=== PATIENT | female | born 1970 | race Two or more races ===

== ENCOUNTER 2020-08-31 17:51 | Emergency (ER) | payer OTHER, SELFPAY ==
--- NOTE | 2020-08-31 | XR_ITS ---
EXAMINATION: LEFT ANKLE, LEFT FOOT CLINICAL INFORMATION: Pain and swelling COMPARISON: None TECHNIQUE: 2 views left ankle, 3 views left foot FINDINGS: Ankle: Marked soft tissue swelling is present laterally. No fracture is seen. The ankle mortise appears stable. Foot: No soft tissue swelling fractures or dislocation is seen. Some mild osteophytes are seen arising from the superior surface of the navicular and cuboid. IMPRESSION: Lateral soft tissue swelling of the ankle without bony fracture seen.
[2020-08-31 19:53] VITALS: BP 211/102; PULSE 75; RESP 16; TEMP 36.7; O2SAT 100; BMI 43.5
[2020-08-31 20:09] VITALS: BP 156/75; PULSE 76; RESP 20; TEMP 36.6; O2SAT 98
--- NOTE | 2020-08-31 20:11 | ED_ITS ---
HPI - Extremity Injury (Lower) General Chief Complaint: Extremity Injury, Lower Stated Complaint: Ankle Pain Time Seen by Provider: 08/31/20 20:11 Source: patient Mode of arrival: ambulatory Limitations: no limitations History of Present Illness HPI Narrative: Patient was just walking and heard a snap complaint: ankle injury Injury: Left: ankle (lateral malleolous) Type of Injury: unknown Place: other (store) Severity: moderate Context: walking Associated symptoms: snap/pop sensation Related Data Allergies Allergy/AdvReac Type Severity Reaction Status Date / Time No Known Allergies Allergy Verified 08/31/20 20:43 Review of Systems Constitutional: Constitutional: Reports no additional constitutional complaints Eyes: Eyes: Reports no additional eye complaints ENT: Denies dizziness Cardiovascular: Cardiovascular: Reports no additional cardiovascular complaints Respiratory: Respiratory: Reports as per HPI Gastrointestinal: Gastrointestinal: Reports no additional gastrointestinal complaints Genitourinary: Genitourinary: Reports no additional female genitourinary complaints Musculoskeletal: Musculoskeletal: Reports no additional musculoskeletal complaints Integumentary/Breasts: Skin/Breast: Denies rash Neurologic: Reports system reviewed and no additional complaints, except as documented, Denies dizziness and Denies Sensory deficit (Neuro) Psychiatric: Psychiatric: Denies anxiety [facility] Past Medical History Medical History (Updated 08/31/20 @ 21:09 by Chris Mccoy MD) Hypertension Social History Social History Alcohol intake: never Smoked in Last 30 Days: No Use of substances other than those prescribed or required for medical reasons: No Advance Directives: No Physical Exam Vital Signs and I&O and Narrative: Vital Signs and I&O: Vital Signs Temp 97.9 F 08/31/20 20:09 Pulse 76 08/31/20 20:09 Resp 20 08/31/20 20:09 BP 156/75 H 08/31/20 20:09 Pulse Ox 98 08/31/20 20:09 Intake & Output 08/31/20 08/31/20 09/01/20 06:59 18:59 06:59 Weight 122.47 kg Body Mass Index 43.5 Const: General: healthy appearing Nutritional Appearance: obese Orientation/consciousness: oriented to person and patient oriented x3 Limitations: no limitations HENMT: Head: Yes normal to inspection Ears: external ears normal General nose exam: Normal external nose present Mouth: Normal oral and palatal mucosa present and oropharynx normal Throat: Yes posterior oropharynx normal Eyes: General: appearance normal, both eyes and all related structures Neck: Other: supple Neck: Yes normal visual inspection Chest: Chest palpation & inspection: normal inspection of the chest Resp: Auscultation: clear to auscultation bilaterally Cardio: Jugular venous distension: no JVD Rate: regular rate Rhythm: regular rhythm Heart sounds: S1 normal heart sound present and S2 normal heart sound present GI: Inspection: Yes normal to inspection Palpation (GI): Soft to palpation, nontender and No hepatosplenomegaly present Auscultation: normal bowel sounds : General: Yes no CVA tenderness Back/Spine/Pelvis: Back: no CVA tenderness Skin: General skin exam: no rashes or lesions noted Neuro: General: oriented to person and patient oriented x3 Cranial nerves: Yes CN's II-XII intact bilaterally Motor exam (neuro): 5/5 motor strength present throughout Sensory Exam: No Sensory deficit (Neuro) Extrem: Other: lateral malleoulous tenderness and base of 5th tenderness Psych: Appearance: grossly normal Course Reevaluation(s) Reevaluation #1: no fracture Time: 21:07 MDM - Extremity Injury (Lower) MDM Narrative Medical decision making narrative: foot contusion Differential Diagnosis Differential diagnosis: Likely ankle sprain and strain Discharge Plan Discharge Clinical Impression: Ankle sprain and strain Instructions: Ankle Sprain (ED), Contusion in Adults (ED)
== END 2020-08-31 22:25 | disposition home or self-care (01) ==
PROVIDERS: Emergency Provider Emergency Medicine; PCP Hospitalist
DX: S93.402A Sprain of unspecified ligament of left ankle, initial encounter (principal); S96.912A Strain of unspecified muscle and tendon at ankle and foot level, left foot, initial encounter; X58.XXXA Exposure to other specified factors, initial encounter; I10 Essential (primary) hypertension; Y93.9 Activity, unspecified; Y92.9 Unspecified place or not applicable; Y99.9 Unspecified external cause status
CPT/HCPCS: 73610; 73630; 99283; 99284

== ENCOUNTER 2020-09-21 08:24 | Outpatient (REF) | payer OTHER, SELFPAY ==
[2020-09-21 09:50] LABS: Hematocrit 41.1 % (37-47); Hemoglobin 12.6 g/dl (12.0-16.0); Mean Corpuscular HGB Conc 30.7 g/dl (31.0-35.0); Mean Corpuscular Volume 81.7 fL (80-98); Mean Platelet Volume 9.9 fL (9.4-12.3); Platelet Count 343 X10*3/uL (160-400); Red Blood Count 5.03 X10*6/uL (4.20-5.50); White Blood Count 10.9 X10*3/uL (4.8-10.8)
[2020-09-21 10:19] LABS: Alanine Aminotransferase 17 U/L (0-31); Albumin Level 3.8 g/dL (3.5-5.0); Alkaline Phosphatase 119 U/L (39-117); Anion Gap 9 (12-20); Aspartate Amino Transferase 19 U/L (5-31); Bilirubin Direct 0.2 mg/dL (0.0-0.5); Bilirubin Total 0.4 mg/dL (0.0-1.0); Blood Urea Nitrogen 11 mg/dL (9-16); Calcium 8.6 mg/dL (8.4-10.2); Carbon Dioxide 29 mmol/L (22-29); Chloride 103 mmol/L (96-108); Cholesterol 218 mg/dL; Estimated Glomerular Filt Rate > 60; Glucose Fasting 93 mg/dL (60-99); HDL Cholesterol 49 mg/dL; LDL Cholesterol Calculated 140 mg/dl; Potassium 4.4 mmol/l (3.3-5.1); Sodium 137 mmol/L (135-145); Total Protein 6.8 g/dL (6.5-8.0); Triglycerides 146 mg/dL
[2020-09-21 10:34] LABS: HCG Quantitative < 2 mIU/mL; Thyroid Stimulating Hormone 3.13 mIU/mL (0.32-4.0)
[2020-09-21 10:38] LABS: TSH reflex Free T4 3.07 mIU/mL (0.32-4.0)
[2020-09-21 10:56] LABS: Glucose Urine UA NEG (NEG); Leukocyte Esterase Urine NEG (NEG); Nitrite Urine NEG (NEG); PH 5.5 (5.0-8.0); Specific Gravity - Urine 1.025 (1.005-1.025); Urine Blood TRACE (NEG); Urine Ketones NEG (NEG); Urine Protein NEG (NEG-TRACE)
[2020-09-21 10:59] LABS: Appearance Urine CLEAR; Color Urine YELLOW
[2020-09-21 11:23] LABS: Bacteria Urine TRACE /LPF; RBC Urine 0-2 /HPF (0); Squamous Epithelial Cell Urine 2+ /LPF; WBC Urine 0 /HPF (0-4)
[2020-09-22 16:46] LABS: Follicle Stimulating Hormone 0.9 mIU/mL; Lutenizing Hormone 2.6 mIU/mL
== END 2020-09-21 08:25 | disposition home or self-care (01) ==
LOC: HO.LAB 08:24
PROVIDERS: PCP Hospitalist; Visit Provider Obstetrics & Gynecology
DX: N92.1 Excessive and frequent menstruation with irregular cycle (principal)
CPT/HCPCS: 36415; 80048; 80061; 80076; 81001; 81003; 83001; 83002; 84443; 84702; 85027

== ENCOUNTER 2020-09-24 15:12 | Outpatient (REF) | payer OTHER, SELFPAY ==
--- NOTE | 2020-09-24 15:25 | US_ITS ---
EXAMINATION: ULTRASOUND PELVIS. CLINICAL INFORMATION: Excessive and frequent menstruation. COMPARISON: None TECHNIQUE: Transabdominal and transvaginal ultrasound of the pelvis is performed. FINDINGS: The uterus is anteverted, anteflexed and homogeneous echotexture. It measures 13.6 cm in length, 5.2 cm in AP and 7.2 cm in transverse dimension. There is a bicornuate uterus with a right endometrial thickness measuring 0.8 and left endometrial thickness measuring 1.2 cm. Minimal fluid is seen within the endometrial canal. There are several anechoic nabothian cysts in the cervix. Previously seen fibroid is not well visualized. Right ovary measures 3.3 x 2.6 x 2.8 cm. Previously measured 2.6 x 1.9 x 2.3 cm. It is unremarkable. Left ovary measures 2.3 x 1.4 x 2.0 cm. It is unremarkable. There is no free fluid in the cul-de-sac. US/US pelvic complete IMPRESSION: 1. Bicornuate uterus with minimal fluid in the endometrial canal. 2. Unremarkable ovaries.
--- NOTE | 2020-09-24 15:25 | US_ITS ---
EXAMINATION: ULTRASOUND PELVIS. CLINICAL INFORMATION: Excessive and frequent menstruation. COMPARISON: None TECHNIQUE: Transabdominal and transvaginal ultrasound of the pelvis is performed. FINDINGS: The uterus is anteverted, anteflexed and homogeneous echotexture. It measures 13.6 cm in length, 5.2 cm in AP and 7.2 cm in transverse dimension. There is a bicornuate uterus with a right endometrial thickness measuring 0.8 and left endometrial thickness measuring 1.2 cm. Minimal fluid is seen within the endometrial canal. There are several anechoic nabothian cysts in the cervix. Previously seen fibroid is not well visualized. Right ovary measures 3.3 x 2.6 x 2.8 cm. Previously measured 2.6 x 1.9 x 2.3 cm. It is unremarkable. Left ovary measures 2.3 x 1.4 x 2.0 cm. It is unremarkable. There is no free fluid in the cul-de-sac. US/US transvaginal IMPRESSION: 1. Bicornuate uterus with minimal fluid in the endometrial canal. 2. Unremarkable ovaries.
== END 2020-09-24 15:13 | disposition home or self-care (01) ==
LOC: HO.US 15:12
PROVIDERS: PCP Hospitalist; Visit Provider Obstetrics & Gynecology
DX: N92.1 Excessive and frequent menstruation with irregular cycle (principal)
CPT/HCPCS: 76830; 76856

== ENCOUNTER 2020-10-29 10:18 | Outpatient (REF) | payer OTHER, SELFPAY ==
[2020-10-29 14:44] LABS: CT PCR NOT DETECTED (Not Detect.); NG PCR NOT DETECTED (Not Detect.)
== END 2020-10-29 10:19 | disposition home or self-care (01) ==
LOC: HO.LAB 10:18
PROVIDERS: Visit Provider Obstetrics & Gynecology
DX: N92.1 Excessive and frequent menstruation with irregular cycle (principal)
CPT/HCPCS: 58100; 81025; 87491; 87591; 88305; 99212

== ENCOUNTER → 2020-11-15 10:14 | Outpatient (BNVA) | payer OTHER, SELFPAY | PROVIDERS: Visit Provider Obstetrics & Gynecology | DX: Z76.89 Persons encountering health services in other specified circumstances (principal) ==

== ENCOUNTER 2020-11-26 11:43 | Outpatient (REF) | payer OTHER, SELFPAY ==
--- NOTE | 2020-11-26 11:47 | MM_ITS ---
EXAMINATION: MM SCREENING DIGITAL BREAST TOMOSYNTHESIS, BILATERAL CLINICAL INFORMATION: Screening. Asymptomatic. The lifetime risk of breast cancer based on the Tyrer-Cuzick Model is 13%. COMPARISON: Mammography: 08/20/2019, 08/16/2018, 06/09/2017 TECHNIQUE: Digital breast tomosynthesis is performed in both the craniocaudal and mediolateral oblique views along with computer-aided detection (CAD). Synthesized 2D images are generated from the tomosynthesis. Additional right CC view is provided. FINDINGS: There are scattered areas of fibroglandular density (ACR BI-RADS breast composition Category b). There are no significant masses, abnormal calcifications, or other abnormalities. Parenchymal pattern is similar to prior studies. No significant changes. MM/MM tomosynthesis screening BI IMPRESSION: No mammographic evidence of malignancy. ASSESSMENT: BI-RADS 1: Negative RECOMMENDATION: Routine annual mammography screening. This patient's information was entered into a reminder system with a target due date for their next mammogram.
== END 2020-11-26 11:44 | disposition home or self-care (01) ==
LOC: HO.MAMMO 11:43
PROVIDERS: PCP Hospitalist; Visit Provider Hospitalist
DX: Z12.31 Encounter for screening mammogram for malignant neoplasm of breast (principal)
CPT/HCPCS: 77063; 77067

== ENCOUNTER → 2020-12-03 10:13 | Outpatient (BNVA) | payer OTHER, SELFPAY | PROVIDERS: PCP Internal Medicine; Visit Provider Obstetrics & Gynecology | DX: Z01.818 Encounter for other preprocedural examination (principal); N92.1 Excessive and frequent menstruation with irregular cycle | CPT/HCPCS: 99212 ==

== ENCOUNTER 2020-12-07 08:19 | Day surgery (SDC) | payer OTHER, SELFPAY ==
[2020-11-29 13:05] VITALS: BMI 43.5
--- NOTE | 2020-12-05 14:17 | P.CONAN_ITS ---
Documented by User: Ashley Miller 12/05/20 14:19 HPI - Anesthesia Eval Consult details Narrative: 50yo F for D&C Diagnostic Hysteroscopy,possible polypectomy/myomectomy [facility] Past Medical History Medical History Anxiety Hypertension Obesity PCOS (polycystic ovarian syndrome) Family History Family History Father Heart problem Mother Stroke Diabetes Son Asthma Surgical History Surgical History History of History of cholecystectomy History of dilatation and curettage Social History Social History Are you a primary healthcare liaison to a significant other at home: No Do you presently have visiting nurse or other home services: No Alcohol intake: never Smoking Status: Never smoker Use of substances other than those prescribed or required for medical reasons: No Have you been hit, kicked, punched, or otherwise hurt by someone within the past year? If so, by whom?: No Advance Directives: No Advance Directives Information Provided: No Advance Directives on File: No Recently lost weight without trying: No Sexual orientation: Straight/Heterosexual Gender identity: female Meds Allergies Allergy/AdvReac Type Severity Reaction Status Date / Time No Known Allergies Allergy Verified 12/07/20 08:39 Exam Exam Date and Time: December 05, 2020 1417 Height,Weight and Vital Signs: Height 5 ft 6 in Weight 122.47 kg Pertinent Lab Results Pertinent Lab Results: Laboratory Tests 09/21/20 09/21/20 08:58 09:11 WBC 10.9 H Hgb 12.6 Hct 41.1 Plt Count 343 Sodium 137 Potassium 4.4 Chloride 103 Carbon Dioxide 29 BUN 11 Creatinine 0.70 Assessment and Plan Assessment Anesthesia Assessment: Chart Reviewed Documented by User: Marlene Diaz 12/07/20 09:09 [facility] Past Medical History Medical History Anxiety Hypertension Obesity PCOS (polycystic ovarian syndrome) Family History Family History Father Heart problem Mother Stroke Diabetes Son Asthma Surgical History Surgical History History of History of cholecystectomy History of dilatation and curettage Social History Social History Are you a primary healthcare liaison to a significant other at home: No Do you presently have visiting nurse or other home services: No Alcohol intake: never Smoking Status: Never smoker Use of substances other than those prescribed or required for medical reasons: No Have you been hit, kicked, punched, or otherwise hurt by someone within the past year? If so, by whom?: No Advance Directives: No Advance Directives Information Provided: No Advance Directives on File: No Recently lost weight without trying: No Sexual orientation: Straight/Heterosexual Gender identity: female Meds Allergies Allergy/AdvReac Type Severity Reaction Status Date / Time No Known Allergies Allergy Verified 12/07/20 08:39 Exam Airway Mallampati Class: II TM Dist: >3cm Neck ROM: Full Assessment and Plan Assessment Anesthesia Assessment: Anesthesia Plan Discussed and Chart Reviewed Final Anesthetic Review NPO: Yes ASA Class: II Final Preanesthetic Review: No Changes in Pt Med Stat, Meds/Allgs Chart Reviewed, Consent Obtained/Reviewed and Anes Risks/Benef Reviewed Patient Risk: Low Procedure Risk: Low Assessment/Block/Sedation in SS: Assess/Block/Sedation-SS Anesthetic Plan Anesthetic Plan: MAC: Disposition: Standard PACU
[2020-12-07 08:48] VITALS: BP 151/65; PULSE 87; RESP 16; TEMP 36.6; O2SAT 99
--- NOTE | 2020-12-07 08:49 | MHC.SHP ---
Pre-Procedural Eval Section A The patient is an INPATIENT: No Changes since office visit: No Cold of Flu in the past 2 weeks, No New Medical Problems, No Changes in Medication and No Patient answered all questions The History & Physical has been completed within 30 days and I have reviewed it.: Yes Section B Chief Complaint: menstruation with irregular cycle Allergies: Allergies Allergy/AdvReac Type Severity Reaction Status Date / Time No Known Allergies Allergy Verified 12/07/20 08:39 Plan Diagnosis/Plan: Unchanged I have reviewed the history and physical and performed a pertinent physical examination on my patient. No changes have occurred unless specified.
[2020-12-07 08:52] LABS: UPreg QC Valid YES; Urine Pregnancy NEGATIVE (NEGATIVE)
--- NOTE | 2020-12-07 09:40 | PM.OP ---
Brief Operative Note Date of Service: 12/07/20 Pre-op diagnosis: Menometrorrhagia Post-op diagnosis: same Procedure: Hysteroscopy D&C Surgeon: Seymour Galvan MD Anesthesia: MAC Estimated blood loss (mL): 0 Pathology: other (Endometrial Scrapping.) Condition: stable Disposition: PACU
--- NOTE | 2020-12-07 09:41 | W.PM.OPN ---
Operative Note Operative Note Date of Service: 12/07/20 Narrative: Preop Diagnosis: MENOMETRORRHAGIA Operation: Diagnostic Hysteroscopy, Dilataion & Curettage and polypectomy Post Op Diagnosis: same QBL: Minimal Anesthesia: MAC Surgeon: Seymour Galvan MD Senior Software Engineer: None Complication: None Pathology: Endometrial Scrapings Complication: None Pathology: Endometrial Scrapings Procedure: The patient was put in the dorsal lithotomy position, scrubbed, and draped in the usual manner. A sterile speculum was inserted in the patient's vagina. The anterior lip of the cervix was grasped with a single tooth tenaculum. The cervix was dilated up to 5 mm, then the scope was inserted in the patient's uterus. Inspection revealed normal endometrial cavity with no evidence of pathology. Endometrial scrapings was done with no complications. All instruments were taken out of the patient uterine and vaginal cavity. The single tooth tenaculum was removed and homeostasis was assured using pressure,. The patient tolerated the procedure well and was transferred to the PACU in a stable condition.
[2020-12-07 09:46] VITALS: BP 150/75; PULSE 88; RESP 16; TEMP 36.3; O2SAT 96
[2020-12-07 09:50] VITALS: BP 146/64; PULSE 82; RESP 16; O2SAT 96
[2020-12-07 10:00] VITALS: BP 130/72; PULSE 78; RESP 16; TEMP 36.1; O2SAT 98
--- NOTE | 2020-12-07 10:44 | HO.POSTANES ---
Post Anesthesia Evaluation Post Anesthesia Evaluation Vital Signs: Vital Signs Temp Pulse Resp BP Pulse Ox 12/07/20 10:00 97 F 78 16 130/72 98 12/07/20 09:50 82 16 146/64 H 96 12/07/20 09:46 97.4 F 88 16 150/75 H 96 12/07/20 08:48 97.8 F 87 16 151/65 H 99 Anesthesia: Monitored Mental Status: Awake Pain Control: Satisfactory Nausea/Vomiting: None Hydration: Adequate Anesthesia-Related Issues: No Anes. Related Issues
== END 2020-12-07 10:45 | disposition home or self-care (01) ==
PROVIDERS: Nurse Practitioner; Visit Provider Obstetrics & Gynecology
PROC: 0UDB8ZX Extraction of Endometrium, Via Natural or Artificial Opening Endoscopic, Diagnostic (ICD-10-PCS; CPT 58558; principal; 2020-12-07 10:10)
DX: N92.1 Excessive and frequent menstruation with irregular cycle (principal); N85.8 Other specified noninflammatory disorders of uterus; E28.2 Polycystic ovarian syndrome; I10 Essential (primary) hypertension; F41.9 Anxiety disorder, unspecified; Z90.49 Acquired absence of other specified parts of digestive tract
CPT/HCPCS: 58558; 81025; 88305; J1100; J2250; J2405; J3010

== ENCOUNTER → 2020-12-20 12:22 | Outpatient (BNVA) | payer OTHER, SELFPAY | PROVIDERS: PCP Internal Medicine; Visit Provider Obstetrics & Gynecology ==

== ENCOUNTER 2021-02-20 10:15 | Outpatient (REF) | payer OTHER, SELFPAY ==
--- NOTE | ~2021-02-20 | XR_ITS ---
EXAMINATION: XR ANKLE, LEFT CLINICAL INFORMATION: Pain left ankle and foot. COMPARISON: Radiographs left ankle and foot 08/31/2020 TECHNIQUE: AP, lateral, and mortise views of the left ankle. FINDINGS: Bony mineralization is normal. There is no fracture or dislocation or destructive process. The tibial talar joint shows no narrowing or erosive change. Subtalar joint is unremarkable. There is no visible osteochondral lesion talar dome. Borderline posterior calcaneal spur. Base fifth metatarsal unremarkable. XR/XR ankle LT min 3V IMPRESSION: No fracture, destructive process, or arthropathy.
== END 2021-02-20 10:16 | disposition home or self-care (01) ==
LOC: HO.XRAY 10:15
PROVIDERS: PCP Hospitalist; Visit Provider Hospitalist
DX: M25.572 Pain in left ankle and joints of left foot (principal)
CPT/HCPCS: 73610

== ENCOUNTER 2021-03-18 11:51 | Emergency (ER) | payer OTHER, SELFPAY ==
--- NOTE | ~2021-03-18 | XR_ITS ---
EXAMINATION: XR CHEST CLINICAL INFORMATION: Cough COMPARISON: None TECHNIQUE: Frontal view of the chest was obtained. FINDINGS: No significant abnormality is noted involving the heart, lungs, mediastinum, bony thorax or soft tissues. XR/XR chest 1V IMPRESSION: Unremarkable chest exam
[2021-03-18 12:19] VITALS: BP 189/91; PULSE 87; RESP 16; TEMP 36.5; O2SAT 99; BMI 45.1
--- NOTE | 2021-03-18 12:32 | ED_ITS ---
HPI - SOB/Dyspnea General Chief Complaint: Dyspnea Stated Complaint: covid+ - diff breathing Time Seen by Provider: 03/18/21 12:29 Source: patient Mode of arrival: ambulatory Limitations: no limitations History of Present Illness HPI Narrative: 50-year-old female walked in for evaluation of coughing and difficulty breathing. 50-year-old female who was diagnosed positive for COVID 2 weeks ago, patient for the past 4 days has been worsening of coughing with productive yellow thick sputum, mild shortness of breath. No recent travel or prolonged immobilization, no history of PE or DVT. Patient noted to be hypertensive in the emergency department patient did not take her lisinopril 30 mg today. Related Data Previous Rx's Medication Instructions Recorded lisinopril 30 mg tablet 30 mg PO DAILY 90 Days #90 tab 10/10/20 progesterone micronized 200 mg 200 mg PO BEDTIME 10 Days #10 cap 12/20/20 capsule albuterol sulfate [ProAir HFA] 1 inh INHALATION QID PRN #8.5 g 03/18/21 Allergies Allergy/AdvReac Type Severity Reaction Status Date / Time No Known Allergies Allergy Verified 03/18/21 12:22 Review of Systems Review of Systems: All other systems are reviewed and are negative Constitutional: Reports as per HPI and Reports no additional constitutional complaints Eyes: Reports as per HPI and Reports no additional eye complaints Reports system reviewed and no additional complaints, except as documented Cardiovascular: Reports as per HPI and Reports no additional cardiovascular complaints Respiratory: Reports as per HPI and Reports no additional respiratory complaints Gastrointestinal: Reports as per HPI and Reports no additional gastrointestinal complaints Genitourinary: Reports no additional female genitourinary complaints Musculoskeletal: Reports no additional musculoskeletal complaints Skin/Breast: Reports system reviewed and no additional complaints, except as docu Psychiatric: Reports no additional psychiatric complaints Endocrine: Reports no additional endocrine complaints Hematologic/Lymphatic: Reports no additional hematologic/lymphatic complaints Allergic/Immunologic: Reports no additional allergic/immunologic complaints Reports system reviewed and no additional complaints, except as documented and Reports Abnormal speech present [facility] Past Medical History Medical History Anxiety Hypertension Obesity PCOS (polycystic ovarian syndrome) Surgical History History of History of cholecystectomy History of dilatation and curettage Family History Family History Father Heart problem Mother Stroke Diabetes Son Asthma Social History Social History Alcohol intake: never Smoking Status: Never smoker Advance Directives: No Advance Directives Information Provided: No Sexual orientation: Straight/Heterosexual Gender identity: female Physical Exam Vital Signs: Vital Signs: Last Vital Signs Temp 97.7 F 03/18/21 12:19 Pulse 87 03/18/21 12:19 Resp 16 03/18/21 12:19 BP 189/91 H 03/18/21 12:19 Pulse Ox 99 03/18/21 12:19 Body Mass Index 45.1 Vital signs have been reviewed as appeared to be correct. Blood pressure elevated. Heart rate normal. Respiration rate normal. Temperature normal. Oxygen saturation normal. Appearance: Alert. Oriented X3. No acute distress. Head: Normal external exam. Normocephalic. Atraumatic. No Fernandez signs noted. No raccoon eyes noted Eyes: PERRLA. EOMI. Conjunctiva and sclera normal. Eyelids normal. ENT: TM's Normal. Pharynx normal. Uvula midline. Moist mucous membranes. No trismus noted. No drooling noted. No muffled voice noted. Neck: Normal inspection. Neck supple. FROM. No adenopathy. Thyroid Normal. No meningeal signs. No neck mass noted. CVS: Normal heart rate and rhythm. Heart sound normal. No murmurs noted. Pulses normal throughout. Respiratory: No respiratory distress. Painless inspiration. Breath sounds normal. Mild expiratory wheezes diffusely bilaterally, no rales, or rhonchi noted. Chest nontender. No accessory muscle usage noted or decreased air movement noted. Abdomen: Soft and nontender. Bowel sounds normal in all 4 quadrants. No distention noted. No organomegaly noted. No visible injury noted. Back: No CVA tenderness. Full range of motion noted. Skin: Skin warm and dry. Normal skin color. Normal skin turgor. No rashes/lesions/lacerations noted. Extremities: No lower extremity edema. Extremities exhibit normal range of motion. Extremities nontender. Neuro: Oriented X 3. No motor deficit. No sensory deficit. Reflexes normal. Course Course Course Narrative: Assessment and plan. 50-year-old female diagnosed with COVID infection 2 weeks ago, came in today with increased congestion and coughing. Chest x-ray is not showing superimposed bacterial pneumonia. Patient feels better with bronchial dilator will discharge home with bronchodilator. Will give a dose of lisinopril (patient's home medication she did not take today). MDM - SOB/Dyspnea Imaging Data Chest x-ray: Radiologist's impression: No acute pathology. Discharge Plan Discharge Clinical Impression: Pneumonia due to 2019 novel coronavirus Patient Disposition: Home, Self-Care Instructions: COVID-19 (Coronavirus Disease 2019) (ED) Prescriptions: New albuterol sulfate [ProAir HFA] 90 mcg/actuation HFA aerosol inhaler 1 inh inhalation QID PRN (Reason: shortness of breath or wheezing) Qty: 8.5 RF: 0 No Action lisinopril 30 mg tablet 30 mg PO DAILY 90 Days Qty: 90 RF: 1 progesterone micronized [Prometrium] 200 mg capsule 200 mg PO BEDTIME 10 Days Qty: 10 RF: 6 Referrals: Yadira Hernandez NP [Primary Care Provider] - 2 days
[2021-03-18] MEDS: Albuterol Sulfate 90 MCG 8 GM INHALER 2 PUFF INHALE (12:35)
== END 2021-03-18 13:30 | disposition home or self-care (01) ==
PROVIDERS: Emergency Provider Emergency Medicine; PCP Hospitalist
DX: U07.1 COVID-19 (principal); J12.82 Pneumonia due to coronavirus disease 2019; I10 Essential (primary) hypertension; Z79.899 Other long term (current) drug therapy
CPT/HCPCS: 71045; 99283; 99284

== ENCOUNTER 2021-06-22 00:48 | Emergency (ER) | payer OTHER, SELFPAY ==
[2021-06-22 00:58] VITALS: BP 177/81; PULSE 80; RESP 14; TEMP 36.6; O2SAT 100; BMI 42.8
--- NOTE | 2021-06-22 01:12 | ECG_ITS ---
Test Reason : PALPITATIONS Blood Pressure : / mmHG Vent. Rate : 080 BPM Atrial Rate : 080 BPM P-R Int : 166 ms QRS Dur : 084 ms QT Int : 380 ms P-R-T Axes : 024 026 042 degrees QTc Int : 438 ms Sinus rhythm with occasional Premature ventricular complexes Otherwise normal ECG When compared with ECG of 01-SEP-2019 10:31, Premature ventricular complexes are now Present Referred By: Angela Cisneros Electronically Signed By:MORENITA VALLES MD
--- NOTE | 2021-06-22 01:17 | ED.ARRPALP ---
HPI - Arrhythmia/Palpitations General Chief Complaint: Arrhythmia/Palpitations Stated Complaint: heart palpitations, SoB, tongue discoloration Time Seen by Provider: 06/22/21 01:12 Source: patient Mode of arrival: ambulatory Limitations: no limitations History of Present Illness HPI narrative: Patient comes to the emergency room complaining of symptomatic palpitations. Patient states that every so many seconds, she feels an extra palpitation. Patient denies chest pain, no shortness of breath. Patient also complaining of a whitish hue to the back of the tongue. No painful . Related Data Previous Rx's Medication Instructions Recorded progesterone micronized 200 mg 200 mg PO BEDTIME 10 Days #10 cap 12/20/20 capsule albuterol sulfate [ProAir HFA] 1 inh INHALATION QID PRN #8.5 g 03/18/21 lisinopril 30 mg tablet 30 mg PO DAILY 90 Days #90 tab 03/29/21 metoprolol tartrate 25 mg PO BID #30 tab 06/22/21 nystatin 1 ml PO DAILY #60 ml 06/22/21 Allergies Allergy/AdvReac Type Severity Reaction Status Date / Time No Known Allergies Allergy Verified 03/18/21 12:22 Review of Systems Review of Systems: Constitutional : No Weight loss, No Fever, No Chills, No Night Sweats, No Fatigue, No Malaise ENT/Mouth : No Hearing loss, No Ear Pain, No Nasal Congestion, No Sinus Pain, No Hoarseness, No sore throat, No Rhinorrhea, No Swallowing Difficulty, complaining of whitish hue to the back of the tongue Eyes: No Eye Pain, No Swelling, No Redness, No Foreign Body, No Discharge, No Vision Changes Cardiovascular : No Chest Pain, No SOB, No Dyspnea on Exertion, No Orthopnea, No Edema, complaining of occasional Palpitations Respiratory : No Cough, No Sputum, No Wheezing, No Smoke Exposure, No Dyspnea Gastrointestinal : No Nausea, No Vomiting, No Diarrhea, No Constipation, No abdominal Pain, No Hematochezia, No Melena Genitourinary : no irregular bleeding, No Dysuria, No Urinary Frequency, No Hematuria, No Urinary Incontinence, No Urgency, No Flank Pain, No Urinary Flow Changes, No Hesitancy Musculoskeletal : No joint pain, No Myalgias, No Joint Swelling Skin : No Skin Lesions, No rash Neuro : No Weakness, No Numbness, No Paresthesias, No Loss of Consciousness, No Dizziness, No Headache Psych : No Anxiety/Panic, No Depression, No SI/HI/AH/VH, No Social Issues, Heme/Lymph: No Bruising, No Bleeding,No Lymphadenopathy Endocrine : No Polyuria, No Polydipsia, No Temperature Intolerance [facility] Past Medical History Medical History Anxiety Hypertension Obesity PCOS (polycystic ovarian syndrome) Surgical History History of History of cholecystectomy History of dilatation and curettage Family History Family History Father Heart problem Mother Stroke Diabetes Son Asthma Social History Social History Are you a primary medicare insurance specialist to a significant other at home: No Do you presently have visiting nurse or other home services: No Alcohol intake: unknown Patient Tobacco Use Status: Tobacco use Unknown Use of substances other than those prescribed or required for medical reasons: Unknown Advance Directives: No Advance Directives Information Provided: No Patient : No Sexual orientation: Straight/Heterosexual Gender identity: female Physical Exam Vital Signs: Vital Signs: Last Vital Signs Temp 97.9 F 06/22/21 00:58 Pulse 83 06/22/21 02:00 Resp 19 06/22/21 02:00 BP 162/86 H 06/22/21 02:00 Pulse Ox 99 06/22/21 02:00 Body Mass Index 42.8 Appearance: Alert. Oriented X3. No acute distress. Eyes: Pupils equal, round and reactive to light. ENT: Pharynx normal. Mild candidiasis in the tongue Neck: Normal inspection. Neck supple. No lymph nodes noted. No crepitus CVS: Normal heart rate and rhythm. Pulses normal. S1-S2, occasional PVCs seen on the monitor, heard on auscultation, and symptomatic to the patient Respiratory: No respiratory distress. Breath sounds normal. No Wheezing. No rales Abdomen: Soft and nontender. No rigidity. No distention. good BS x4 Skin: Skin warm and dry. Normal skin color. Normal skin turgor. Extremities: No lower extremity edema. No lower extremity edema. No Lacerations. No Rash Neuro: Oriented X 3. No motor deficit. No sensory deficit. Moving all extermities. No slurred speech. Course Course Course Narrative: Discussed the labs with the patient. Patient continues having symptomatic PVCs. Patient will be started on metoprolol tartrate 25 mg b.i.d.. Patient already takes lisinopril for blood pressure, her blood pressure is high enough to start metoprolol. Currently 180 systolic. Other than the PVCs, patient has no chest pain, no shortness of breath. MDM - Arrhythmia/Palpitations Lab Data Result diagrams: 06/22/21 01:49 06/22/21 01:49 Labs: Lab Results 06/22/21 06/22/21 06/22/21 Range/Units 01:49 01:49 01:49 WBC 8.8 (4.8-10.8) X10*3/uL RBC 4.83 (4.20-5.50) X10*6/uL Hgb 12.3 (12.0-16.0) g/dl Hct 39.3 (37-47) % MCV 81.4 (80-98) fL MCH 25.5 L (27.0-33.0) pg MCHC 31.3 (31.0-35.0) g/dl RDW 16.6 H (11.0-16.0) % Plt Count 314 (160-400) X10*3/uL MPV 9.6 (9.4-12.3) fL Immature Gran % (Auto) 0.2 (0.0-0.4) % Neut % (Auto) 64.7 (45-73) % Lymph % (Auto) 25.5 (20-40) % Brown % (Auto) 7.3 (2-11) % Eos % (Auto) 2.0 (0-4) % Baso % (Auto) 0.3 (0-2) % Lymph # (Auto) 2.3 (1.2-4.9) X10*3/uL Brown # (Auto) 0.6 (0.1-1.2) X10*3/uL Eos # (Auto) 0.2 (0.0-0.4) X10*3/uL Baso # (Auto) 0.0 (0.0-0.2) X10*3/uL Abs Immat Gran (auto) 0.02 (0.00-0.03) X10*3/uL Absolute Neuts (auto) 5.7 (2.0-8.3) X10*3/uL Absolute Nucleated RBC 0.000 (0.0-0.012) X10*3/uL Nucleated RBC % (auto) 0.0 (0.0-0.2) /100WBC Sodium 141 (135-145) mmol/L Potassium 4.1 (3.3-5.1) mmol/L Chloride 106 (96-108) mmol/L Carbon Dioxide 28 (22-29) mmol/L Anion Gap 11 L (12-20) BUN 14 (9-16) mg/dL Creatinine 0.82 (0.5-1.4) mg/dL Estim Creat Clear Calc 109.7 Estimated GFR > 60 Random Glucose 119 H (60-115) mg/dL Calcium 9.4 D (8.4-10.2) mg/dL Total Bilirubin 0.3 (0.0-1.0) mg/dL Direct Bilirubin < 0.2 (0.0-0.5) mg/dL AST 18 (5-31) U/L ALT 13 (0-31) U/L Alkaline Phosphatase 114 (39-117) U/L Troponin I High Sens 4.7 (<3.5-17.0) ng/L Total Protein 7.2 (6.5-8.0) g/dL Albumin 4.0 (3.5-5.0) g/dL TSH 2.26 (0.32-4.0) uIU/mL ECG Data Attestation: I personally reviewed and interpreted this ECG as follows: (Center rhythm, heart rate 80, multiple PVCs, no ST segment depression or elevation, no T-wave inversion, QTC 438) Discharge Plan Discharge Clinical Impression: Symptomatic PVCs, Candidiasis of mouth Patient Disposition: Home, Self-Care Instructions: Heart Palpitations (ED), Oral Candidiasis (ED) Additional Instructions: Please follow-up with your primary care physician tomorrow. If you have any worsening or new symptoms, please return to the emergency room or call 911 Prescriptions: New nystatin 100,000 unit/mL suspension 1 ml PO DAILY Qty: 60 RF: 0 metoprolol tartrate 25 mg tablet 25 mg PO BID Qty: 30 RF: 0 No Action lisinopril 30 mg tablet 30 mg PO DAILY 90 Days Qty: 90 RF: 1 albuterol sulfate [ProAir HFA] 90 mcg/actuation HFA aerosol inhaler 1 inh inhalation QID PRN (Reason: shortness of breath or wheezing) Qty: 8.5 RF: 0 progesterone micronized [Prometrium] 200 mg capsule 200 mg PO BEDTIME 10 Days Qty: 10 RF: 6 Referrals: Justin Bobby MD [Physician] - 2 days
[2021-06-22 01:51] VITALS: BP 167/82; PULSE 78; RESP 12; O2SAT 100
[2021-06-22 01:54] LABS: Basophils Percent Auto 0.3 % (0-2); Eosinophils Absolute Auto 0.2 X10*3/uL (0.0-0.4); Hematocrit 39.3 % (37-47); Hemoglobin 12.3 g/dl (12.0-16.0); Imm Gran Abs Auto 0.02 X10*3/uL (0.00-0.03); Imm Gran Pct Auto 0.2 % (0.0-0.4); Lymphocytes Absolute Auto 2.3 X10*3/uL (1.2-4.9); Lymphocytes Percent Auto 25.5 % (20-40); Mean Corpuscular HGB Conc 31.3 g/dl (31.0-35.0); Mean Corpuscular Hemoglobin 25.5 pg (27.0-33.0); Mean Corpuscular Volume 81.4 fL (80-98); Mean Platelet Volume 9.6 fL (9.4-12.3); Monocytes Absolute Auto 0.6 X10*3/uL (0.1-1.2); Monocytes Percent Auto 7.3 % (2-11); Neutrophils Absolute Auto 5.7 X10*3/uL (2.0-8.3); Neutrophils Percent Auto 64.7 % (45-73); Platelet Count 314 X10*3/uL (160-400); Red Blood Count 4.83 X10*6/uL (4.20-5.50); Red Cell Distribution Width 16.6 % (11.0-16.0); White Blood Count 8.8 X10*3/uL (4.8-10.8)
[2021-06-22 01:55] LABS: MANUAL DIFF FLAG NO
[2021-06-22 02:00] VITALS: BP 162/86; PULSE 83; RESP 19; O2SAT 99
[2021-06-22 02:17] LABS: Troponin-I High Sensitivity 4.7 ng/L (<3.5-17.0)
[2021-06-22 02:18] LABS: Alanine Aminotransferase 13 U/L (0-31); Alkaline Phosphatase 114 U/L (39-117); Anion Gap 11 (12-20); Aspartate Amino Transferase 18 U/L (5-31); Bilirubin Direct < 0.2 mg/dL (0.0-0.5); Bilirubin Total 0.3 mg/dL (0.0-1.0); Blood Urea Nitrogen 14 mg/dL (9-16); Calcium 9.4 mg/dL (8.4-10.2); Carbon Dioxide 28 mmol/L (22-29); Chloride 106 mmol/L (96-108); Creatinine Clr Calc Pharmacy 109.7; Estimated Glomerular Filt Rate > 60; Glucose Random 119 mg/dL (60-115); Potassium 4.1 mmol/L (3.3-5.1); Sodium 141 mmol/L (135-145); Total Protein 7.2 g/dL (6.5-8.0)
[2021-06-22 02:38] LABS: TSH reflex Free T4 2.26 uIU/mL (0.32-4.0)
[2021-06-22 03:07] VITALS: BP 147/89; PULSE 87
[2021-06-22] MEDS: Metoprolol Tartrate 25 MG TABLET PO (03:07)
== END 2021-06-22 03:26 | disposition home or self-care (01) ==
PROVIDERS: Emergency Provider Emergency Medicine
DX: I49.3 Ventricular premature depolarization (principal); B37.0 Candidal stomatitis; I10 Essential (primary) hypertension
CPT/HCPCS: 36415; 80048; 80076; 84443; 84484; 85025; 93005; 99284; 99285

== ENCOUNTER 2021-07-02 11:54 | Emergency (ER) | payer OTHER, SELFPAY ==
[2021-07-02 12:42] VITALS: BP 178/87; PULSE 76; RESP 18; TEMP 36.9; O2SAT 98; BMI 43.5
--- NOTE | 2021-07-02 13:39 | ED.GENADULT ---
HPI - General Adult General Chief complaint: Neck Pain/Injury Stated complaint: neck pain Time Seen by Provider: 07/02/21 13:25 Source: patient Mode of arrival: ambulatory Limitations: no limitations History of Present Illness HPI narrative: 50-year-old female who presents emergency department for evaluation of right-sided neck pain and spasm. Patient states that she had no injury to her neck. Yesterday she noted some slight pain in the right neck area. This morning, she was unable to move her neck. She points to her right trapezius muscle last localize the pain. She states the pain is a constant, pulling sensation which is 10/10 at its worst. The pain is worse with movement. She denied any numbness, weakness or pain that radiates down her arm. She states that she did have a shooting sensation her left neck which happened this morning but has not resolved. She denied fever, chills, loss of bowel or bladder control. Related Data Previous Rx's Medication Instructions Recorded progesterone micronized 200 mg 200 mg PO BEDTIME 10 Days #10 cap 12/20/20 capsule (Prometrium) albuterol sulfate 90 mcg/actuation 1 inh INHALATION QID PRN #8.5 g 03/18/21 aerosol inhaler (ProAir HFA) lisinopril 30 mg tablet 30 mg PO DAILY 90 Days #90 tab 03/29/21 metoprolol tartrate 25 mg tablet 25 mg PO BID #30 tab 06/22/21 nystatin 100,000 unit/mL oral 1 ml PO DAILY #60 ml 06/22/21 suspension cyclobenzaprine 10 mg tablet 10 mg PO TID PRN #20 tab 07/02/21 ibuprofen 600 mg tablet 600 mg PO Q6H PRN #30 tab 07/02/21 Allergies Allergy/AdvReac Type Severity Reaction Status Date / Time No Known Allergies Allergy Verified 03/18/21 12:22 Review of Systems Review of Systems: Yes all other systems are reviewed and are negative [facility] Past Medical History [facility] Narrative: Social history: She denied tobacco, alcohol, drug use. Medical History Anxiety Hypertension Obesity PCOS (polycystic ovarian syndrome) Surgical History History of History of cholecystectomy History of dilatation and curettage Family History Family History Father Heart problem Mother Stroke Diabetes Son Asthma Social History Social History Are you a primary child day care provider to a significant other at home: No Do you presently have visiting nurse or other home services: No Alcohol intake: unknown Patient Tobacco Use Status: Tobacco use Unknown Advance Directives: No Advance Directives Information Provided: No Patient : No Sexual orientation: Straight/Heterosexual Gender identity: female Physical Exam Vital Signs: Vital Signs: Last Vital Signs Temp 98.4 F 07/02/21 12:42 Pulse 76 07/02/21 12:42 Resp 18 07/02/21 12:42 BP 178/87 H 07/02/21 12:42 Pulse Ox 98 07/02/21 12:42 Body Mass Index 43.5 Const: General: cooperative and no acute distress Orientation/consciousness: oriented to person and oriented to place Limitations: no limitations HENMT: Head: Yes normal to inspection, Yes normocephalic and Yes atraumatic Ears: external ears normal General nose exam: Normal external nose present Face and sinus: Yes normal facial exam Mouth: Normal oral and palatal mucosa present Throat: Yes posterior oropharynx normal Eyes: General: appearance normal, both eyes and all related structures Pupils: Equal, round and reactive pupils present Neck: Neck: Yes normal visual inspection, Yes no lymphadenopathy, Yes trachea midline and Yes tender (Right trapezius muscle with spasm) Chest: Chest palpation & inspection: normal inspection of the chest and normal palpation of entire chest wall Resp: Effort & Inspection: normal respiratory effort and able to speak in complete sentences Auscultation: clear to auscultation bilaterally Cardio: Rate: regular rate Rhythm: regular rhythm Heart sounds: S1 normal heart sound present, S2 normal heart sound present and no murmurs GI: Inspection: Yes normal to inspection Palpation (GI): Soft to palpation, nontender and no guarding Auscultation: normal bowel sounds : General: Yes no CVA tenderness Back/Spine/Pelvis: Back: no CVA tenderness Skin: General skin exam: no rashes or lesions noted Neuro: General: oriented to person and oriented to place Cranial nerves: Yes CN's II-XII intact bilaterally and Yes Equal, round and reactive pupils present Cognition (Neuro): normal cognition Motor exam (neuro): 5/5 motor strength present throughout Extrem: General: Yes normal to inspection Psych: Appearance: grossly normal Speech and movement: Normal speech and movement present Affect: normal affect Attitude: cooperative Thought process: Normal thought process present Thought content: Normal thought content present Course Course Course Narrative: 50-year-old female who presents emergency department for evaluation of right-sided neck pain and spasm. The patient had no acute injury. Physical examination did reveal tenderness there gibson of her right trapezius muscle with a nonfocal neurologic exam. Patient's presentation is consistent with musculoskeletal injury of the trapezius muscle with spasm. The patient was advised to take ibuprofen and Tylenol. She was also prescribed Flexeril 10 mg 3 times a day as needed for pain and spasm. The patient was given verbal and printed instructions prior to discharge. The patient was advised to follow-up with her PCP in 2 days and to return to the emergency department if her symptoms get worse or if she develops any new symptoms that are concerning to her. Discharge Plan Discharge Clinical Impression: Strain of right trapezius muscle Qualifiers: Encounter type: initial encounter Qualified Code(s): S46.811A - Strain of other muscles, fascia and tendons at shoulder and upper arm level, right arm, initial encounter Patient Disposition: Home, Self-Care Instructions: Cervical Sprain (ED) Additional Instructions: The Neck Pain Discharge Instructions: Take Motrin (ibuprofen) 600 mg pills, 1 pills every 6 hours as needed for pain. Take Tylenol (acetaminophen) 500 mg pills, 2 pills every 6 hours as needed for pain. Take Flexeril (cyclobenzaprine) 10 mg pills, 1 pill every 8 hours as needed for pain or muscle spasm. This is a prescription medication. This medication will make you sleepy, therefore do not drive or work while taking this medication. Apply ice for 15 minutes to the area that hurts on your back, then apply a heating a pad on low for 15 minutes. Do this 4-6 times a day to help reduce the pain in your back. Continue with normal activities as tolerated since staying in bed and not moving around will make your pain worse. Please return to the Emergency Department or see your doctor immediately if your symptoms get worse or if you develop any new symptoms that are concerning you. Follow up with your doctor in 2 day. Please read the other printed discharge instructions on neck pain. Prescriptions: New cyclobenzaprine 10 mg tablet 10 mg PO TID PRN (Reason: muscle pain or spasm) Qty: 20 RF: 0 ibuprofen 600 mg tablet 600 mg PO Q6H PRN (Reason: pain) Qty: 30 RF: 0 No Action lisinopril 30 mg tablet 30 mg PO DAILY 90 Days Qty: 90 RF: 1 albuterol sulfate [ProAir HFA] 90 mcg/actuation HFA aerosol inhaler 1 inh inhalation QID PRN (Reason: shortness of breath or wheezing) Qty: 8.5 RF: 0 nystatin 100,000 unit/mL suspension 1 ml PO DAILY Qty: 60 RF: 0 metoprolol tartrate 25 mg tablet 25 mg PO BID Qty: 30 RF: 0 progesterone micronized [Prometrium] 200 mg capsule 200 mg PO BEDTIME 10 Days Qty: 10 RF: 6
== END 2021-07-02 13:52 | disposition home or self-care (01) ==
PROVIDERS: Emergency Provider Emergency Medicine Emergency Medical Services
DX: S46.911A Strain of unspecified muscle, fascia and tendon at shoulder and upper arm level, right arm, initial encounter (principal); M79.621 Pain in right upper arm; X58.XXXA Exposure to other specified factors, initial encounter; Y93.9 Activity, unspecified; Y92.9 Unspecified place or not applicable; Y99.9 Unspecified external cause status; Z79.899 Other long term (current) drug therapy
CPT/HCPCS: 99283

== ENCOUNTER → 2021-07-24 14:36 | Outpatient (BNVA) | payer OTHER, SELFPAY | PROVIDERS: PCP Hospitalist; Visit Provider Nurse Practitioner Family | DX: R00.2 Palpitations (principal); I49.3 Ventricular premature depolarization; I10 Essential (primary) hypertension; E66.9 Obesity, unspecified; Z68.42 Body mass index [BMI] 45.0-49.9, adult | CPT/HCPCS: 99202 ==

== ENCOUNTER → 2021-08-01 11:23 | Outpatient (REF) | payer OTHER, SELFPAY ==
--- NOTE | 2021-08-01 11:27 | HM_ITS ---
Total monitoring time 2 days and 23 hours. Underlying rhythm is sinus. Minimum heart rate 60/minute. Maximum 124/minute. Average 80/minute. No atrial fibrillation or flutter. No AV blocks or pauses. Rare PVCs with a burden of 0.34%. One couplet. Very rare PACs. No patient events. MTDD
== END ==
LOC: HO.CARD 11:23
PROVIDERS: Visit Provider Nurse Practitioner Family
DX: R00.2 Palpitations (principal); I49.3 Ventricular premature depolarization
CPT/HCPCS: 93242

== ENCOUNTER → 2021-08-27 13:18 | Outpatient (REF) | payer OTHER, SELFPAY ==
--- NOTE | 2021-08-27 13:22 | CA_ITS ---
Transthoracic Echocardiogram Patient (Last, First, Middle): Veronique Frias L Gender: Female Date of : 1970 Age: 51 Procedure Date: 08/27/2021 Procedure Type: Transthoracic Echocardiogram Location: OP Height: 167.64 cm Weight: 127.01 kg BSA: 2.31 m2 Heart Rate: bpm BP: 160 / 80 mmHg Wet Machine Operator: VH/CP Referring MD: Milena Vallecillo SISTER SUPERIORFarooq Symptoms: I49.3 - Ventricular premature depolarization Study Quality: Fair ECG Rhythm: Sinus Conclusions: - The left ventricular systolic function is normal. The calculated ejection fraction is 58% by biplane method. - There is mild mitral annular calcification. - The inferior vena cava is dilated and collapses less than 50% with inspiration. Findings Left Ventricle Normal left ventricular cavity size. There is normal left ventricular wall thickness. The left ventricular systolic function is normal. The calculated ejection fraction is 58% by biplane method. There is no evidence of regional wall motion abnormalities. Diastolic function is normal for age. Right Ventricle Normal right ventricular cavity size and systolic function. Atria Both atria are normal in size. Aortic Valve There is a normal trileaflet aortic valve. There is no aortic valve stenosis. There is no aortic valve regurgitation. Mitral Valve There is mild mitral annular calcification. There is trace mitral valve regurgitation. There is no mitral valve stenosis. Pulmonic Valve The pulmonic valve was not well visualized. Tricuspid Valve There is mild tricuspid valve regurgitation. The pulmonary artery systolic pressure is normal. Great Vessels The aortic annulus, sinuses of valsalva, and asc aorta are normal in size. Venous The inferior vena cava is dilated and collapses less than 50% with inspiration. Pericardium/Pleural There is no evidence of pericardial effusion. Prior Study Comparison No prior study available for comparison. Measurements 2D Linear Measurements IVSd: 1.07 0.6-0.9/0.6-1.0 cm LVIDd: 4.86 3.9-5.3/4.2-5.9 cm LVIDd Index: 2.10 2.4-3.2/2.2-3.1 cm/m2 LVIDs: 3.23 2.0-3.6 cm LVPWd: 0.95 0.7-1.1 cm Ao Root: 3.00 2.1-3.5 cm LA Diam: 4.20 2.7-3.8/3.0-4.0 cm LAIDs Index: 1.82 1.5-2.3 cm/m2 LV Mass: 219.60 67-162/88-224 g LV Mass Index: 95.06 43-95/49-115 g/m2 LVOT Diam: 2.00 3.0+(-)1.3 cm 2D Systolic Function EF 4C: 61.70 >55% EF 2C: 56.50 >55% EF BiP: 57.70 >55% Mitral Valve MV Pk E: 0.93 MV PK A: 0.85 MV Decel Time: 227.00 E/A: 1.10 E'Lateral: 8.38 E'Medial: 6.64 E/E' Med: 13.90 E/E' Lat: 11.00 PHT: 66.00 MVA PHT: 3.33 Decel Kerr: 4.43 Aortic Valve AoV Pk Anjel: 1.54 AoV Mn Anjel: 1.07 AoV VTI: 0.35 AoV Pk Grad: 9.00 Aov Mn Grad: 5.00 TANNER Cont.VTI: 2.40 LVOT LVOT Pk Anjel: 1.14 LVOT Mn Anjel: 0.80 LVOT VTI: 0.27 LVOT Pk Grad: 5.00 LVOT Mn Grad: 3.00 LVOT Diam: 2.00 LVOT Area: 3.14 Diastolic Function MV Pk E: 0.93 MV Pk A: 0.85 E/A: 1.10 E'Medial: 6.64 E/E' Med: 13.90 E' Laterial: 8.38 E/E' Lat: 11.00 Right Ventricle TAPSE (mm): 25.00 TVS' Anjel: 12.00 Tricuspid Valve TR Pk Anjel: 2.54 TR Pk Grad: 26.00 Great Vessels Aorta Ao Root-2D: 3.00 2.0-3.7 cm Ao Asc: 3.40 2.1-3.4 cm Ao Arch: 2.90 Updated in Other Vendor System with Status of Final Crhis Holm MD electronically signed on 08/28/2021 11:18:27 AM with status of Final
== END ==
LOC: HO.CARD 13:18
PROVIDERS: Visit Provider Nurse Practitioner Family
DX: I49.3 Ventricular premature depolarization (principal); R00.2 Palpitations
CPT/HCPCS: 93306

== ENCOUNTER 2021-09-01 13:51 | Emergency (ER) | payer OTHER, SELFPAY ==
--- NOTE | ~2021-09-01 | XR_ITS ---
EXAMINATION: XR LUMBAR SPINE CLINICAL INFORMATION: Back pain COMPARISON: 2013 TECHNIQUE: Frontal lateral and coned-down L5-S1 frontal lateral FINDINGS: Five [id number] lumbar vertebrae were identified maintaining normal height and alignments. Narrowing of intervertebral disc spaces suggest underlying degenerative disc disease. Paravertebral soft tissues are unremarkable. There are radiolucencies, most likely superimposed bowel gas.. No radiographic evidence of osteolytic or osteoblastic lesions. XR/XR lumbar spine 2-3V IMPRESSION: 1. No acute fracture. 2. Bone alignments are satisfactory. 3. Narrowing of intervertebral disc spaces suggest underlying degenerative disc disease. .
[2021-09-01 15:37] VITALS: BP 159/77; PULSE 77; RESP 18; TEMP 37; O2SAT 98; BMI 45.1
--- NOTE | 2021-09-01 16:22 | ED_ITS ---
HPI - Back Pain/Injury General Chief Complaint: Back Pain/Injury Stated Complaint: BACK PAIN Source: patient Mode of arrival: ambulatory Limitations: no limitations History of Present Illness HPI Narrative: 51-year-old female presents with 5 days of mid and lower back pain. States that she feels like this pain is muscular consistent with prior episodes of back pain. She does not report any other concerning symptoms. MD elicited complaint: back pain Pertinent past history: prior back pain Onset (ago): day(s) (5) Timing: constant Severity: moderate Pain scale (0-10): 6 Similar Symptoms Previously: Yes Quality: aching and spasming Location: lumbar spine, right lower back and left lower back Radiation: none Exacerbating factors: movement, walking and lifting Relieving factors: immobilization and sitting upright Context: other (Unknown) Associated symptoms: denies other symptoms Treatments prior to arrival: NSAIDS and acetaminophen Work related injury: No Related Data Previous Rx's Medication Instructions Recorded progesterone micronized 200 mg 200 mg PO BEDTIME 10 Days #10 cap 12/20/20 capsule (Prometrium) albuterol sulfate 90 mcg/actuation 1 inh INHALATION QID PRN #8.5 g 03/18/21 aerosol inhaler (ProAir HFA) lisinopril 30 mg tablet 30 mg PO DAILY 90 Days #90 tab 03/29/21 metoprolol tartrate 25 mg tablet 25 mg PO BID #30 tab 06/22/21 nystatin 100,000 unit/mL oral 1 ml PO DAILY #60 ml 06/22/21 suspension cyclobenzaprine 10 mg tablet 10 mg PO TID PRN #20 tab 07/02/21 ibuprofen 600 mg tablet 600 mg PO Q6H PRN #30 tab 07/02/21 cyclobenzaprine 10 mg tablet 10 mg PO TID PRN #20 tab 09/01/21 Allergies Allergy/AdvReac Type Severity Reaction Status Date / Time No Known Allergies Allergy Verified 09/01/21 15:37 Review of Systems Review of Systems: Constitutional: No Fever, No Chills ENT/Mouth: No Ear Pain, No Hoarseness, No sore throat Eyes: No Eye Pain, No Swelling, No Redness, No Foreign Body Cardiovascular: No Chest Pain, No SOB Respiratory: No Cough, No Dyspnea Gastrointestinal: No Nausea, No Vomiting, No Diarrhea, No abdominal Pain Genitourinary: No Dysuria, No Hematuria Musculoskeletal: positive lower back pain, No Myalgias, No Joint Swelling Skin: No Skin lacerations, No rash Neuro: No Weakness, No Numbness, No Paresthesias, No Loss of Consciousness, No Dizziness, No Headache Psych: No Anxiety/Panic, No Depression Heme/Lymph: no easy bruising, no Lymphadenopathy Endocrine: No Polyuria, No Polydipsia Yes all other systems are reviewed and are negative [facility] Past Medical History Attestation statement: The following information was validated with the patient. Source: old records reviewed Medical History Anxiety Hypertension Obesity PCOS (polycystic ovarian syndrome) Surgical History History of History of cholecystectomy History of dilatation and curettage Family History Family History Father Heart problem Mother Stroke Diabetes Son Asthma Social History Social History Are you a primary care nurse rn to a significant other at home: No Do you presently have visiting nurse or other home services: No Alcohol intake: unknown Patient Tobacco Use Status: Never used Tobacco Advance Directives: No Advance Directives Information Provided: No Sexual orientation: Straight/Heterosexual Gender identity: Female Physical Exam Vital Signs: Vital Signs: Last Vital Signs Temp 98.6 F 09/01/21 15:37 Pulse 77 09/01/21 15:37 Resp 18 09/01/21 15:37 BP 159/77 H 09/01/21 15:37 Pulse Ox 98 09/01/21 15:37 Body Mass Index 45.1 Appearance: Alert. Oriented X3. No acute distress. Head: Normal external exam. Normocephalic. Atraumatic. No Fernandez signs noted. No raccoon eyes noted Eyes: PERRLA. EOMI. Conjunctiva and sclera normal. Eyelids normal. ENT: TM's Normal. Pharynx normal. Uvula midline. Moist mucous membranes. No trismus noted. No drooling noted. No muffled voice noted. Neck: Normal inspection. Neck supple. No adenopathy. Thyroid Normal. No meningeal signs. No neck mass noted. CVS: Normal heart rate and rhythm. Heart sound normal. No murmurs noted. Pulses equal to all extremities. Respiratory: No respiratory distress. Painless inspiration. Breath sounds normal. No wheezes/rales/rhonchi noted. Chest nontender. No accessory muscle usage noted or decreased air movement noted. Abdomen: Soft and nontender. Bowel sounds normal in all 4 quadrants. No distention noted. No organomegaly noted. No visible injury noted. Back: No CVA tenderness. Full range of motion noted. Skin: Skin warm and dry. Normal skin color. Normal skin turgor. No rashes/lesions/lacerations noted. Extremities: +1 pitting bilateral extremity edema. Extremities exhibit normal range of motion. Extremities nontender. Neuro: cranial nerves 2-12 intact, no focal neural deficits, strength 5/5 to all extremities, No motor deficit. No sensory deficit. PatellarReflexes normal. Course Course Course Narrative: 51-year-old female presents with lower back pain for 5 days unrelieved with [id number] NSAIDs and Tylenol. Has had a history of back pain. Does not report any abdominal pain or urinary symptoms. No indication of cauda equina. Afebrile, appears nontoxic, has full range of motion and sensation to all extremities. Gait is well balanced well coordinated. Will order lumbar x-ray as well as urinalysis. No vertebral tenderness or step-offs noted. Urinalysis is negative, lumbar spine is negative for acute findings shows degenerative disc disease consistent with prior exams. Will provide Toradol, and muscle relaxer for home use. Will refer to pain management. Patient kaitlin loo understanding of and agrees to plan of care discharge home. MDM - Back Pain/Injury Differential Diagnosis Differential diagnosis: Likely lumbar radiculopathy, sciatica, strain of lumbar region, pyelonephritis and discitis Medical Records Attestation: I reviewed the patient's medical records. Lab Data Attestation: I reviewed the patient's lab results. Labs: Lab Results 09/01/21 Range/Units 16:21 Urine Color YELLOW Urine Appearance CLEAR Urine pH 5.5 (5.0-8.0) Ur Specific [place] 1.025 (1.005-1.025) Urine Protein NEG (NEG-TRACE) MG/DL Urine Glucose (UA) NEG (NEG) MG/DL Urine Ketones NEG (NEG) MG/DL Urine Blood TRACE (NEG) Urine Nitrite NEG (NEG) Ur Leukocyte Esterase NEG (NEG) Urine RBC 0-2 (0) /HPF Urine WBC 0 (0-4) /HPF Ur Squamous Epith Cells TRACE /LPF Urine Bacteria NONE /LPF Imaging Data Lumbar spine x-ray: Attestation: I personally reviewed and interpreted this imaging study as follows: Radiologist's impression: EXAMINATION: XR LUMBAR SPINE CLINICAL INFORMATION: Back pain COMPARISON: 2013 TECHNIQUE: Frontal lateral and coned-down L5-S1 frontal lateral FINDINGS:? Five [id number] lumbar vertebrae were identified maintaining normal height and alignments. Narrowing of intervertebral disc spaces suggest underlying degenerative disc disease. ? Paravertebral soft tissues are unremarkable. There are radiolucencies, most likely superimposed bowel gas.. No radiographic evidence of osteolytic or osteoblastic lesions. XR/XR lumbar spine 2-3V IMPRESSION: ? 1. No acute fracture. 2. Bone alignments are satisfactory. 3. Narrowing of intervertebral disc spaces suggest underlying degenerative disc disease. . Discharge Plan Discharge Clinical Impression: Degenerative disc disease, lumbar Sciatica Qualifiers: Laterality: bilateral Qualified Code(s): M54.31 - Sciatica, right side Patient Disposition: Home, Self-Care Instructions: Sciatica (ED), Back Pain (ED), Degenerative Disc Disease (ED) Additional Instructions: You were evaluated for lower back pain. X-rays are negative for emergent findings, does show chronic degenerative disc disease. Please use Flexeril for muscle spasms. This medication is a muscle relaxer and is designed to reduce muscle spasms. This medication may cause drowsiness, increased risk for falls, and delayed reaction time. Do not drive or operate machinery while taking this medication. Please follow-up with Dr. Blank for pain management. Thank you for choosing this emergency department for evaluation. Please follow-up with primary care physician as needed. Return to the emergency department for any new, concerning, or worsening symptoms. Prescriptions: New cyclobenzaprine 10 mg tablet 10 mg PO TID PRN (Reason: muscle spasm) Qty: 20 RF: 0 No Action lisinopril 30 mg tablet 30 mg PO DAILY 90 Days Qty: 90 RF: 1 albuterol sulfate [ProAir HFA] 90 mcg/actuation HFA aerosol inhaler 1 inh inhalation QID PRN (Reason: shortness of breath or wheezing) Qty: 8.5 RF: 0 nystatin 100,000 unit/mL suspension 1 ml PO DAILY Qty: 60 RF: 0 metoprolol tartrate 25 mg tablet 25 mg PO BID Qty: 30 RF: 0 cyclobenzaprine 10 mg tablet 10 mg PO TID PRN (Reason: muscle pain or spasm) Qty: 20 RF: 0 ibuprofen 600 mg tablet 600 mg PO Q6H PRN (Reason: pain) Qty: 30 RF: 0 progesterone micronized [Prometrium] 200 mg capsule 200 mg PO BEDTIME 10 Days Qty: 10 RF: 6 Referrals: Gage Blank MD [Physician] - 2 days (Degenerative disc disease, lower back pain) Interventions: ED Discharge Assessment Last Done: 09/01/21 18:21 Discharge Date/Time: 09/01/21 18:24
[2021-09-01 16:28] LABS: Appearance Urine CLEAR; Color Urine YELLOW; Glucose Urine UA NEG (NEG); Leukocyte Esterase Urine NEG (NEG); Nitrite Urine NEG (NEG); PH 5.5 (5.0-8.0); Specific Gravity - Urine 1.025 (1.005-1.025); UACC Culture Trigger NO; Urine Blood TRACE (NEG); Urine Ketones NEG (NEG); Urine Protein NEG (NEG-TRACE)
[2021-09-01 16:36] LABS: RBC Urine 0-2 /HPF (0); Squamous Epithelial Cell Urine TRACE /LPF; WBC Urine 0 /HPF (0-4)
[2021-09-01] MEDS: Ketorolac Tromethamine 60 MG/2 ML VIAL IM (18:02)
== END 2021-09-01 18:24 | disposition home or self-care (01) ==
PROVIDERS: Emergency Provider Emergency Medicine Emergency Medical Services; PCP Hospitalist
DX: M54.31 Sciatica, right side (principal); M47.896 Other spondylosis, lumbar region; Z79.899 Other long term (current) drug therapy
CPT/HCPCS: 72100; 81001; 96372; 99283; 99284; J1885

== ENCOUNTER → 2021-09-03 12:23 | Outpatient (BNVA) | payer OTHER, SELFPAY | PROVIDERS: PCP Hospitalist; Referring Provider Hospitalist; Visit Provider Nurse Practitioner Family | DX: I49.3 Ventricular premature depolarization (principal); I10 Essential (primary) hypertension; R00.2 Palpitations | CPT/HCPCS: 99212 ==

== ENCOUNTER 2021-09-05 12:45 | Outpatient (REF) | payer OTHER, SELFPAY | END 2021-09-05 12:46 | disposition home or self-care (01) | LOC: HO.LAB 12:45 | PROVIDERS: Visit Provider Hospitalist | DX: Z13.89 Encounter for screening for other disorder (principal) ==

== ENCOUNTER 2021-09-24 21:58 | Emergency (ER) | payer OTHER, SELFPAY ==
--- NOTE | 2021-09-24 22:02 | ECG_ITS ---
Test Reason : dizzyness Blood Pressure : / mmHG Vent. Rate : 074 BPM Atrial Rate : 074 BPM P-R Int : 172 ms QRS Dur : 084 ms QT Int : 394 ms P-R-T Axes : 056 046 055 degrees QTc Int : 437 ms Normal sinus rhythm Normal ECG Premature ventricular complexes is no longer Present Referred By: Generic ED Physician Electronically Signed By:OSITO LEMA MD
--- NOTE | 2021-09-24 23:12 | ED_ITS ---
HPI - Dizziness General Chief Complaint: Dizziness Stated Complaint: palpitations, dizziness Time Seen by Provider: 09/24/21 23:01 History of Present Illness HPI Narrative: Patient is a 51-year-old female with sudden onset today of spinning sensation. The spinning sensation is worse with movement of her head. No fever no chills. No focal weakness. The symptoms are extreme. It is im proved with sitting still. There is no coughing or congestion or chest pain no abdominal pain no bloody urine. Patient does not think she is . No history of diabetes positive history of high blood pressure. There is no history of OK. No history of high cholesterol. Patient from home. l Related Data Previous Rx's Medication Instructions Recorded albuterol sulfate 90 mcg/actuation 1 inh INHALATION QID PRN #8.5 g 03/18/21 aerosol inhaler (ProAir HFA) lisinopril 30 mg tablet 30 mg PO DAILY 90 Days #90 tab 03/29/21 nabumetone 750 mg tablet 750 mg PO BID 14 Days #28 tab 09/19/21 meclizine 25 mg tablet 25 mg PO TID PRN #14 tab 09/25/21 Allergies Allergy/AdvReac Type Severity Reaction Status Date / Time No Known Allergies Allergy Verified 09/19/21 11:40 Review of Systems Review of Systems: No fever no chills No cough no congestion or upper respiratory symptoms Yes all other systems are reviewed and are negative [facility] Past Medical History Attestation statement: The following information was validated with the patient. Medical History Anxiety Hypertension Obesity PCOS (polycystic ovarian syndrome) Surgical History History of History of cholecystectomy History of dilatation and curettage Family History Family History Father Heart problem Mother Stroke Diabetes Son Asthma Social History Social History Housing: House Are you a primary hospice care transitions coordinator to a significant other at home: No Do you presently have visiting nurse or other home services: No Alcohol intake: unknown Patient Tobacco Use Status: Never used Tobacco Advance Directives: No Advance Directives Information Provided: No Patient : No service: No Current occupational status: other 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 Oriented X3. No acute distress. Eyes: Pupils equal, round and reactive to light. ENT: Pharynx normal. Neck: Normal inspection. Neck supple. No lymph nodes noted. No crepitus CVS: Normal heart rate and rhythm. Pulses normal. Normal S1 and S2 Respiratory: No respiratory distress. Breath sounds normal. No Wheezing. No rales Abdomen: Soft and nontender. No rigidity. No distention. good BS x4 Skin: Skin warm and dry. Normal skin color. Normal skin turgor. Extremities: No lower extremity edema. Neurovascular intact to all extremities. No Lacerations. No Rash Neuro: Oriented X 3. No motor deficit. No sensory deficit. Moving all extermities. No slurred speech. Symptoms of spinning sensation reproduced with turning of her head. MDM - Dizziness MDM Narrative Medical decision making narrative: Patient neurologically intact. Symptoms reproduced with turning of her head. Very sudden in onset. Extreme nausea. Only history of hypertension. Electrolytes unremarkable symptom improved with Antivert. Will discharge patient home. Likely secondary to peripheral vertigo Medical Records Attestation: I reviewed the patient's medical records. Lab Data Attestation: I reviewed the patient's lab results. Result diagrams: 09/24/21 23:45 09/24/21 23:45 Labs: Lab Results 09/24/21 09/24/21 09/24/21 Range/Units 23:45 23:45 23:45 WBC 10.1 (4.8-10.8) X10*3/uL RBC 4.77 (4.20-5.50) X10*6/uL Hgb 12.2 (12.0-16.0) g/dl Hct 38.7 (37-47) % MCV 81.1 (80-98) fL MCH 25.6 L (27.0-33.0) pg MCHC 31.5 (31.0-35.0) g/dl RDW 16.2 H (11.0-16.0) % Plt Count 319 (160-400) X10*3/uL MPV 9.3 L (9.4-12.3) fL Immature Gran % (Auto) 0.4 (0.0-0.4) % Neut % (Auto) 70.5 (45-73) % Lymph % (Auto) 19.6 L (20-40) % [place] % (Auto) 7.4 (2-11) % Eos % (Auto) 1.8 (0-4) % Baso % (Auto) 0.3 (0-2) % Lymph # (Auto) 2.0 (1.2-4.9) X10*3/uL [place] # (Auto) 0.8 (0.1-1.2) X10*3/uL Eos # (Auto) 0.2 (0.0-0.4) X10*3/uL Baso # (Auto) 0.0 (0.0-0.2) X10*3/uL Abs Immat Gran (auto) 0.04 H (0.00-0.03) X10*3/uL Absolute Neuts (auto) 7.1 (2.0-8.3) X10*3/uL Absolute Nucleated RBC 0.000 (0.0-0.012) X10*3/uL Nucleated RBC % (auto) 0.0 (0.0-0.2) /100WBC Sodium 138 (135-145) mmol/L Potassium 4.0 (3.3-5.1) mmol/L Chloride 105 (96-108) mmol/L Carbon Dioxide 25 (22-29) mmol/L Anion Gap 12 (12-20) BUN 13 (9-16) mg/dL Creatinine 0.76 (0.5-1.4) mg/dL Estim Creat Clear Calc TNP Estimated GFR > 60 Random Glucose 113 (60-115) mg/dL Calcium 8.7 D (8.4-10.2) mg/dL Urine Color YELLOW Urine Appearance CLEAR Urine pH 6.0 (5.0-8.0) Ur Specific [place] 1.020 (1.005-1.025) Urine Protein NEG (NEG-TRACE) MG/DL Urine Glucose (UA) NEG (NEG) MG/DL Urine Ketones NEG (NEG) MG/DL Urine Blood TRACE (NEG) Urine Nitrite NEG (NEG) Ur Leukocyte Esterase NEG (NEG) Urine RBC 0-2 (0) /HPF Urine WBC 1-4 (0-4) /HPF Ur Squamous Epith Cells 3+ /LPF Urine Bacteria 2+ /LPF Urine Mucus 1+ /LPF Urine Test (NEGATIVE) 09/24/21 Range/Units 23:45 WBC (4.8-10.8) X10*3/uL RBC (4.20-5.50) X10*6/uL Hgb (12.0-16.0) g/dl Hct (37-47) % MCV (80-98) fL MCH (27.0-33.0) pg MCHC (31.0-35.0) g/dl RDW (11.0-16.0) % Plt Count (160-400) X10*3/uL MPV (9.4-12.3) fL Immature Gran % (Auto) (0.0-0.4) % Neut % (Auto) (45-73) % Lymph % (Auto) (20-40) % [place] % (Auto) (2-11) % Eos % (Auto) (0-4) % Baso % (Auto) (0-2) % Lymph # (Auto) (1.2-4.9) X10*3/uL [place] # (Auto) (0.1-1.2) X10*3/uL Eos # (Auto) (0.0-0.4) X10*3/uL Baso # (Auto) (0.0-0.2) X10*3/uL Abs Immat Gran (auto) (0.00-0.03) X10*3/uL Absolute Neuts (auto) (2.0-8.3) X10*3/uL Absolute Nucleated RBC (0.0-0.012) X10*3/uL Nucleated RBC % (auto) (0.0-0.2) /100WBC Sodium (135-145) mmol/L Potassium (3.3-5.1) mmol/L Chloride (96-108) mmol/L Carbon Dioxide (22-29) mmol/L Anion Gap (12-20) BUN (9-16) mg/dL Creatinine (0.5-1.4) mg/dL Estim Creat Clear Calc Estimated GFR Random Glucose (60-115) mg/dL Calcium (8.4-10.2) mg/dL Urine Color Urine Appearance Urine pH (5.0-8.0) Ur Specific [place] (1.005-1.025) Urine Protein (NEG-TRACE) MG/DL Urine Glucose (UA) (NEG) MG/DL Urine Ketones (NEG) MG/DL Urine Blood (NEG) Urine Nitrite (NEG) Ur Leukocyte Esterase (NEG) Urine RBC (0) /HPF Urine WBC (0-4) /HPF Ur Squamous Epith Cells /LPF Urine Bacteria /LPF Urine Mucus /LPF Urine Test NEGATIVE (NEGATIVE) Discharge Plan Discharge Clinical Impression: Benign paroxysmal positional vertigo Patient Disposition: Home, Self-Care Instructions: Vertigo (ED) Prescriptions: New meclizine 25 mg tablet 25 mg PO TID PRN (Reason: dizziness) Qty: 14 RF: 0 No Action lisinopril 30 mg tablet 30 mg PO DAILY 90 Days Qty: 90 RF: 1 albuterol sulfate [ProAir HFA] 90 mcg/actuation HFA aerosol inhaler 1 inh inhalation QID PRN (Reason: shortness of breath or wheezing) Qty: 8.5 RF: 0 nabumetone 750 mg tablet 750 mg PO BID 14 Days Qty: 28 RF: 0 Referrals: Yadira Hernandez NP [Primary Care Provider] - 2 days
[2021-09-24 23:51] LABS: MANUAL DIFF FLAG NO
[2021-09-24 23:52] LABS: Basophils Percent Auto 0.3 % (0-2); Eosinophils Absolute Auto 0.2 X10*3/uL (0.0-0.4); Eosinophils Percent Auto 1.8 % (0-4); Hematocrit 38.7 % (37-47); Hemoglobin 12.2 g/dl (12.0-16.0); Imm Gran Abs Auto 0.04 X10*3/uL (0.00-0.03); Imm Gran Pct Auto 0.4 % (0.0-0.4); Lymphocytes Percent Auto 19.6 % (20-40); Mean Corpuscular HGB Conc 31.5 g/dl (31.0-35.0); Mean Corpuscular Hemoglobin 25.6 pg (27.0-33.0); Mean Corpuscular Volume 81.1 fL (80-98); Mean Platelet Volume 9.3 fL (9.4-12.3); Monocytes Absolute Auto 0.8 X10*3/uL (0.1-1.2); Monocytes Percent Auto 7.4 % (2-11); Neutrophils Absolute Auto 7.1 X10*3/uL (2.0-8.3); Neutrophils Percent Auto 70.5 % (45-73); Platelet Count 319 X10*3/uL (160-400); Red Blood Count 4.77 X10*6/uL (4.20-5.50); Red Cell Distribution Width 16.2 % (11.0-16.0); White Blood Count 10.1 X10*3/uL (4.8-10.8)
[2021-09-24 23:53] LABS: Appearance Urine CLEAR; Color Urine YELLOW; Glucose Urine UA NEG (NEG); Leukocyte Esterase Urine NEG (NEG); Nitrite Urine NEG (NEG); UACC Culture Trigger NO; Urine Blood TRACE (NEG); Urine Ketones NEG (NEG); Urine Protein NEG (NEG-TRACE)
[2021-09-24 23:56] LABS: UPreg QC Valid YES; Urine Pregnancy NEGATIVE (NEGATIVE)
[2021-09-25] MEDS: Meclizine HCl 25 MG TABLET PO (00:12)
[2021-09-25 00:13] VITALS: BP 155/89; PULSE 73; RESP 16; TEMP 36.7; O2SAT 99; BMI 45.1
[2021-09-25 00:15] LABS: Anion Gap 12 (12-20); Blood Urea Nitrogen 13 mg/dL (9-16); Calcium 8.7 mg/dL (8.4-10.2); Carbon Dioxide 25 mmol/L (22-29); Chloride 105 mmol/L (96-108); Estimated Glomerular Filt Rate > 60; Glucose Random 113 mg/dL (60-115); Sodium 138 mmol/L (135-145)
[2021-09-25 00:19] LABS: Bacteria Urine 2+ /LPF; Mucus Urine 1+ /LPF; RBC Urine 0-2 /HPF (0); Squamous Epithelial Cell Urine 3+ /LPF
== END 2021-09-25 00:55 | disposition home or self-care (01) ==
PROVIDERS: Emergency Provider Emergency Medicine Emergency Medical Services; PCP Hospitalist
DX: H81.10 Benign paroxysmal vertigo, unspecified ear (principal); I10 Essential (primary) hypertension
CPT/HCPCS: 36415; 80048; 81001; 81025; 85025; 93005; 99283

== ENCOUNTER 2021-10-10 11:10 | Outpatient (REF) | payer OTHER, SELFPAY ==
[2021-10-10 14:24] LABS: MANUAL DIFF FLAG NO
[2021-10-10 14:29] LABS: Basophils Percent Auto 0.3 % (0-2); Eosinophils Absolute Auto 0.1 X10*3/uL (0.0-0.4); Eosinophils Percent Auto 1.2 % (0-4); Hematocrit 41.2 % (37.0-47.0); Hemoglobin 12.8 g/dl (12.0-16.0); Imm Gran Abs Auto 0.04 X10*3/uL (0.00-0.03); Imm Gran Pct Auto 0.4 % (0.0-0.4); Lymphocytes Absolute Auto 1.7 X10*3/uL (1.2-4.9); Lymphocytes Percent Auto 16.2 % (20-40); Mean Corpuscular HGB Conc 31.1 g/dl (31.0-35.0); Mean Corpuscular Hemoglobin 25.4 pg (27.0-33.0); Mean Corpuscular Volume 81.7 fL (80.0-98.0); Mean Platelet Volume 10.4 fL (9.4-12.3); Monocytes Absolute Auto 0.7 X10*3/uL (0.1-1.2); Monocytes Percent Auto 6.7 % (2-11); Neutrophils Percent Auto 75.2 % (45-73); Platelet Count 308 X10*3/uL (160-400); Red Blood Count 5.04 X10*6/uL (4.20-5.50); Red Cell Distribution Width 16.5 % (11.0-16.0); White Blood Count 10.6 X10*3/uL (4.8-10.8)
[2021-10-10 14:33] LABS: Estimated Average Glucose 117 mg/dL; Hemoglobin A1c % 5.7 %
== END 2021-10-10 11:11 | disposition home or self-care (01) ==
LOC: HO.WFDLDS 11:10
PROVIDERS: Visit Provider Hospitalist
DX: E28.2 Polycystic ovarian syndrome (principal); J30.2 Other seasonal allergic rhinitis; J45.20 Mild intermittent asthma, uncomplicated
CPT/HCPCS: 36415; 83036; 85025

== ENCOUNTER 2021-11-08 11:43 | Emergency (ER) | payer OTHER, SELFPAY ==
[2021-11-08 11:58] VITALS: BP 195/83; PULSE 81; RESP 16; TEMP 36.4; O2SAT 99; BMI 45.2
--- NOTE | 2021-11-08 12:01 | ECG_ITS ---
Test Reason : chest pain Blood Pressure : / mmHG Vent. Rate : 077 BPM Atrial Rate : 077 BPM P-R Int : 190 ms QRS Dur : 080 ms QT Int : 374 ms P-R-T Axes : 057 028 048 degrees QTc Int : 423 ms Normal sinus rhythm Normal ECG When compared with ECG of 24-SEP-2021 22:08, Premature ventricular complexes are no longer Present Referred By: Generic ED Physician Electronically Signed By:Justyn Unger
--- NOTE | 2021-11-08 14:46 | ED_ITS ---
HPI - Chest Pain General Chief Complaint: Chest Pain Stated Complaint: chest pain Time Seen by Provider: 11/08/21 14:46 Source: patient Mode of arrival: ambulatory Limitations: no limitations History of Present Illness HPI narrative: 51-year-old female past medical history significant for hypertension, asthma, PCOS, BPV presents to the emergency department complaints of intermittent chest pain x3 days. Patient tells me that she feels chest pain to her left anterior chest that is stabbing in nature, lasts a few seconds and then subsides. She tells me she is under a lot of stress, and has been feeling anxious lately. She mentions that she is now caring for her father who is sick, and she feels like she has a lot on her shoulders. Patient tells me that the chest pain is localized to her left anterior chest, does not radiate. She also mentions she has noted that her blood pressure has been a little bit higher than usual her systolic pressure at home was 155. She is currently taking lisinopril 30 mg daily, which she has been med compliant with. She has no other complaints at this time. Denies shortness of breath, headache, vision changes, headache, dizziness, nausea, vomiting, fevers, chills. MD complaint: chest pain Onset (ago): day(s) (3) Timing of current episode: episodic Prior episodes: No Onset: during rest and during exertion Pain location: left chest Pain radiation: none Severity: moderate Quality: sharp and shooting (/stabbing) Relieving factors: nothing Exacerbating factors: stress Treatment prior to arrival: none Related Data Previous Rx's Medication Instructions Recorded lisinopril 30 mg tablet 30 mg PO DAILY 90 Days #90 tab 09/25/21 meclizine 25 mg tablet 25 mg PO TID PRN 90 Days #90 tab 09/26/21 albuterol sulfate 90 mcg/actuation 1 inh INHALATION QID PRN 30 Days 10/10/21 aerosol inhaler (ProAir HFA) #8.5 g fluticasone propionate 50 2 spray INTRANASAL DAILY #16 g 10/10/21 mcg/actuation nasal spray,suspension (Flonase Allergy Relief) loratadine 10 mg capsule 10 mg PO DAILY 90 Days #90 cap 10/10/21 montelukast 10 mg tablet 10 mg PO BEDTIME #30 tab 10/16/21 (Singulair) blood pressure test kit-large #1 ea 10/21/21 nabumetone 750 mg tablet 750 mg PO BID PRN #60 tab 11/07/21 lorazepam 0.5 mg tablet (Ativan) 0.5 mg PO BID PRN #8 tab 11/08/21 Allergies Allergy/AdvReac Type Severity Reaction Status Date / Time No Known Allergies Allergy Verified 10/16/21 11:04 Review of Systems Review of Systems: Constitutional : No Weight loss, No Fever, No Chills, No Fatigue, No Malaise ENT/Mouth : No sore throat, No Rhinorrhea Eyes: No Eye Pain, No Swelling, No Redness Cardiovascular : + Chest Pain, No SOB, No Dyspnea on Exertion, No Orthopnea, No Edema, No Palpitations Respiratory : No Cough, No Sputum, No Wheezing Gastrointestinal : No Nausea, No Vomiting, No Diarrhea, No Constipation, No abdominal Pain, No Hematochezia, No Melena Genitourinary : No Dysuria, No Urinary Frequency, No Hematuria, Musculoskeletal : No joint pain, No Myalgias, No Joint Swelling Skin : No Skin Lesions, No rash Neuro : No Weakness, No Numbness, No Dizziness, No Headache Psych : + Anxiety/Panic, No Depression All other systems reviewed and are negative Yes all other systems are reviewed and are negative [facility] Past Medical History Attestation statement: The following information was validated with the patient. Source: old records reviewed Medical History Anxiety Hypertension Obesity PCOS (polycystic ovarian syndrome) Surgical History History of History of cholecystectomy History of dilatation and curettage Family History Family History Father Heart problem Mother Stroke Diabetes Son Asthma Social History Social History Housing: House Are you a primary school child care attendant to a significant other at home: No Do you presently have visiting nurse or other home services: No Alcohol intake: never Patient Tobacco Use Status: Never used Tobacco e-Cigarette/Vaping Use: Never Used Use of substances other than those prescribed or required for medical reasons: No Advance Directives: No Advance Directives Information Provided: No Patient : No service: No Current occupational status: other 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 Oriented X3.? No acute distress.?Appears slightly anxious. Head: Normocephalic, atraumatic, no step-offs or deformities Eyes: Pupils equal, round and reactive to light.? ENT: Pharynx normal.? Neck: Normal inspection.? Neck supple.? CVS: Normal heart rate and rhythm.? Pulses normal.? Respiratory: No respiratory distress.? Breath sounds normal.? Abdomen: Soft and nontender.? Skin: Skin warm and dry.? Normal skin color.? Normal skin turgor.? Extremities: No lower extremity edema.? No calf ttp. 5/5 strength to bilateral upper and lower extremities Back: No midline tenderness, no C-spine tenderness, full range of motion, no CVA tenderness bilaterally Neuro: Oriented X 3.? No motor deficit.? No sensory deficit. Course Reevaluation(s) Reevaluation #1: At this time I will give patient 0.5 of Ativan, to see if she is more relaxed, and to see if blood pressure lowers. I suspect that she has hypertensive secondary to anxiety. Time: 15:09 Reevaluation #2: At this time patient reports ports that she did not have chest pain, Ativan 0.5 mg helped. She feels less stressed, and relaxed, she is able to rest on the stretcher comfortably now. Her blood pressure has improved significantly. She feels well. Second troponin ordered for 6:30 p.m.. I suspect patient will be discharged home, as this is unlikely ACS. Time: 17:13 Reevaluation #3: Patient requesting something for cramping, Tylenol has been ordered. Second troponin is negative. Chest pain is likely secondary to anxiety/stress. I will give Ativan short supply have advised her to follow-up with her PCP. I have given her strict return precautions and have advised her to return to the emergency department with new or worsening symptoms. I attest that I have reviewed patients MassPAT, and at the time prescribing the patient a controlled substance is appropriate based off of patients diagnosis and treatment plan. Time: 19:45 MDM - Chest Pain MDM Narrative Medical decision making narrative: 1450 51-year-old female past medical history significant for HTN, PVCs, PCOS, BPV presents to the emergency department with 3 days of intermittent/episodic stabbi ng/shooting chest pain to left anterior chest, patient also reports increased stress in her life, and anxiety. Physical examination benign. Plan at this time is to obtain EKG, basic labs, troponin. I suspect that this is likely anxiety however ACS will be ruled out. Medical Records Data Attestation: I reviewed the patient's medical records. Lab Data Attestation: I reviewed the patient's lab results. Result diagrams: 11/08/21 15:29 11/08/21 15:29 Labs: Lab Results 11/08/21 11/08/21 11/08/21 Range/Units 15:29 15:29 15:29 WBC 10.3 (4.8-10.8) X10*3/uL RBC 5.05 (4.20-5.50) X10*6/uL Hgb 13.0 (12.0-16.0) g/dl Hct 41.1 (37.0-47.0) % MCV 81.4 (80.0-98.0) fL MCH 25.7 L (27.0-33.0) pg MCHC 31.6 (31.0-35.0) g/dl RDW 15.9 (11.0-16.0) % Plt Count 316 (160-400) X10*3/uL MPV 9.1 L (9.4-12.3) fL Immature Gran % (Auto) 0.3 (0.0-0.4) % Neut % (Auto) 73.7 H (45-73) % Lymph % (Auto) 18.1 L (20-40) % [place] % (Auto) 6.0 (2-11) % Eos % (Auto) 1.4 (0-4) % Baso % (Auto) 0.5 (0-2) % Lymph # (Auto) 1.9 (1.2-4.9) X10*3/uL [place] # (Auto) 0.6 (0.1-1.2) X10*3/uL Eos # (Auto) 0.1 (0.0-0.4) X10*3/uL Baso # (Auto) 0.1 (0.0-0.2) X10*3/uL Abs Immat Gran (auto) 0.03 (0.00-0.03) X10*3/uL Absolute Neuts (auto) 7.6 (2.0-8.3) x10*3/uL Absolute Nucleated RBC 0.000 (0.0-0.012) X10*3/uL Nucleated RBC % (auto) 0.0 (0.0-0.2) /100WBC Sodium 142 (135-145) mmol/L Potassium 4.2 (3.3-5.1) mmol/L Chloride 106 (96-108) mmol/L Carbon Dioxide 28 (22-29) mmol/L Anion Gap 12 (12-20) BUN 11 (9-16) mg/dL Creatinine 0.74 (0.5-1.4) mg/dL Estim Creat Clear Calc 124.1 Estimated GFR > 60 Random Glucose 86 (60-115) mg/dL Calcium 9.5 D (8.4-10.2) mg/dL Troponin I High Sens 4.0 (<3.5-17.0) ng/L 11/08/21 Range/Units 18:25 WBC (4.8-10.8) X10*3/uL RBC (4.20-5.50) X10*6/uL Hgb (12.0-16.0) g/dl Hct (37.0-47.0) % MCV (80.0-98.0) fL MCH (27.0-33.0) pg MCHC (31.0-35.0) g/dl RDW (11.0-16.0) % Plt Count (160-400) X10*3/uL MPV (9.4-12.3) fL Immature Gran % (Auto) (0.0-0.4) % Neut % (Auto) (45-73) % Lymph % (Auto) (20-40) % [place] % (Auto) (2-11) % Eos % (Auto) (0-4) % Baso % (Auto) (0-2) % Lymph # (Auto) (1.2-4.9) X10*3/uL [place] # (Auto) (0.1-1.2) X10*3/uL Eos # (Auto) (0.0-0.4) X10*3/uL Baso # (Auto) (0.0-0.2) X10*3/uL Abs Immat Gran (auto) (0.00-0.03) X10*3/uL Absolute Neuts (auto) (2.0-8.3) x10*3/uL Absolute Nucleated RBC (0.0-0.012) X10*3/uL Nucleated RBC % (auto) (0.0-0.2) /100WBC Sodium (135-145) mmol/L Potassium (3.3-5.1) mmol/L Chloride (96-108) mmol/L Carbon Dioxide (22-29) mmol/L Anion Gap (12-20) BUN (9-16) mg/dL Creatinine (0.5-1.4) mg/dL Estim Creat Clear Calc Estimated GFR Random Glucose (60-115) mg/dL Calcium (8.4-10.2) mg/dL Troponin I High Sens < 3.5 (<3.5-17.0) ng/L ECG Data ECG #1: Attestation: I personally reviewed and interpreted this ECG as follows: ECG interpretation date: 11/08/21 ECG interpretation time: 12:08 Prior ECG tracings: available for review Interpretation: Ventricular rate of 77, RI normal, QRS normal, QT/QTC normal. EKG shows normal sinus rhythm. No ST elevations or inversions. No acute ischemia. No acute changes when compared to EKG from September 24, 2021. Critical Care Time Critical Care Time Critical Care Time: No Discharge Plan Discharge Clinical Impression: Chest pain not due to acute coronary syndrome, Anxiety Patient Disposition: Home, Self-Care Instructions: Chest Pain (ED), Generalized Anxiety Disorder (ED), Anxiety (ED) Additional Instructions: Take your medications as prescribed. You are prescribed a low-dose Ativan, please take this as needed for anxiety. Do not drive while taking this medication it can make you drowsy. Follow-up with your primary care provider this week. Return to the emergency department with new or worsening symptoms. Such as fevers, chills, nausea, vomiting, abdominal pain, chest pain, shortness of breath. In case of emergency call 911 I attest that I have reviewed patients MassPAT, and at the time prescribing the patient a controlled substance is appropriate based off of patients diagnosis and treatment plan. Prescriptions: New lorazepam [Ativan] 0.5 mg tablet 0.5 mg PO BID PRN (Reason: anxiety) Qty: 8 RF: 0 No Action lisinopril 30 mg tablet 30 mg PO DAILY 90 Days Qty: 90 RF: 1 (DME) blood pressure test kit-large Kit See Rx Instructions .Route Qty: 1 RF: 0 nabumetone 750 mg tablet 750 mg PO BID PRN (Reason: for low back pain) Qty: 60 RF: 0 albuterol sulfate [ProAir HFA] 90 mcg/actuation HFA aerosol inhaler 1 inh inhalation QID PRN (Reason: shortness of breath or wheezing) 30 Days Qty: 8.5 RF: 4 loratadine 10 mg capsule 10 mg PO DAILY 90 Days Qty: 90 RF: 0 fluticasone propionate [Flonase Allergy Relief] 50 mcg/actuation spray,suspension 2 spray intranasal DAILY Qty: 16 RF: 4 meclizine 25 mg tablet 25 mg PO TID PRN (Reason: dizziness) 90 Days Qty: 90 RF: 1 montelukast [Singulair] 10 mg tablet 10 mg PO BEDTIME Qty: 30 RF: 2 Referrals: Yadira Hernandez NP [Primary Care Provider] - 2 days Stand Alone Forms: Work/School Release
[2021-11-08] MEDS: LORazepam 0.5 MG TABLET PO (15:20)
[2021-11-08 15:33] LABS: MANUAL DIFF FLAG NO
[2021-11-08 15:34] LABS: Basophils Absolute Auto 0.1 X10*3/uL (0.0-0.2); Basophils Percent Auto 0.5 % (0-2); Eosinophils Absolute Auto 0.1 X10*3/uL (0.0-0.4); Eosinophils Percent Auto 1.4 % (0-4); Hematocrit 41.1 % (37.0-47.0); Imm Gran Abs Auto 0.03 X10*3/uL (0.00-0.03); Imm Gran Pct Auto 0.3 % (0.0-0.4); Lymphocytes Absolute Auto 1.9 X10*3/uL (1.2-4.9); Lymphocytes Percent Auto 18.1 % (20-40); Mean Corpuscular HGB Conc 31.6 g/dl (31.0-35.0); Mean Corpuscular Hemoglobin 25.7 pg (27.0-33.0); Mean Corpuscular Volume 81.4 fL (80.0-98.0); Mean Platelet Volume 9.1 fL (9.4-12.3); Monocytes Absolute Auto 0.6 X10*3/uL (0.1-1.2); Neutrophils Absolute Auto 7.6 x10*3/uL (2.0-8.3); Neutrophils Percent Auto 73.7 % (45-73); Platelet Count 316 X10*3/uL (160-400); Red Blood Count 5.05 X10*6/uL (4.20-5.50); Red Cell Distribution Width 15.9 % (11.0-16.0); White Blood Count 10.3 X10*3/uL (4.8-10.8)
[2021-11-08 15:51] LABS: Anion Gap 12 (12-20); Blood Urea Nitrogen 11 mg/dL (9-16); Calcium 9.5 mg/dL (8.4-10.2); Carbon Dioxide 28 mmol/L (22-29); Chloride 106 mmol/L (96-108); Creatinine Clr Calc Pharmacy 124.1; Estimated Glomerular Filt Rate > 60; Glucose Random 86 mg/dL (60-115); Potassium 4.2 mmol/L (3.3-5.1); Sodium 142 mmol/L (135-145)
[2021-11-08 16:00] VITALS: BP 149/75; PULSE 77; RESP 16; TEMP 36.7; O2SAT 99
[2021-11-08 17:46] VITALS: BP 162/63; PULSE 74; RESP 16; TEMP 36.3; O2SAT 100
[2021-11-08 19:15] LABS: Troponin-I High Sensitivity < 3.5 ng/L (<3.5-17.0)
[2021-11-08] MEDS: Acetaminophen 325 MG TABLET 650 MG PO (19:58)
== END 2021-11-08 20:17 | disposition home or self-care (01) ==
PROVIDERS: Physician Assistant; Emergency Provider Emergency Medicine; PCP Hospitalist
DX: R07.9 Chest pain, unspecified (principal); I10 Essential (primary) hypertension; Z79.899 Other long term (current) drug therapy
CPT/HCPCS: 36415; 80048; 84484; 85025; 93005; 99283; 99284; 99285

== ENCOUNTER 2021-12-13 14:04 | Outpatient (REF) | payer OTHER, SELFPAY ==
[2021-12-13 14:47] LABS: Influenza A PCR NEGATIVE (Negative); Influenza B PCR NEGATIVE (Negative); Resp Syncy Virus RNA Qual PCR NEGATIVE (Negative); SARS COV2 PCR INHOUSE POSITIVE (Negative)
== END 2021-12-13 14:05 | disposition home or self-care (01) ==
LOC: HO.LNP 14:04
PROVIDERS: Visit Provider Family Medicine
DX: R05.9 Cough, unspecified (principal); Z20.822 Contact with and (suspected) exposure to COVID-19
CPT/HCPCS: 0241U

== ENCOUNTER 2022-01-01 09:30 | Outpatient (REF) | payer OTHER, SELFPAY ==
[2022-01-01 13:50] LABS: CT PCR NOT DETECTED (Not Detect.); NG PCR NOT DETECTED (Not Detect.)
[2022-01-04 07:42] LABS: HPV mRNA E6/E7 rflx Not Detected (Not Detected)
== END 2022-01-01 09:31 | disposition home or self-care (01) ==
LOC: HO.LAB 09:30
PROVIDERS: PCP Hospitalist; Visit Provider Obstetrics & Gynecology
DX: Z01.419 Encounter for gynecological examination (general) (routine) without abnormal findings (principal); N92.1 Excessive and frequent menstruation with irregular cycle
CPT/HCPCS: 87491; 87591; 87624; 88142; 99212

== ENCOUNTER 2022-01-30 10:05 | Outpatient (REF) | payer OTHER, SELFPAY ==
--- NOTE | ~2022-01-30 | MM_ITS ---
EXAMINATION: MM SCREENING DIGITAL BREAST TOMOSYNTHESIS, BILATERAL CLINICAL INFORMATION: Screening. Asymptomatic. The lifetime risk of breast cancer based on the Tyrer-Cuzick Model is 9%. COMPARISON: Mammography: 11/26/2020, 08/20/2019, 08/16/2018 TECHNIQUE: Digital breast tomosynthesis is performed in both the craniocaudal and mediolateral oblique views along with computer-aided detection (CAD). Synthesized 2D images are generated from the tomosynthesis. FINDINGS: There are scattered areas of fibroglandular density (ACR BI-RADS breast composition Category b). Parenchymal pattern borders on predominantly fatty. Background stromal and fibroglandular densities are stable. There are no significant masses, abnormal calcifications, or other abnormalities. The axilla and skin contours are unremarkable. MM/MM tomosynthesis screening BI IMPRESSION: No mammographic evidence of malignancy. ASSESSMENT: BI-RADS 1: Negative RECOMMENDATION: Routine annual mammography screening. This patient's information was entered into a reminder system with a target due date for their next mammogram.
== END 2022-01-30 10:06 | disposition home or self-care (01) ==
LOC: HO.MAMMO 10:05
PROVIDERS: PCP Hospitalist; Visit Provider Obstetrics & Gynecology
DX: Z12.31 Encounter for screening mammogram for malignant neoplasm of breast (principal)
CPT/HCPCS: 77063; 77067

== ENCOUNTER 2022-02-14 10:37 | Outpatient (REF) | payer OTHER, SELFPAY | END 2022-02-14 10:38 | disposition home or self-care (01) | LOC: HO.LAB 10:37 | PROVIDERS: PCP Hospitalist; Visit Provider Obstetrics & Gynecology | DX: N92.1 Excessive and frequent menstruation with irregular cycle (principal) | CPT/HCPCS: 58100; 81025; 88305 ==

== ENCOUNTER 2022-02-19 13:06 | Outpatient (REF) | payer OTHER, SELFPAY ==
--- NOTE | ~2022-02-19 | US_ITS ---
EXAMINATION: US PELVIS CLINICAL INFORMATION: Abnormal uterine and vaginal bleeding COMPARISON: Previous pelvic ultrasounds most recent August [address] of the abdomen and pelvis most recent July 2000 TECHNIQUE: Ultrasound of the pelvis is performed using both transabdominal and transvaginal transducers along with Doppler. Transvaginal imaging is performed due to inadequate visualization transabdominally. FINDINGS: Exam is limited due to patient body habitus. Uterus is anteverted and measures 10.7 x 6.8 x 6.6 cm. There are 2 endometrial canals. Right endometrial thickness measures 1.1 cm and left 1.2 cm. There does not appear to be evidence of bicornuate uterus on previous CT 08/06/2017 and this may represent a septate or arcuate-type uterus. No focal uterine lesion is seen. There were small nabothian cysts in the cervix. There is a new midline perineal complex cyst measuring 1.9 x 1.6 x 1.5 cm. the ovaries are normal-appearing. The right ovary measures 2.2 x 1.1 x 2.4 cm. The left ovary measures 3 x 2.6 x 3.2 cm. There is a small amount of fluid in the pelvis. US/US pelvic and transvaginal IMPRESSION: Limited exam. 2 endometrial canals probably representing an arcuate or septate-type uterus. Endometrial thickness measures 1.1 cm on the right and 1.2 cm on the left. Normal-appearing ovaries. New complex midline perineal cyst measuring 1.9 x 1.6 x 1.5 cm.
== END 2022-02-19 13:07 | disposition home or self-care (01) ==
LOC: HO.US 13:06
PROVIDERS: Visit Provider Obstetrics & Gynecology
DX: N93.9 Abnormal uterine and vaginal bleeding, unspecified (principal); N92.1 Excessive and frequent menstruation with irregular cycle
CPT/HCPCS: 76830; 76856

== ENCOUNTER → 2022-02-20 10:53 | Outpatient (BNVA) | payer OTHER, SELFPAY | PROVIDERS: Visit Provider Obstetrics & Gynecology | DX: N85.02 Endometrial intraepithelial neoplasia [EIN] (principal) | CPT/HCPCS: 99212 ==

== ENCOUNTER 2022-03-14 08:46 | Day surgery (SDC) | payer OTHER, SELFPAY ==
[2022-03-07 14:47] VITALS: BMI 44.4
--- NOTE | 2022-03-13 08:40 | P.CONAN_ITS ---
Documented by User: Ashley Miller NP 03/13/22 08:46 HPI - Anesthesia Eval Consult details Narrative: 51yo F for D&C Hysteroscopy,poss polypectomy/myomectomy 08/2021 Cardiac w/u for palpitations. Testing wnl. Palps resolved with stopping caffeine. No further cardiac f/u warranted [facility] Active Problems Active Problems: All Active Problems (Updated 03/07/22 @ 14:41 by Belkys Alvarez RN) Menometrorrhagia (Acute) Screening mammogram, encounter for (Acute) Hypertension, essential (Acute) Left ankle pain (Acute) Pneumonia due to 2019 novel coronavirus (Acute) Palpitation (Acute) PVC (premature ventricular contraction) (Acute) Disc disease, degenerative, lumbar or lumbosacral (Acute) Elevated fasting blood sugar (Acute) Radiculopathy affecting upper extremity (Acute) BPV (benign positional vertigo) (Acute) Asthma, mild intermittent, poorly controlled (Acute) Seasonal allergies (Acute) Dyspnea (Acute) Asthma exacerbation (Acute) Breast cancer screening (Acute) Acute low back pain (Acute) Low back pain with left-sided sciatica (Acute) Allergic reaction (Acute) Asthma, intermittent (Acute) EIN (endometrial intraepithelial neoplasia) (Acute) Pain of right breast (Acute) Anxiety (Acute) PCOS (polycystic ovarian syndrome) (Acute) Past Medical History Medical History (Updated 03/07/22 @ 14:41 by Belkys Alvarez RN) Anxiety Endometrial hyperplasia without atypia History of COVID-19 Hypertension Obesity PCOS (polycystic ovarian syndrome) Family History Family History Father Heart problem Mother Stroke Diabetes Son Asthma Surgical History Surgical History (Updated 03/07/22 @ 14:41 by Belkys Alvarez RN) History of History of cholecystectomy History of dilatation and curettage Social History Social History Housing: House Are you a primary child care center assistant director to a significant other at home: No Do you presently have visiting nurse or other home services: No Alcohol intake: never Patient Tobacco Use Status: Never used Tobacco e-Cigarette/Vaping Use: Never Used Second Hand Smoke Exposure: No Advance Directives: No Advance Directives Information Provided: Yes Advance Directives on File: No service: No Current occupational status: other 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 Rate : 077 BPM ? ? Atrial Rate : 077 BPM ?? P-R Int : 190 ms? QRS Dur : 080 ms ? ? QT Int : 374 ms ? ? ? P-R-T Axes : 057 028 048 degrees ?? QTc Int : 423 ms ? Normal sinus rhythm Normal ECG When compared with ECG of 24-SEP-2021 22:08, Premature ventricular complexes are no longer Present ECHO 07/2021 Conclusions: - The left ventricular systolic function is normal.? The ? calculated ejection fraction is 58% by biplane method. ? - There is mild mitral annular calcification.? - The inferior vena cava is dilated and collapses less than 50%? with inspiration.? 3 Day holter 07/2021 Total monitoring time 2 days and 23 hours.? Underlying rhythm is sinus.? Minimum heart rate 60/minute.? Maximum 124/minute.? Average 80/minute.? No atrial fibrillation or flutter.? No AV blocks or pauses.? Rare PVCs with a burden of 0.34%.? One couplet.? Very rare PACs.? No patient events. Assessment and Plan Assessment Anesthesia Assessment: Chart Reviewed Documented by User: Irma Momin MD 03/14/22 09:17 [facility] Past Medical History Medical History (Updated 03/07/22 @ 14:41 by Belkys Alvarez RN) Anxiety Endometrial hyperplasia without atypia History of COVID-19 Hypertension Obesity PCOS (polycystic ovarian syndrome) Family History Family History Father Heart problem Mother Stroke Diabetes Son Asthma Family history of problems with anesthesia: No Surgical History Surgical History (Updated 03/07/22 @ 14:41 by Belkys Alvarez RN) History of History of cholecystectomy History of dilatation and curettage History of Problems with Anesthesia: No Social History Social History Housing: House Are you a primary child care center assistant director to a significant other at home: No Do you presently have visiting nurse or other home services: No Alcohol intake: never Patient Tobacco Use Status: Never used Tobacco e-Cigarette/Vaping Use: Never Used Second Hand Smoke Exposure: No Advance Directives: No Advance Directives Information Provided: Yes Advance Directives on File: No service: No Current occupational status: other 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 Sexual orientation: Straight/Heterosexual Gender identity: Female Cognitive needs: No Hearing needs: No Vision needs: No Meds Allergies Allergy/AdvReac Type Severity Reaction Status Date / Time No Known Allergies Allergy Verified 02/26/22 12:15 Home Medications Medication Instructions Recorded Confirmed Last Taken Type metoprolol succinate 25 mg 25 mg PO .DAILY AFTERNOON 03/12/22 03/12/22 03/14/22 History tablet,extended release 24 hr Exam Airway Mallampati Class: II (Broken front tooth) TM Dist: >3cm Neck ROM: Full Heart: rrr Lungs: cta Assessment and Plan Assessment Anesthesia Assessment: Anesthesia Plan Discussed and Chart Reviewed Final Anesthetic Review Family History of Problems with Anesthesia: No History of Problems with Anesthesia: No NPO: Yes ASA Class: III Final Preanesthetic Review: No Changes in Pt Med Stat, Meds/Allgs Chart Reviewed and Consent Obtained/Reviewed Patient Risk: Intermediate Procedure Risk: Intermediate Anesthetic Plan Anesthetic Plan: GA Disposition: Standard PACU
[2022-03-14] VITALS (7 sets, daily range): BP systolic 127–161; BP diastolic 67–82; PULSE 71–85; RESP 16–19; TEMP 36.2–36.4; O2SAT 95–98
[2022-03-14 09:07] LABS: UPreg QC Valid YES
[2022-03-14 09:08] LABS: Urine Pregnancy NEGATIVE (NEGATIVE)
[2022-03-14] MEDS: Lactated Ringers 1,000 ML 100 ML IVCONT (09:10)
--- NOTE | 2022-03-14 09:11 | MHC.SHP ---
Pre-Procedural Eval Section A Date of Service: 03/14/22 The patient is an INPATIENT: No Changes since office visit: No Cold of Flu in the past 2 weeks, No New Medical Problems, No Changes in Medication and No Patient answered all questions The History & Physical has been completed within 30 days and I have reviewed it.: Yes Section B Chief Complaint: Endometrial intraepithelial neoplasia [EIN] Allergies: Allergies Allergy/AdvReac Type Severity Reaction Status Date / Time No Known Allergies Allergy Verified 02/26/22 12:15 Plan Diagnosis/Plan: Unchanged I have reviewed the history and physical and performed a pertinent physical examination on my patient. No changes have occurred unless specified.
--- NOTE | 2022-03-14 10:32 | P.BOP_ITS ---
Brief Operative Note Date of Service: 03/14/22 Pre-op diagnosis: Endometrial complex hyperplasia with atypia , EIN Post-op diagnosis: same Procedure: Hysteroscopy D&C Surgeon: Seymour Galvan MD Anesthesia: MAC Was an Car Rental Manager used for this Procedure?: No Estimated blood loss (mL): 0 Pathology: other (Endometrial Scrapping.) Condition: stable Disposition: PACU
--- NOTE | 2022-03-14 10:32 | W.PM.OPN ---
Operative Note Operative Note Date of Service: 03/14/22 Narrative: Preop Diagnosis: Complex endometrial hyperplasia with atypia, E IN Operation: Diagnostic Hysteroscopy, Dilataion & Curettage Post Op Diagnosis: Normal endometrial cavity QBL: Minimal Anesthesia: MAC Surgeon: Seymour Galvan MD Hide And Skin Processing Worker: None Complication: None Pathology: Endometrial Scrapings Procedure: The patient was put in the dorsal lithotomy position, scrubbed, and draped in the usual manner. A sterile speculum was inserted in the patient's vagina. The anterior lip of the cervix was grasped with a single tooth tenaculum. The cervix was dilated up to 5 mm, then the diagnostic scope was inserted in the patient's uterus. Inspection revealed Normal endometrial cavity. Sharp curettings was carried on with moderate to large amount of tissues retrieved . At the end of the procedure, all instruments were taken out of the patient uterine and vaginal cavity. The single tooth tenaculum was removed and homeostasis was assured using pressure,. The patient tolerated the procedure well and was transferred to the PACU in a stable condition.
== END 2022-03-14 11:43 | disposition home or self-care (01) ==
PROVIDERS: PCP Hospitalist; Visit Provider Obstetrics & Gynecology
PROC: 0UDB8ZZ Extraction of Endometrium, Via Natural or Artificial Opening Endoscopic (ICD-10-PCS; CPT 58558; principal; 2022-03-14 10:50)
DX: N85.02 Endometrial intraepithelial neoplasia [EIN] (principal); E28.2 Polycystic ovarian syndrome; I10 Essential (primary) hypertension; F41.1 Generalized anxiety disorder; Z79.899 Other long term (current) drug therapy; Z86.16 Personal history of COVID-19
CPT/HCPCS: 58558; 81025; 88305; J1100; J1885; J2250; J2405; J3010

== ENCOUNTER → 2022-03-20 13:13 | Outpatient (BNVA) | payer OTHER, SELFPAY | PROVIDERS: PCP Hospitalist; Visit Provider Obstetrics & Gynecology | DX: Z13.89 Encounter for screening for other disorder (principal) ==

== ENCOUNTER 2022-03-23 09:27 | Emergency (ER) | payer OTHER, SELFPAY ==
--- NOTE | ~2022-03-23 | US_ITS ---
EXAMINATION: US PELVIS CLINICAL INFORMATION: COMPARISON: Previous exam most recent 02/19/2022 TECHNIQUE: Ultrasound of the pelvis is performed using both transabdominal and transvaginal transducers along with Doppler imaging including waveform spectral analysis. Transvaginal imaging is performed due to inadequate visualization transabdominally. Exam is very limited. FINDINGS: Exam is very limited. The uterus not well visualized. The uterus measures 13.6 x 6.2 x 8 cm in dimension. The endometrium is not visualized. No focal uterine lesion is appreciated. The right ovary measures 3.9 x 3.5 x 3.5 cm, volume 25 mL. Arterial and venous flow is documented to the right ovary. The left ovary is not seen. There is no fluid in the pelvis. US/US pelvic and transvaginal IMPRESSION: Very limited exam. Normal-appearing right ovary. Left ovary not seen. Left ovarian torsion cannot be excluded. Repeat ultrasound exam following pain medication or CT or MRI of the pelvis should be considered if clinically indicated. Limited visualization of the uterus. The endometrium is not visualized.
--- NOTE | ~2022-03-23 | US_ITS ---
EXAMINATION: US PELVIS CLINICAL INFORMATION: COMPARISON: Previous exam most recent 02/19/2022 TECHNIQUE: Ultrasound of the pelvis is performed using both transabdominal and transvaginal transducers along with Doppler imaging including waveform spectral analysis. Transvaginal imaging is performed due to inadequate visualization transabdominally. Exam is very limited. FINDINGS: Exam is very limited. The uterus not well visualized. The uterus measures 13.6 x 6.2 x 8 cm in dimension. The endometrium is not visualized. No focal uterine lesion is appreciated. The right ovary measures 3.9 x 3.5 x 3.5 cm, volume 25 mL. Arterial and venous flow is documented to the right ovary. The left ovary is not seen. There is no fluid in the pelvis. US/US pelvic ovarian doppler IMPRESSION: Very limited exam. Normal-appearing right ovary. Left ovary not seen. Left ovarian torsion cannot be excluded. Repeat ultrasound exam following pain medication or CT or MRI of the pelvis should be considered if clinically indicated. Limited visualization of the uterus. The endometrium is not visualized.
[2022-03-23 09:32] VITALS: BP 171/74; PULSE 81; RESP 19; TEMP 36.6; O2SAT 98; BMI 45.1
[2022-03-23 09:49] VITALS: BP 173/89; PULSE 76; RESP 14; TEMP 36.8; O2SAT 97
[2022-03-23 10:09] LABS: MANUAL DIFF FLAG NO
[2022-03-23 10:12] LABS: Basophils Absolute Auto 0.1 X10*3/uL (0.0-0.2); Basophils Percent Auto 0.5 % (0-2); Eosinophils Absolute Auto 0.2 X10*3/uL (0.0-0.4); Hematocrit 40.2 % (37.0-47.0); Hemoglobin 12.7 g/dl (12.0-16.0); Imm Gran Abs Auto 0.03 X10*3/uL (0.00-0.03); Imm Gran Pct Auto 0.3 % (0.0-0.4); Lymphocytes Absolute Auto 1.7 X10*3/uL (1.2-4.9); Lymphocytes Percent Auto 16.6 % (20-40); Mean Corpuscular HGB Conc 31.6 g/dl (31.0-35.0); Mean Corpuscular Hemoglobin 25.6 pg (27.0-33.0); Mean Corpuscular Volume 80.9 fL (80.0-98.0); Monocytes Absolute Auto 0.7 X10*3/uL (0.1-1.2); Monocytes Percent Auto 6.9 % (2-11); Neutrophils Absolute Auto 7.5 x10*3/uL (2.0-8.3); Neutrophils Percent Auto 73.7 % (45-73); Platelet Count 312 X10*3/uL (160-400); Red Blood Count 4.97 X10*6/uL (4.20-5.50); Red Cell Distribution Width 15.8 % (11.0-16.0); White Blood Count 10.2 X10*3/uL (4.8-10.8)
--- NOTE | 2022-03-23 10:34 | ED.FEMALEGU ---
HPI - Female Genitourinary General Chief complaint: Vaginal Bleeding Stated complaint: Vaginal bleeding following procedure Time Seen by Provider: 03/23/22 09:53 Source: patient Mode of arrival: ambulatory Limitations: no limitations History of Present Illness HPI Narrative: 51-year-old female presents for vaginal bleeding status post uterine procedure. 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 She had a phone appointment with Dr. Galvan March 20. She is referred to gynecological oncology at [facility]. She has an appointment April 08 to evaluate for a hysterectomy for cancer prevention. Patient states in last 2 days she has had big clots and cramping. Since the procedure, she had had a light pink vaginal flow, but in the last 2 days she is soaking. One pad in an hour. The pain is 8/10 and a crampy pain in her pelvis, left greater than right. No shortness of breath. States when she goes to the bathroom she has to wipe a lot and there was a lot of blood. Patient is , children are 14 and 20 years old Related Data Home Medications Medication Instructions Recorded Confirmed metoprolol succinate 25 mg 25 mg PO .DAILY AFTERNOON 03/12/22 03/12/22 tablet,extended release 24 hr Previous Rx's Medication Instructions Recorded meclizine 25 mg tablet 25 mg PO TID PRN 90 Days #90 tab 09/26/21 albuterol sulfate 90 mcg/actuation 1 inh INHALATION QID PRN 30 Days 10/10/21 aerosol inhaler (ProAir HFA) #8.5 g loratadine 10 mg capsule 10 mg PO DAILY 90 Days #90 cap 01/01/22 montelukast 10 mg tablet 10 mg PO BEDTIME #90 tab 01/01/22 (Singulair) cyclobenzaprine 10 mg tablet 10 mg PO TID #90 tab 01/08/22 nabumetone 750 mg tablet 750 mg PO BID PRN #60 tab 01/08/22 albuterol sulfate 2.5 mg (3 mL) INHALATION Q4-6H PRN 02/06/22 #90 ml gabapentin 300 mg capsule 300 mg PO Q8H #90 cap 02/12/22 lisinopril 20 mg tablet 20 mg PO BID #60 tab 02/26/22 blood pressure test kit-large #1 ea 04/04/22 nebulizers #1 ea 03/03/22 fluticasone propionate 50 2 spray INTRANASAL DAILY #16 ml 03/07/22 mcg/actuation nasal spray,suspension Allergies Allergy/AdvReac Type Severity Reaction Status Date / Time No Known Allergies Allergy Verified 02/26/22 12:15 Review of Systems Constitutional: Constitutional: Denies body ache(s), Denies chills, Denies fatigue, Denies fever(s), Denies headache(s), Denies malaise and Denies weakness Eyes: Eyes: Denies diplopia ENT: Denies vertigo, Denies dizziness, Denies otalgia, Denies headache(s), Denies post nasal drip, Denies sinus pain and Denies sore throat Cardiovascular: Cardiovascular: Denies chest pain, Denies syncope, Denies leg edema, Reports lightheadedness, Denies Loss of Consciousness, Denies palpitations and Denies dyspnea Respiratory: Respiratory: Denies chest congestion, Denies cough and Denies dyspnea Gastrointestinal: Gastrointestinal: Denies abdominal pain, Denies hematochezia, Denies constipation, Denies diarrhea and Denies vomiting Genitourinary: Genitourinary: Reports abnormal vaginal bleeding, Denies dysuria, Reports pelvic pain, Denies flank pain, Denies urinary incontinence, Denies urinary urgency and Denies vaginal odor Musculoskeletal: Musculoskeletal: Reports no additional musculoskeletal complaints Neurologic: Denies confusion, Denies vertigo, Denies dizziness, Denies syncope, Denies headache(s) and Denies weakness Psychiatric: Psychiatric: Denies anxiety, Denies confusion and Denies depression Endocrine: Endocrine: Denies fatigue and Denies palpitations PMFSH Past Medical History Medical History Anxiety Endometrial hyperplasia without atypia History of COVID-19 Hypertension Obesity PCOS (polycystic ovarian syndrome) Surgical History History of History of cholecystectomy History of dilatation and curettage Family History Family History Father Heart problem Mother Stroke Diabetes Son Asthma Social History Social History Housing: House Are you a primary healthcare financial analyst to a significant other at home: No Do you presently have visiting nurse or other home services: No Alcohol intake: never Patient Tobacco Use Status: Never used Tobacco e-Cigarette/Vaping Use: Never Used Second Hand Smoke Exposure: No Advance Directives: No Advance Directives Information Provided: No Patient : No service: No Current occupational status: other 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 Sexual orientation: Straight/Heterosexual Gender identity: Female Cognitive needs: No Hearing needs: No Vision needs: No Physical Exam Vital Signs: Vital Signs: Last Vital Signs Temp 98.3 F 03/23/22 09:49 Pulse 77 03/23/22 12:00 Resp 18 03/23/22 12:00 BP 150/80 H 03/23/22 12:00 Pulse Ox 99 03/23/22 12:00 BMI result Body Mass Index 45.1 Const: General: No confusion Nutritional Appearance: well nourished Orientation/consciousness: No confusion Limitations: no limitations HEENT: Head: Yes normal to inspection, Yes normocephalic and Yes atraumatic Ears: hearing grossly normal bilaterally and external ears normal General nose exam: Normal external nose present Face and sinus: Yes normal facial exam and Yes sinuses nontender Mouth: Normal oral and palatal mucosa present Throat: Yes posterior oropharynx normal Eyes: Conjunctivae: conjunctivae normal Pupils: Equal, round and reactive pupils present EOM: EOMs intact bilaterally Neck: Neck: Yes full ROM, Yes no lymphadenopathy and Yes supple Resp: Effort & Inspection: normal respiratory effort and able to speak in complete sentences Auscultation: clear to auscultation bilaterally, no crackles, no rales, no rhonchi and no wheezes Cardio: Rate: regular rate Rhythm: regular rhythm Heart sounds: S1 normal heart sound present and S2 normal heart sound present GI: Inspection: Yes normal to inspection Palpation (GI): Soft to palpation, nontender, no guarding and not rigid Percussion: Yes normal to percussion Auscultation: normal bowel sounds : Other: Blood with clots in vaginal vault, no adnexal or cervical motion tenderness, patient is oozing blood from enteritis. General: Yes Bimanual renal exam normal bilaterally External Female Exam: normal external appearance Speculum Exam - Vagina: vaginal bleeding Speculum Exam - Cervix: nontender Bimanual exam- vagina & uterus: normal bimanual exam and No Cervical tenderness present Bimanual Exam- Adnexa, other: normal adnexae and no tenderness OB/external & speculum: vaginal bleeding Skin: General skin exam: no rashes or lesions noted Neuro: General: No confusion Cranial nerves: Yes Equal, round and reactive pupils present Extrem: General: Yes normal to inspection and Yes full ROM Psych: Appearance: grossly normal Affect: normal affect Attitude: cooperative Thought process: Normal thought process present Course Course Course Narrative: 51-year-old female status post D and C on March 14, presents with 2 days of heavy vaginal bleeding with clots. On exam, patient has blood using from her introitus, has small clots and dark red blood in vaginal vault. No gushing of blood. Patient is not , H&H is within normal limits, patient is not , no cervical motion tenderness or adnexal tenderness on exam Transvaginal ultrasound I shows blood flow to the right with to right ovary, left ovary not visualized. No free fluid. No endometrium, no focal uterine lesion. [place] text with Dr. Mandy Galvan states that in the presence of a normal exam with no tenderness no leukocytosis, and normal hemoglobin and hematocrits, no need for any acute treatment. She is already referred to gynecological oncology He suggests she returns if vaginal bleeding becomes heavier, and to follow up with him tomorrow. Still awaiting urine, if that comes back without infection, will discharge patient home with return precautions. FINDINGS: Exam is very limited. The uterus not well visualized. The uterus measures 13.6 x 6.2 x 8 cm in dimension. The endometrium is not visualized. No focal uterine lesion is appreciated. The right ovary measures 3.9 x 3.5 x 3.5 cm, volume 25 mL. Arterial and venous flow is documented to the right ovary. The left ovary is not seen. There is no fluid in the pelvis. US/US pelvic ovarian doppler IMPRESSION: Very limited exam. Normal-appearing right ovary. Left ovary not seen. Left ovarian torsion cannot be excluded. Repeat ultrasound exam following pain medication or CT or MRI of the pelvis should be considered if clinically indicated. Limited visualization of the uterus. The endometrium is not visualized. MDM - Female Genitourinary Lab Data Result diagrams: 03/23/22 10:03 03/23/22 10:03 Labs: Lab Results 03/23/22 03/23/2222 Range/Units 10:03 10:03 11:41 WBC 10.2 (4.8-10.8) X10*3/uL RBC 4.97 (4.20-5.50) X10*6/uL Hgb 12.7 (12.0-16.0) g/dl Hct 40.2 (37.0-47.0) % MCV 80.9 (80.0-98.0) fL MCH 25.6 L (27.0-33.0) pg MCHC 31.6 (31.0-35.0) g/dl RDW 15.8 (11.0-16.0) % Plt Count 312 (160-400) X10*3/uL MPV 10.0 (9.4-12.3) fL Immature Gran % (Auto) 0.3 (0.0-0.4) % Neut % (Auto) 73.7 H (45-73) % Lymph % (Auto) 16.6 L (20-40) % [place] % (Auto) 6.9 (2-11) % Eos % (Auto) 2.0 (0-4) % Baso % (Auto) 0.5 (0-2) % Lymph # (Auto) 1.7 (1.2-4.9) X10*3/uL [place] # (Auto) 0.7 (0.1-1.2) X10*3/uL Eos # (Auto) 0.2 (0.0-0.4) X10*3/uL Baso # (Auto) 0.1 (0.0-0.2) X10*3/uL Abs Immat Gran (auto) 0.03 (0.00-0.03) X10*3/uL Absolute Neuts (auto) 7.5 (2.0-8.3) x10*3/uL Absolute Nucleated RBC 0.000 (0.0-0.012) X10*3/uL Nucleated RBC % (auto) 0.0 (0.0-0.2) /100WBC Sodium 139 (135-145) mmol/L Potassium 4.2 (3.3-5.1) mmol/L Chloride 104 (96-108) mmol/L Carbon Dioxide 31 H (22-29) mmol/L Anion Gap 8 L (12-20) BUN 11 (9-16) mg/dL Creatinine 0.75 (0.5-1.4) mg/dL Estim Creat Clear Calc 122.3 Estimated GFR > 60 Random Glucose 106 (60-115) mg/dL Calcium 9.0 (8.4-10.2) mg/dL Beta HCG, Quant < 2 mIU/mL Urine Color YELLOW Urine Appearance CLOUDY Urine pH 8.0 (5.0-8.0) Ur Specific [place] 1.020 (1.005-1.025) Urine Protein TRACE (NEG-TRACE) MG/DL Urine Glucose (UA) NEG (NEG) MG/DL Urine Ketones NEG (NEG) MG/DL Urine Blood 3+ H (NEG) Urine Nitrite NEG (NEG) Ur Leukocyte Esterase NEG (NEG) Urine RBC 50-75 H (0) /HPF Urine WBC 0 (0-4) /HPF Ur Squamous Epith Cells TRACE /LPF Urine Bacteria TRACE /LPF Urine Mucus TRACE /LPF Urine Test (NEGATIVE) 03/23/22 Range/Units 11:41 WBC (4.8-10.8) X10*3/uL RBC (4.20-5.50) X10*6/uL Hgb (12.0-16.0) g/dl Hct (37.0-47.0) % MCV (80.0-98.0) fL MCH (27.0-33.0) pg MCHC (31.0-35.0) g/dl RDW (11.0-16.0) % Plt Count (160-400) X10*3/uL MPV (9.4-12.3) fL Immature Gran % (Auto) (0.0-0.4) % Neut % (Auto) (45-73) % Lymph % (Auto) (20-40) % [place] % (Auto) (2-11) % Eos % (Auto) (0-4) % Baso % (Auto) (0-2) % Lymph # (Auto) (1.2-4.9) X10*3/uL [place] # (Auto) (0.1-1.2) X10*3/uL Eos # (Auto) (0.0-0.4) X10*3/uL Baso # (Auto) (0.0-0.2) X10*3/uL Abs Immat Gran (auto) (0.00-0.03) X10*3/uL Absolute Neuts (auto) (2.0-8.3) x10*3/uL Absolute Nucleated RBC (0.0-0.012) X10*3/uL Nucleated RBC % (auto) (0.0-0.2) /100WBC Sodium (135-145) mmol/L Potassium (3.3-5.1) mmol/L Chloride (96-108) mmol/L Carbon Dioxide (22-29) mmol/L Anion Gap (12-20) BUN (9-16) mg/dL Creatinine (0.5-1.4) mg/dL Estim Creat Clear Calc Estimated GFR Random Glucose (60-115) mg/dL Calcium (8.4-10.2) mg/dL Beta HCG, Quant mIU/mL Urine Color Urine Appearance Urine pH (5.0-8.0) Ur Specific [place] (1.005-1.025) Urine Protein (NEG-TRACE) MG/DL Urine Glucose (UA) (NEG) MG/DL Urine Ketones (NEG) MG/DL Urine Blood (NEG) Urine Nitrite (NEG) Ur Leukocyte Esterase (NEG) Urine RBC (0) /HPF Urine WBC (0-4) /HPF Ur Squamous Epith Cells /LPF Urine Bacteria /LPF Urine Mucus /LPF Urine Test NEGATIVE (NEGATIVE) Discharge Plan Discharge Clinical Impression: Abnormal vaginal bleeding Patient Disposition: Home, Self-Care Additional Instructions: Please call Dr Galvan tomorrow for a follow up appointment tomorrow. Your hemoglobin and hematocrit, your red blood cell counts were normal, no sign of infection, your ultrasound showed no disease, you are safe to go home. If you have worsening bleeding, feels short of breath, or get lightheaded, I want you to come back to the emergency room. Prescriptions: No Action loratadine 10 mg capsule 10 mg PO DAILY 90 Days Qty: 90 3RF montelukast [Singulair] 10 mg tablet 10 mg PO BEDTIME Qty: 90 3RF (DME) nebulizers Misc See Rx Instructions .ROUTE .MEDSUPPLY Qty: 1 0RF Rx Instructions: for acute asthma or reactions (DME) blood pressure test kit-large Kit See Rx Instructions .Route Qty: 1 0RF Rx Instructions: As directed fluticasone propionate 50 mcg/actuation spray,suspension 2 spray intranasal DAILY Qty: 16 4RF metoprolol succinate 25 mg tablet extended release 24 hr 25 mg PO .DAILY AFTERNOON 0RF albuterol sulfate [ProAir HFA] 90 mcg/actuation HFA aerosol inhaler 1 inh inhalation QID PRN (Reason: shortness of breath or wheezing) 30 Days Qty: 8.5 4RF cyclobenzaprine 10 mg tablet 10 mg PO TID Qty: 90 1RF nabumetone 750 mg tablet 750 mg PO BID PRN (Reason: for pain) Qty: 60 2RF albuterol sulfate 2.5 mg /3 mL (0.083 %) solution for nebulization 2.5 mg inhalation Q4-6H PRN (Reason: shortness of breath or wheezing) Qty: 90 6RF meclizine 25 mg tablet 25 mg PO TID PRN (Reason: dizziness) 90 Days Qty: 90 1RF gabapentin 300 mg capsule 300 mg PO Q8H Qty: 90 1RF Rx Instructions: Pt can increase to two at bedtime if needed instead of q 8 hours and take one in the am or afternoon for total dose of 900 mg per day lisinopril 20 mg tablet 20 mg PO BID Qty: 60 2RF Referrals: Seymour Galvan MD [Physician] -
[2022-03-23 10:36] LABS: Anion Gap 8 (12-20); Blood Urea Nitrogen 11 mg/dL (9-16); Carbon Dioxide 31 mmol/L (22-29); Chloride 104 mmol/L (96-108); Creatinine Clr Calc Pharmacy 122.3; Estimated Glomerular Filt Rate > 60; Glucose Random 106 mg/dL (60-115); Potassium 4.2 mmol/L (3.3-5.1); Sodium 139 mmol/L (135-145)
[2022-03-23 11:21] LABS: HCG Quantitative < 2 mIU/mL
--- NOTE | 2022-03-23 11:24 | PC.NURSE ---
Pt A&OX4, vaginal bleed s/p D&C on 03/14. No pain at this time, call soria within reach, will cotninue to monitor.
[2022-03-23] MEDS: oxyCODONE HCl Immed Release 5 MG TABLET PO (11:38)
--- NOTE | 2022-03-23 11:41 | PC.NURSE ---
pt medicated per order, urine obtained
[2022-03-23 11:53] LABS: Appearance Urine CLOUDY; Color Urine YELLOW; Glucose Urine UA NEG (NEG); Leukocyte Esterase Urine NEG (NEG); Nitrite Urine NEG (NEG); UACC Culture Trigger NO; UPreg QC Valid YES; Urine Blood 3+ (NEG); Urine Ketones NEG (NEG); Urine Pregnancy NEGATIVE (NEGATIVE); Urine Protein TRACE MG/DL (NEG-TRACE)
[2022-03-23 12:00] VITALS: BP 150/80; PULSE 77; RESP 18; O2SAT 99
[2022-03-23 12:03] LABS: Mucus Urine TRACE /LPF; Squamous Epithelial Cell Urine TRACE /LPF
[2022-03-23 12:04] LABS: RBC Urine 50-75 /HPF (0); WBC Urine 0 /HPF (0-4)
--- NOTE | 2022-03-23 12:05 | PM.GYNCN ---
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 ? The patient was referred to? gynecological oncology at [facility] for further management and is scheduled on April 08. Patient states she has been having heavy vaginal bleeding associated with passage of blood clots and pelvic cramping. Postoperatively her vaginal flow was very light but picked up in the last 2 days. No other associated symptoms: No feverishness or chills, no nausea and vomiting. cc:: CC: HEAD OF PHYSICS - Review of Systems Review of Systems ROS Unobtainable: All systems reviewed & are unremarkable except as noted in HPI and below Cardiovascular: Denies Palpatations, Loss of consciousness or Chest pain Respiratory: Denies Cough, Wheezing or Shortness of breath Musculoskeletal: Denies Low back pain Gastrointestinal: Denies Heartburn, Constipation, Diarrhea, Nausea or Vomiting Genitourinary: Denies Pain with urination, Burning with urination or Urinary frequency Neurological: Denies Migranes Psychological: Denies Depression OB PMFSH Past Medical History Medical History Anxiety Endometrial hyperplasia without atypia History of COVID-19 Hypertension Obesity PCOS (polycystic ovarian syndrome) Family History Family History Father Heart problem Mother Stroke Diabetes Son Asthma Surgical History Surgical History History of History of cholecystectomy History of dilatation and curettage Social History Social History Housing: House Are you a primary care management coordinator to a significant other at home: No Do you presently have visiting nurse or other home services: No Alcohol intake: never Patient Tobacco Use Status: Never used Tobacco e-Cigarette/Vaping Use: Never Used Second Hand Smoke Exposure: No Advance Directives: No Advance Directives Information Provided: No Patient : No service: No Current occupational status: other 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 Sexual orientation: Straight/Heterosexual Gender identity: Female Cognitive needs: No Hearing needs: No Vision needs: No Meds Allergies Allergy/AdvReac Type Severity Reaction Status Date / Time No Known Allergies Allergy Verified 02/26/22 12:15 Home Medications Medication Instructions Recorded Confirmed Last Taken Type metoprolol succinate 25 mg 25 mg PO .DAILY AFTERNOON 03/12/22 03/12/22 03/14/22 History tablet,extended release 24 hr FIGURINE MAKER Physical Exam Vitals Vital signs: Temp Pulse Resp BP Pulse Ox 98.3 F 76 14 173/89 H 97 03/23/22 09:49 03/23/22 09:49 03/23/22 09:49 03/23/22 09:49 03/23/22 09:49 BMI result Body Mass Index 45.1 Constitutional General Appearance: Healthy appearing, Well-nourished and Well-developed Psychiatric Mood and Affect: active and alert, normal mood and normal affect Skin Appearance: No rashes and No lesions Lungs Respiratory Effort: No intercostal retractions Auscultation: Clear to auscultation Cardiovascular Auscultation: RRR Abdomen Auscultation/Inspection/Palpation: Normal bowel sounds, Soft, Non-distended and No tenderness Additional Comments: Physical exam reported by JAJA Lala normal abdominal exam nontender and soft and on pelvic exam, no evidence of active vaginal bleeding no cervical motion tenderness or uterine and or adnexal tenderness. FIGURINE MAKER - Results Labs CBC & Chem 7: 03/23/22 10:03 03/23/22 10:03 Labs: Short CBC 03/23/22 Range/Units 10:03 WBC 10.2 (4.8-10.8) X10*3/uL Hgb 12.7 (12.0-16.0) g/dl Hct 40.2 (37.0-47.0) % Plt Count 312 (160-400) X10*3/uL BMP 03/23/22 10:03 Sodium 139 Potassium 4.2 Chloride 104 Carbon Dioxide 31 H BUN 11 Creatinine 0.75 Calcium 9.0 Urine 03/23/22 03/23/22 Range/Units 11:41 11:41 Urine Color YELLOW Urine Appearance CLOUDY Urine pH 8.0 (5.0-8.0) Ur Specific [place] 1.020 (1.005-1.025) Urine Protein TRACE (NEG-TRACE) MG/DL Urine Glucose (UA) NEG (NEG) MG/DL Urine Test NEGATIVE (NEGATIVE) Imaging US - abdomen: Radiologist's impression: ITS Impressions Doppler Study Ultrasound 03/23/22 11:07 IMPRESSION: Very limited exam. Normal-appearing right ovary. Left ovary not seen. Left ovarian torsion cannot be excluded. Repeat ultrasound exam following pain medication or CT or MRI of the pelvis should be considered if clinically indicated. Limited visualization of the uterus. The endometrium is not visualized. Pelvic/Transvag US 03/23/22 11:07 IMPRESSION: Very limited exam. Normal-appearing right ovary. Left ovary not seen. Left ovarian torsion cannot be excluded. Repeat ultrasound exam following pain medication or CT or MRI of the pelvis should be considered if clinically indicated. Limited visualization of the uterus. The endometrium is not visualized. Assessment and Plan (1) Abnormal uterine bleeding: Status: Acute Since CBC is within normal, no evidence of leukocytosis, no evidence of active vaginal bleeding on pelvic exam, normal abdominal and pelvic exam with no evidence of tenderness. With a history of EIN, the patient has been refer to perforator operator Oncology at [facility] appointment made on 04/08/22. Recommended to [place] BETANCUR the following following: Discharge patient home to follow-up in the office jose and come back to emergency room in case of persistent or heavy vaginal bleeding, fever above 100.4 pelvic pain or any other concerns (2) Hypertension: Status: Acute Blood pressure taken at 9:49 was 173/89, recommended to JAJA Lala to repeat blood pressure if persistent hypertension to treat as indicated. I spent a total of 25 minutes reviewing the chart, communicating with ER provider and documenting in the medical record
[2022-03-23 12:06] LABS: Bacteria Urine TRACE /LPF
--- NOTE | 2022-03-23 13:05 | PC.NURSE ---
IV removed. recommended pt use Gas-X OTC per provider.
== END 2022-03-23 13:02 | disposition home or self-care (01) ==
PROVIDERS: Physician Assistant; Emergency Provider Emergency Medicine; PCP Hospitalist
DX: N93.9 Abnormal uterine and vaginal bleeding, unspecified (principal); R10.2 Pelvic and perineal pain; I10 Essential (primary) hypertension; Z79.899 Other long term (current) drug therapy
CPT/HCPCS: 36415; 76830; 76856; 80048; 81001; 81003; 81025; 84702; 85025; 93975; 99284; 99285

== ENCOUNTER → 2022-03-24 13:41 | Outpatient (BNVA) | payer OTHER, SELFPAY | PROVIDERS: Visit Provider Obstetrics & Gynecology | DX: N85.02 Endometrial intraepithelial neoplasia [EIN] (principal) | CPT/HCPCS: 99212 ==

== ENCOUNTER 2022-04-16 11:47 | Outpatient (REF) | payer OTHER, SELFPAY ==
[2022-04-16 13:33] LABS: Hematocrit 39.2 % (37.0-47.0); Hemoglobin 12.3 g/dl (12.0-16.0); Mean Corpuscular HGB Conc 31.4 g/dl (31.0-35.0); Mean Corpuscular Hemoglobin 25.7 pg (27.0-33.0); Mean Corpuscular Volume 81.8 fL (80.0-98.0); Mean Platelet Volume 10.6 fL (9.4-12.3); Platelet Count 356 X10*3/uL (160-400); Red Blood Count 4.79 X10*6/uL (4.20-5.50); Red Cell Distribution Width 16.2 % (11.0-16.0); White Blood Count 9.1 X10*3/uL (4.8-10.8)
== END 2022-04-16 11:48 | disposition home or self-care (01) ==
LOC: HO.WFDLDS 11:47
PROVIDERS: Visit Provider Hospitalist
DX: N92.0 Excessive and frequent menstruation with regular cycle (principal); N85.00 Endometrial hyperplasia, unspecified
CPT/HCPCS: 36415; 85027

== ENCOUNTER 2022-04-23 11:35 | Outpatient (REF) | payer OTHER, SELFPAY ==
[2022-04-23 12:15] LABS: Hematocrit 36.7 % (37.0-47.0); Hemoglobin 11.4 g/dl (12.0-16.0); Mean Corpuscular HGB Conc 31.1 g/dl (31.0-35.0); Mean Corpuscular Hemoglobin 25.6 pg (27.0-33.0); Mean Corpuscular Volume 82.5 fL (80.0-98.0); Platelet Count 317 X10*3/uL (160-400); Red Blood Count 4.45 X10*6/uL (4.20-5.50); Red Cell Distribution Width 15.9 % (11.0-16.0); White Blood Count 10.1 X10*3/uL (4.8-10.8)
[2022-04-23 13:06] LABS: Anion Gap 10 (12-20); Blood Urea Nitrogen 10 mg/dL (9-16); Calcium 9.2 mg/dL (8.4-10.2); Carbon Dioxide 26 mmol/L (22-29); Chloride 107 mmol/L (96-108); Estimated Glomerular Filt Rate > 60; Glucose Random 113 mg/dL (60-115); Potassium 4.4 mmol/L (3.3-5.1); Sodium 139 mmol/L (135-145)
== END 2022-04-23 11:36 | disposition home or self-care (01) ==
LOC: HO.LAB 11:35
PROVIDERS: PCP Hospitalist; Visit Provider Hospitalist
DX: M54.42 Lumbago with sciatica, left side (principal); N85.00 Endometrial hyperplasia, unspecified; N92.0 Excessive and frequent menstruation with regular cycle
CPT/HCPCS: 36415; 80048; 85027

== ENCOUNTER 2022-07-20 16:34 | Emergency (ER) | payer OTHER, SELFPAY ==
[2022-07-20 18:40] VITALS: BP 163/73; PULSE 84; RESP 16; TEMP 36.4; O2SAT 97; BMI 45.1
--- NOTE | 2022-07-20 18:43 | ECG_ITS ---
Test Reason : DIZZINESS Blood Pressure : / mmHG Vent. Rate : 085 BPM Atrial Rate : 085 BPM P-R Int : 174 ms QRS Dur : 080 ms QT Int : 364 ms P-R-T Axes : 041 009 033 degrees QTc Int : 433 ms Normal sinus rhythm with sinus arrhythmia Normal ECG When compared with ECG of 08-NOV-2021 12:08, No significant change was found Referred By: Generic ED Physician Electronically Signed By:MARIE ERNANDEZ
[2022-07-20 19:05] LABS: MANUAL DIFF FLAG NO
[2022-07-20 19:07] LABS: Basophils Absolute Auto 0.1 X10*3/uL (0.0-0.2); Basophils Percent Auto 0.5 % (0-2); Eosinophils Absolute Auto 0.2 X10*3/uL (0.0-0.4); Eosinophils Percent Auto 1.4 % (0-4); Hematocrit 36.8 % (37.0-47.0); Hemoglobin 11.4 g/dl (12.0-16.0); Imm Gran Abs Auto 0.04 X10*3/uL (0.00-0.03); Imm Gran Pct Auto 0.4 % (0.0-0.4); Lymphocytes Absolute Auto 2.5 X10*3/uL (1.2-4.9); Lymphocytes Percent Auto 23.4 % (20-40); Mean Corpuscular Hemoglobin 24.1 pg (27.0-33.0); Mean Corpuscular Volume 77.8 fL (80.0-98.0); Mean Platelet Volume 9.6 fL (9.4-12.3); Monocytes Absolute Auto 0.7 X10*3/uL (0.1-1.2); Neutrophils Absolute Auto 7.1 x10*3/uL (2.0-8.3); Neutrophils Percent Auto 67.3 % (45-73); Platelet Count 323 X10*3/uL (160-400); Red Blood Count 4.73 X10*6/uL (4.20-5.50); Red Cell Distribution Width 15.3 % (11.0-16.0); White Blood Count 10.5 X10*3/uL (4.8-10.8)
[2022-07-20 19:32] LABS: Anion Gap 15 (12-20); Blood Urea Nitrogen 13 mg/dL (9-16); Calcium 9.3 mg/dL (8.4-10.2); Carbon Dioxide 28 mmol/L (22-29); Chloride 104 mmol/L (96-108); Creatinine Clr Calc Pharmacy 111.9; Estimated Glomerular Filt Rate > 60; Glucose Random 100 mg/dL (60-115); Potassium 4.2 mmol/L (3.3-5.1); Sodium 143 mmol/L (135-145)
--- NOTE | 2022-07-20 20:28 | ED.DIZZY ---
HPI - Dizziness General Chief Complaint: Dizziness Stated Complaint: dizzy, low blood pressure Time Seen by Provider: 07/20/22 20:22 Source: patient Mode of arrival: ambulatory Limitations: no limitations History of Present Illness HPI Narrative: 51-year-old female history of hypertension taking lisinopril 20 mg twice a day to control her blood pressure, and I time patient feels dizzy and lightheadedness and when she check her blood pressure founded low SBP about 110-114 which is low for the patient, patient declined headache or blurry vision or CP or SOB. Patient think that when she takes 20 mg of lisinopril feels better rest of the day. Patient had a recent hysterectomy about a month ago no active bleeding. Stated that she is not drinking enough fluid. Related Data Home Medications Medication Instructions Recorded Confirmed metoprolol succinate 25 mg 25 mg PO .DAILY AFTERNOON 03/12/22 04/16/22 tablet,extended release 24 hr Previous Rx's Medication Instructions Recorded meclizine 25 mg tablet 25 mg PO TID PRN dizziness 3 09/26/21 months #90 tabs albuterol sulfate 90 mcg/actuation 1 inh inhalation QID PRN shortness 10/10/21 aerosol inhaler (ProAir HFA) of breath or wheezing 1 month #8.5 grams loratadine 10 mg capsule 10 mg PO DAILY 3 months #90 caps 01/01/22 montelukast 10 mg tablet 10 mg PO BEDTIME #90 tabs 01/01/22 (Singulair) nabumetone 750 mg tablet 750 mg PO BID PRN for pain #60 tabs 01/08/22 albuterol sulfate 2.5 mg/3 mL 2.5 mg (3 mL) inhalation Q4-6H PRN 02/06/22 (0.083 %) solution for nebulization shortness of breath or wheezing #90 mL gabapentin 300 mg capsule 300 mg PO Q8H #90 caps 02/12/22 blood pressure test kit-large #1 ea 03/03/22 nebulizers #1 ea 03/03/22 fluticasone propionate 50 2 spray intranasal DAILY #16 mL 03/07/22 mcg/actuation nasal spray,suspension lisinopril 20 mg tablet 20 mg PO BID #60 tabs 03/24/22 tramadol 50 mg tablet 50 mg PO BID PRN pain #45 tabs 04/16/22 medroxyprogesterone 10 mg tablet 10 mg PO DAILY 30 days #30 tabs 05/26/22 (Provera) Allergies Allergy/AdvReac Type Severity Reaction Status Date / Time No Known Allergies Allergy Verified 04/16/22 11:41 Review of Systems Review of Systems: All other systems are reviewed and are negative Constitutional: Reports as per HPI and Reports no additional constitutional complaints Eyes: Reports as per HPI and Reports no additional eye complaints Reports system reviewed and no additional complaints, except as documented Cardiovascular: Reports as per HPI and Reports no additional cardiovascular complaints Respiratory: Reports as per HPI and Reports no additional respiratory complaints Gastrointestinal: Reports as per HPI and Reports no additional gastrointestinal complaints Genitourinary: Reports no additional female genitourinary complaints Musculoskeletal: Reports no additional musculoskeletal complaints Skin/Breast: Reports system reviewed and no additional complaints, except as docu Psychiatric: Reports no additional psychiatric complaints Endocrine: Reports no additional endocrine complaints Hematologic/Lymphatic: Reports no additional hematologic/lymphatic complaints Allergic/Immunologic: Reports no additional allergic/immunologic complaints Reports system reviewed and no additional complaints, except as documented and Reports Abnormal speech present [facility] Past Medical History Medical History Anxiety Endometrial hyperplasia without atypia History of COVID-19 Hypertension Obesity PCOS (polycystic ovarian syndrome) Surgical History History of History of cholecystectomy History of dilatation and curettage Family History Family History Father Heart problem Mother Stroke Diabetes Son Asthma Social History Social History Housing: House Are you a primary healthcare administration internship to a significant other at home: No Do you presently have visiting nurse or other home services: No Alcohol intake: never Patient Tobacco Use Status: Never used Tobacco e-Cigarette/Vaping Use: Never Used Second Hand Smoke Exposure: No Advance Directives: No Advance Directives Information Provided: No service: No Current occupational status: other 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 Blood pressure normal. Heart rate normal. Respiration rate normal. Temperature normal. Oxygen saturation normal. Appearance: Alert. Oriented X3. No acute distress. Head: Normal external exam. Normocephalic. Atraumatic. No Fernandez signs noted. No raccoon eyes noted Eyes: PERRLA. EOMI. Conjunctiva and sclera normal. Eyelids normal. ENT: TM's Normal. Pharynx normal. Uvula midline. Moist mucous membranes. No trismus noted. No drooling noted. No muffled voice noted. Neck: Normal inspection. Neck supple. FROM. No adenopathy. Thyroid Normal. No meningeal signs. No neck mass noted. CVS: Normal heart rate and rhythm. Heart sound normal. No murmurs noted. Pulses normal throughout. Respiratory: No respiratory distress. Painless inspiration. Breath sounds normal. No wheezes/rales/rhonchi noted. Chest nontender. No accessory muscle usage noted or decreased air movement noted. Abdomen: Soft and nontender. Bowel sounds normal in all 4 quadrants. No distention noted. No organomegaly noted. No visible injury noted. Back: No CVA tenderness. Full range of motion noted. Skin: Skin warm and dry. Normal skin color. Normal skin turgor. No rashes/lesions/lacerations noted. Extremities: No lower extremity edema. Extremities exhibit normal range of motion. Extremities nontender. Neuro: Oriented X 3. Cranial nerve exam: II-XII are grossly intact No motor deficit. No sensory deficit. Reflexes normal. Course Course Course Narrative: 51-year-old female came in with complaint of lightheadedness more at nighttime when she lay supine and also found to have low blood pressure reading patient takes 20 mg twice a day of lisinopril which she think it is too much to control her blood pressure, patient has been taking only 20 mg of lisinopril, in the ED patient is hemodynamically stable, unremarkable blood workup, and EKG. No evidence of bleeding or severe anemia. Patient will follow up with her PCP to continue monitoring her blood pressure management. [facility] - Dizziness Medical Records Attestation: I reviewed the patient's medical records. Lab Data Attestation: I reviewed the patient's lab results. Result diagrams: 07/20/22 19:00 07/20/22 19:00 Labs: Lab Results 07/20/22 07/20/22 07/20/22 Range/Units 19:00 19:00 19:00 WBC 10.5 (4.8-10.8) X10*3/uL RBC 4.73 (4.20-5.50) X10*6/uL Hgb 11.4 L (12.0-16.0) g/dl Hct 36.8 L (37.0-47.0) % MCV 77.8 L (80.0-98.0) fL MCH 24.1 L (27.0-33.0) pg MCHC 31.0 (31.0-35.0) g/dl RDW 15.3 (11.0-16.0) % Plt Count 323 (160-400) X10*3/uL MPV 9.6 (9.4-12.3) fL Immature Gran % (Auto) 0.4 (0.0-0.4) % Neut % (Auto) 67.3 (45-73) % Lymph % (Auto) 23.4 (20-40) % [place] % (Auto) 7.0 (2-11) % Eos % (Auto) 1.4 (0-4) % Baso % (Auto) 0.5 (0-2) % Lymph # (Auto) 2.5 (1.2-4.9) X10*3/uL [place] # (Auto) 0.7 (0.1-1.2) X10*3/uL Eos # (Auto) 0.2 (0.0-0.4) X10*3/uL Baso # (Auto) 0.1 (0.0-0.2) X10*3/uL Abs Immat Gran (auto) 0.04 H (0.00-0.03) X10*3/uL Absolute Neuts (auto) 7.1 (2.0-8.3) x10*3/uL Absolute Nucleated RBC 0.000 (0.0-0.012) X10*3/uL Nucleated RBC % (auto) 0.0 (0.0-0.2) /100WBC Sodium 143 (135-145) mmol/L Potassium 4.2 (3.3-5.1) mmol/L Chloride 104 (96-108) mmol/L Carbon Dioxide 28 (22-29) mmol/L Anion Gap 15 (12-20) BUN 13 (9-16) mg/dL Creatinine 0.82 (0.5-1.4) mg/dL Estim Creat Clear Calc 111.9 Estimated GFR > 60 Random Glucose 100 (60-115) mg/dL Calcium 9.3 (8.4-10.2) mg/dL Troponin I High Sens 3.5 (<3.5-17.0) ng/L B-Natriuretic Peptide 20 (<100) pg/mL ECG Data Attestation: I personally reviewed and interpreted this ECG as follows: Interpretation: Normal sinus rhythm at 85 beats per minute, normal intervals, normal axis deviation, no ST-T changes, no change from previous EKG. Discharge Plan Discharge Clinical Impression: Dizziness Patient Disposition: Home, Self-Care Instructions: Lightheadedness (ED) Additional Instructions: Record your blood pressure reading 3 times a day for the next week then showed the record your PCP Prescriptions: No Action loratadine 10 mg capsule 10 mg PO DAILY 90 Days Qty: 90 3RF montelukast [Singulair] 10 mg tablet 10 mg PO BEDTIME Qty: 90 3RF (DME) nebulizers [facility] See Rx Instructions .ROUTE .MEDSUPPLY Qty: 1 0RF Rx Instructions: for acute asthma or reactions (DME) blood pressure test kit-large Kit See Rx Instructions .Route Qty: 1 0RF Rx Instructions: As directed fluticasone propionate 50 mcg/actuation spray,suspension 2 spray intranasal DAILY Qty: 16 4RF lisinopril 20 mg tablet 20 mg PO BID Qty: 60 2RF medroxyprogesterone [Provera] 10 mg tablet 10 mg PO DAILY 30 Days Qty: 30 2RF Rx Instructions: start Provera 1 tablet daily metoprolol succinate 25 mg tablet extended release 24 hr 25 mg PO .DAILY AFTERNOON albuterol sulfate [ProAir HFA] 90 mcg/actuation HFA aerosol inhaler 1 inh inhalation QID PRN (Reason: shortness of breath or wheezing) 30 Days Qty: 8.5 4RF nabumetone 750 mg tablet 750 mg PO BID PRN (Reason: for pain) Qty: 60 2RF albuterol sulfate 2.5 mg /3 mL (0.083 %) solution for nebulization 2.5 mg inhalation Q4-6H PRN (Reason: shortness of breath or wheezing) Qty: 90 6RF tramadol 50 mg tablet 50 mg PO BID PRN (Reason: pain) Qty: 45 0RF meclizine 25 mg tablet 25 mg PO TID PRN (Reason: dizziness) 90 Days Qty: 90 1RF gabapentin 300 mg capsule 300 mg PO Q8H Qty: 90 1RF Rx Instructions: Pt can increase to two at bedtime if needed instead of q 8 hours and take one in the am or afternoon for total dose of 900 mg per day Referrals: Yadira Hernandez NP [Primary Care Provider] -
[2022-07-20 21:00] LABS: B Type Natriuretic Peptide 20 pg/mL (<100); Troponin-I High Sensitivity 3.5 ng/L (<3.5-17.0)
[2022-07-20 22:14] VITALS: BP 155/75; PULSE 76
[2022-07-20 22:16] VITALS: BP 147/69; PULSE 77
[2022-07-20 22:19] VITALS: BP 170/78; PULSE 91
== END 2022-07-20 22:42 | disposition home or self-care (01) ==
PROVIDERS: Emergency Provider Emergency Medicine; PCP Hospitalist
DX: R42 Dizziness and giddiness (principal); R06.02 Shortness of breath; Z79.899 Other long term (current) drug therapy
CPT/HCPCS: 36415; 80048; 83880; 84484; 85025; 93005; 99284

== ENCOUNTER 2022-08-22 17:55 | Emergency (ER) | payer OTHER, SELFPAY ==
[2022-08-22 18:03] VITALS: BP 189/89; PULSE 81; RESP 18; TEMP 37.2; O2SAT 98; BMI 44.9
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
[2022-08-22] MEDS: Ketorolac Tromethamine 30 MG/ML VIAL 15 MG IM (22:14)
[2022-08-22] MEDS: predniSONE 20 MG TABLET 60 MG PO (22:14)
[2022-08-22] MEDS: Cyclobenzaprine HCl 5 MG TABLET PO (22:14)
[2022-08-22] MEDS: Acetaminophen 325 MG TABLET 650 MG PO (22:15)
--- NOTE | 2022-08-22 22:19 | PC.NURSE ---
Pt. sitting in bed with friend at bedside. No apparent distress. Pt. is alert and oriented.
== END 2022-08-22 22:23 | disposition home or self-care (01) ==
PROVIDERS: Emergency Provider Student in an Organized Health Care Education/Training Program; PCP Hospitalist
DX: S39.012A Strain of muscle, fascia and tendon of lower back, initial encounter (principal); V43.62XA Car passenger injured in collision with other type car in traffic accident, initial encounter; Y93.89 Activity, other specified; Y92.414 Local residential or business street as the place of occurrence of the external cause; Y99.9 Unspecified external cause status
CPT/HCPCS: 96372; 99283; 99284; J1885

== ENCOUNTER 2022-10-12 08:49 | Emergency (ER) | payer OTHER, SELFPAY ==
--- NOTE | ~2022-10-12 | XR_ITS ---
EXAMINATION: XR CHEST CLINICAL INFORMATION: Palpitations COMPARISON: March 18, 2021 TECHNIQUE: AP portable view of the chest was obtained. FINDINGS: No significant abnormality is noted involving the heart, lungs, mediastinum, bony thorax or soft tissues. There appears be calcific tendinitis of the right shoulder. XR/XR chest 1V IMPRESSION: No acute disease.
[2022-10-12 08:56] VITALS: BP 185/84; PULSE 69; RESP 18; TEMP 36.7; O2SAT 98; BMI 43.5
--- NOTE | 2022-10-12 09:16 | ECG_ITS ---
Test Reason : ARRHYTHMIA Blood Pressure : / mmHG Vent. Rate : 071 BPM Atrial Rate : 071 BPM P-R Int : 190 ms QRS Dur : 078 ms QT Int : 406 ms P-R-T Axes : 055 031 052 degrees QTc Int : 441 ms Normal sinus rhythm with sinus arrhythmia Normal ECG When compared with ECG of 20-JUL-2022 18:47, No significant change was found Referred By: Gee Wells Electronically Signed By:OSITO LEMA MD
--- NOTE | 2022-10-12 09:18 | ED_ITS ---
HPI - Arrhythmia/Palpitations General Chief Complaint: Arrhythmia/Palpitations Stated Complaint: irregular heart beat Time Seen by Provider: 10/12/22 09:03 Source: patient Mode of arrival: ambulatory Limitations: no limitations History of Present Illness HPI narrative: 52-year-old female came in for evaluation of feeling palpitation since this morning. Patient had a history of palpitation for many years, patient has been treated for PVCs with metoprolol twice a day also with history of hypertension taking lisinopril, patient otherwise decline chest pain or shortness of breath. Patient do not drink coffee, patient had workup for palpitation in the past with Holter monitor and echo with Cardiology evaluation which was unremarkable, patient's symptoms is well controlled with metoprolol. Related Data Previous Rx's Medication Instructions Recorded meclizine 25 mg tablet 25 mg PO TID PRN dizziness 3 09/26/21 months #90 tabs albuterol sulfate 90 mcg/actuation 1 inh inhalation QID PRN shortness 10/10/21 aerosol inhaler (ProAir HFA) of breath or wheezing 1 month #8.5 grams montelukast 10 mg tablet 10 mg PO BEDTIME #90 tabs 01/01/22 (Singulair) nabumetone 750 mg tablet 750 mg PO BID PRN for pain #60 tabs 01/08/22 albuterol sulfate 2.5 mg/3 mL 2.5 mg (3 mL) inhalation Q4-6H PRN 02/06/22 (0.083 %) solution for nebulization shortness of breath or wheezing #90 mL gabapentin 300 mg capsule 300 mg PO Q8H #90 caps 02/12/22 blood pressure test kit-large #1 ea 03/03/22 nebulizers #1 ea 03/03/22 medroxyprogesterone 10 mg tablet 10 mg PO DAILY 30 days #30 tabs 05/26/22 (Provera) fluticasone propionate 50 2 spray intranasal DAILY #16 mL 08/18/22 mcg/actuation nasal spray,suspension loratadine 10 mg capsule 10 mg PO DAILY 3 months #90 caps 08/18/22 cyclobenzaprine 5 mg tablet 5 mg PO BEDTIME PRN muscle spasm 08/22/22 #20 tabs prednisone 20 mg tablet 60 mg PO DAILY Asthma 5 days #15 08/22/22 tabs metoprolol succinate 25 mg 25 mg PO DAILY 3 months #90 tabs 09/01/22 tablet,extended release 24 hr lisinopril 20 mg tablet 20 mg PO BID #60 tabs 10/06/22 Allergies Allergy/AdvReac Type Severity Reaction Status Date / Time No Known Allergies Allergy Verified 08/18/22 11:07 Review of Systems Review of Systems: All other systems are reviewed and are negative Constitutional: Reports as per HPI and Reports no additional constitutional complaints Eyes: Reports as per HPI and Reports no additional eye complaints Reports system reviewed and no additional complaints, except as documented Cardiovascular: Reports as per HPI and Reports no additional cardiovascular complaints Respiratory: Reports as per HPI and Reports no additional respiratory complaints Gastrointestinal: Reports as per HPI and Reports no additional gastrointestinal complaints Genitourinary: Reports no additional female genitourinary complaints Musculoskeletal: Reports no additional musculoskeletal complaints Skin/Breast: Reports system reviewed and no additional complaints, except as docu Psychiatric: Reports no additional psychiatric complaints Endocrine: Reports no additional endocrine complaints Hematologic/Lymphatic: Reports no additional hematologic/lymphatic complaints Allergic/Immunologic: Reports no additional allergic/immunologic complaints Reports system reviewed and no additional complaints, except as documented and Reports Abnormal speech present [facility] Past Medical History Medical History Anxiety Endometrial hyperplasia without atypia History of COVID-19 Hypertension Obesity PCOS (polycystic ovarian syndrome) Surgical History History of History of cholecystectomy History of dilatation and curettage Family History Family History Father Heart problem Mother Stroke Diabetes Son Asthma Social History Social History Housing: House Are you a primary primary care nurse to a significant other at home: No Do you presently have visiting nurse or other home services: No Alcohol intake: never Patient Tobacco Use Status: Never used Tobacco e-Cigarette/Vaping Use: Never Used Second Hand Smoke Exposure: No Advance Directives: No Advance Directives Information Provided: No service: No Current occupational status: other 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 Blood pressure normal. Heart rate normal. Respiration rate normal. Temperature normal. Oxygen saturation normal. Appearance: Anxious, Alert. Oriented X3. No acute distress. Head: Normal external exam. Normocephalic. Atraumatic. No Fernandez signs noted. No raccoon eyes noted Eyes: PERRLA. EOMI. Conjunctiva and sclera normal. Eyelids normal. ENT: TM's Normal. Pharynx normal. Uvula midline. Moist mucous membranes. No trismus noted. No drooling noted. No muffled voice noted. Neck: Normal inspection. Neck supple. FROM. No adenopathy. Thyroid Normal. No meningeal signs. No neck mass noted. CVS: Normal heart rate and rhythm. Heart sound normal. No murmurs noted. Pulses normal throughout. Respiratory: No respiratory distress. Painless inspiration. Breath sounds normal. No wheezes/rales/rhonchi noted. Chest nontender. No accessory muscle usage noted or decreased air movement noted. Abdomen: Soft and nontender. Bowel sounds normal in all 4 quadrants. No distention noted. No organomegaly noted. No visible injury noted. Back: No CVA tenderness. Full range of motion noted. Skin: Skin warm and dry. Normal skin color. Normal skin turgor. No rashes/lesions/lacerations noted. Extremities: No lower extremity edema. Extremities exhibit normal range of motion. Extremities nontender. Neuro: Oriented X 3. Cranial nerve exam: II-XII are grossly intact No motor deficit. No sensory deficit. Reflexes normal. Course Course Course Narrative: 52-year-old female came in with palpitation, patient had a history of PVCs taking metoprolol, patient had a previous cardiac workup for palpitation had Holter monitor and echocardiogram and evaluated by cardiology. Patient has unremarkable labs today, not feeling palpitation her EKG is normal sinus rhythm without arrhythmia. MDM - Arrhythmia/Palpitations Medical Records Attestation: I reviewed the patient's medical records. Lab Data Attestation: I reviewed the patient's lab results. Result diagrams: 10/12/22 09:49 10/12/22 09:49 Labs: Lab Results 10/12/22 10/12/22 10/12/22 Range/Units 09:49 09:49 09:49 WBC 8.0 (4.8-10.8) X10*3/uL RBC 5.03 (4.20-5.50) X10*6/uL Hgb 11.9 L (12.0-16.0) g/dl Hct 38.7 (37.0-47.0) % MCV 76.9 L (80.0-98.0) fL MCH 23.7 L (27.0-33.0) pg MCHC 30.7 L (31.0-35.0) g/dl RDW 18.6 H (11.0-16.0) % Plt Count 309 (160-400) X10*3/uL MPV 9.4 (9.4-12.3) fL Immature Gran % (Auto) 0.3 (0.0-0.4) % Neut % (Auto) 70.4 (45-73) % Lymph % (Auto) 19.6 L (20-40) % [place] % (Auto) 7.3 (2-11) % Eos % (Auto) 1.9 (0-4) % Baso % (Auto) 0.5 (0-2) % Lymph # (Auto) 1.6 (1.2-4.9) X10*3/uL [place] # (Auto) 0.6 (0.1-1.2) X10*3/uL Eos # (Auto) 0.2 (0.0-0.4) X10*3/uL Baso # (Auto) 0.0 (0.0-0.2) X10*3/uL Abs Immat Gran (auto) 0.02 (0.00-0.03) X10*3/uL Absolute Neuts (auto) 5.6 (2.0-8.3) x10*3/uL Absolute Nucleated RBC 0.000 (0.0-0.012) X10*3/uL Nucleated RBC % (auto) 0.0 (0.0-0.2) /100WBC Sodium 140 (135-145) mmol/L Potassium 4.8 (3.3-5.1) mmol/L Chloride 104 (96-108) mmol/L Carbon Dioxide 27 (22-29) mmol/L Anion Gap 14 (12-20) BUN 15 (9-16) mg/dL Creatinine 0.77 (0.5-1.4) mg/dL Estim Creat Clear Calc 115.3 Estimated GFR > 60 Random Glucose 110 (60-115) mg/dL Calcium 9.0 (8.4-10.2) mg/dL Total Bilirubin 0.4 (0.0-1.0) mg/dL Direct Bilirubin 0.2 (0.0-0.5) mg/dL AST 17 (5-31) U/L ALT 15 (0-31) U/L Alkaline Phosphatase 139 H D (39-117) U/L Troponin I High Sens 3.5 (<3.5-17.0) ng/L Total Protein 7.3 (6.5-8.0) g/dL Albumin 3.9 (3.5-5.0) g/dL Lipase 25 (8-78) U/L Urine Color Urine Appearance Urine pH (5.0-9.0) Ur Specific [place] (1.005-1.025) Urine Protein (Neg-Trace) mg/dL Urine Glucose (UA) (Negative) mg/dL Urine Ketones (Negative) mg/dL Urine Blood (Negative) Urine Nitrite (Negative) Ur Leukocyte Esterase (Negative) COVID-19 (ANNETTA) (Negative) COVID-19 Clin Com 10/12/22 10/12/22 Range/Units 09:49 11:00 WBC (4.8-10.8) X10*3/uL RBC (4.20-5.50) X10*6/uL Hgb (12.0-16.0) g/dl Hct (37.0-47.0) % MCV (80.0-98.0) fL MCH (27.0-33.0) pg MCHC (31.0-35.0) g/dl RDW (11.0-16.0) % Plt Count (160-400) X10*3/uL MPV (9.4-12.3) fL Immature Gran % (Auto) (0.0-0.4) % Neut % (Auto) (45-73) % Lymph % (Auto) (20-40) % [place] % (Auto) (2-11) % Eos % (Auto) (0-4) % Baso % (Auto) (0-2) % Lymph # (Auto) (1.2-4.9) X10*3/uL [place] # (Auto) (0.1-1.2) X10*3/uL Eos # (Auto) (0.0-0.4) X10*3/uL Baso # (Auto) (0.0-0.2) X10*3/uL Abs Immat Gran (auto) (0.00-0.03) X10*3/uL Absolute Neuts (auto) (2.0-8.3) x10*3/uL Absolute Nucleated RBC (0.0-0.012) X10*3/uL Nucleated RBC % (auto) (0.0-0.2) /100WBC Sodium (135-145) mmol/L Potassium (3.3-5.1) mmol/L Chloride (96-108) mmol/L Carbon Dioxide (22-29) mmol/L Anion Gap (12-20) BUN (9-16) mg/dL Creatinine (0.5-1.4) mg/dL Estim Creat Clear Calc Estimated GFR Random Glucose (60-115) mg/dL Calcium (8.4-10.2) mg/dL Total Bilirubin (0.0-1.0) mg/dL Direct Bilirubin (0.0-0.5) mg/dL AST (5-31) U/L ALT (0-31) U/L Alkaline Phosphatase (39-117) U/L Troponin I High Sens (<3.5-17.0) ng/L Total Protein (6.5-8.0) g/dL Albumin (3.5-5.0) g/dL Lipase (8-78) U/L Urine Color Yellow Urine Appearance Clear Urine pH 6.5 (5.0-9.0) Ur Specific [place] 1.020 (1.005-1.025) Urine Protein Negative (Neg-Trace) mg/dL Urine Glucose (UA) Negative (Negative) mg/dL Urine Ketones Negative (Negative) mg/dL Urine Blood Negative (Negative) Urine Nitrite Negative (Negative) Ur Leukocyte Esterase Negative (Negative) COVID-19 (ANNETTA) Negative (Negative) COVID-19 Clin Com See Note Imaging Data Chest x-ray: Attestation: I personally reviewed and interpreted this imaging study as follows: Radiologist's impression: No acute disease. ECG Data Attestation: I personally reviewed and interpreted this ECG as follows: Interpretation: Normal sinus rhythm with sinus arrhythmia at a rate of 71 beats per minute, normal intervals, normal axis deviation, no ST-T changes. Discharge Plan Discharge Clinical Impression: Heart palpitations Patient Disposition: Home, Self-Care Instructions: Heart Palpitations (ED) Prescriptions: No Action montelukast [Singulair] 10 mg tablet 10 mg PO BEDTIME Qty: 90 3RF (DME) nebulizers Misc See Rx Instructions .ROUTE .MEDSUPPLY Qty: 1 0RF Rx Instructions: for acute asthma or reactions (DME) blood pressure test kit-large Kit See Rx Instructions .Route Qty: 1 0RF Rx Instructions: As directed medroxyprogesterone [Provera] 10 mg tablet 10 mg PO DAILY 30 Days Qty: 30 2RF Rx Instructions: start Provera 1 tablet daily metoprolol succinate 25 mg tablet extended release 24 hr 25 mg PO DAILY 90 Days Qty: 90 3RF lisinopril 20 mg tablet 20 mg PO BID Qty: 60 2RF prednisone 20 mg tablet 60 mg PO DAILY 5 Days Qty: 15 0RF cyclobenzaprine 5 mg tablet 5 mg PO BEDTIME PRN (Reason: muscle spasm) Qty: 20 0RF albuterol sulfate [ProAir HFA] 90 mcg/actuation HFA aerosol inhaler 1 inh inhalation QID PRN (Reason: shortness of breath or wheezing) 30 Days Qty: 8.5 4RF nabumetone 750 mg tablet 750 mg PO BID PRN (Reason: for pain) Qty: 60 2RF albuterol sulfate 2.5 mg /3 mL (0.083 %) solution for nebulization 2.5 mg inhalation Q4-6H PRN (Reason: shortness of breath or wheezing) Qty: 90 6RF meclizine 25 mg tablet 25 mg PO TID PRN (Reason: dizziness) 90 Days Qty: 90 1RF gabapentin 300 mg capsule 300 mg PO Q8H Qty: 90 1RF Rx Instructions: Pt can increase to two at bedtime if needed instead of q 8 hours and take one in the am or afternoon for total dose of 900 mg per day fluticasone propionate 50 mcg/actuation spray,suspension 2 spray intranasal DAILY Qty: 16 11RF loratadine 10 mg capsule 10 mg PO DAILY 90 Days Qty: 90 3RF Referrals: Yadira Hernandez NP [Primary Care Provider] -
[2022-10-12 09:53] LABS: MANUAL DIFF FLAG NO
[2022-10-12 09:55] LABS: Basophils Percent Auto 0.5 % (0-2); Eosinophils Absolute Auto 0.2 X10*3/uL (0.0-0.4); Eosinophils Percent Auto 1.9 % (0-4); Hematocrit 38.7 % (37.0-47.0); Hemoglobin 11.9 g/dl (12.0-16.0); Imm Gran Abs Auto 0.02 X10*3/uL (0.00-0.03); Imm Gran Pct Auto 0.3 % (0.0-0.4); Lymphocytes Absolute Auto 1.6 X10*3/uL (1.2-4.9); Lymphocytes Percent Auto 19.6 % (20-40); Mean Corpuscular HGB Conc 30.7 g/dl (31.0-35.0); Mean Corpuscular Hemoglobin 23.7 pg (27.0-33.0); Mean Corpuscular Volume 76.9 fL (80.0-98.0); Mean Platelet Volume 9.4 fL (9.4-12.3); Monocytes Absolute Auto 0.6 X10*3/uL (0.1-1.2); Monocytes Percent Auto 7.3 % (2-11); Neutrophils Absolute Auto 5.6 x10*3/uL (2.0-8.3); Neutrophils Percent Auto 70.4 % (45-73); Platelet Count 309 X10*3/uL (160-400); Red Blood Count 5.03 X10*6/uL (4.20-5.50); Red Cell Distribution Width 18.6 % (11.0-16.0)
[2022-10-12 10:06] LABS: COVID-19 Test Negative (Negative); IDNOW Serial# 55D5AD1C
[2022-10-12 10:20] LABS: Alanine Aminotransferase 15 U/L (0-31); Albumin Level 3.9 g/dL (3.5-5.0); Alkaline Phosphatase 139 U/L (39-117); Anion Gap 14 (12-20); Aspartate Amino Transferase 17 U/L (5-31); Bilirubin Direct 0.2 mg/dL (0.0-0.5); Bilirubin Total 0.4 mg/dL (0.0-1.0); Blood Urea Nitrogen 15 mg/dL (9-16); Carbon Dioxide 27 mmol/L (22-29); Chloride 104 mmol/L (96-108); Creatinine Clr Calc Pharmacy 115.3; Estimated Glomerular Filt Rate > 60; Glucose Random 110 mg/dL (60-115); Lipase 25 U/L (8-78); Potassium 4.8 mmol/L (3.3-5.1); Sodium 140 mmol/L (135-145); Total Protein 7.3 g/dL (6.5-8.0)
[2022-10-12 10:23] LABS: Troponin-I High Sensitivity 3.5 ng/L (<3.5-17.0)
[2022-10-12 11:06] VITALS: BP 154/80; PULSE 75
[2022-10-12 11:14] LABS: Appearance Urine Clear; Color Urine Yellow; Glucose Urine UA Negative (Negative); Leukocyte Esterase Urine Negative (Negative); Nitrite Urine Negative (Negative); PH 6.5 (5.0-9.0); Urine Blood Negative (Negative); Urine Ketones Negative (Negative); Urine Protein Negative (Neg-Trace)
--- NOTE | 2022-10-12 13:53 | PC.NURSE ---
patient left without discharge paperwork .
== END 2022-10-12 13:54 | disposition home or self-care (01) ==
PROVIDERS: Emergency Provider Emergency Medicine; PCP Hospitalist
DX: I49.9 Cardiac arrhythmia, unspecified (principal); R00.2 Palpitations; Z20.822 Contact with and (suspected) exposure to COVID-19; Z79.899 Other long term (current) drug therapy
CPT/HCPCS: 71045; 80048; 80076; 81003; 83690; 84484; 85025; 87635; 93005; 99283; 99284

== ENCOUNTER 2022-12-28 17:43 | Emergency (ER) | payer OTHER, SELFPAY ==
--- NOTE | 2022-12-28 17:50 | ED_ITS ---
HPI - Back Pain/Injury General Chief Complaint: Back Pain/Injury <Yeni Bishop CNP - Last Filed: 12/28/22 17:54> Stated Complaint: back pain <Yeni Bishop CNP - Last Filed: 12/28/22 17:54> Time Seen by Provider: 12/28/22 20:58 <Yeni Bishop CNP - Last Filed: 12/28/22 17:54> Source: patient <Angela Cisneros MD - Last Filed: 12/28/22 21:21> Mode of arrival: ambulatory <Angela Cisneros MD - Last Filed: 12/28/22 21:21> Limitations: no limitations <Angela Cisneros MD - Last Filed: 12/28/22 21:21> History of Present Illness HPI Narrative: Patient comes to the emergency room complaining of bilateral lower back pain starting 3 days ago. Patient states that she has had back pain in the past, has been addressed by her primary care physician. Patient states that she takes nabumetone for pain. Patient has also tried Flexeril in the last few days but it only gets her sleepy but does not give her any pain relief. Patient denies any injury, no falls, no heavy lifting. Patient denies urinary/fecal incontinence-retention. Patient states that as long as she does not move, she does not have any pain but minimal lotions trigger sharp pain in the lower back, nonradiating <Angela Cisneros MD - Last Filed: 12/28/22 21:21> Related Data Home Medications: Previous Rx's Medication Instructions Recorded meclizine 25 mg tablet 25 mg PO TID PRN dizziness 3 09/26/21 months #90 tabs montelukast 10 mg tablet 10 mg PO BEDTIME #90 tabs 01/01/22 (Singulair) nabumetone 750 mg tablet 750 mg PO BID PRN for pain #60 tabs 01/08/22 albuterol sulfate 2.5 mg/3 mL 2.5 mg (3 mL) inhalation Q4-6H PRN 02/06/22 (0.083 %) solution for nebulization shortness of breath or wheezing #90 mL gabapentin 300 mg capsule 300 mg PO Q8H #90 caps 02/12/22 blood pressure test kit-large #1 ea 03/03/22 nebulizers #1 ea 03/03/22 medroxyprogesterone 10 mg tablet 10 mg PO DAILY 30 days #30 tabs 05/26/22 (Provera) fluticasone propionate 50 2 spray intranasal DAILY #16 mL 08/18/22 mcg/actuation nasal spray,suspension loratadine 10 mg capsule 10 mg PO DAILY 3 months #90 caps 08/18/22 cyclobenzaprine 5 mg tablet 5 mg PO BEDTIME PRN muscle spasm 08/22/22 #20 tabs prednisone 20 mg tablet 60 mg PO DAILY Asthma 5 days #15 08/22/22 tabs metoprolol succinate 25 mg 25 mg PO DAILY 3 months #90 tabs 09/01/22 tablet,extended release 24 hr lisinopril 20 mg tablet 20 mg PO BID #60 tabs 10/30/22 albuterol sulfate 90 mcg/actuation 1 puff PO QID PRN shortness of 12/25/22 aerosol inhaler breath or wheezing #8.5 ea tramadol 50 mg tablet 50 mg PO BID PRN pain #6 tabs 12/28/22 <Yeni Bishop CNP - Last Filed: 12/28/22 17:54> Allergies/Adverse Reactions: Allergies Allergy/AdvReac Type Severity Reaction Status Date / Time No Known Allergies Allergy Verified 08/18/22 11:07 <Yeni Bishop CNP - Last Filed: 12/28/22 17:54> Review of Systems Review of Systems: Constitutional : No Weight loss, No Fever, No Chills, No Night Sweats, No Fatigue, No Malaise ENT/Mouth : No Hearing loss, No Ear Pain, No Nasal Congestion, No Sinus Pain, No Hoarseness, No sore throat, No Rhinorrhea, No Swallowing Difficulty Eyes: No Eye Pain, No Swelling, No Redness, No Foreign Body, No Discharge, No Vision Changes Cardiovascular : No Chest Pain, No SOB, No Dyspnea on Exertion, No Orthopnea, No Edema, No Palpitations Respiratory : No Cough, No Sputum, No Wheezing, No Smoke Exposure, No Dyspnea Gastrointestinal : No Nausea, No Vomiting, No Diarrhea, No Constipation, No abdominal Pain, No Hematochezia, No Melena Genitourinary : no irregular bleeding, No Dysuria, No Urinary Frequency, No Hematuria, No Urinary Incontinence, No Urgency, No Flank Pain, No Urinary Flow Changes, No Hesitancy Musculoskeletal : Complaining of bilateral lower back pain, nonradiating, No joint pain, No Myalgias, No Joint Swelling Skin : No Skin Lesions, No rash Neuro : No Weakness, No Numbness, No Paresthesias, No Loss of Consciousness, No Dizziness, No Headache Psych : No Anxiety/Panic, No Depression, No SI/HI/AH/VH, No Social Issues, Heme/Lymph: No Bruising, No Bleeding,No Lymphadenopathy Endocrine : No Polyuria, No Polydipsia, No Temperature Intolerance <Angela Cisneros MD - Last Filed: 12/28/22 21:21> [facility] Past Medical History Medical History: Medical History Anxiety Endometrial hyperplasia without atypia History of COVID-19 Hypertension Obesity PCOS (polycystic ovarian syndrome) <Yeni Bishop CNP - Last Filed: 12/28/22 17:54> Surgical History: Surgical History History of History of cholecystectomy History of dilatation and curettage <Yeni Bishop CNP - Last Filed: 12/28/22 17:54> Family History Family History: Family History Father Heart problem Mother Stroke Diabetes Son Asthma <Yeni Bishop CNP - Last Filed: 12/28/22 17:54> Social History Social History: Social History Housing: House Are you a primary regular senior care provider to a significant other at home: No Do you presently have visiting nurse or other home services: No Alcohol intake: never Patient Tobacco Use Status: Never used Tobacco e-Cigarette/Vaping Use: Never Used Second Hand Smoke Exposure: No Advance Directives: No Advance Directives Information Provided: Yes service: No Current occupational status: other 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 Sexual orientation: Straight/Heterosexual Gender identity: Female Cognitive needs: No Hearing needs: No Vision needs: No <Yeni Bishop CNP - Last Filed: 12/28/22 17:54> Physical Exam Vital Signs: Vital Signs: Last Vital Signs Temp 98 F 12/28/22 17:53 Pulse 80 12/28/22 17:53 Resp 18 12/28/22 17:53 BP 160/77 H 12/28/22 17:53 Pulse Ox 98 12/28/22 17:53 O2 Del Method 12/28/22 17:53 BMI result Body Mass Index 45.1 <Yeni Marie COLE Bishop - Last Filed: 12/28/22 17:54> Vital Signs: Last Vital Signs Temp 98 F 12/28/22 17:53 Pulse 80 12/28/22 17:53 Resp 18 12/28/22 17:53 BP 160/77 H 12/28/22 17:53 Pulse Ox 98 12/28/22 17:53 O2 Del Method 12/28/22 17:53 BMI result Body Mass Index 45.1 <Angela Cisneros MD - Last Filed: 12/28/22 21:21> Const: Other: Appearance: Alert. Oriented X3. No acute distress. Eyes: Pupils equal, round and reactive to light. ENT: Pharynx normal. Neck: Normal inspection. Neck supple. No lymph nodes noted. No crepitus CVS: Normal heart rate and rhythm. Pulses normal. Normal S1 and S2 Respiratory: No respiratory distress. Breath sounds normal. No Wheezing. No rales Abdomen: Soft and nontender. No rigidity. No distention. Back: No pain to palpation over the cervical/lumbar/thoracic spine. Pain to palpation in bilateral lower back, negative straight leg raise test Skin: Skin warm and dry. Normal skin color. Normal skin turgor. Extremities: No lower extremity edema. No Lacerations. No Rash Neuro: Oriented X 3. No motor deficit. No sensory deficit. Moving all extremities. No slurred speech. CN 2 through 12 grossly intact Psych: calm, cooperative, normal affect <Angela Cisneros MD - Last Filed: 12/28/22 21:21> Course Course Course Narrative: This is an RME: Additional HPI, ROS, PE not included below will be deferred to primary provider. Patient is a 52-year-old female who presents emergency department for evaluation of diffuse lower back pain. Onset was 3 days ago, sudden onset without precipitating injury. Reports history of intermittent chronic back pain, taking nabumatone and flexeril without any relief. Denies fevers, chills, nausea, vomiting, urinary frequency/urge ncy/hesitancy, dysuria, saddle paresthesias, bladder or bowel dysfunction. Not seeing any specialist for her back, reports CT or MRI imaging some years ago , being managed by PCP. <Yeni Bishop CNP - Last Filed: 12/28/22 17:54> Medical Decision Making Medical Decision Making MDM Narrative: -I discussed the physical exam with the patient, pain likely musculoskeletal. -cauda equina not suspected -patient states that she has had history of herniated discs in the past. It is likely that patient's pain may be exacerbated by herniated disc. Sciatica not suspected at this time. -patient was given 1 dose of IM morphine and IM Decadron. Ketorolac was considered. However, patient already takes daily nabumetone <Angela Cisneros MD - Last Filed: 12/28/22 21:21> Differential Diagnosis Differential Diagnoses: The differential diagnosis associated with the presentation includes (Musculoskeletal pain, sciatica, herniated disc) <Angela Cisneros MD - Last Filed: 12/28/22 21:21> Discharge Plan Discharge Clinical Impression: Lower back pain <Yeni Bishop CNP - Last Filed: 12/28/22 17:54> Patient Disposition: Home, Self-Care <Yeni Bishop CNP - Last Filed: 12/28/22 17:54> Instructions: Lower Back Exercises (ED) <Yeni Bishop CNP - Last Filed: 12/28/22 17:54> Additional Instructions: Please follow-up with your primary care physician tomorrow. If you have any worsening or new symptoms, please return to the emergency room or call 911 <Yeni Bishop CNP - Last Filed: 12/28/22 17:54> Prescriptions: New tramadol 50 mg tablet 50 mg PO BID PRN (Reason: pain) Qty: 6 0RF No Action montelukast [Singulair] 10 mg tablet 10 mg PO BEDTIME Qty: 90 3RF (DME) nebulizers Misc See Rx Instructions .ROUTE .MEDSUPPLY Qty: 1 0RF Rx Instructions: for acute asthma or reactions (DME) blood pressure test kit-large Kit See Rx Instructions .Route Qty: 1 0RF Rx Instructions: As directed medroxyprogesterone [Provera] 10 mg tablet 10 mg PO DAILY 30 Days Qty: 30 2RF Rx Instructions: start Provera 1 tablet daily metoprolol succinate 25 mg tablet extended release 24 hr 25 mg PO DAILY 90 Days Qty: 90 3RF lisinopril 20 mg tablet 20 mg PO BID Qty: 60 2RF albuterol sulfate 90 mcg/actuation HFA aerosol inhaler 1 puff PO QID PRN (Reason: shortness of breath or wheezing) Qty: 8.5 4RF prednisone 20 mg tablet 60 mg PO DAILY 5 Days Qty: 15 0RF cyclobenzaprine 5 mg tablet 5 mg PO BEDTIME PRN (Reason: muscle spasm) Qty: 20 0RF nabumetone 750 mg tablet 750 mg PO BID PRN (Reason: for pain) Qty: 60 2RF albuterol sulfate 2.5 mg /3 mL (0.083 %) solution for nebulization 2.5 mg inhalation Q4-6H PRN (Reason: shortness of breath or wheezing) Qty: 90 6RF meclizine 25 mg tablet 25 mg PO TID PRN (Reason: dizziness) 90 Days Qty: 90 1RF gabapentin 300 mg capsule 300 mg PO Q8H Qty: 90 1RF Rx Instructions: Pt can increase to two at bedtime if needed instead of q 8 hours and take one in the am or afternoon for total dose of 900 mg per day fluticasone propionate 50 mcg/actuation spray,suspension 2 spray intranasal DAILY Qty: 16 11RF loratadine 10 mg capsule 10 mg PO DAILY 90 Days Qty: 90 3RF <Yeni Bishop, [employer]ER - Last Filed: 12/28/22 17:54>
[2022-12-28 17:53] VITALS: BP 160/77; PULSE 80; RESP 18; TEMP 36.6; O2SAT 98; BMI 45.1
[2022-12-28] MEDS: dexAMETHasone sod phosphate 4 MG/ML VIAL IM (21:46)
[2022-12-28] MEDS: Morphine Sulfate 2 MG/ML CARTRIDGE IM (21:47)
--- NOTE | 2022-12-28 22:19 | PC.NURSE ---
medicated per JAN- pt alert oriented NAD at discharge
== END 2022-12-28 22:20 | disposition home or self-care (01) ==
PROVIDERS: Emergency Provider Emergency Medicine; PCP Hospitalist
DX: M54.50 Low back pain, unspecified (principal); Z79.899 Other long term (current) drug therapy
CPT/HCPCS: 96372; 99282; 99284; J1100; J2270

== ENCOUNTER 2023-01-20 10:59 | Outpatient (REF) | payer OTHER, SELFPAY ==
--- NOTE | ~2023-01-20 | XR_ITS ---
EXAMINATION: XR LUMBOSACRAL SPINE WITH OBLIQUES CLINICAL INFORMATION: Mild vertebral spurring mid and lower thoracic spine. COMPARISON: Lumbar radiographs 09/01/2021; thoracic spine 01/20/2023, chest radiographs 04/20/2019 TECHNIQUE: Lumbar spine is imaged in 5 views including oblique projections. FINDINGS: There is normal lumbar segmentation with 5 nonrib-bearing lumbar vertebrae of normal height and normal lumbar lordosis. There is a borderline levocurvature which may be positional. There is no vertebral compression, spondylolisthesis, or destructive process. Oblique view show no spondylolysis. There are again degenerative disc changes at L4-L5 and interval increased degenerative disc changes at L5-S1. There are also degenerative disc changes lower thoracic spine at T10-T11 and at T11-T12 with mild disc narrowing and anterior vertebral spurring. The SI joints and visualized sacrum are unremarkable. XR/XR lumbar spine 4V min IMPRESSION: -Degenerative disc changes L4-L5 and L5-S1. -Degenerative disc changes lower thoracic spine T10-T11 and T11-T12. -No vertebral compression, spondylolisthesis, or spondylolysis.
--- NOTE | ~2023-01-20 | XR_ITS ---
EXAMINATION: XR THORACOLUMBAR SPINE CLINICAL INFORMATION: M54.6 - Pain in thoracic spine COMPARISON: 2 view chest 04/20/2019 TECHNIQUE: Thoracic spine is imaged in 3 views. FINDINGS: There is normal thoracic segmentation with 12 rib-bearing thoracic vertebrae of normal height and normal thoracic kyphosis. There is a borderline dextrocurvature similar to prior chest radiographs 2019. There is no focal vertebral compression, spondylolisthesis, destructive process. Some mild degenerative vertebral spurring is present mid and lower thoracic spine. No focal significant disc narrowing or erosive change. XR/XR thoracic spine 2V IMPRESSION: -No vertebral compression, spondylolisthesis, or destructive process. -Minor vertebral spurring mid and lower thoracic spine.
== END 2023-01-20 11:00 | disposition home or self-care (01) ==
LOC: HO.XRAY 10:59
PROVIDERS: PCP Hospitalist; Visit Provider Hospitalist
DX: M51.37 Other intervertebral disc degeneration, lumbosacral region (principal)
CPT/HCPCS: 72070; 72110

== ENCOUNTER 2023-01-22 10:56 | Outpatient (REF) | payer OTHER, SELFPAY ==
[2023-01-22 14:24] LABS: Hematocrit 41.4 % (37.0-47.0); Hemoglobin 12.7 g/dl (12.0-16.0); Mean Corpuscular HGB Conc 30.7 g/dl (31.0-35.0); Mean Corpuscular Hemoglobin 23.9 pg (27.0-33.0); Mean Corpuscular Volume 77.8 fL (80.0-98.0); Mean Platelet Volume 10.4 fL (9.4-12.3); Platelet Count 333 X10*3/uL (160-400); Red Blood Count 5.32 X10*6/uL (4.20-5.50); Red Cell Distribution Width 17.8 % (11.0-16.0); White Blood Count 8.6 X10*3/uL (4.8-10.8)
[2023-01-22 14:59] LABS: Alanine Aminotransferase 20 U/L (0-31); Albumin Level 3.8 g/dL (3.5-5.0); Alkaline Phosphatase 130 U/L (39-117); Aspartate Amino Transferase 16 U/L (5-31); Bilirubin Direct 0.2 mg/dL (0.0-0.5); Bilirubin Total 0.7 mg/dL (0.0-1.0); Cholesterol 271 mg/dL; HDL Cholesterol 44 mg/dL; LDL Cholesterol Calculated 190 mg/dl; Total Protein 7.1 g/dL (6.5-8.0); Triglycerides 189 mg/dL
[2023-01-22 15:08] LABS: TSH reflex Free T4 2.09 uIU/mL (0.32-4.0)
== END 2023-01-22 10:57 | disposition home or self-care (01) ==
LOC: HO.WFDLDS 10:56
PROVIDERS: Visit Provider Hospitalist
DX: Z00.00 Encounter for general adult medical examination without abnormal findings (principal); N92.1 Excessive and frequent menstruation with irregular cycle; N93.9 Abnormal uterine and vaginal bleeding, unspecified
CPT/HCPCS: 36415; 80061; 80076; 84443; 85027

== ENCOUNTER 2023-02-05 09:47 | Outpatient (REF) | payer OTHER, SELFPAY ==
--- NOTE | ~2023-02-05 | MM_ITS ---
EXAMINATION: MM SCREENING DIGITAL BREAST TOMOSYNTHESIS, BILATERAL CLINICAL INFORMATION: Screening. Asymptomatic. The lifetime risk of breast cancer based on the Tyrer-Cuzick Model is 12.0%. COMPARISON: Mammography: January 30, 2022 and studies dating back to May 20, 2016 TECHNIQUE: Digital breast tomosynthesis is performed in both the craniocaudal and mediolateral oblique views along with computer-aided detection (CAD). Synthesized 2D images are generated from the tomosynthesis. FINDINGS: There are scattered areas of fibroglandular density (ACR BI-RADS breast composition Category b). There are no significant masses, abnormal calcifications, or other abnormalities. MM/MM tomosynthesis screening BI IMPRESSION: No significant changes from prior exam. ASSESSMENT: BI-RADS 1: Negative RECOMMENDATION: Routine annual mammography screening. This patient's information was entered into a reminder system with a target due date for their next mammogram.
== END 2023-02-05 09:48 | disposition home or self-care (01) ==
LOC: HO.MAMMO 09:47
PROVIDERS: PCP Hospitalist; Visit Provider Hospitalist
DX: Z12.31 Encounter for screening mammogram for malignant neoplasm of breast (principal)
CPT/HCPCS: 77063; 77067

== ENCOUNTER → 2023-02-23 09:34 | Outpatient (BNVA) | payer OTHER, SELFPAY | PROVIDERS: PCP Hospitalist; Visit Provider Nurse Practitioner Family | DX: M51.35 Other intervertebral disc degeneration, thoracolumbar region (principal); M47.816 Spondylosis without myelopathy or radiculopathy, lumbar region; M62.830 Muscle spasm of back | CPT/HCPCS: 99202 ==

== ENCOUNTER → 2023-03-02 09:48 | Outpatient (BNVA) | payer OTHER, SELFPAY | PROVIDERS: PCP Hospitalist; Visit Provider Nurse Practitioner Family | DX: Z12.11 Encounter for screening for malignant neoplasm of colon (principal); K58.2 Mixed irritable bowel syndrome | CPT/HCPCS: 99202 ==

== ENCOUNTER 2023-03-17 12:06 | Outpatient (REF) | payer OTHER, SELFPAY ==
--- NOTE | ~2023-03-17 | XR_ITS ---
EXAMINATION: XR KNEE, RIGHT CLINICAL INFORMATION: Pain. COMPARISON: Right knee 05/13/2018 TECHNIQUE: Four views of the right knee. FINDINGS: There is mild loss of medial and patellofemoral compartment joint space with tricompartment spurring. There is mild suprapatellar joint effusion. No bony erosive changes, loose bodies or fracture seen. There is no subluxation. XR/XR knee RT 4V IMPRESSION: Mild degenerative changes medial and patellofemoral compartment with mild suprapatellar joint effusion. No visible acute fracture or dislocation seen.
== END 2023-03-17 12:07 | disposition home or self-care (01) ==
LOC: HO.HMGCX 12:06
PROVIDERS: PCP Hospitalist; Visit Provider Nurse Practitioner Family
DX: M25.561 Pain in right knee (principal)
CPT/HCPCS: 73564

== ENCOUNTER → 2023-03-31 09:50 | Outpatient (BNVA) | payer OTHER, SELFPAY | PROVIDERS: PCP Hospitalist; Visit Provider Nurse Practitioner Family | DX: Z12.11 Encounter for screening for malignant neoplasm of colon (principal); K58.9 Irritable bowel syndrome, unspecified | CPT/HCPCS: 99212 ==

== ENCOUNTER 2023-04-01 08:04 | Emergency (ER) | payer OTHER, SELFPAY ==
--- NOTE | ~2023-04-01 | XR_ITS ---
EXAMINATION: XR CHEST CLINICAL INFORMATION: Cough. COMPARISON: 10/12/2022 chest radiograph. TECHNIQUE: 2 views of the chest were obtained. FINDINGS: No significant abnormality is noted involving the heart, lungs, mediastinum, bony thorax or soft tissues. XR/XR chest 2V IMPRESSION: No acute cardiopulmonary process.
[2023-04-01 08:14] VITALS: BP 173/79; PULSE 78; RESP 18; TEMP 36.8; O2SAT 97; BMI 44.4
--- NOTE | 2023-04-01 09:15 | ED_ITS ---
HPI - General Adult General Chief complaint: General Medical Stated complaint: bad cough Time Seen by Provider: 04/01/23 08:36 Source: patient Mode of arrival: ambulatory Limitations: no limitations History of Present Illness HPI narrative: Patient is a 52-year old female with history of bronchitis, asthma, HTN, high cholesterol presenting with one week of recurrent cough. She states that she was treated for bronchitis with prednisone and antibiotics 2-3 weeks ago, felt symptoms had resolved for 2-3 days, and then her cough returned. She denies any fevers, chest pain, sore throat. Denies any lower extremity edema. Does report some dyspnea with exertion which improves with the use of her inhalers. She has also been using OTC cold medicine with little relief of symptoms. Reports cough is productive of yellow sputum. Related Data Previous Rx's Medication Instructions Recorded meclizine 25 mg tablet 25 mg PO TID PRN dizziness 3 09/26/21 months #90 tabs montelukast 10 mg tablet 10 mg PO BEDTIME #90 tabs 01/01/22 (Singulair) nabumetone 750 mg tablet 750 mg PO BID PRN for pain #60 tabs 01/08/22 albuterol sulfate 2.5 mg/3 mL 2.5 mg (3 mL) inhalation Q4-6H PRN 02/06/22 (0.083 %) solution for nebulization shortness of breath or wheezing #90 mL blood pressure test kit-large #1 ea 03/03/22 nebulizers #1 ea 03/03/22 fluticasone propionate 50 2 spray intranasal DAILY #16 mL 08/18/22 mcg/actuation nasal spray,suspension loratadine 10 mg capsule 10 mg PO DAILY 3 months #90 caps 08/18/22 metoprolol succinate 25 mg 25 mg PO DAILY 3 months #90 tabs 09/01/22 tablet,extended release 24 hr albuterol sulfate 90 mcg/actuation 1 puff PO QID PRN shortness of 01/01/23 aerosol inhaler breath or wheezing #8.5 ea hydrochlorothiazide 12.5 mg tablet 12.5 mg PO QAM 30 days #30 tabs 01/01/23 atorvastatin 40 mg tablet 40 mg PO BEDTIME #90 tabs 01/22/23 metformin 500 mg tablet 500 mg PO BID #60 tabs 01/26/23 lisinopril 20 mg tablet 20 mg PO BID #60 tabs 01/28/23 lidocaine 5 % topical patch 1 patch topical DAILY pain 30 days 02/23/23 #30 ea methylcellulose (laxative) 500 mg 500 mg PO DAILY #90 tabs 03/02/23 tablet (Citrucel) sennosides 8.6 mg tablet (Natural 8.6 mg PO BEDTIME constipation #90 03/02/23 Senna Laxative) tabs diclofenac potassium 50 mg tablet 50 mg PO TID PRN pain #60 tabs 03/17/23 bisacodyl 5 mg tablet,delayed 10 mg PO ONCE 1 day #2 tabs 03/31/23 release (Dulcolax (bisacodyl)) polyethylene glycol 3350 17 238 g PO ONCE #238 grams 03/31/23 gram/dose oral powder (Miralax) albuterol sulfate 90 mcg/actuation 2 puff inhalation Q6H PRN 04/01/23 aerosol inhaler shortness of breath or wheezing #8.5 grams prednisone 20 mg tablet 40 mg PO DAILY #10 tabs 04/01/23 Allergies Allergy/AdvReac Type Severity Reaction Status Date / Time No Known Allergies Allergy Verified 03/31/23 10:14 Review of Systems Constitutional: Constitutional: Reports fatigue and Denies fever(s) ENT: Denies otalgia, Denies nasal congestion and Denies sore throat Cardiovascular: Cardiovascular: Denies chest pain and Reports dyspnea on exertion Respiratory: Respiratory: Reports chest congestion, Reports cough and Reports dyspnea on exertion Musculoskeletal: Musculoskeletal: Reports no additional musculoskeletal complaints Comments: denies any leg pain or swelling Neurologic: Reports system reviewed and no additional complaints, except as documented Endocrine: Endocrine: Reports fatigue PMFSH Past Medical History Medical History Anxiety Endometrial hyperplasia without atypia History of COVID-19 Hypertension Obesity PCOS (polycystic ovarian syndrome) Surgical History H/O: hysterectomy History of History of cholecystectomy History of dilatation and curettage Family History Family History Father Heart problem Mother Stroke Diabetes Son Asthma Social History Social History Housing: House Are you a primary progressive care unit registered nurse to a significant other at home: No Do you presently have visiting nurse or other home services: No Alcohol intake: never Patient Tobacco Use Status: Never used Tobacco e-Cigarette/Vaping Use: Never Used Second Hand Smoke Exposure: No Advance Directives: No service: No Current occupational status: other 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 Oriented X3. No acute distress. Head: normocephalic, atraumatic. Eyes: Pupils equal, round and reactive to light. ENT: Pharynx normal. No tonsillar swelling or exudate. Neck: Normal inspection. Neck supple. CVS: Normal heart rate and rhythm. Pulses normal. Respiratory: No respiratory distress. Breath sounds normal. No wheezing. Abdomen: Soft and nontender. +BS x4 Skin: Skin warm and dry. Normal skin color. Normal skin turgor. No rashes. Extremities: No lower extremity edema. No joint swelling. Neuro/psych: Oriented X 3. No motor deficit. No sensory deficit. Normal speech and cognition. Medical Decision Making Medical Decision Making MDM Narrative: 52-year-old female presenting with recurrence of cough after treatment with antibiotics and prednisone consistent with bronchitis. Differential includes asthma exacerbation, pneumonia, Covid, influenza, seasonal allergies. Not consistent with GERD, medication side effect, CHF, malignany/mass. Patient is afebrile with stable vital signs other than elevated BP, however patient did not take her BP medication today. Given that she improved with initial treatment one week ago, will repeat course of prednisone and refill albuterol, as she stated her inhaler has run out. Differential Diagnosis Differential Diagnoses: The differential diagnosis associated with the presentation includes See above note. Lab Data Labs: Lab Results 04/01/23 Range/Units 09:10 Influenza Type A (PCR) NEGATIVE (Negative) Influenza Type B (PCR) NEGATIVE (Negative) RSV RNA Qual (PCR) NEGATIVE (Negative) SARS-CoV-2 RNA (RT-PCR) NEGATIVE (Negative) Independent Interpretation I performed an independent interpretation of an: Plain X-Ray Interpretation: I independently reviewed the x-ray and agree with the radiologist's interpretation. Radiology Impression Discussion of test interpretation with radiology: I have reviewed the radiologist's reading. Radiologist Impression: FINDINGS: No significant abnormality is noted involving the heart, lungs, mediastinum, bony thorax or soft tissues. XR/XR chest 2V IMPRESSION: No acute cardiopulmonary process. External Record Review External record reviewed: Outpatient record PCP notes Prescription Management I considered prescription management with: Other steroids, inhaler Chronic Conditions Patient?s care impacted by: Hypertension and Other (asthma) Discharge Plan Discharge Clinical Impression: Bronchitis Patient Disposition: Home, Self-Care Instructions: Acute Bronchitis (ED) Additional Instructions: You are being prescribed another course of steroids as well as a refill of your albuterol inhaler. If your symptoms do not improve, or if you develop a fever, you should contact your PCP. If you develop acute shortness of breath or difficulty breathing, or chest pain you should return to the emergency department or call 911. Prescriptions: New prednisone 20 mg tablet 40 mg PO DAILY Qty: 10 0RF albuterol sulfate 90 mcg/actuation HFA aerosol inhaler 2 puff inhalation Q6H PRN (Reason: shortness of breath or wheezing) Qty: 8.5 0RF No Action montelukast [Singulair] 10 mg tablet 10 mg PO BEDTIME Qty: 90 3RF (DME[place] [facility] [place] .ROUTE .MEDSUPPLY Qty: 1 0RF Rx Instructions: for acute asthma or reactions (DME) blood pressure test kit-large Kit See Rx Instructions .Route Qty: 1 0RF Rx Instructions: As directed metoprolol succinate 25 mg tablet extended release 24 hr 25 mg PO DAILY 90 Days Qty: 90 3RF atorvastatin 40 mg tablet 40 mg PO BEDTIME Qty: 90 3RF metformin 500 mg tablet 500 mg PO BID Qty: 60 2RF Rx Instructions: take one for one week then increase to one and a half at two different meals after one week then take one whole pill twice a day lisinopril 20 mg tablet 20 mg PO BID Qty: 60 2RF nabumetone 750 mg tablet 750 mg PO BID PRN (Reason: for pain) Qty: 60 2RF albuterol sulfate 2.5 mg /3 mL (0.083 %) solution for nebulization 2.5 mg inhalation Q4-6H PRN (Reason: shortness of breath or wheezing) Qty: 90 6RF albuterol sulfate 90 mcg/actuation HFA aerosol inhaler 1 puff PO QID PRN (Reason: shortness of breath or wheezing) Qty: 8.5 4RF Rx Instructions: Can take 2 puffs every 4 hours while sick. hydrochlorothiazide 12.5 mg tablet 12.5 mg PO QAM 30 Days Qty: 30 2RF diclofenac potassium 50 mg tablet 50 mg PO TID PRN (Reason: pain) Qty: 60 0RF meclizine 25 mg tablet 25 mg PO TID PRN (Reason: dizziness) 90 Days Qty: 90 1RF fluticasone propionate 50 mcg/actuation spray,suspension 2 spray intranasal DAILY Qty: 16 11RF loratadine 10 mg capsule 10 mg PO DAILY 90 Days Qty: 90 3RF lidocaine 5 % adhesive patch,medicated 1 patch topical DAILY 30 Days Qty: 30 0RF bisacodyl [Dulcolax (bisacodyl)] 5 mg tablet,delayed release (DR/EC) 10 mg PO ONCE 1 Days Qty: 2 0RF Rx Instructions: take 2 tabs at noon the day before your colonoscopy polyethylene glycol 3350 [Miralax] 17 gram/dose powder 238 g PO ONCE Qty: 238 0RF Rx Instructions: As directed by gastroenterology department at [facility] Citrucel 500 mg tablet 500 mg PO DAILY Qty: 90 2RF Rx Instructions: take it with full glass of water sennosides [Natural Senna Laxative] 8.6 mg tablet 8.6 mg PO BEDTIME Qty: 90 3RF
[2023-04-01 09:52] LABS: Influenza A PCR NEGATIVE (Negative); Influenza B PCR NEGATIVE (Negative); Resp Syncy Virus RNA Qual PCR NEGATIVE (Negative); SARS COV2 PCR INHOUSE NEGATIVE (Negative)
== END 2023-04-01 10:10 | disposition home or self-care (01) ==
PROVIDERS: Nurse Practitioner Family; Emergency Provider Student in an Organized Health Care Education/Training Program; PCP Hospitalist
DX: J40 Bronchitis, not specified as acute or chronic (principal); Z20.822 Contact with and (suspected) exposure to COVID-19; Z20.828 Contact with and (suspected) exposure to other viral communicable diseases
CPT/HCPCS: 0241U; 71046; 99282; 99283

== ENCOUNTER 2023-04-24 06:11 | Outpatient (REF) | payer OTHER, SELFPAY ==
--- NOTE | ~2023-04-24 | XR_ITS ---
EXAMINATION: XR BILATERAL KNEES CLINICAL INFORMATION: Reason for Exam M25.561 - Pain in right knee COMPARISON: Left knee radiographs 05/13/2018, right knee radiographs 05/13/2018 TECHNIQUE: 1 views of the bilateral knees standing and one view of the right knee. FINDINGS: RIGHT KNEE: No acute fracture or dislocation appreciated on this limited single view. Moderate degenerative changes of the knee with loss of medial compartment joint space and lateral and patellofemoral compartment osteophytes. Soft tissues are unremarkable. LEFT KNEE: No acute fracture or dislocation appreciated on this limited single view. Moderate degenerative changes of the knee with loss of medial compartment joint space and lateral compartment osteophytes. Soft tissues are unremarkable. XR/XR knee RT 1V IMPRESSION: Moderate degenerative changes of the knees similar to prior.
--- NOTE | ~2023-04-24 | XR_ITS ---
EXAMINATION: XR BILATERAL KNEES CLINICAL INFORMATION: Reason for Exam M25.561 - Pain in right knee COMPARISON: Left knee radiographs 05/13/2018, right knee radiographs 05/13/2018 TECHNIQUE: 1 views of the bilateral knees standing and one view of the right knee. FINDINGS: RIGHT KNEE: No acute fracture or dislocation appreciated on this limited single view. Moderate degenerative changes of the knee with loss of medial compartment joint space and lateral and patellofemoral compartment osteophytes. Soft tissues are unremarkable. LEFT KNEE: No acute fracture or dislocation appreciated on this limited single view. Moderate degenerative changes of the knee with loss of medial compartment joint space and lateral compartment osteophytes. Soft tissues are unremarkable. XR/XR knee standing BI IMPRESSION: Moderate degenerative changes of the knees similar to prior.
== END 2023-04-24 06:12 | disposition home or self-care (01) ==
LOC: HO.HOSX 06:11
PROVIDERS: Visit Provider Physician Assistant
DX: M17.11 Unilateral primary osteoarthritis, right knee (principal); M25.562 Pain in left knee; Z79.899 Other long term (current) drug therapy
CPT/HCPCS: 73560; 73565; 99202

== ENCOUNTER 2023-05-01 13:00 | Outpatient (RCR) | payer OTHER, SELFPAY ==
--- NOTE | 2023-05-28 13:09 | MHC.PT.DC ---
[facility] [place] Office [place] Office [place] Office [address] Kraig Hutchinson [address] [phone] F: [phone] F: [phone] F: [phone] F: [phone] Physical Therapy Discharge Report Diagnosis: BACK PAIN AND SPASMS Date of Surgery: Date of Evaluation: 03/23/23 Date of Discharge: Treatments to Date: 6 Cancellations to Date: 3 No Shows to Date: 0 Discharge Status: Discharge Summary: At last attended visit on 05/01, pt states back is doing better. Pt is limited with body mechanics due to her knee OA. Pt is going for vacation and upon return will have PT eval for her knees. In regards to her back, she has a comprehensive HEP which she can cont with independently on vacation. Electronically signed by: Bernadette Garzon PT DPT Please sign and return to therapist. Thank you for your referral.
== END 2023-05-28 13:09 | disposition home or self-care (01) ==
LOC: HO.PT 13:00
PROVIDERS: PCP Hospitalist; Visit Provider Nurse Practitioner Family
DX: M62.830 Muscle spasm of back (principal); M47.816 Spondylosis without myelopathy or radiculopathy, lumbar region; M51.35 Other intervertebral disc degeneration, thoracolumbar region
CPT/HCPCS: 97110; 97161; 97530

== ENCOUNTER 2023-06-14 22:16 | Emergency (ER) | payer OTHER, SELFPAY ==
[2023-06-14 22:33] VITALS: BP 153/71; PULSE 78; RESP 16; TEMP 36; O2SAT 97; BMI 45.2
[2023-06-14 22:50] LABS: Basophils Percent Auto 0.4 % (0-2); Eosinophils Absolute Auto 0.2 X10*3/uL (0.0-0.4); Eosinophils Percent Auto 1.8 % (0-4); Hematocrit 38.4 % (37.0-47.0); Imm Gran Abs Auto 0.02 X10*3/uL (0.00-0.03); Imm Gran Pct Auto 0.2 % (0.0-0.4); Lymphocytes Absolute Auto 2.5 X10*3/uL (1.2-4.9); Lymphocytes Percent Auto 24.6 % (20-40); MANUAL DIFF FLAG NO; Mean Corpuscular HGB Conc 31.3 g/dl (31.0-35.0); Mean Platelet Volume 9.1 fL (9.4-12.3); Monocytes Absolute Auto 0.7 X10*3/uL (0.1-1.2); Monocytes Percent Auto 7.2 % (2-11); Neutrophils Absolute Auto 6.7 x10*3/uL (2.0-8.3); Neutrophils Percent Auto 65.8 % (45-73); Platelet Count 322 X10*3/uL (160-400); Red Cell Distribution Width 16.7 % (11.0-16.0); White Blood Count 10.2 X10*3/uL (4.8-10.8)
[2023-06-14 22:51] LABS: Appearance Urine Clear; Color Urine Yellow; Glucose Urine UA Negative (Negative); Leukocyte Esterase Urine Negative (Negative); Nitrite Urine Negative (Negative); PH 5.5 (5.0-9.0); Specific Gravity - Urine 1.025 (1.005-1.025); UMIC TRIGGER UACC YES; Urine Blood Trace (Negative); Urine Ketones Negative (Negative); Urine Protein Negative (Neg-Trace)
[2023-06-14 23:06] LABS: Bacteria Urine None Seen (None Seen); Hyaline Casts Urine 0-2 /LPF (0-2); RBC Urine 0-2 /HPF (0-2); WBC Urine 0-5 /HPF (0-5)
[2023-06-14 23:09] LABS: Alanine Aminotransferase 15 U/L (0-31); Alkaline Phosphatase 140 U/L (39-117); Anion Gap 14 (12-20); Aspartate Amino Transferase 15 U/L (5-31); Bilirubin Total 0.3 mg/dL (0.0-1.0); Blood Urea Nitrogen 16 mg/dL (9-16); Calcium 9.3 mg/dL (8.4-10.2); Carbon Dioxide 27 mmol/L (22-29); Chloride 106 mmol/L (96-108); Creatinine Clr Calc Pharmacy 92.6; Estimated Glomerular Filt Rate 60; Glucose Random 123 mg/dL (60-115); Potassium 3.7 mmol/L (3.3-5.1); Sodium 143 mmol/L (135-145); Total Protein 7.5 g/dL (6.5-8.0)
--- NOTE | 2023-06-15 00:04 | ED_ITS ---
HPI - Female Genitourinary General Chief complaint: Urogenital-Female Stated complaint: cramping/ burning while urinating Time Seen by Provider: 06/14/23 23:49 Source: patient, RN notes reviewed and old records reviewed Mode of arrival: ambulatory Limitations: no limitations History of Present Illness HPI Narrative: 52-year-old female presents for evaluation of lower abdominal/pelvic cramping and burning with urination. Her symptoms started 3 days ago. Denies any vaginal bleeding or discharge. She is 1 year status post total hysterectomy Patient reports that she is monogamous with 1 sexual partner Denies any vaginal bleeding or discharge She reports some mild left flank pain Denies any known history of kidney stones Related Data Previous Rx's Medication Instructions Recorded meclizine 25 mg tablet 25 mg PO TID PRN dizziness 3 09/26/21 months #90 tabs montelukast 10 mg tablet 10 mg PO BEDTIME #90 tabs 01/01/22 (Singulair) nabumetone 750 mg tablet 750 mg PO BID PRN for pain #60 tabs 01/08/22 albuterol sulfate 2.5 mg/3 mL 2.5 mg (3 mL) inhalation Q4-6H PRN 02/06/22 (0.083 %) solution for nebulization shortness of breath or wheezing #90 mL blood pressure test kit-large #1 ea 03/03/22 nebulizers #1 ea 03/03/22 fluticasone propionate 50 2 spray intranasal DAILY #16 mL 08/18/22 mcg/actuation nasal spray,suspension loratadine 10 mg capsule 10 mg PO DAILY 3 months #90 caps 08/18/22 metoprolol succinate 25 mg 25 mg PO DAILY 3 months #90 tabs 09/01/22 tablet,extended release 24 hr atorvastatin 40 mg tablet 40 mg PO BEDTIME #90 tabs 01/22/23 lisinopril 20 mg tablet 20 mg PO BID #60 tabs 01/28/23 lidocaine 5 % topical patch 1 patch topical DAILY pain 30 days 02/23/23 #30 ea methylcellulose (laxative) 500 mg 500 mg PO DAILY #90 tabs 03/02/23 tablet (Citrucel) sennosides 8.6 mg tablet (Natural 8.6 mg PO BEDTIME constipation #90 03/02/23 Senna Laxative) tabs diclofenac potassium 50 mg tablet 50 mg PO TID PRN pain #60 tabs 03/17/23 bisacodyl 5 mg tablet,delayed 10 mg PO ONCE 1 day #2 tabs 03/31/23 release (Dulcolax (bisacodyl)) polyethylene glycol 3350 17 238 g PO ONCE #238 grams 03/31/23 gram/dose oral powder (Miralax) albuterol sulfate 90 mcg/actuation 2 puff inhalation Q6H PRN 04/01/23 aerosol inhaler shortness of breath or wheezing #8.5 grams hydroxyzine HCl 25 mg tablet 25 mg PO TID PRN anxiety 30 days 04/23/23 #30 tabs metformin 500 mg tablet,extended 500 mg PO DAILY 90 days #90 tabs 04/23/23 release 24 hr celecoxib 200 mg capsule (Celebrex) 200 mg PO BID 30 days #60 caps 04/24/23 hydrochlorothiazide 12.5 mg tablet 12.5 mg PO QAM #30 tabs 05/07/23 phenazopyridine 200 mg tablet 200 mg PO TID 6 doses #6 tabs 06/15/23 (Pyridium) Allergies Allergy/AdvReac Type Severity Reaction Status Date / Time No Known Allergies Allergy Verified 06/14/23 22:33 Review of Systems Gastrointestinal: Gastrointestinal: Denies abdominal pain Genitourinary: Genitourinary: Reports dysuria and Reports pelvic pain PMFSH Past Medical History Medical History Anxiety Endometrial hyperplasia without atypia History of COVID-19 Hypertension Obesity PCOS (polycystic ovarian syndrome) Surgical History H/O: hysterectomy History of History of cholecystectomy History of dilatation and curettage Family History Family History Father Heart problem Mother Stroke Diabetes Son Asthma Social History Social History Housing: House Are you a primary health care assistant to a significant other at home: No Do you presently have visiting nurse or other home services: No Alcohol intake: never Patient Tobacco Use Status: Never used Tobacco e-Cigarette/Vaping Use: Never Used Second Hand Smoke Exposure: No Advance Directives: No Advance Directives Information Provided: No service: No Current occupational status: other 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 Sexual orientation: Straight/Heterosexual Gender identity: Female Cognitive needs: No Hearing needs: No Vision needs: No Physical Exam Vital Signs: Vital Signs: Last Vital Signs Temp 96.8 F 06/14/23 22:33 Pulse 78 06/14/23 22:33 Resp 16 06/14/23 22:33 BP 153/71 H 06/14/23 22:33 Pulse Ox 97 06/14/23 22:33 O2 Del Method Room Air 06/14/23 22:33 BMI result Body Mass Index 45.2 Const: General: healthy appearing, comfortable, no acute distress, alert and awake Nutritional Appearance: well nourished Orientation/consciousness: patient oriented x3 HEENT: Head: Yes normocephalic and Yes atraumatic Eyes: Eyelids: Yes eyelids normal Conjunctivae: conjunctivae normal Sclerae: sclerae normal Corneas: corneas normal Pupils: Equal, round and reactive pupils present EOM: EOMs intact bilaterally Neck: Neck: Yes full ROM Resp: Effort & Inspection: normal respiratory effort, able to speak in com plete sentences and not labored Cardio: Rate: regular rate Rhythm: regular rhythm GI: Inspection: No distended Palpation (GI): Soft to palpation, not firm, Tenderness to palpation present (GI) suprapubicly, no guarding and not rigid Skin: General skin exam: no rashes or lesions noted and elasticity normal Neuro: General: patient oriented x3 Cranial nerves: Yes CN's II-XII intact bilaterally, Yes Equal, round and reactive pupils present and Yes Bilaterally intact EOM present Cognition (Neuro): normal cognition Medical Decision Making Medical Decision Making MDM Narrative: Patient has symptoms of a UTI, her UA does not show evidence of acute urinary tract infection. She has trace blood in the urine. I discussed with the patient and offered a CT scan of the abdomen pelvis to rule out obstructive uropathy by feel this is less likely as the patient appears quite comfortable. The patient does not have a uterus or ovaries. Therefore pelvic ultrasound I do not feel would have a high yield. Patient is monogamous with 1 sexual partner, so I do not feel the STD testing would be appropriate this time. Will treat discomfort with Pyridium and she reports that she will follow up with PCP for any continued symptoms Differential Diagnosis Differential Diagnoses: The differential diagnosis associated with the prese ntation includes Dysuria UTI Urine fibroid Ovarian cyst Pyelonephritis Obstructive uropathy Lab Data MDM Lab Attestation statement: I reviewed the patient's lab results. (No leukocytosis, no anemia. Electrolytes within normal limits. Glucose slightly elevated toe 0123) 06/14/23 22:44 06/14/23 22:44 Labs: Lab Results 06/14/23 06/14/23 06/14/23 Range/Units 22:44 22:44 22:44 WBC 10.2 (4.8-10.8) X10*3/uL RBC 4.80 (4.20-5.50) X10*6/uL Hgb 12.0 (12.0-16.0) g/dl Hct 38.4 (37.0-47.0) % MCV 80.0 (80.0-98.0) fL MCH 25.0 L (27.0-33.0) pg MCHC 31.3 (31.0-35.0) g/dl RDW 16.7 H (11.0-16.0) % Plt Count 322 (160-400) X10*3/uL MPV 9.1 L (9.4-12.3) fL Immature Gran % (Auto) 0.2 (0.0-0.4) % Neut % (Auto) 65.8 (45-73) % Lymph % (Auto) 24.6 (20-40) % [place] % (Auto) 7.2 (2-11) % Eos % (Auto) 1.8 (0-4) % Baso % (Auto) 0.4 (0-2) % Lymph # (Auto) 2.5 (1.2-4.9) X10*3/uL [place] # (Auto) 0.7 (0.1-1.2) X10*3/uL Eos # (Auto) 0.2 (0.0-0.4) X10*3/uL Baso # (Auto) 0.0 (0.0-0.2) X10*3/uL Abs Immat Gran (auto) 0.02 (0.00-0.03) X10*3/uL Absolute Neuts (auto) 6.7 (2.0-8.3) x10*3/uL Absolute Nucleated RBC 0.000 (0.0-0.012) X10*3/uL Nucleated RBC % (auto) 0.0 (0.0-0.2) /100WBC Sodium 143 (135-145) mmol/L Potassium 3.7 D (3.3-5.1) mmol/L Chloride 106 (96-108) mmol/L Carbon Dioxide 27 (22-29) mmol/L Anion Gap 14 (12-20) BUN 16 (9-16) mg/dL Creatinine 0.98 (0.5-1.4) mg/dL Estim Creat Clear Calc 92.6 Estimated GFR 60 Random Glucose 123 H (60-115) mg/dL Calcium 9.3 (8.4-10.2) mg/dL Total Bilirubin 0.3 (0.0-1.0) mg/dL AST 15 (5-31) U/L ALT 15 (0-31) U/L Alkaline Phosphatase 140 H (39-117) U/L Total Protein 7.5 (6.5-8.0) g/dL Albumin 4.0 (3.5-5.0) g/dL Urine Color Yellow Urine Appearance Clear Urine pH 5.5 (5.0-9.0) Ur Specific [place] 1.025 (1.005-1.025) Urine Protein Negative (Neg-Trace) mg/dL Urine Glucose (UA) Negative (Negative) mg/dL Urine Ketones Negative (Negative) mg/dL Urine Blood Trace H (Negative) Urine Nitrite Negative (Negative) Ur Leukocyte Esterase Negative (Negative) Urine RBC 0-2 (0-2) /HPF Urine WBC 0-5 (0-5) /HPF Ur Squamous Epith Cells 3-5 (0-2) /HPF Urine Bacteria None Seen (None Seen) Hyaline Casts 0-2 (0-2) /LPF Tests considered The following testing was considered but not selected: CT abdomen pelvis without contrast to evaluate for obstructive uropathy. Ultrasound of the pelvis was deferred as the patient is status post total hysterectomy Discharge Plan Discharge Clinical Impression: Dysuria Patient Disposition: Home, Self-Care Instructions: Dysuria (ED) Additional Instructions: Your urine did not show any evidence of a UTI. He did have a trace amount of blood within the urine. Follow-up with your primary doctor. Use Pyridium as needed for painful urination This will turn your urine orange but will resolve when you stop taking it Prescriptions: New phenazopyridine [Pyridium] 200 mg tablet 200 mg PO TID Qty: 6 0RF No Action montelukast [Singulair] 10 mg tablet 10 mg PO BEDTIME Qty: 90 3RF (DME) nebulizers Misc See Rx Instructions .ROUTE .MEDSUPPLY Qty: 1 0RF Rx Instructions: for acute asthma or reactions (DME) blood pressure test kit-large Kit See Rx Instructions .Route Qty: 1 0RF Rx Instructions: As directed metoprolol succinate 25 mg tablet extended release 24 hr 25 mg PO DAILY 90 Days Qty: 90 3RF atorvastatin 40 mg tablet 40 mg PO BEDTIME Qty: 90 3RF lisinopril 20 mg tablet 20 mg PO BID Qty: 60 2RF hydrochlorothiazide 12.5 mg tablet 12.5 mg PO QAM Qty: 30 2RF albuterol sulfate 90 mcg/actuation HFA aerosol inhaler 2 puff inhalation Q6H PRN (Reason: shortness of breath or wheezing) Qty: 8.5 0RF nabumetone 750 mg tablet 750 mg PO BID PRN (Reason: for pain) Qty: 60 2RF albuterol sulfate 2.5 mg /3 mL (0.083 %) solution for nebulization 2.5 mg inhalation Q4-6H PRN (Reason: shortness of breath or wheezing) Qty: 90 6RF diclofenac potassium 50 mg tablet 50 mg PO TID PRN (Reason: pain) Qty: 60 0RF hydroxyzine HCl 25 mg tablet 25 mg PO TID PRN (Reason: anxiety) 30 Days Qty: 30 1RF metformin 500 mg tablet extended release 24 hr 500 mg PO DAILY 90 Days Qty: 90 1RF meclizine 25 mg tablet 25 mg PO TID PRN (Reason: dizziness) 90 Days Qty: 90 1RF fluticasone propionate 50 mcg/actuation spray,suspension 2 spray intranasal DAILY Qty: 16 11RF loratadine 10 mg capsule 10 mg PO DAILY 90 Days Qty: 90 3RF lidocaine 5 % adhesive patch,medicated 1 patch topical DAILY 30 Days Qty: 30 0RF bisacodyl [Dulcolax (bisacodyl)] 5 mg tablet,delayed release (DR/EC) 10 mg PO ONCE 1 Days Qty: 2 0RF Rx Instructions: take 2 tabs at noon the day before your colonoscopy polyethylene glycol 3350 [Miralax] 17 gram/dose powder 238 g PO ONCE Qty: 238 0RF Rx Instructions: As directed by gastroenterology department at [facility] Citrucel 500 mg tablet 500 mg PO DAILY Qty: 90 2RF Rx Instructions: take it with full glass of water sennosides [Natural Senna Laxative] 8.6 mg tablet 8.6 mg PO BEDTIME Qty: 90 3RF celecoxib [Celebrex] 200 mg capsule 200 mg PO BID 30 Days Qty: 60 3RF
[2023-06-15] MEDS: Phenazopyridine HCL 200 MG TABLET PO (00:20)
--- NOTE | 2023-06-15 00:26 | PC.NURSE ---
pt medicated per MAR.
== END 2023-06-15 00:26 | disposition home or self-care (01) ==
PROVIDERS: Emergency Provider Emergency Medicine; PCP Hospitalist
DX: R30.0 Dysuria (principal); R25.2 Cramp and spasm; Z79.899 Other long term (current) drug therapy
CPT/HCPCS: 36415; 80053; 81001; 81003; 85025; 99283

== ENCOUNTER 2023-08-19 20:37 | Emergency (ER) | payer OTHER, SELFPAY ==
[2023-08-19 20:49] VITALS: BP 158/75; PULSE 80; RESP 18; TEMP 37.2; O2SAT 100; BMI 44.5
[2023-08-19 21:26] LABS: MANUAL DIFF FLAG NO
[2023-08-19 21:27] LABS: Basophils Percent Auto 0.3 % (0-2); Eosinophils Absolute Auto 0.1 X10*3/uL (0.0-0.4); Eosinophils Percent Auto 0.9 % (0-4); Hematocrit 41.7 % (37.0-47.0); Hemoglobin 13.1 g/dl (12.0-16.0); Imm Gran Abs Auto 0.03 X10*3/uL (0.00-0.03); Imm Gran Pct Auto 0.2 % (0.0-0.4); Lymphocytes Absolute Auto 1.7 X10*3/uL (1.2-4.9); Lymphocytes Percent Auto 13.6 % (20-40); Mean Corpuscular HGB Conc 31.4 g/dl (31.0-35.0); Mean Corpuscular Hemoglobin 24.7 pg (27.0-33.0); Mean Corpuscular Volume 78.5 fL (80.0-98.0); Mean Platelet Volume 9.5 fL (9.4-12.3); Monocytes Absolute Auto 0.8 X10*3/uL (0.1-1.2); Monocytes Percent Auto 5.9 % (2-11); Neutrophils Percent Auto 79.1 % (45-73); Platelet Count 352 X10*3/uL (160-400); Red Blood Count 5.31 X10*6/uL (4.20-5.50); Red Cell Distribution Width 16.1 % (11.0-16.0); White Blood Count 12.7 X10*3/uL (4.8-10.8)
[2023-08-19 21:28] LABS: Appearance Urine Clear; Color Urine Yellow; Glucose Urine UA Negative (Negative); Leukocyte Esterase Urine Negative (Negative); Nitrite Urine Negative (Negative); PH 5.5 (5.0-9.0); UMIC TRIGGER UACC YES; Urine Blood Small (1+) (Negative); Urine Ketones Negative (Negative); Urine Protein Negative (Neg-Trace)
[2023-08-19 21:34] LABS: Bacteria Urine None Seen (None Seen); Hyaline Casts Urine 0-2 /LPF (0-2); RBC Urine 0-2 /HPF (0-2); Squamous Epithelial Cell Urine 0-2 /HPF (0-2); WBC Urine 0-5 /HPF (0-5)
[2023-08-19 21:43] LABS: Alanine Aminotransferase 15 U/L (0-31); Albumin Level 4.2 g/dL (3.5-5.0); Alkaline Phosphatase 156 U/L (39-117); Anion Gap 16 (12-20); Aspartate Amino Transferase 17 U/L (5-31); Bilirubin Direct 0.1 mg/dL (0.0-0.5); Bilirubin Total 0.3 mg/dL (0.0-1.0); Blood Urea Nitrogen 15 mg/dL (9-16); Calcium 9.8 mg/dL (8.4-10.2); Carbon Dioxide 25 mmol/L (22-29); Chloride 105 mmol/L (96-108); Creatinine Clr Calc Pharmacy 105.9; Estimated Glomerular Filt Rate > 60; Glucose Random 104 mg/dL (60-115); Lipase 26 U/L (8-78); Potassium 4.5 mmol/L (3.3-5.1); Sodium 141 mmol/L (135-145); Total Protein 8.1 g/dL (6.5-8.0)
[2023-08-20 02:41] VITALS: BP 142/77; PULSE 88; RESP 14; O2SAT 99
--- NOTE | 2023-08-20 02:47 | PC.NURSE ---
Pt brought back from waiting room, patient endorses a day of abdominal cramping with multiple episodes of diarrhea. Pain comes and goes, in a cramping sensation. patient is now resting on stretcher, respirations even and unlabored, skin pwd, no apparent distress. rating pain 2/10 at this time
--- NOTE | 2023-08-20 03:14 | PC.NURSE ---
Took over care at 3:15am from Joann, pt is resting in bed, no sign of distress. Will continue to monitor.
--- NOTE | 2023-08-20 04:39 | ED.NAVMDI ---
HPI - Nausea/Vomiting/Diarrhea General Chief complaint: Abdominal Pain Stated complaint: abdominal pain, vomiting Time Seen by Provider: 08/20/23 04:33 Source: patient Mode of arrival: ambulatory Limitations: no limitations History of Present Illness HPI Narrative: Patient comes to the emergency room complaining of nausea vomiting diarrhea and abdominal bloating. Patient states that it has been present for couple of days. Patient tried taking several doses of loperamide for the diarrhea without any relief. Patient has not taking any medication for the nausea. No longer vomiting. Patient denies fever chills, no UTI symptoms, no flank pain. Related Data Previous Rx's Medication Instructions Recorded meclizine 25 mg tablet 25 mg PO TID PRN dizziness 3 09/26/21 months #90 tabs montelukast 10 mg tablet 10 mg PO BEDTIME #90 tabs 01/01/22 (Singulair) nabumetone 750 mg tablet 750 mg PO BID PRN for pain #60 tabs 01/08/22 albuterol sulfate 2.5 mg/3 mL 2.5 mg (3 mL) inhalation Q4-6H PRN 02/06/22 (0.083 %) solution for nebulization shortness of breath or wheezing #90 mL blood pressure test kit-large #1 ea 03/03/22 nebulizers #1 ea 03/03/22 fluticasone propionate 50 2 spray intranasal DAILY #16 mL 08/18/22 mcg/actuation nasal spray,suspension loratadine 10 mg capsule 10 mg PO DAILY 3 months #90 caps 08/18/22 metoprolol succinate 25 mg 25 mg PO DAILY 3 months #90 tabs 09/01/22 tablet,extended release 24 hr atorvastatin 40 mg tablet 40 mg PO BEDTIME #90 tabs 01/22/23 lisinopril 20 mg tablet 20 mg PO BID #60 tabs 01/28/23 lidocaine 5 % topical patch 1 patch topical DAILY pain 30 days 02/23/23 #30 ea methylcellulose (laxative) 500 mg 500 mg PO DAILY #90 tabs 03/02/23 tablet (Citrucel) sennosides 8.6 mg tablet (Natural 8.6 mg PO BEDTIME constipation #90 03/02/23 Senna Laxative) tabs diclofenac potassium 50 mg tablet 50 mg PO TID PRN pain #60 tabs 03/17/23 bisacodyl 5 mg tablet,delayed 10 mg (2 x 5 mg) PO ONCE 1 day #2 03/31/23 release (Dulcolax (bisacodyl)) tabs polyethylene glycol 3350 17 238 g PO ONCE #238 grams 03/31/23 gram/dose oral powder (Miralax) metformin 500 mg tablet,extended 500 mg PO DAILY 90 days #90 tabs 04/23/23 release 24 hr celecoxib 200 mg capsule (Celebrex) 200 mg PO BID 30 days #60 caps 04/24/23 hydrochlorothiazide 12.5 mg tablet 12.5 mg PO QAM #30 tabs 05/07/23 phenazopyridine 200 mg tablet 200 mg PO TID 6 doses #6 tabs 06/15/23 (Pyridium) hydroxyzine HCl 25 mg tablet 25 mg PO TID PRN anxiety 30 days 07/13/23 #30 tabs albuterol sulfate 90 mcg/actuation 2 puff inhalation Q6H PRN 08/06/23 aerosol inhaler shortness of breath or wheezing #8.5 grams diphenoxylate-atropine 2.5 1 tab PO TID PRN diarrhea #10 tabs 08/20/23 mg-0.025 mg tablet (Lomotil) ondansetron HCl 4 mg tablet 4 mg PO Q6H PRN nausea and 08/20/23 vomiting #14 tabs Allergies Allergy/AdvReac Type Severity Reaction Status Date / Time No Known Allergies Allergy Verified 06/14/23 22:33 Review of Systems Review of Systems: Constitutional : No Weight loss, No Fever, No Chills, No Night Sweats, No Fatigue, No Malaise ENT/Mouth : No Hearing loss, No Ear Pain, No Nasal Congestion, No Sinus Pain, No Hoarseness, No sore throat, No Rhinorrhea, No Swallowing Difficulty Eyes: No Eye Pain, No Swelling, No Redness, No Foreign Body, No Discharge, No Vision Changes Cardiovascular : No Chest Pain, No SOB, No Dyspnea on Exertion, No Orthopnea, No Edema, No Palpitations Respiratory : No Cough, No Sputum, No Wheezing, No Smoke Exposure, No Dyspnea Gastrointestinal : Complaining of nausea, vomiting, diarrhea, bloating, No Constipation, No abdominal Pain, No Hematochezia, No Melena Genitourinary : no irregular bleeding, No Dysuria, No Urinary Frequency, No Hematuria, No Urinary Incontinence, No Urgency, No Flank Pain, No Urinary Flow Changes, No Hesitancy Musculoskeletal : No joint pain, No Myalgias, No Joint Swelling Skin : No Skin Lesions, No rash Neuro : No Weakness, No Numbness, No Paresthesias, No Loss of Consciousness, No Dizziness, No Headache Psych : No Anxiety/Panic, No Depression, No SI/HI/AH/VH, No Social Issues, Heme/Lymph: No Bruising, No Bleeding,No Lymphadenopathy Endocrine : No Polyuria, No Polydipsia, No Temperature Intolerance [facility] Past Medical History Medical History Anxiety Endometrial hyperplasia without atypia History of COVID-19 Hypertension Obesity PCOS (polycystic ovarian syndrome) Surgical History H/O: hysterectomy History of dilatation and curettage History of cholecystectomy History of Family History Family History Father Heart problem Mother Stroke Diabetes Son Asthma Social History Social History Housing: House Are you a primary resident care aid to a significant other at home: No Do you presently have visiting nurse or other home services: No Alcohol intake: never Patient Tobacco Use Status: Never used Tobacco Smoked in Last 30 Days: No e-Cigarette/Vaping Use: Never Used Second Hand Smoke Exposure: No Use of substances other than those prescribed or required for medical reasons: No Advance Directives: No Advance Directives Information Provided: Yes Patient : No service: No Current occupational status: other 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 Oriented X3. No acute distress. Eyes: Pupils equal, round and reactive to light. ENT: Pharynx normal. Neck: Normal inspection. Neck supple. No lymph nodes noted. No crepitus CVS: Normal heart rate and rhythm. Pulses normal. Normal S1 and S2 Respiratory: No respiratory distress. Breath sounds normal. No Wheezing. No rales Abdomen: Soft and nontender. No rigidity. No distention. Skin: Skin warm and dry. Normal skin color. Normal skin turgor. Extremities: No lower extremity edema. No Lacerations. No Rash Neuro: Oriented X 3. No motor deficit. No sensory deficit. Moving all extremities. No slurred speech. CN 2 through 12 grossly intact Psych: calm, cooperative, normal affect Medical Decision Making Medical Decision Making MDM Narrative: -my interpretation of labs: White blood cell count 12.7, likely reactive leukocytosis, normal hemoglobin hematocrit and platelets chemistry unremarkable, no electrolyte abnormalities alk-phos elevated but at baseline, lipase negative -physical exam unremarkable, no imaging indicated at this time -patient retry did loperamide without any relief, patient given the 1st dose of Lomotil in the ED and p.o. Zofran. -patient well-appearing, ready for discharge Differential Diagnosis Differential Diagnoses: The differential diagnosis associated with the presentation includes (Gastritis, gastroenteritis, viral syndrome) Lab Data [facility] Lab Attestation statement: I reviewed the patient's lab results. 08/19/23 21:21 08/19/23 21:21 Labs: Lab Results 08/19/23 Range/Units 21:21 WBC 12.7 H (4.8-10.8) X10*3/uL RBC 5.31 (4.20-5.50) X10*6/uL Hgb 13.1 (12.0-16.0) g/dl Hct 41.7 (37.0-47.0) % MCV 78.5 L (80.0-98.0) fL MCH 24.7 L (27.0-33.0) pg MCHC 31.4 (31.0-35.0) g/dl RDW 16.1 H (11.0-16.0) % Plt Count 352 (160-400) X10*3/uL MPV 9.5 (9.4-12.3) fL Immature Gran % (Auto) 0.2 (0.0-0.4) % Neut % (Auto) 79.1 H (45-73) % Lymph % (Auto) 13.6 L (20-40) % [place] % (Auto) 5.9 (2-11) % Eos % (Auto) 0.9 (0-4) % Baso % (Auto) 0.3 (0-2) % Lymph # (Auto) 1.7 (1.2-4.9) X10*3/uL [place] # (Auto) 0.8 (0.1-1.2) X10*3/uL Eos # (Auto) 0.1 (0.0-0.4) X10*3/uL Baso # (Auto) 0.0 (0.0-0.2) X10*3/uL Abs Immat Gran (auto) 0.03 (0.00-0.03) X10*3/uL Absolute Neuts (auto) 10.0 H (2.0-8.3) x10*3/uL Absolute Nucleated RBC 0.000 (0.0-0.012) X10*3/uL Nucleated RBC % (auto) 0.0 (0.0-0.2) /100WBC Sodium 141 (135-145) mmol/L Potassium 4.5 D (3.3-5.1) mmol/L Chloride 105 (96-108) mmol/L Carbon Dioxide 25 (22-29) mmol/L Anion Gap 16 (12-20) BUN 15 (9-16) mg/dL Creatinine 0.84 (0.5-1.4) mg/dL Estim Creat Clear Calc 105.9 Estimated GFR > 60 Random Glucose 104 (60-115) mg/dL Calcium 9.8 (8.4-10.2) mg/dL Total Bilirubin 0.3 (0.0-1.0) mg/dL Direct Bilirubin 0.1 (0.0-0.5) mg/dL AST 17 (5-31) U/L ALT 15 (0-31) U/L Alkaline Phosphatase 156 H (39-117) U/L Total Protein 8.1 H (6.5-8.0) g/dL Albumin 4.2 (3.5-5.0) g/dL Lipase 26 (8-78) U/L Urine Color Yellow Urine Appearance Clear Urine pH 5.5 (5.0-9.0) Ur Specific [place] 1.020 (1.005-1.025) Urine Protein Negative (Neg-Trace) mg/dL Urine Glucose (UA) Negative (Negative) mg/dL Urine Ketones Negative (Negative) mg/dL Urine Blood Small (1+) H (Negative) Urine Nitrite Negative (Negative) Ur Leukocyte Esterase Negative (Negative) Urine RBC 0-2 (0-2) /HPF Urine WBC 0-5 (0-5) /HPF Ur Squamous Epith Cells 0-2 (0-2) /HPF Urine Bacteria None Seen (None Seen) Hyaline Casts 0-2 (0-2) /LPF Discharge Plan Discharge Clinical Impression: Nausea vomiting and diarrhea Patient Disposition: Home, Self-Care Instructions: Acute Nausea and Vomiting (ED), Acute Diarrhea (ED) Additional Instructions: Please follow-up with your primary care physician tomorrow. If you have any worsening or new symptoms, please return to the emergency room or call 911 Prescriptions: New diphenoxylate-atropine [Lomotil] 2.5-0.025 mg tablet 1 tab PO TID PRN (Reason: diarrhea) Qty: 10 0RF ondansetron HCl 4 mg tablet 4 mg PO Q6H PRN (Reason: nausea and vomiting) Qty: 14 0RF No Action montelukast [Singulair] 10 mg tablet 10 mg PO BEDTIME Qty: 90 3RF (DME) nebulizers Misc See Rx Instructions .ROUTE .MEDSUPPLY Qty: 1 0RF Rx Instructions: for acute asthma or reactions (DME) blood pressure test kit-large Kit See Rx Instructions .Route Qty: 1 0RF Rx Instructions: As directed metoprolol succinate 25 mg tablet extended release 24 hr 25 mg PO DAILY 90 Days Qty: 90 3RF atorvastatin 40 mg tablet 40 mg PO BEDTIME Qty: 90 3RF lisinopril 20 mg tablet 20 mg PO BID Qty: 60 2RF hydrochlorothiazide 12.5 mg tablet 12.5 mg PO QAM Qty: 30 2RF hydroxyzine HCl 25 mg tablet 25 mg PO TID PRN (Reason: anxiety) 30 Days Qty: 30 1RF albuterol sulfate 90 mcg/actuation HFA aerosol inhaler 2 puff inhalation Q6H PRN (Reason: shortness of breath or wheezing) Qty: 8.5 0RF phenazopyridine [Pyridium] 200 mg tablet 200 mg PO TID Qty: 6 0RF nabumetone 750 mg tablet 750 mg PO BID PRN (Reason: for pain) Qty: 60 2RF albuterol sulfate 2.5 mg /3 mL (0.083 %) solution for nebulization 2.5 mg inhalation Q4-6H PRN (Reason: shortness of breath or wheezing) Qty: 90 6RF diclofenac potassium 50 mg tablet 50 mg PO TID PRN (Reason: pain) Qty: 60 0RF metformin 500 mg tablet extended release 24 hr 500 mg PO DAILY 90 Days Qty: 90 1RF meclizine 25 mg tablet 25 mg PO TID PRN (Reason: dizziness) 90 Days Qty: 90 1RF fluticasone propionate 50 mcg/actuation spray,suspension 2 spray intranasal DAILY Qty: 16 11RF loratadine 10 mg capsule 10 mg PO DAILY 90 Days Qty: 90 3RF lidocaine 5 % adhesive patch,medicated 1 patch topical DAILY 30 Days Qty: 30 0RF bisacodyl [Dulcolax (bisacodyl)] 5 mg tablet,delayed release (DR/EC) 10 mg PO ONCE 1 Days Qty: 2 0RF Rx Instructions: take 2 tabs at noon the day before your colonoscopy polyethylene glycol 3350 [Miralax] 17 gram/dose powder 238 g PO ONCE Qty: 238 0RF Rx Instructions: As directed by gastroenterology department at [facility] Citrucel 500 mg tablet 500 mg PO DAILY Qty: 90 2RF Rx Instructions: take it with full glass of water sennosides [Natural Senna Laxative] 8.6 mg tablet 8.6 mg PO BEDTIME Qty: 90 3RF celecoxib [Celebrex] 200 mg capsule 200 mg PO BID 30 Days Qty: 60 3RF
[2023-08-20] MEDS: Diphenoxylate/Atrop 2.5/0.025 TABLET 1 TAB PO (05:03)
[2023-08-20] MEDS: Ondansetron ODT 4 MG TAB.RAPDIS TRANSLINGU (05:04)
--- NOTE | 2023-08-20 05:07 | PC.NURSE ---
pt a&o, no sob or chest pain, medicatied pt per Mar, Reviewed discharge instruction with pt. pt verbalized understanding.
== END 2023-08-20 05:08 | disposition home or self-care (01) ==
PROVIDERS: Emergency Provider Emergency Medicine
DX: R11.2 Nausea with vomiting, unspecified (principal); R19.7 Diarrhea, unspecified; E11.9 Type 2 diabetes mellitus without complications; I10 Essential (primary) hypertension; E66.9 Obesity, unspecified; Z68.41 Body mass index [BMI] 40.0-44.9, adult; Z79.899 Other long term (current) drug therapy; Z79.84 Long term (current) use of oral hypoglycemic drugs
CPT/HCPCS: 36415; 80053; 81001; 82248; 83690; 85025; 99283; 99284

== ENCOUNTER 2023-08-27 21:57 | Emergency (ER) | payer OTHER, SELFPAY ==
[2023-08-27 22:19] VITALS: BP 157/83; PULSE 89; RESP 18; TEMP 36.4; O2SAT 98; BMI 44.5
[2023-08-27 22:47] LABS: COVID-19 Test Negative (Negative); IDNOW Serial# 6674DD1D
[2023-08-27 23:36] VITALS: BP 161/78; PULSE 78; RESP 16; TEMP 36.2; O2SAT 98
--- NOTE | 2023-08-27 23:39 | ED_ITS ---
HPI - URI/Sore Throat General Chief Complaint: Upper Respiratory Symptoms Stated Complaint: flu like symptoms Time Seen by Provider: 08/27/23 23:28 Source: patient Mode of arrival: ambulatory Limitations: no limitations History of Present Illness HPI Narrative: Patient comes to the emergency room complaining coughing and congestion. Patient denies chest pain or shortness of breath, no lower extremity pain. No s yncope or near syncopal episodes. Patient states that her tested positive for COVID today. Related Data Previous Rx's Medication Instructions Recorded meclizine 25 mg tablet 25 mg PO TID PRN dizziness 3 09/26/21 months #90 tabs montelukast 10 mg tablet 10 mg PO BEDTIME #90 tabs 01/01/22 (Singulair) nabumetone 750 mg tablet 750 mg PO BID PRN for pain #60 tabs 01/08/22 albuterol sulfate 2.5 mg/3 mL 2.5 mg (3 mL) inhalation Q4-6H PRN 02/06/22 (0.083 %) solution for nebulization shortness of breath or wheezing #90 mL blood pressure test kit-large #1 ea 03/03/22 nebulizers #1 ea 03/03/22 fluticasone propionate 50 2 spray intranasal DAILY #16 mL 08/18/22 mcg/actuation nasal spray,suspension loratadine 10 mg capsule 10 mg PO DAILY 3 months #90 caps 08/18/22 metoprolol succinate 25 mg 25 mg PO DAILY 3 months #90 tabs 09/01/22 tablet,extended release 24 hr atorvastatin 40 mg tablet 40 mg PO BEDTIME #90 tabs 01/22/23 lisinopril 20 mg tablet 20 mg PO BID #60 tabs 01/28/23 lidocaine 5 % topical patch 1 patch topical DAILY pain 30 days 02/23/23 #30 ea methylcellulose (laxative) 500 mg 500 mg PO DAILY #90 tabs 03/02/23 tablet (Citrucel) sennosides 8.6 mg tablet (Natural 8.6 mg PO BEDTIME constipation #90 03/02/23 Senna Laxative) tabs diclofenac potassium 50 mg tablet 50 mg PO TID PRN pain #60 tabs 03/17/23 bisacodyl 5 mg tablet,delayed 10 mg (2 x 5 mg) PO ONCE 1 day #2 03/31/23 release (Dulcolax (bisacodyl)) tabs polyethylene glycol 3350 17 238 g PO ONCE #238 grams 03/31/23 gram/dose oral powder (Miralax) metformin 500 mg tablet,extended 500 mg PO DAILY 90 days #90 tabs 04/23/23 release 24 hr celecoxib 200 mg capsule (Celebrex) 200 mg PO BID 30 days #60 caps 04/24/23 hydrochlorothiazide 12.5 mg tablet 12.5 mg PO QAM #30 tabs 05/07/23 phenazopyridine 200 mg tablet 200 mg PO TID 6 doses #6 tabs 06/15/23 (Pyridium) hydroxyzine HCl 25 mg tablet 25 mg PO TID PRN anxiety 30 days 07/13/23 #30 tabs albuterol sulfate 90 mcg/actuation 2 puff inhalation Q6H PRN 08/06/23 aerosol inhaler shortness of breath or wheezing #8.5 grams diphenoxylate-atropine 2.5 1 tab PO TID PRN diarrhea #10 tabs 08/20/23 mg-0.025 mg tablet (Lomotil) ondansetron HCl 4 mg tablet 4 mg PO Q6H PRN nausea and 08/20/23 vomiting #14 tabs Allergies Allergy/AdvReac Type Severity Reaction Status Date / Time No Known Allergies Allergy Verified 08/27/23 22:18 Review of Systems Review of Systems: Constitutional : No Weight loss, No Fever, No Chills, No Night Sweats, No Fatigue, No Malaise ENT/Mouth : No Hearing loss, No Ear Pain, complaining of Nasal Congestion, No Sinus Pain, No Hoarseness, No sore throat, No Rhinorrhea, No Swallowing Difficulty Eyes: No Eye Pain, No Swelling, No Redness, No Foreign Body, No Discharge, No Vision Changes Cardiovascular : No Chest Pain, No SOB, No Dyspnea on Exertion, No Orthopnea, No Edema, No Palpitations Respiratory : Complaining of dry cough, No Wheezing, No Smoke Exposure, No Dyspnea Gastrointestinal : No Nausea, No Vomiting, No Diarrhea, No Constipation, No abdominal Pain, No Hematochezia, No Melena Genitourinary : no irregular bleeding, No Dysuria, No Urinary Frequency, No Hematuria, No Urinary Incontinence, No Urgency, No Flank Pain, No Urinary Flow Changes, No Hesitancy Musculoskeletal : No joint pain, No Myalgias, No Joint Swelling Skin : No Skin Lesions, No rash Neuro : No Weakness, No Numbness, No Paresthesias, No Loss of Consciousness, No Dizziness, No Headache Psych : No Anxiety/Panic, No Depression, No SI/HI/AH/VH, No Social Issues, Heme/Lymph: No Bruising, No Bleeding,No Lymphadenopathy Endocrine : No Polyuria, No Polydipsia, No Temperature Intolerance [facility] Past Medical History Medical History History of COVID-19 Endometrial hyperplasia without atypia Obesity Anxiety PCOS (polycystic ovarian syndrome) Hypertension Surgical History H/O: hysterectomy History of dilatation and curettage History of cholecystectomy History of Family History Family History Father Heart problem Mother Stroke Diabetes Son Asthma Social History Social History Housing: House Are you a primary patient care specialist to a significant other at home: No Do you presently have visiting nurse or other home services: No Alcohol intake: never Patient Tobacco Use Status: Never used Tobacco e-Cigarette/Vaping Use: Never Used Second Hand Smoke Exposure: No Advance Directives: No Advance Directives Information Provided: Yes service: No Current occupational status: other 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 Oriented X3. No acute distress. Eyes: Pupils equal, round and reactive to light. ENT: Pharynx normal. Mild nasal congestion Neck: Normal inspection. Neck supple. No lymph nodes noted. No crepitus CVS: Normal heart rate and rhythm. Pulses normal. Normal S1 and S2 Respiratory: No respiratory distress. Breath sounds normal. No Wheezing. No rales Abdomen: Soft and nontender. No rigidity. No distention. Skin: Skin warm and dry. Normal skin color. Normal skin turgor. Extremities: No lower extremity edema. No Lacerations. No Rash Neuro: Oriented X 3. No motor deficit. No sensory deficit. Moving all extremities. No slurred speech. CN 2 through 12 grossly intact Psych: calm, cooperative, normal affect Medical Decision Making Medical Decision Making [facility] Narrative: -I discussed the physical exam with the patient. Vitals are completely stable, oxygen saturation 98% even after ambulation. = my interpretation of labs, patient tested negative for COVID. However, today her tested positive. Discussed with the patient that he may be a false negative or within a few days may turn positive. It away, discussed with the patient staying at home for 5 days, patient does not work. Patient agrees with plan. Tylenol/ibuprofen offered to the patient, states she has at home and does not require prescription. Discussed with the patient Jeane , patient decided to treat her symptoms at home conservatively without antiviral Lab Data [facility] Lab Attestation statement: I reviewed the patient's lab results. Labs: Lab Results 08/27/23 Range/Units 22:27 COVID-19 ([facility]) Negative (Negative) COVID-19 Clin Com See Note Discharge Plan Discharge Clinical Impression: Viral URI Patient Disposition: Home, Self-Care Instructions: Viral Syndrome (ED), COVID-19 (Coronavirus Disease 2019) (ED) Additional Instructions: Please follow-up with your primary care physician tomorrow. If you have any worsening or new symptoms, please return to the emergency room or call 911 Prescriptions: No Action montelukast [Singulair] 10 mg tablet 10 mg PO BEDTIME Qty: 90 3RF (DME) nebulizers Misc See Rx Instructions .ROUTE .MEDSUPPLY Qty: 1 0RF Rx Instructions: for acute asthma or reactions (DME) blood pressure test kit-large Kit See Rx Instructions .Route Qty: 1 0RF Rx Instructions: As directed metoprolol succinate 25 mg tablet extended release 24 hr 25 mg PO DAILY 90 Days Qty: 90 3RF atorvastatin 40 mg tablet 40 mg PO BEDTIME Qty: 90 3RF lisinopril 20 mg tablet 20 mg PO BID Qty: 60 2RF hydrochlorothiazide 12.5 mg tablet 12.5 mg PO QAM Qty: 30 2RF hydroxyzine HCl 25 mg tablet 25 mg PO TID PRN (Reason: anxiety) 30 Days Qty: 30 1RF albuterol sulfate 90 mcg/actuation HFA aerosol inhaler 2 puff inhalation Q6H PRN (Reason: shortness of breath or wheezing) Qty: 8.5 0RF phenazopyridine [Pyridium] 200 mg tablet 200 mg PO TID Qty: 6 0RF diphenoxylate-atropine [Lomotil] 2.5-0.025 mg tablet 1 tab PO TID PRN (Reason: diarrhea) Qty: 10 0RF ondansetron HCl 4 mg tablet 4 mg PO Q6H PRN (Reason: nausea and vomiting) Qty: 14 0RF nabumetone 750 mg tablet 750 mg PO BID PRN (Reason: for pain) Qty: 60 2RF albuterol sulfate 2.5 mg /3 mL (0.083 %) solution for nebulization 2.5 mg inhalation Q4-6H PRN (Reason: shortness of breath or wheezing) Qty: 90 6RF diclofenac potassium 50 mg tablet 50 mg PO TID PRN (Reason: pain) Qty: 60 0RF metformin 500 mg tablet extended release 24 hr 500 mg PO DAILY 90 Days Qty: 90 1RF meclizine 25 mg tablet 25 mg PO TID PRN (Reason: dizziness) 90 Days Qty: 90 1RF fluticasone propionate 50 mcg/actuation spray,suspension 2 spray intranasal DAILY Qty: 16 11RF loratadine 10 mg capsule 10 mg PO DAILY 90 Days Qty: 90 3RF lidocaine 5 % adhesive patch,medicated 1 patch topical DAILY 30 Days Qty: 30 0RF bisacodyl [Dulcolax (bisacodyl)] 5 mg tablet,delayed release (DR/EC) 10 mg PO ONCE 1 Days Qty: 2 0RF Rx Instructions: take 2 tabs at noon the day before your colonoscopy polyethylene glycol 3350 [Miralax] 17 gram/dose powder 238 g PO ONCE Qty: 238 0RF Rx Instructions: As directed by gastroenterology department at [facility] Citrucel 500 mg tablet 500 mg PO DAILY Qty: 90 2RF Rx Instructions: take it with full glass of water sennosides [Natural Senna Laxative] 8.6 mg tablet 8.6 mg PO BEDTIME Qty: 90 3RF celecoxib [Celebrex] 200 mg capsule 200 mg PO BID 30 Days Qty: 60 3RF
--- NOTE | 2023-08-27 23:58 | PC.NURSE ---
This RN only reviewed discharge instruction with pt. pt verbalized understanding. no sign of distress.
== END 2023-08-27 23:59 | disposition home or self-care (01) ==
PROVIDERS: Emergency Provider Emergency Medicine; PCP Internal Medicine
DX: J06.9 Acute upper respiratory infection, unspecified (principal); R05.9 Cough, unspecified; Z20.822 Contact with and (suspected) exposure to COVID-19; E11.9 Type 2 diabetes mellitus without complications; I10 Essential (primary) hypertension; Z79.84 Long term (current) use of oral hypoglycemic drugs; Z79.899 Other long term (current) drug therapy
CPT/HCPCS: 87635; 99283

== ENCOUNTER 2023-09-22 16:11 | Emergency (ER) | payer OTHER, SELFPAY ==
[2023-09-22 16:26] VITALS: BP 174/86; PULSE 92; RESP 20; TEMP 37.3; O2SAT 96; BMI 44.5
--- NOTE | 2023-09-22 16:26 | ED.GENADULT ---
HPI - General Adult General Chief complaint: Upper Respiratory Symptoms Stated complaint: cough, body aches, headache Time Seen by Provider: 09/22/23 18:56 Source: patient and family Mode of arrival: ambulatory Limitations: no limitations History of Present Illness HPI narrative: 53 female with history of HTN, pre diabetes, HLD here with cough, headache, body aches x 2 days. no chest pain, shortness of breath, leg swelling, leg pain, fevers, chills, neck pain, neck stiffness, leg swelling or leg pain. Here with who has similar symptoms Related Data Previous Rx's Medication Instructions Recorded meclizine 25 mg tablet 25 mg PO TID PRN dizziness 3 09/26/21 months #90 tabs montelukast 10 mg tablet 10 mg PO BEDTIME #90 tabs 01/01/22 (Singulair) nabumetone 750 mg tablet 750 mg PO BID PRN for pain #60 tabs 01/08/22 albuterol sulfate 2.5 mg/3 mL 2.5 mg (3 mL) inhalation Q4-6H PRN 02/06/22 (0.083 %) solution for nebulization shortness of breath or wheezing #90 mL blood pressure test kit-large #1 ea 03/03/22 nebulizers #1 ea 03/03/22 fluticasone propionate 50 2 spray intranasal DAILY #16 mL 08/18/22 mcg/actuation nasal spray,suspension metoprolol succinate 25 mg 25 mg PO DAILY 3 months #90 tabs 09/01/22 tablet,extended release 24 hr atorvastatin 40 mg tablet 40 mg PO BEDTIME #90 tabs 01/22/23 lisinopril 20 mg tablet 20 mg PO BID #60 tabs 01/28/23 lidocaine 5 % topical patch 1 patch topical DAILY pain 30 days 02/23/23 #30 ea methylcellulose (laxative) 500 mg 500 mg PO DAILY #90 tabs 03/02/23 tablet (Citrucel) sennosides 8.6 mg tablet (Natural 8.6 mg PO BEDTIME constipation #90 03/02/23 Senna Laxative) tabs diclofenac potassium 50 mg tablet 50 mg PO TID PRN pain #60 tabs 03/17/23 bisacodyl 5 mg tablet,delayed 10 mg (2 x 5 mg) PO ONCE 1 day #2 03/31/23 release (Dulcolax (bisacodyl)) tabs polyethylene glycol 3350 17 238 g PO ONCE #238 grams 03/31/23 gram/dose oral powder (Miralax) metformin 500 mg tablet,extended 500 mg PO DAILY 90 days #90 tabs 04/23/23 release 24 hr celecoxib 200 mg capsule (Celebrex) 200 mg PO BID 30 days #60 caps 04/24/23 hydrochlorothiazide 12.5 mg tablet 12.5 mg PO QAM #30 tabs 05/07/23 phenazopyridine 200 mg tablet 200 mg PO TID 6 doses #6 tabs 06/15/23 (Pyridium) hydroxyzine HCl 25 mg tablet 25 mg PO TID PRN anxiety 30 days 07/13/23 #30 tabs diphenoxylate-atropine 2.5 1 tab PO TID PRN diarrhea #10 tabs 08/20/23 mg-0.025 mg tablet (Lomotil) ondansetron HCl 4 mg tablet 4 mg PO Q6H PRN nausea and 08/20/23 vomiting #14 tabs albuterol sulfate 90 mcg/actuation 2 puff inhalation Q6H PRN for 09/09/23 aerosol inhaler (Ventolin HFA) wheezing #18 ea loratadine 10 mg capsule 10 mg PO DAILY 90 days #90 caps 09/11/23 Allergies Allergy/AdvReac Type Severity Reaction Status Date / Time No Known Allergies Allergy Verified 08/27/23 22:18 Review of Systems Review of Systems: Yes all other systems are reviewed and are negative Constitutional: Constitutional: Reports no additional constitutional complaints, Reports body ache(s), Denies chills, Denies fever(s), Reports headache(s) and Denies weakness Eyes: Eyes: Reports no additional eye complaints and Denies change in vision ENT: Reports system reviewed and no additional complaints, except as documented, Denies dizziness, Reports headache(s), Denies nasal congestion, Denies nasal discharge and Denies neck pain Cardiovascular: Cardiovascular: Reports no additional cardiovascular complaints, Denies chest pain, Denies leg edema and Denies dyspnea Respiratory: Respiratory: Reports no additional respiratory complaints, Reports cough and Denies dyspnea Gastrointestinal: Gastrointestinal: Reports no additional gastrointestinal complaints, Denies abdominal pain, Denies diarrhea, Denies nausea and Denies vomiting Genitourinary: Genitourinary: Reports no additional female genitourinary complaints and Denies urinary incontinence Musculoskeletal: Musculoskeletal: Reports no additional musculoskeletal complaints, Denies back pain, Denies arthralgias, Denies joint swelling, Denies neck pain, Denies numbness and Denies tingling Integumentary/Breasts: Skin/Breast: Reports system reviewed and no additional complaints, except as docu and Denies rash Neurologic: Reports system reviewed and no additional complaints, except as documented, Denies Abnormal speech present, Denies dizziness, Reports headache(s), Denies numbness, Denies tingling and Denies weakness [facility] Past Medical History Attestation statement: The following information was validated with the patient. Source: old records reviewed and nursing notes reviewed Medical History History of COVID-19 Endometrial hyperplasia without atypia Obesity Anxiety PCOS (polycystic ovarian syndrome) Hypertension Surgical History H/O: hysterectomy History of dilatation and curettage History of cholecystectomy History of Family History Family History Father Heart problem Mother Stroke Diabetes Son Asthma Social History Social History Housing: House Are you a primary respiratory care technician to a significant other at home: No Do you presently have visiting nurse or other home services: No Alcohol intake: never Patient Tobacco Use Status: Never used Tobacco e-Cigarette/Vaping Use: Never Used Second Hand Smoke Exposure: No Advance Directives: No Advance Directives Information Provided: No service: No Current occupational status: other 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 Sexual orientation: Straight/Heterosexual Gender identity: Female Cognitive needs: No Hearing needs: No Vision needs: No Physical Exam ED Vital Signs: Vital Signs - 24 hr 09/22/23 16:26 Temperature 99.1 F Pulse Rate 92 Respiratory Rate 20 Blood Pressure 174/86 H Pulse Oximetry 96 Oxygen Delivery Method Room Air BMI result Body Mass Index 44.5 Const General: cooperative, healthy appearing, comfortable and no acute distress Orientation/consciousness: patient oriented x3 Limitations: no limitations HENMT Head: Yes normal to inspection Ears: hearing grossly normal bilaterally and TM's normal bilaterally General nose exam: Normal external nose present Face and sinus: Yes normal facial exam Mouth: Normal oral and palatal mucosa present Throat: Yes posterior oropharynx normal, Yes tonsils normal and Yes uvula midline Eyes General: appearance normal, both eyes and all related structures Pupils: Equal, round and reactive pupils present Neck Neck: Yes normal visual inspection, Yes full ROM, Yes no lymphadenopathy and Yes no meningeal signs Chest Chest palpation & inspection: normal inspection of the chest Resp Effort & Inspection: normal respiratory effort Auscultation: clear to auscultation bilaterally Cardio Rate: regular rate Rhythm: regular rhythm Peripheral pulses: Peripheral pulses 2+ throughout GI Inspection: Yes normal to inspection Palpation (GI): Soft to palpation and nontender Auscultation: normal bowel sounds Back/Spine/Pelvis Thoracic/Lumbar Spine: thoracic and lumbar spine normal to inspection Skin General skin exam: no rashes or lesions noted Neuro General: patient oriented x3, no meningeal signs, no focal motor deficits and normal sensation to monofilament Cranial nerves: Yes Equal, round and reactive pupils present Cognition (Neuro): normal cognition Speech: No Abnormal speech present Gait exam (Neuro): Normal gait present Motor exam (neuro): 5/5 motor strength present throughout Extrem General: Yes normal to inspection, Yes no pedal edema and Yes no calf tenderness Course Course Course Narrative: This is a rapid medical exam. Deferred additional HPI, ROS, PE to primary provider. 53 female with history of HTN, pre diabetes, HLD here with cough, headache, body aches x 2 days. Will send viral testing VSS Here with who has similar symptoms. Medical Decision Making Medical Decision Making MDM Narrative: 53 female with history of HTN, pre diabetes, HLD here with cough, headache, body aches x 2 days. no chest pain, shortness of breath, leg swelling, leg pain, fevers, chills, neck pain, neck stiffness, leg swelling or leg pain. Here with who has similar symptoms Exam is benign. Will send viral testing Differential Diagnosis Differential Diagnoses: The differential diagnosis associated with the presentation includes viral syndrome, influenza low concern for PE with perc 0, pneumonia Admission/Observation Consideration of admission/observation: Escalation of care including admission/observation considered no hypoxia or tachypnea to suggest need for chest x-ray, supplemental oxygen and or admission Lab Data [facility] Lab Attestation statement: I reviewed the patient's lab results. influenza + Labs: Lab Results 09/22/23 Range/Units 17:37 Influenza Type A (PCR) POSITIVE A (Negative) Influenza Type B (PCR) NEGATIVE (Negative) RSV RNA Qual (PCR) NEGATIVE (Negative) SARS-CoV-2 RNA (RT-PCR) NEGATIVE (Negative) Independent Historian Clinical information obtained from an independent historian. History obtained from or confirmed by: Spouse Tests considered The following testing was considered but not selected: No hypoxia or tachypnea to suggest need for chest x-ray Prescription Management I considered prescription management with: Antiviral Discharge Plan Discharge Clinical Impression: Influenza Patient Disposition: Home, Self-Care Instructions: Influenza (ED) Additional Instructions: Alternate Motrin and Tylenol for pain or fever if able as needed Increase fluids, rest Prescriptions: No Action montelukast [Singulair] 10 mg tablet 10 mg PO BEDTIME Qty: 90 3RF (DME) nebulizers Misc See Rx Instructions .ROUTE .MEDSUPPLY Qty: 1 0RF Rx Instructions: for acute asthma or reactions (DME) blood pressure test kit-large Kit See Rx Instructions .Route Qty: 1 0RF Rx Instructions: As directed metoprolol succinate 25 mg tablet extended release 24 hr 25 mg PO DAILY 90 Days Qty: 90 3RF atorvastatin 40 mg tablet 40 mg PO BEDTIME Qty: 90 3RF lisinopril 20 mg tablet 20 mg PO BID Qty: 60 2RF hydrochlorothiazide 12.5 mg tablet 12.5 mg PO QAM Qty: 30 2RF hydroxyzine HCl 25 mg tablet 25 mg PO TID PRN (Reason: anxiety) 30 Days Qty: 30 1RF albuterol sulfate [Ventolin HFA] 90 mcg/actuation HFA aerosol inhaler 2 puff inhalation Q6H PRN (Reason: for wheezing) Qty: 18 0RF loratadine 10 mg capsule 10 mg PO DAILY 90 Days Qty: 90 0RF phenazopyridine [Pyridium] 200 mg tablet 200 mg PO TID Qty: 6 0RF diphenoxylate-atropine [Lomotil] 2.5-0.025 mg tablet 1 tab PO TID PRN (Reason: diarrhea) Qty: 10 0RF ondansetron HCl 4 mg tablet 4 mg PO Q6H PRN (Reason: nausea and vomiting) Qty: 14 0RF nabumetone 750 mg tablet 750 mg PO BID PRN (Reason: for pain) Qty: 60 2RF albuterol sulfate 2.5 mg /3 mL (0.083 %) solution for nebulization 2.5 mg inhalation Q4-6H PRN (Reason: shortness of breath or wheezing) Qty: 90 6RF diclofenac potassium 50 mg tablet 50 mg PO TID PRN (Reason: pain) Qty: 60 0RF metformin 500 mg tablet extended release 24 hr 500 mg PO DAILY 90 Days Qty: 90 1RF meclizine 25 mg tablet 25 mg PO TID PRN (Reason: dizziness) 90 Days Qty: 90 1RF fluticasone propionate 50 mcg/actuation spray,suspension 2 spray intranasal DAILY Qty: 16 11RF lidocaine 5 % adhesive patch,medicated 1 patch topical DAILY 30 Days Qty: 30 0RF bisacodyl [Dulcolax (bisacodyl)] 5 mg tablet,delayed release (DR/EC) 10 mg PO ONCE 1 Days Qty: 2 0RF Rx Instructions: take 2 tabs at noon the day before your colonoscopy polyethylene glycol 3350 [Miralax] 17 gram/dose powder 238 g PO ONCE Qty: 238 0RF Rx Instructions: As directed by gastroenterology department at [facility] Citrucel 500 mg tablet 500 mg PO DAILY Qty: 90 2RF Rx Instructions: take it with full glass of water sennosides [Natural Senna Laxative] 8.6 mg tablet 8.6 mg PO BEDTIME Qty: 90 3RF celecoxib [Celebrex] 200 mg capsule 200 mg PO BID 30 Days Qty: 60 3RF Referrals: Physician,Unknown J [Primary Care Provider] - 1 week (for continued symptoms ) Interventions: ED Discharge Assessment Last Done: 09/22/23 19:01 Discharge Date/Time: 09/22/23 19:03
[2023-09-22 18:18] LABS: Influenza A PCR POSITIVE (Negative); Influenza B PCR NEGATIVE (Negative); Resp Syncy Virus RNA Qual PCR NEGATIVE (Negative); SARS COV2 PCR INHOUSE NEGATIVE (Negative)
== END 2023-09-22 19:03 | disposition home or self-care (01) ==
LOC: HO.ED 19:03
PROVIDERS: Nurse Practitioner Family; Emergency Provider Internal Medicine
DX: J10.1 Influenza due to other identified influenza virus with other respiratory manifestations (principal); E11.9 Type 2 diabetes mellitus without complications; I10 Essential (primary) hypertension; E78.5 Hyperlipidemia, unspecified; Z11.52 Encounter for screening for COVID-19; Z79.899 Other long term (current) drug therapy
CPT/HCPCS: 0241U; 99282; 99283

== ENCOUNTER 2023-10-02 10:33 | Outpatient (AMB) | payer OTHER, SELFPAY ==
--- NOTE | 2023-10-02 11:50 | AM.OFFWIN_ITS ---
Intake Vital Signs 10/02/23 11:51 Height 5 ft 6 in Weight 276 lb BMI 44.5 BP 130/88 Blood Pressure Location Lt brachial Position Sitting Pulse 77 Pulse Source Pulse Oximeter Temp 98.3 F Temp Source Oral Pulse Oximetry (%) 98 Oxygen Delivery Method Room Air Intake Visit Reasons: EP, Cough, chest congestion (masked) Intake Note: Pt is here today c/o chest congestion and coughing up phelgm x1week Patient Tobacco Use Status: Never used Tobacco Allergies No Known Allergies Allergy (Verified 10/02/23 11:53) Do you need a note to return to daycare/school/sports/work: No HPI HPI Comments History of Present Illness Details Patient is a 53-year-old female in today for a sick visit. Patient was diagnosed with influenza 2 weeks prior to visit, she states that most of her symptoms have subsided except for cough. She has been using [id number] cough medicine, and at home albuterol with little effect. She has been coughing up brown sputum. Patient states that multiple family members at home are also sick. Patient has slight expiratory bilateral wheeze, and cough. TMs visible and intact, no mastoid tenderness, pharynx normal. No sinus tenderness. Patient has reproducible chest wall pain when she coughs. Patient likely has acute bronchitis. Patient unlikely to have atypical coronary syndrome, or threat to airway. Prescribed doxycycline to be taken in its entirety and prednisone x5 days. Patient is also instructed to take Tylenol as needed for the rib pain when coughing. [facility], [facility] Medical History History of COVID-19 Endometrial hyperplasia without atypia Obesity Anxiety PCOS (polycystic ovarian syndrome) Hypertension Surgical History H/O: hysterectomy History of dilatation and curettage History of cholecystectomy History of Family History Father Heart problem Mother Stroke Diabetes Son Asthma Social History Housing: House Are you a primary home health care provider to a significant other at home: No Do you presently have visiting nurse or other home services: No Alcohol intake: never Patient Tobacco Use Status: Never used Tobacco e-Cigarette/Vaping Use: Never Used Second Hand Smoke Exposure: No service: No Current occupational status: other 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 No crackles. Neuro : No Weakness, No Numbness, No Dizziness, No Headache All other systems reviewed and are negative All systems reviewed & are unremarkable except as noted in HPI and below Physical Exam Vital Signs: Last Vital Signs Temp 98.3 F 10/02/23 11:51 Pulse 77 10/02/23 11:51 BP 130/88 10/02/23 11:51 Pulse Ox 98 10/02/23 11:51 Oxygen Delivery Method Room Air 10/02/23 11:51 BMI result Body Mass Index 44.5 Vital signs reviewed and stable Appearance: Alert.? Oriented X3.? No acute distress.? Head: Normocephalic. ENT: Pharynx normal.? Neck: Normal inspection.? Neck supple. No lymphadenopathy. CVS: Normal heart rate and rhythm.? Pulses normal.? Respiratory: No respiratory distress.? Expiratory Wheeze. Brown Sputum. Cough? Neuro: Oriented X 3.? No motor deficit.? No sensory deficit. CN 2-12 intact Assessment & Plan Assessment & Plan (1) Bronchitis: Code(s): J40 - Bronchitis, not specified as acute or chronic Plan: Educated patient on diagnosis and treatment plan, answered all question, patient verbalizes understanding. At this time patient will be discharged home, advised to return with new or worsening symptoms. Educated on worrisome signs and symptoms and when to return. At this time I feel comfortable discharge home. Orders: Orders SARS-CoV2/FLU/RSV Today J06.9 - Acute upper respiratory infection, unspecified Medications: New prednisone 20 mg PO TID 12 tabs 0RF doxycycline hyclate 100 mg PO BID 14 tabs 0RF Patient Instructions: Take your medications as prescribed. If you were prescribed antibiotics today, it is important that you take your medication to their entirety, do not skip any doses, do not finish them early. Follow-up with your primary care provider this week. Return to the emergency department with new or worsening symptoms. Such as fevers, chills, chest pain, shortness of breath, nausea, vomiting, dizziness, headache, vision changes, lethargy In case of emergency call 911 Coding Level of Care Code Est Pt Level 3 (40111) Diagnoses Bronchitis J40
[2023-10-02 11:51] VITALS: BP 130/88; PULSE 77; TEMP 36.8; O2SAT 98; BMI 44.5
== END 2023-10-02 12:36 | disposition home or self-care (01) ==
PROVIDERS: PCP Nurse Practitioner Family; Visit Provider Nurse Practitioner Primary Care
DX: J40 Bronchitis, not specified as acute or chronic (principal)
CPT/HCPCS: 99213

== ENCOUNTER 2023-10-02 13:25 | Outpatient (REF) | payer OTHER, SELFPAY ==
[2023-10-02 15:00] LABS: Influenza A PCR NEGATIVE (Negative); Influenza B PCR NEGATIVE (Negative); Resp Syncy Virus RNA Qual PCR NEGATIVE (Negative); SARS COV2 PCR INHOUSE NEGATIVE (Negative)
== END 2023-10-02 13:26 | disposition home or self-care (01) ==
LOC: HO.LNP 13:25
PROVIDERS: Visit Provider Nurse Practitioner Primary Care
DX: J06.9 Acute upper respiratory infection, unspecified (principal); Z11.52 Encounter for screening for COVID-19
CPT/HCPCS: 0241U

== ENCOUNTER 2023-10-08 07:38 | Day surgery (SDC) | payer OTHER, SELFPAY ==
[2023-10-06 11:56] VITALS: BMI 45.0
--- NOTE | 2023-10-07 10:46 | P.CONAN_ITS ---
Documented by User: Ashley Miller NP 10/07/23 10:50 HPI - Anesthesia Eval Consult details Narrative: 53yo F for Colonoscopy Recent bronchitis with rx for doxy and prednisone - course complete and pt reports resolution of symptoms except slight cough. PMFSH Active Problems Active Problems: All Active Problems (Updated 10/06/23 @ 11:53 by Belkys Alvarez, MICHAEL) Temporomandibular joint disorder (TMJ) (Acute) Osteoarthritis of right knee (Acute) Diabetes (Acute) Knee pain (Acute) Muscle spasm of back (Acute) Lumbar spondylosis (Acute) DDD (degenerative disc disease), thoracolumbar (Acute) High cholesterol (Acute) Colon cancer screening (Acute) BMI 45.0-49.9, adult (Acute) Normal physical exam (Acute) Spinal osteophytosis (Acute) Thoracic spine pain (Acute) Bronchitis (Acute) Grief (Acute) Heavy menstrual bleeding (Acute) Hypertension (Acute) Abnormal uterine bleeding (Acute) Pain of right breast (Acute) EIN (endometrial intraepithelial neoplasia) (Acute) Asthma, intermittent (Acute) Allergic reaction (Acute) Low back pain with left-sided sciatica (Acute) Acute low back pain (Acute) Breast cancer screening (Acute) Asthma exacerbation (Acute) Dyspnea (Acute) Seasonal allergies (Acute) Asthma, mild intermittent, poorly controlled (Acute) BPV (benign positional vertigo) (Acute) Radiculopathy affecting upper extremity (Acute) Elevated fasting blood sugar (Acute) Disc disease, degenerative, lumbar or lumbosacral (Acute) PVC (premature ventricular contraction) (Acute) Palpitation (Acute) Pneumonia due to 2019 novel coronavirus (Acute) Left ankle pain (Acute) Hypertension, essential (Acute) Screening mammogram, encounter for (Acute) Menometrorrhagia (Acute) Endometrial hyperplasia without atypia (Acute) Anxiety (Acute) PCOS (polycystic ovarian syndrome) (Acute) Past Medical History Medical History (Updated 10/08/23 @ 08:03 by Kary Rodrigues RN) Asthma Diabetes Elevated cholesterol History of COVID-19 Endometrial hyperplasia without atypia Obesity Anxiety PCOS (polycystic ovarian syndrome) Hypertension Family History Family History Father Heart problem Mother Stroke Diabetes Son Asthma Family history of problems with anesthesia: No Surgical History Surgical History (Updated 10/06/23 @ 11:51 by Belkys Alvarez RN) History of dilatation and curettage History of cholecystectomy History of History of Problems with Anesthesia: No Social History Social History Housing: House Are you a primary eye care professional to a significant other at home: No Do you presently have visiting nurse or other home services: No Alcohol intake: never Patient Tobacco Use Status: Never used Tobacco e-Cigarette/Vaping Use: Never Used Second Hand Smoke Exposure: No service: No Current occupational status: other 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 Sexual orientation: Straight/Heterosexual Gender identity: Female Cognitive needs: No Hearing needs: No Vision needs: No Meds Allergies Allergy/AdvReac Type Severity Reaction Status Date / Time No Known Allergies Allergy Verified 10/02/23 11:53 Home Medications Medication Instructions Recorded Confirmed Last Taken Type metformin 500 mg tablet,extended 500 mg PO BID 10/06/23 10/06/23 Unknown History release 24 hr Exam Exam Date and Time: October 07, 2023 1046 Height,Weight and Vital Signs: Height 5 ft 6 in Weight 126.552 kg Pertinent Lab Results Pertinent Lab Results: Laboratory Tests 08/19/23 21:21 WBC 12.7 H Hgb 13.1 Hct 41.7 Plt Count 352 Sodium 141 Potassium 4.5 D Chloride 105 Carbon Dioxide 25 BUN 15 Creatinine 0.84 Assessment and Plan Assessment Anesthesia Assessment: Chart Reviewed Final Anesthetic Review Family History of Problems with Anesthesia: No History of Problems with Anesthesia: No Documented by User: Thai Benavidez MD 10/08/23 17:44 [facility] Past Medical History Medical History (Updated 10/08/23 @ 08:03 by Kary Rodrigues RN) Asthma Diabetes Elevated cholesterol History of COVID-19 Endometrial hyperplasia without atypia Obesity Anxiety PCOS (polycystic ovarian syndrome) Hypertension Functional capacity: independent ambulation Family History Family History Father Heart problem Mother Stroke Diabetes Son Asthma Surgical History Surgical History (Updated 10/06/23 @ 11:51 by Belkys Alvarez RN) History of dilatation and curettage History of cholecystectomy History of Social History Social History Housing: House Are you a primary eye care professional to a significant other at home: No Do you presently have visiting nurse or other home services: No Alcohol intake: never Patient Tobacco Use Status: Never used Tobacco e-Cigarette/Vaping Use: Never Used Second Hand Smoke Exposure: No service: No Current occupational status: other 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 Sexual orientation: Straight/Heterosexual Gender identity: Female Cognitive needs: No Hearing needs: No Vision needs: No Meds Allergies Allergy/AdvReac Type Severity Reaction Status Date / Time No Known Allergies Allergy Verified 10/02/23 11:53 Home Medications Medication Instructions Recorded Confirmed Last Taken Type metformin 500 mg tablet,extended 500 mg PO BID 10/06/23 10/06/23 Unknown History release 24 hr Exam Airway Mallampati Class: IV Loose/Missing/Broken Teeth: Yes (poor dentition , chipped upper tooth) Assessment and Plan Assessment Anesthesia Assessment: Anesthesia Plan Discussed Final Anesthetic Review NPO: Yes ASA Class: III Final Preanesthetic Review: Meds/Allgs Chart Reviewed, Consent Obtained/Reviewed and Anes Risks/Benef Reviewed Patient Risk: Intermediate Procedure Risk: Intermediate Anesthetic Plan Anesthetic Plan: MAC: and Agree w/ Assess. and Plan Disposition: Standard PACU
[2023-10-08 08:11] VITALS: BP 155/66; PULSE 76; RESP 16; TEMP 36.5; O2SAT 100
[2023-10-08 08:23] LABS: Glucose, Whole Blood 104 mg/dL (60-115)
[2023-10-08] MEDS: Lactated Ringers 1,000 ML 100 ML IVCONT (08:31)
[2023-10-08] MEDS: Albuterol Sulfate (0.083%) 2.5 MG/3 ML VIAL.NEB INHALE (08:43)
[2023-10-08 08:44] VITALS: PULSE 76; RESP 16; O2SAT 98
--- NOTE | 2023-10-08 08:52 | MHC.SHP ---
Pre-Procedural Eval Section A Date of Service: 10/08/23 Section B Chief Complaint: Screening Details of Present Illness: PMH: Anxiety Endometrial hyperplasia without atypia History of COVID-19 Hypertension Obesity PCOS (polycystic ovarian syndrome) Surgical History H/O: hysterectomy History of History of cholecystectomy History of dilatation and curettage Present Medications: see Short Stay Collaborative assessment Allergies: Allergies Allergy/AdvReac Type Severity Reaction Status Date / Time No Known Allergies Allergy Verified 10/02/23 11:53 Review of Systems Review of Systems Comment: Ten point ROS negative Exam Exam Comment: Gen appear: No acute distress HEENT: no icterus Chest: No overt resp distress Abd: soft, nontender, nondistended Psych: Stable affect, answering questions appropriately Neuro: A/Ox3 noted to move all extremities spontaneously Ext: no peripheral edema Plan Diagnosis/Plan: Unchanged I have reviewed the history and physical and performed a pertinent physical examination on my patient. No changes have occurred unless specified. Time Spent With Patient Time: Total time managing care of this patient today ____ minutes.
[2023-10-08 09:58] VITALS: BP 132/67; PULSE 77; RESP 18; TEMP 36.6; O2SAT 98
--- NOTE | 2023-10-08 10:06 | P.OP_ITS ---
Operative Note Operative Note Date of Service: 10/08/23 Narrative: Procedure: Colonoscopy Indication: Screening Endoscopist: Shania Sosa MD Anesthesia Provider: Ashlyn Swan CRNA Anesthesia type: MAC Instrument: Olympus [id number]-H190L Consent: Indication, risks vs benefits, and alternatives were discussed with the patient who gave written informed consent to proceed. EKG, pulse, pulse oximetry and blood pressure were monitored throughout the procedure. Please see anesthesia flowsheet. Procedure: The patient was brought to the procedure room and placed in the left lateral decubitus position. IV medications were administered by the anesthesia provider in attendance. A digital rectal exam was performed which was normal. A distal attachment cap was affixed the tip of the scope and the colonoscope was then inserted through the anus and advanced through the colon to the cecum at 75 cm,and terminal ileum. Ileocecal valve and appendiceal orifice was identified. Mucosa was carefully examined under high definition white light as the instrument was slowly withdrawn in a retrograde panoramic fashion. Retroflexion was performed in rectum. The procedure was not difficult. There were no immediate obvious complications. The quality of the prep was BBPS: 2+3+3 = adequate Withdrawal time 10 minutes. Limitations: No limitations. Findings: Mucosa: Normal to cecum and terminal ileum. Protruding lesions: * Small internal hemorrhoids without stigmata of recent bleeding. Excavated lesions: * Scattered diverticulosis of sigmoid colon. Impression: 1. Normal colon and terminal ileum mucosa 2. Mild diverticulosis 3. Internal hemorrhoids Recommendations: - Repeat colonoscopy for asymptomatic colorectal cancer screening in 10 years
[2023-10-08 10:13] VITALS: BP 152/79; PULSE 77; RESP 16; TEMP 36.6; O2SAT 99
== END 2023-10-08 10:30 | disposition home or self-care (01) ==
PROVIDERS: PCP Internal Medicine; Visit Provider Internal Medicine
PROC: 0DJD8ZZ Inspection of Lower Intestinal Tract, Via Natural or Artificial Opening Endoscopic (ICD-10-PCS; CPT 45378; principal; 2023-10-08 09:10)
DX: Z12.11 Encounter for screening for malignant neoplasm of colon (principal); K58.9 Irritable bowel syndrome, unspecified; K64.8 Other hemorrhoids; K57.30 Diverticulosis of large intestine without perforation or abscess without bleeding; I10 Essential (primary) hypertension; F41.9 Anxiety disorder, unspecified; E66.9 Obesity, unspecified; Z68.41 Body mass index [BMI] 40.0-44.9, adult; E28.2 Polycystic ovarian syndrome; N85.01 Benign endometrial hyperplasia; Z90.49 Acquired absence of other specified parts of digestive tract; Z98.890 Other specified postprocedural states; Z86.16 Personal history of COVID-19
CPT/HCPCS: 45378; 82947; 94640; J2250; J3010

== ENCOUNTER → 2023-10-08 07:38 | Outpatient (BNV) | payer OTHER, SELFPAY | PROVIDERS: PCP Internal Medicine; Visit Provider Internal Medicine | DX: Z12.11 Encounter for screening for malignant neoplasm of colon (principal); K64.8 Other hemorrhoids; K57.30 Diverticulosis of large intestine without perforation or abscess without bleeding | CPT/HCPCS: 45378 ==

== ENCOUNTER 2023-12-03 09:48 | Outpatient (AMB) | payer OTHER, SELFPAY ==
--- NOTE | 2023-12-03 10:05 | MHC.PC.OV ---
Vital Signs 12/03/23 10:06 Height 5 ft 6 in Weight 279 lb BMI 45.0 BP 144/90 H Blood Pressure Location Rt brachial Position Sitting Respiration 13 Pulse 77 Pulse Source Pulse Oximeter Temp 97.5 F Temp Source Temporal Artery Scan Pulse Oximetry (%) 99 Oxygen Delivery Method Room Air Intake Visit Reasons: Transfer from Intake Note: Patient states that she has a nickel size lump on her neck under her skin. Patient states that her left hip pain that feels like a sore pain and is effecting her daily routine of walking up and noemy stairs, walking, putting shoes, sleeping. [place] Required: No Accompanied by: Self / Same As Patient Allergies Seasonal Allergies Allergy (Intermediate, Verified 12/03/23 10:55) Itchy Eyes Medication List - Last Reconciled 12/03/23 by Lele Sepulveda CNP albuterol sulfate 90 mcg/actuation (Ventolin HFA) 2 puffs inhalation Q6H PRN albuterol sulfate 2.5 mg (3 mL) inhalation Q4-6H PRN atorvastatin 40 mg PO BEDTIME blood pressure test kit-large As directed fluticasone propionate 50 mcg/actuation 2 sprays intranasal DAILY hydrochlorothiazide 12.5 mg PO QAM lidocaine 5% 1 patch topical DAILY 30 days lisinopril 20 mg PO DAILY loratadine 10 mg PO DAILY 90 days meclizine 25 mg PO TID PRN 3 months metformin ER 500 mg PO DAILY metoprolol succinate ER 25 mg PO DAILY 3 months montelukast (Singulair) 10 mg PO BEDTIME nabumetone 750 mg PO BID PRN nebulizers for acute asthma or reactions Tobacco use date assessed: 12/03/23 Dental Screening Dental Screen Date: 12/03/23 Did you have a dental visit in the last 12 months?: No Did you have a dental problem in the last 6 months where you did not have access to dental care?: No Was dental information given to patient?: Patient has dentist HPI HPI Comments History of Present Illness Details 53-year-old female presents for transfer of care Her former PCP is who is no longer with the practice She has history of diabetes, hypertension, hyperlipidemia, degenerative disc disease, and asthma She notes that she takes her medications in the afternoon and has not taken any of her medications, including antihypertensives today. She takes metoprolol only with when experiencing palpitations She notes she monitors her blood pressure daily and averages in the 140s/80s She had routine blood work done last year She reports constant left hip pain with radiation to her left lower extremity for the past one month. She describes the pain as burning and sore, worse with movements. She needs fall, injury, or trauma She notes that she has not been making healthy dietary changes. She has not been exercising d/t OA of both knees. She had PT for her knees without improvement. She takes nabumetone with improvement of her knee pain She reports a painless lump to her anterior neck which she noticed last month. The lump feels bigger this morning [facility] Medical History (Updated 12/03/23 @ 11:24 by Lele Sepulveda CNP) Asthma Diabetes Elevated cholesterol History of COVID-19 Endometrial hyperplasia without atypia Obesity Anxiety PCOS (polycystic ovarian syndrome) Hypertension Surgical History History of dilatation and curettage History of cholecystectomy History of Family History Father Heart problem Mother Stroke Diabetes Son Asthma Social History Housing: House Are you a primary adult care provider to a significant other at home: No Do you presently have visiting nurse or other home services: No Alcohol intake: never Comment: cramping Patient Tobacco Use Status: Never used Tobacco e-Cigarette/Vaping Use: Never Used Second Hand Smoke Exposure: No service: No Current occupational status: other 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 1. Little interest or pleasure in doing things: not at all 2. Feeling down, depressed, or hopeless: not at all 3. Trouble falling or staying asleep, or sleeping too much: not at all 4. Feeling tired or having little energy: more than half the days 5. Poor appetite or overeating: more than half the days 6. Feeling bad about yourself - or that you are a failure or have let yourself or your family down: not at all 7. Trouble concentrating on things, such as reading the newspaper or watching television: not at all 8. Moving or speaking so slowly that other people could have noticed. Or the opposite - being so fidgety or restless that you have been moving around a lot more than usual: not at all 9. Thoughts that you would be better off or of hurting yourself in some way: not at all Total score: 4 Depression Screening Interpretation: Negative Depression Screening Done: Yes 95833 - PHQ-9 Billing: Yes Source: Developed by Drs. Joshua Ro, Lilibeth Tafoya, Shayne Streeter and colleagues, with an educational harpreet from [employer]. Thrive Questionnaire Date Thrive assessed: 12/03/23 I am a: Patient What is your living situation today?: I have a steady place to live Within the past 12 months, did the food you bought not last and you didn't have the money to get more?: Sometimes True Within the past 12 months, did you worry whether your food would run out before you got money to buy more?: Sometimes True Do you have trouble paying for medicines?: No Do you have trouble getting transportation to medical appointments?: No Do you have trouble paying your heating and electricity bill?: Yes Do you have trouble taking care of your child, family member or friend?: No Do you have trouble with day-to-day activities such as bathing, preparing meals, shopping, managing finances, etc.?: No Are you currently unemployed and looking for a job?: No Are you interested in more education?: No Please select the resources that you would like help with: None Currently or been in a relationship where the following occur: no concerns reported AUDIT C Alcohol Use Questionnaire (AUDIT-C) 1. How often do you have a drink containing alcohol?: Never 3. How often do you have six or more drinks on one occasion?: Never Total Score: 0 KSENIA-7 AMB Questionnaire KSENIA-7 Date KSENIA - 7 assessed: 12/03/23 Feeling nervous, anxious, or on edge: 2 = More than half the days Not being able to stop or control worryin = Not at all Worrying too much about different things: 2 = More than half the days Trouble relaxin = More than half the days Being so restless that it is hard to sit still: 0 = Not at all Becoming easily annoyed or irritable: 0 = Not at all Feeling afraid as if something awful might happen: 0 = Not at all Total KSENIA-7 score (0-4 normal; 5-9 mild; 10-14 moderate; 15-21 severe): 6 Source: Developed by Drs. Joshua Ro, Lilibeth Tafoya, Shayne Streeter and colleagues, with an educational harpreet from [employer]. KSENIA-7 Assessment Billing KSENIA-7 Assessment Tool: KSENIA-7 Assessment 12173 ACT Questionnaire In the past 4 weeks, how much of the time did your asthma keep you from getting as much done at work, school or at home?: Some of the time During the past 4 weeks, how often have you had shortness of breath?: Once a day During the past 4 weeks, how often did your asthma symptoms wake you up at night or earlier than usual in the morning?: Once or twice per week During the past 4 weeks, how often have you had to use your rescue inhaler or nebulizer medication?: More than 3 times per day How would you rate your asthma control during the past 4 weeks?: Somewhat controlled ACT Interpretation: Positive Score: 13 Review of Systems Const Details: Const Denies chills, Denies fatigue, Denies fever(s), Denies headache(s) and Denies weakness ENT Denies dizziness and Denies headache(s) Card Denies chest pain, Denies lightheadedness, Denies dyspnea and Denies other (Palpitations) Resp Denies cough, Denies dyspnea, Denies wheezing and Denies other (shortness of breath) GI Denies abdominal pain, Denies melena, Denies hematochezia, Denies change in bowel habits, Denies dyspepsia and Denies nausea Denies hematuria and Denies dysuria Musc Reports as per HPI Skin/Breast Reports as per HPI Neuro Denies abnormal gait, Denies dizziness, Denies headache(s), Denies memory loss, Denies numbness, Denies Sensory deficit (Neuro), Denies tingling and Denies weakness Psych Denies anxiety, Denies depression, Denies memory loss Endo Denies cold intolerance, Denies fatigue, Denies heat intolerance, Denies polydipsia and Denies polyuria Aller/Immun Denies wheezing Physical exam (Primary Care) Vital Signs: Last Vital Signs Temp 97.5 F 12/03/23 10:06 Pulse 77 12/03/23 10:06 Resp 13 12/03/23 10:06 BP 144/90 H 12/03/23 10:06 Pulse Ox 99 12/03/23 10:06 Oxygen Delivery Method Room Air 12/03/23 10:06 BMI result Body Mass Index 45.0 Tobacco/Smoking Status: Tobacco use Status Tobacco use date assessed 12/03/23 12/03/23 10:18 Patient Tobacco Use Status Never used Tobacco 12/03/23 10:18 e-Cigarette/Vaping Use Never Used 12/03/23 10:18 PHQ-9: PHQ-9 Score PHQ-9: Total score 4 12/03/23 10:23 Depression Screening Interpretation: Negative Thrive Assessment: Date of Thrive Assessment Date Thrive assessed 12/03/23 12/03/23 10:23 Currently or been in a relationship where the following occur: no concerns reported Const Other: General: no acute distress and well developed Nutritional Appearance: well nourished Orientation/consciousness: patient oriented x3 HENMT Head: Yes normocephalic and Yes atraumatic Eyes General: appearance normal, both eyes and all related structures Pupils: Equal, round and reactive pupils present EOM: EOMs intact bilaterally Resp Effort & Inspection: normal respiratory effort Auscultation: clear to auscultation bilaterally Cardio Rate: regular rate Rhythm: regular rhythm Heart sounds: S1 normal heart sound present, S2 normal heart sound present, no gallops, no murmurs and no rubs GI Palpation (GI): No Abdominal aortic bruit present, Soft to palpation, nontender, No hepatosplenomegaly present and No Rebound tenderness present Auscultation: normal bowel sounds General: Yes no CVA tenderness Back/Spine/Pelvis Back: no CVA tenderness Cervical Spine: cervical ROM normal and No Cervical spine tenderness Thoracic/Lumbar Spine: thoraco-lumbar ROM normal, No pain with thoraco-lumbar ROM, No thoracic spinal tenderness and No lumbar spinal tenderness Extrem General: Yes normal to inspection, No edema and No calf tenderness Positive straight left leg raise Skin General: warm and dry. Normal skin color. Normal skin turgor Lesions: no lesions Rashes: no rashes Trauma: no lacerations or abrasions Wounds: no wounds Nails: normal Neuro General: patient oriented x3, gait normal and no focal neuro deficit Cranial nerves: Yes Equal, round and reactive pupils present Cognition (Neuro): normal cognition Gait exam (Neuro): Normal gait present Sensory Exam: No Sensory deficit (Neuro) Psych Appearance: grossly normal Affect: normal affect Attitude: cooperative Thought process: Normal thought process present Results AMB Hemoglobin A1c AMB Hemoglobin A1c 6.2 % Last Edit by Clarice Navarro MA on 12/03/23 10:42 Results Reviewed Results Reviewed: Laboratory Last Values Hgb A1c (Clinic) 6.2 % (4.0-6.0) H 12/03/23 10:39 Assessment and Plan Assessment & Plan (1) Diabetes: Code(s): E11.9 - Type 2 diabetes mellitus without complications Plan: A1c today 6.2%, within goal of less than 7.0% Continue to take metformin as prescribed ADA diet and routine exercise encouraged Will recheck A1c in 3 months Verbalized understanding and agreed with treatment plan (2) Hypertension: Code(s): I10 - Essential (primary) hypertension Plan: Resting blood pressure is 144/90, above goal of less than 130/80 Advised to take lisinopril, metoprolol, and hydrochlorothiazide as prescribed Low-sodium diet encouraged Follow-up in 2 weeks or return sooner with symptoms or concerns Verbalized understanding and agreed with treatment plan (3) Left hip pain: Code(s): M25.552 - Pain in left hip Plan: Constant left hip burning and sore pain with radiation to left lower extremity for one month Positive straight left leg raise Likely arthritis or nerve pain Weight may also be a contributing factor Gabapentin ordered. Take as prescribed Continue to take nabumetone as prescribed Warm /cold compresses encouraged Referred to weight management Follow-up in 2 weeks or return sooner with worsening or new symptoms Verbalized understanding and agreed with treatment plan (4) Morbid obesity: Code(s): E66.01 - Morbid (severe) obesity due to excess calories Plan: She currently weighs 279 lb, BMI is 45 Healthy diet and routine exercise encouraged Referred to weight management Follow-up with symptoms or concerns Verbalized understanding and agreed with treatment plan (5) Nonpalpable mass of neck: Code(s): R22.1 - Localized swelling, mass and lump, neck Plan: Reports painless lump to anterior neck since last month No mass palpated Will check thyroid levels and make changes as needed. Advised to get blood work done before next visit Follow-up in 2 weeks or return sooner with symptoms or concerns Verbalized understanding and agreed with the plan Orders: Orders AMB Hemoglobin A1c Today E11.9 - Type 2 diabetes mellitus without complications TSH reflex Free T4 Today R22.1 - Localized swelling, mass and lump, neck Lipid Panel Today E78.00 - Pure hypercholesterolemia, unspecified Referrals Medical Weight Management Referral E66.01 - Morbid (severe) obesity due to excess calories Medications: New gabapentin 200 mg (2 x 100 mg) PO BID 30 days 120 caps 1RF Changed From lisinopril 20 mg PO BID 60 tabs 2RF To lisinopril 20 mg PO DAILY Coding Level of Care Code Est Pt Level 4 (62116) Diagnoses Diabetes E11.9 Hypertension I10 Left hip pain M25.552 Morbid obesity E66.01 Nonpalpable mass of neck R22.1 Additional Codes KSENIA-7 Assessment Billing - KSENIA-7 Assessment Tool: KSENIA-7 Assessment 70597 ([id number])
[2023-12-03 10:06] VITALS: BP 144/90; PULSE 77; RESP 13; TEMP 36.4; O2SAT 99; BMI 45.0
== END 2023-12-03 11:17 | disposition home or self-care (01) ==
PROVIDERS: PCP Nurse Practitioner Family; Visit Provider Nurse Practitioner Family
DX: E11.9 Type 2 diabetes mellitus without complications (principal); E66.01 Morbid (severe) obesity due to excess calories; Z68.42 Body mass index [BMI] 45.0-49.9, adult; R22.1 Localized swelling, mass and lump, neck; I10 Essential (primary) hypertension; M25.552 Pain in left hip
CPT/HCPCS: 83036; 99214

== ENCOUNTER 2023-12-16 07:48 | Outpatient (REF) | payer OTHER, SELFPAY ==
[2023-12-16 09:24] LABS: Cholesterol 182 mg/dL (<200); HDL Cholesterol 44 mg/dL (>40); LDL Cholesterol Calculated 110 mg/dL (<100); Triglycerides 144 mg/dL (<150)
[2023-12-16 10:12] LABS: TSH reflex Free T4 3.06 uIU/mL (0.32-4.0)
== END 2023-12-16 07:49 | disposition home or self-care (01) ==
LOC: HO.LAB 07:48
PROVIDERS: PCP Nurse Practitioner Family; Visit Provider Nurse Practitioner Family
DX: E78.00 Pure hypercholesterolemia, unspecified (principal); R22.1 Localized swelling, mass and lump, neck
CPT/HCPCS: 36415; 80061; 84443

== ENCOUNTER 2024-01-22 10:03 | Outpatient (AMB) | payer OTHER, SELFPAY ==
--- NOTE | 2024-01-22 10:26 | MHC.OFFWIV ---
Intake Vital Signs 01/22/24 10:29 01/22/24 10:48 Height 5 ft 6 in Weight 280 lb 6 oz BMI 45.2 BP 172/72 H 170/88 H Blood Pressure Location Lt brachial Lt brachial Position Sitting Sitting Respiration 16 Pulse 70 Pulse Source Pulse Oximeter Temp 97.0 F Temp Source Temporal Artery Scan Pulse Oximetry (%) 100 Oxygen Delivery Method Room Air Intake Visit Reasons: Shortness of breath Intake Note: Patient reports she has asthma and has been unable to control her asthma despite using her inhaler and her nebulizer. Patient Tobacco Use Status: Never used Tobacco Allergies Seasonal Allergies Allergy (Intermediate, Verified 01/22/24 10:43) Itchy Eyes Medication List - Last Reconciled 01/22/24 by Ksenia Kent, [facility]- albuterol sulfate 90 mcg/actuation (Ventolin HFA) 2 puffs inhalation Q6H PRN albuterol sulfate 2.5 mg (3 mL) inhalation Q4-6H PRN atorvastatin 40 mg PO BEDTIME blood pressure test kit-large As directed fluticasone propionate 50 mcg/actuation 2 sprays intranasal DAILY gabapentin 200 mg (2 x 100 mg) PO BID 30 days hydrochlorothiazide 12.5 mg PO QAM lidocaine 5% 1 patch topical DAILY 30 days lisinopril 20 mg PO BID loratadine 10 mg PO DAILY 90 days meclizine 25 mg PO TID PRN 3 months metformin ER 500 mg PO DAILY metoprolol succinate ER 25 mg PO DAILY 3 months montelukast (Singulair) 10 mg PO BEDTIME nabumetone 750 mg PO BID PRN nebulizers for acute asthma or reactions Do you need a note to return to daycare/school/sports/work: No HPI HPI Comments History of Present Illness Details Here today w/ c/o feeling SOB that started about 1 month ago after getting COVID and RSV vaccines Has asthma, PAWEL only, using w/o effect ADLs cause SOB, cannot catch breath. + nasal congestion for 2 weeks, Using flonase. No other nasal sprays. chest feels tight. Does not smoke. Denies fever, chills. Of note her blood pressure is elevated today on exam during initial intake and on repeat. Reports current regimen and she is working with her primary care and management. [facility], [facility] Medical History (Updated 01/22/24 @ 14:10 by Ksenia Kent, [facility]) Asthma Diabetes Elevated cholesterol History of COVID-19 Endometrial hyperplasia without atypia Obesity Anxiety PCOS (polycystic ovarian syndrome) Hypertension Surgical History History of dilatation and curettage History of cholecystectomy History of Family History Father Heart problem Mother Stroke Diabetes Son Asthma Social History Housing: House Are you a primary career consultant to a significant other at home: No Do you presently have visiting nurse or other home services: No Alcohol intake: never Comment: cramping Patient Tobacco Use Status: Never used Tobacco e-Cigarette/Vaping Use: Never Used Second Hand Smoke Exposure: No service: No Current occupational status: other 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 Sexual orientation: Straight/Heterosexual Gender identity: Female Cognitive needs: No Hearing needs: No Vision needs: No Female Reproductive History Menstrual Age of Menarche: 10 Review of Systems Const All systems reviewed & are unremarkable except as noted in HPI and below Physical Exam Vital Signs: Last Vital Signs Temp 97.0 F 01/22/24 10:29 Pulse 70 01/22/24 10:29 Resp 16 01/22/24 10:29 BP 170/88 H 01/22/24 10:48 Pulse Ox 100 01/22/24 10:29 Oxygen Delivery Method Room Air 01/22/24 10:29 BMI result Body Mass Index 45.2 Const Other: Awake alert NAD Sclera and conjunctiva clear bilat TM intact and clear bilat MMM, pharynx WNL RRR LS dim throughout, right upper lobe with inspiratory and expiratory wheezes Assessment & Plan Assessment & Plan (1) Asthma, intermittent: Comment: Currently managed on Pawel. Wheezing heard in right upper lobe on exam. Chest x-ray within normal limits. I have advised for her to start taking budesonide/formoterol 1 puff twice per day once she completes the oral prednisone. She is aware that she should rinse her mouth out after the use of this. And then it should be used daily. Instructed on safe use of Pawel which includes avoiding overuse. I have prescribed prednisone. She has used in the past with positive effect. Educated that this will increase her blood sugars transiently. It may also affect her blood pressure therefore she should continue to monitor at home Code(s): J45.20 - Mild intermittent asthma, uncomplicated Qualifiers: Asthma complication type: with acute exacerbation Asthma severity: mild Qualified Code(s): J45.21 - Mild intermittent asthma with (acute) exacerbation (2) Hypertension: Comment: Elevated today on exam reports tolerance and compliance with her current medications. We will bring her back in 1 week to re-evaluate. She should monitor at home and bring this log in as well Code(s): I10 - Essential (primary) hypertension Qualifiers: Hypertension type: primary hypertension Qualified Code(s): I10 - Essential (primary) hypertension Plan This note is constructed using voice recognition software. While every effort has been made to ensure accuracy in wind turbine service technician, still errors may have been included Sometimes, these errors may affect the content or meaning of the given sentence . Total time spent caring for the patient today was 45 minutes. This includes time spent before the visit reviewing the chart, time spent during the visit, and time spent after the visit on documentation Orders: Orders XR chest 2V Today J45.20 - Mild intermittent asthma, uncomplicated, R06.2 - Wheezing Medications: New budesonide-formoterol 80-4.5 mcg/actuation 1 inh inhalation BID 10.2 grams 0RF prednisone 50 mg PO DAILY 5 days 5 tabs 0RF Coding Level of Care Code Est Pt Level 5 (36384) Diagnoses Mild intermittent asthma with acute exacerbation J45.21 Asthma complication type: with acute exacerbation Asthma severity: mild Primary hypertension I10 Hypertension type: primary hypertension
[2024-01-22 10:29] VITALS: BP 172/72; PULSE 70; RESP 16; TEMP 36.1; O2SAT 100; BMI 45.2
[2024-01-22 10:48] VITALS: BP 170/88
== END 2024-01-22 10:59 | disposition home or self-care (01) ==
PROVIDERS: PCP Nurse Practitioner Family; Visit Provider Nurse Practitioner Family
DX: J45.21 Mild intermittent asthma with (acute) exacerbation (principal); I10 Essential (primary) hypertension
CPT/HCPCS: 99215

== ENCOUNTER 2024-01-22 11:19 | Outpatient (REF) | payer OTHER, SELFPAY ==
--- NOTE | ~2024-01-22 | XR_ITS ---
EXAMINATION: XR CHEST CLINICAL INFORMATION: Mild intermittent asthma. COMPARISON: None available. TECHNIQUE: 2 views of the chest were obtained. FINDINGS: No significant abnormality is noted involving the heart, lungs, mediastinum, bony thorax or soft tissues. XR/XR chest 2V IMPRESSION: Unremarkable chest examination.
== END 2024-01-22 11:20 | disposition home or self-care (01) ==
LOC: HO.XRAY 11:19
PROVIDERS: PCP Nurse Practitioner Family; Visit Provider Nurse Practitioner Family
DX: J45.20 Mild intermittent asthma, uncomplicated (principal)
CPT/HCPCS: 71046

== ENCOUNTER 2024-01-29 12:09 | Outpatient (AMB) | payer OTHER, SELFPAY ==
[2024-01-29 12:13] VITALS: BP 154/70; PULSE 70; RESP 13; TEMP 36.4; O2SAT 100; BMI 45.2
--- NOTE | 2024-01-29 12:13 | A.OFFPC_ITS ---
Vital Signs 01/29/24 12:13 Height 5 ft 6 in Weight 280 lb BMI 45.2 BP 154/70 H Blood Pressure Location Rt brachial Position Sitting Respiration 13 Pulse 70 Pulse Source Pulse Oximeter Temp 97.5 F Temp Source Temporal Artery Scan Pulse Oximetry (%) 100 Oxygen Delivery Method Room Air Intake Visit Reasons: fu asthma/htn Intake Note: Patient is following up for asthma and hypertension. Patient reports asthma is much better on the inhaler and prednisone. Patient reports experiencing frontal lobe headaches intermittently. Blue Print Control Clerk Required: No Accompanied by: Self / Same As Patient Allergies Seasonal Allergies Allergy (Intermediate, Verified 01/29/24 12:25) Itchy Eyes Medication List - Last Reconciled 01/29/24 by Ksenia Kent, [facility]- albuterol sulfate 90 mcg/actuation (Ventolin HFA) 2 puffs inhalation Q6H PRN albuterol sulfate 2.5 mg (3 mL) inhalation Q4-6H PRN atorvastatin 40 mg PO BEDTIME blood pressure test kit-large As directed budesonide-formoterol 80-4.5 mcg/actuation 1 inh inhalation BID fluticasone propionate 50 mcg/actuation 2 sprays intranasal DAILY gabapentin 200 mg (2 x 100 mg) PO BID 30 days hydrochlorothiazide 12.5 mg PO QAM lidocaine 5% 1 patch topical DAILY 30 days lisinopril 20 mg PO BID loratadine 10 mg PO DAILY 90 days meclizine 25 mg PO TID PRN 3 months metformin ER 500 mg PO DAILY metoprolol succinate ER 25 mg PO DAILY 3 months montelukast (Singulair) 10 mg PO BEDTIME nabumetone 750 mg PO BID PRN nebulizers for acute asthma or reactions prednisone 50 mg PO DAILY 5 days Tobacco use date assessed: 12/03/23 HPI HPI Comments History of Present Illness Details 53-year-old female here today to follow up on asthma exacerbation. At the last office visit on 01/22/2024 patient was given prednisone 50 mg daily for 5 days. Advised to start a new inhaler budesonide formoterol 1 puff twice per day after she completed the prednisone. A chest x-ray was done and within normal limits. This x-ray was done as wheezing was noted on exam. In addition using p.r.n. Abbi. Reports she completed prednisone. Has not started inhaler yet. All of her asthma sx are better. Has only had to use rescue inhaler once. She is now suffering from sinus pressure and tenderness. Reports this has been on and off for at least the last month. In regards to the hypertension. She continues to take her medications as p rescribed. Blood pressure is elevated today on initial exam and on repeat. [facility] Medical History (Updated 01/29/24 @ 12:44 by Ksenia Kent, [facility]) Asthma Diabetes Elevated cholesterol History of COVID-19 Endometrial hyperplasia without atypia Obesity Anxiety PCOS (polycystic ovarian syndrome) Hypertension Surgical History History of dilatation and curettage History of cholecystectomy History of Family History Father Heart problem Mother Stroke Diabetes Son Asthma Social History Housing: House Are you a primary insurance healthcare consultant to a significant other at home: No Do you presently have visiting nurse or other home services: No Alcohol intake: never Comment: cramping Patient Tobacco Use Status: Never used Tobacco e-Cigarette/Vaping Use: Never Used Second Hand Smoke Exposure: No service: No Current occupational status: other 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 Joshua Ro, Lilibeth Tafoya, Shayne Streeter and colleagues, with an educational harpreet from [facility]. Review of Systems Const All systems reviewed & are unremarkable except as noted in HPI and below Physical exam (Primary Care) Vital Signs: Last Vital Signs Temp 97.5 F 01/29/24 12:13 Pulse 70 01/29/24 12:13 Resp 13 01/29/24 12:13 BP 154/70 H 01/29/24 12:13 Pulse Ox 100 01/29/24 12:13 Oxygen Delivery Method Room Air 03/01/24 12:13 BMI result Body Mass Index 45.2 Tobacco/Smoking Status: Tobacco use Status Tobacco use date assessed 12/03/23 01/29/24 12:21 Patient Tobacco Use Status Never used Tobacco 01/29/24 12:21 e-Cigarette/Vaping Use Never Used 01/29/24 12:21 Thrive Assessment: Date of Thrive Assessment Date Thrive assessed 12/03/23 01/29/24 12:21 Const Other: Awake alert NAD Sclera and conjunctiva clear bilat TM intact and clear bilat Nares clear, turbinates edematous and erythematous worse on the left, frontal and maxillary sinus tenderness with palpation MMM, pharynx WNL RRR LS dim throughout however with improved air flow, no wheezing, no cough Assessment and Plan Assessment & Plan (1) Asthma, intermittent: Comment: Currently managed on Abbi. Chest x-ray within normal limits. start taking budesonide/formoterol 1 puff twice per day She is aware that she should rinse her mouth out after the use of this. And then it should be used daily. Instructed on safe use of Abbi which includes avoiding overuse. Bring her back in 1 week to re-evaluate for effectiveness Code(s): J45.20 - Mild intermittent asthma, uncomplicated Qualifiers: Asthma complication type: with acute exacerbation Asthma severity: mild Qualified Code(s): J45.21 - Mild intermittent asthma with (acute) exacerbation (2) Hypertension: Comment: Elevated today on exam reports tolerance and compliance with her current medications. We will bring her back in 1 week to re-evaluate. She should monitor at home and bring this log in as well Code(s): I10 - Essential (primary) hypertension Qualifiers: Hypertension type: primary hypertension Qualified Code(s): I10 - Essential (primary) hypertension (3) Acute bacterial sinusitis: Code(s): J01.90 - Acute sinusitis, unspecified; B96.89 - Other specified bacterial agents as the cause of diseases classified elsewhere Plan: New finding. Treat with antibiotics. Okay to use Flonase but no other nasal sprays. Plan This note is constructed using voice recognition software. While every effort has been made to ensure accuracy in drupal php developer, still errors may have been included Sometimes, these errors may affect the content or meaning of the given sentence . Total time spent caring for the patient today was 30 minutes. This includes time spent before the visit reviewing the chart, time spent during the visit, and time spent after the visit on documentation Medications: New amoxicillin-pot clavulanate 875-125 mg 1 tab PO BID 7 days 14 tabs 0RF Coding Level of Care Code Est Pt Level 4 (83308) Diagnoses Mild intermittent asthma with acute exacerbation J45.21 Asthma complication type: with acute exacerbation Asthma severity: mild Primary hypertension I10 Hypertension type: primary hypertension Acute bacterial sinusitis J01.90; B96.89
== END 2024-01-29 14:19 | disposition home or self-care (01) ==
PROVIDERS: PCP Nurse Practitioner Family; Visit Provider Nurse Practitioner Family
DX: J45.21 Mild intermittent asthma with (acute) exacerbation (principal); I10 Essential (primary) hypertension; J01.90 Acute sinusitis, unspecified; B96.89 Other specified bacterial agents as the cause of diseases classified elsewhere
CPT/HCPCS: 99214

== ENCOUNTER 2024-02-05 11:48 | Outpatient (AMB) | payer OTHER, SELFPAY ==
--- NOTE | 2024-02-05 11:53 | MHC.PC.OV ---
Vital Signs 02/05/24 11:55 02/05/24 12:17 Height 5 ft 6 in Weight 280 lb BMI 45.2 BP 126/78 124/66 Blood Pressure Location Lt brachial Rt brachial Position Sitting Sitting Respiration 13 Pulse 68 Pulse Source Pulse Oximeter Temp 97.2 F Temp Source Temporal Artery Scan Pulse Oximetry (%) 99 Oxygen Delivery Method Room Air Intake Visit Reasons: 1 week follow up Intake Note: Patient is here for a 1 week follow up. Patient reports she was taking the medication 1 time daily for the first few days and then noticed she was supposed to take it two times daily; she has been taking it 2 times daily for 2 days. Mannequin Maker Required: No Accompanied by: Self / Same As Patient Allergies Seasonal Allergies Allergy (Intermediate, Verified 02/05/24 12:11) Itchy Eyes Medication List - Last Reconciled 02/05/24 by Ksenia Kent, [employer]- albuterol sulfate 90 mcg/actuation (Ventolin HFA) 2 puffs inhalation Q6H PRN albuterol sulfate 2.5 mg (3 mL) inhalation Q4-6H PRN amoxicillin-pot clavulanate 875-125 mg 1 tab PO BID 7 days atorvastatin 40 mg PO BEDTIME blood pressure test kit-large As directed budesonide-formoterol 80-4.5 mcg/actuation 1 inh inhalation BID fluticasone propionate 50 mcg/actuation 2 sprays intranasal DAILY gabapentin 200 mg (2 x 100 mg) PO BID 30 days hydrochlorothiazide 12.5 mg PO QAM lidocaine 5% 1 patch topical DAILY 30 days lisinopril 20 mg PO BID loratadine 10 mg PO DAILY 90 days meclizine 25 mg PO TID PRN 3 months metformin ER 500 mg PO DAILY metoprolol succinate ER 25 mg PO DAILY 3 months montelukast (Singulair) 10 mg PO BEDTIME nabumetone 750 mg PO BID PRN nebulizers for acute asthma or reactions prednisone 50 mg PO DAILY 5 days Tobacco use date assessed: 12/03/23 HPI HPI Comments History of Present Illness Details 53-year-old female here today for follow-up of sinusitis, asthma, hypertension. At the last office visit she was prescribed antibiotics for acute sinusitis. Advised to use Flonase but other nasal sprays as needed. In regards to her asthma she was advised to start taking budesonide/formoterol 1 puff twice per day. Continue with p.r.n. use of Abbi. In regards to her blood pressure she remains tolerant and compliant of her hydrochlorothiazide 12.5 mg daily, lisinopril 20 mg p.o. b.i.d. and metoprolol succinate ER 25 mg p.o. daily. cont w/ burning in her nose and cough with production. reports improvement in her asthma w/ use of budesonide/formoterol no longer feeling tightness when going up the stairs BP at goal today x 2 on current meds chronic neck and back pain. Interested in pain mgmt referral for further eval and tx [facility] Medical History (Updated 02/05/24 @ 12:44 by Ksenia Kent, [facility]) Asthma Diabetes Elevated cholesterol History of COVID-19 Endometrial hyperplasia without atypia Obesity Anxiety PCOS (polycystic ovarian syndrome) Hypertension Surgical History History of dilatation and curettage History of cholecystectomy History of Family History Father Heart problem Mother Stroke Diabetes Son Asthma Social History Housing: House Are you a primary care coordinator to a significant other at home: No Do you presently have visiting nurse or other home services: No Alcohol intake: never Comment: cramping Patient Tobacco Use Status: Never used Tobacco e-Cigarette/Vaping Use: Never Used Second Hand Smoke Exposure: No service: No Current occupational status: other 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 Joshua Ro, Lilibeth Tafoya, Shayne Streeter and colleagues, with an educational harpreet from [employer].. Review of Systems Const All systems reviewed & are unremarkable except as noted in HPI and below Physical exam (Primary Care) Vital Signs: Last Vital Signs Temp 97.2 F 02/05/24 11:55 Pulse 68 02/05/24 11:55 Resp 13 02/05/24 11:55 BP 126/78 02/05/24 11:55 Pulse Ox 99 02/05/24 11:55 Oxygen Delivery Method Room Air 02/05/24 11:55 BMI result Body Mass Index 45.2 Tobacco/Smoking Status: Tobacco use Status Tobacco use date assessed 12/03/23 02/05/24 11:53 Patient Tobacco Use Status Never used Tobacco 02/05/24 11:53 e-Cigarette/Vaping Use Never Used 02/05/24 11:53 Thrive Assessment: Date of Thrive Assessment Date Thrive assessed 12/03/23 02/05/24 11:53 Const Other: Awake alert NAD Sclera and conjunctiva clear bilat TM intact and clear bilat Nares clear, turbinates edematous and erythematous worse on the left MMM, pharynx WNL RRR LS dim throughout however with improved air flow, no wheezing, no cough Assessment and Plan Assessment & Plan (1) Hypertension: Comment: at goal on current meds, cont. Code(s): I10 - Essential (primary) hypertension Qualifiers: Hypertension type: primary hypertension Qualified Code(s): I10 - Essential (primary) hypertension (2) Diabetes: Code(s): E11.9 - Type 2 diabetes mellitus without complications Qualifiers: Diabetes mellitus type: type 2 Diabetes mellitus complication detail: with other circulatory complications (3) Morbid obesity: Code(s): E66.01 - Morbid (severe) obesity due to excess calories (4) High cholesterol: Code(s): E78.00 - Pure hypercholesterolemia, unspecified (5) Radiculopathy affecting upper extremity: Comment: refer to [facility] [place] [facility] for eval and tx Code(s): M54.10 - Radiculopathy, site unspecified (6) Spinal osteophytosis: Comment: refer to [facility] [place] [facility] for eval and tx Code(s): M25.78 - Osteophyte, vertebrae (7) Lumbar spondylosis: Comment: refer to [facility] [place] [facility] for eval and tx Code(s): M47.816 - Spondylosis without myelopathy or radiculopathy, lumbar region (8) Asthma, intermittent: Comment: Currently managed on Abbi. Chest x-ray within normal limits. improved with: budesonide/formoterol 1 puff twice per day She is aware that she should rinse her mouth out after the use of this. And then it should be used daily. Instructed on safe use of Abbi which includes avoiding overuse. Code(s): J45.20 - Mild intermittent asthma, uncomplicated Qualifiers: Asthma severity: mild Asthma complication type: with acute exacerbation Qualified Code(s): J45.21 - Mild intermittent asthma with (acute) exacerbation (9) Seasonal allergies: Comment: on singulair. He bacterial sinusitis is now resolved s/p AB. Flonase use not helping Plan: stop flonase, new RX for Astepro 2 puffs 1-2 times per day sent in, take as directed. Code(s): J30.2 - Other seasonal allergic rhinitis Plan Total time spent caring for the patient today was 30 minutes. This includes time spent before the visit reviewing the chart, time spent during the visit, and time spent after the visit on documentation This note is constructed using voice recognition software. While every effort has been made to ensure accuracy in professor of musicology, still errors may have been included Sometimes, these errors may affect the content or meaning of the given sentence . Orders: Orders Microalbumin, Random (w Creat) 03/30/24 E11.9 - Type 2 diabetes mellitus without complications, E66.01 - Morbid (severe) obesity due to excess calories, E78.00 - Pure hypercholesterolemia, unspecified, I10 - Essential (primary) hypertension Comprehensive [place]. Panel Fast 03/30/24 E11.9 - Type 2 diabetes mellitus without complications, E66.01 - Morbid (severe) obesity due to excess calories, E78.00 - Pure hypercholesterolemia, unspecified, I10 - Essential (primary) hypertension Lipid Panel 03/30/24 E11.9 - Type 2 diabetes mellitus without complications, E66.01 - Morbid (severe) obesity due to excess calories, E78.00 - Pure hypercholesterolemia, unspecified, I10 - Essential (primary) hypertension TSH reflex Free T4 03/30/24 E11.9 - Type 2 diabetes mellitus without complications, E66.01 - Morbid (severe) obesity due to excess calories, E78.00 - Pure hypercholesterolemia, unspecified, I10 - Essential (primary) hypertension Vitamin D 1,25 dihydroxy 05/01/24 E11.9 - Type 2 diabetes mellitus without complications, E66.01 - Morbid (severe) obesity due to excess calories, E78.00 - Pure hypercholesterolemia, unspecified, I10 - Essential (primary) hypertension Referrals Pain Management Referral M25.78 - Osteophyte, vertebrae, M47.816 - Spondylosis without myelopathy or radiculopathy, lumbar region, M54.10 - Radiculopathy, site unspecified Medications: New azelastine (Astepro Allergy) administer into each nostril 2 sprays intranasal DAILY 30 mL 2RF Discontinued fluticasone propionate 50 mcg/actuation Discontinued Reason: Doctor's Order 2 sprays intranasal DAILY 16 mL 11RF J30.2 - Other seasonal allergic rhinitis prednisone Discontinued Reason: Patient Completed Course 50 mg PO DAILY 5 days 5 tabs 0RF Coding Level of Care Code Est Pt Level 4 (83435) Diagnoses Primary hypertension I10 Hypertension type: primary hypertension Diabetes E11.9 Diabetes mellitus type: type 2 Diabetes mellitus complication detail: with other circulatory complications Morbid obesity E66.01 High cholesterol E78.00 Radiculopathy affecting upper extremity M54.10 Spinal osteophytosis M25.78 Lumbar spondylosis M47.816 Mild intermittent asthma with acute exacerbation J45.21 Asthma severity: mild Asthma complication type: with acute exacerbation Seasonal allergies J30.2
[2024-02-05 11:55] VITALS: BP 126/78; PULSE 68; RESP 13; TEMP 36.2; O2SAT 99; BMI 45.2
[2024-02-05 12:17] VITALS: BP 124/66
== END 2024-02-05 13:37 | disposition home or self-care (01) ==
PROVIDERS: PCP Nurse Practitioner Family; Visit Provider Nurse Practitioner Family
DX: E11.9 Type 2 diabetes mellitus without complications (principal); E66.01 Morbid (severe) obesity due to excess calories; Z68.42 Body mass index [BMI] 45.0-49.9, adult; I10 Essential (primary) hypertension; E78.00 Pure hypercholesterolemia, unspecified; M54.10 Radiculopathy, site unspecified; M25.78 Osteophyte, vertebrae; M47.816 Spondylosis without myelopathy or radiculopathy, lumbar region; J45.21 Mild intermittent asthma with (acute) exacerbation; J30.2 Other seasonal allergic rhinitis
CPT/HCPCS: 99214

== ENCOUNTER 2024-02-15 09:28 | Outpatient (REF) | payer OTHER, SELFPAY | END 2024-02-15 09:29 | disposition home or self-care (01) | LOC: HO.MAMMO 09:28 | PROVIDERS: PCP Nurse Practitioner Family; Visit Provider Nurse Practitioner Family | DX: Z12.31 Encounter for screening mammogram for malignant neoplasm of breast (principal) | CPT/HCPCS: 77063; 77067 ==

== ENCOUNTER → 2024-02-15 10:00 | Outpatient (BNV) | payer OTHER, SELFPAY | PROVIDERS: PCP Nurse Practitioner Family; Visit Provider Radiology Diagnostic Radiology | DX: Z12.31 Encounter for screening mammogram for malignant neoplasm of breast (principal) | CPT/HCPCS: 77063; 77067 ==

== ENCOUNTER 2024-02-16 18:56 | Emergency (ER) | payer OTHER, SELFPAY ==
[2024-02-16 19:54] VITALS: BP 145/69; PULSE 80; RESP 18; TEMP 36.8; O2SAT 99; BMI 45.2
--- NOTE | 2024-02-16 20:00 | ED_ITS ---
HPI - Neck Pain/Injury General Chief Complaint: Neck Pain/Injury Stated Complaint: Rt side neck stiffness Source: patient and RN notes reviewed Mode of arrival: ambulatory Limitations: no limitations History of Present Illness HPI Narrative: This is a 53-year-old female, with a history of diabetes and neck pain, presenting to the emergency department with complaints of right-sided neck pain and spasms since last night. Patient denies any recent trauma, injury, heavy lifting or falls. Patient denies any fevers, chills, headache, dizziness, vision changes, nausea, vomiting or diarrhea. Denies taking any medications to treat her symptoms. She states that she has history of similar symptoms and had seen physical therapy for this. No other complaints of concerns at this time. MD complaint: neck pain Onset (ago): day(s) Severity: moderate Quality: aching Duration: constant Relieving factors: none Exacerbating factors: movement of neck Associated symptoms: none Treatments prior to arrival: none Related Data Home Medications Medication Instructions Recorded Confirmed metformin 500 mg tablet,extended 500 mg PO DAILY 12/03/23 01/29/24 release 24 hr Previous Rx's Medication Instructions Recorded meclizine 25 mg tablet 25 mg PO TID PRN dizziness 3 09/26/21 months #90 tabs montelukast 10 mg tablet 10 mg PO BEDTIME #90 tabs 01/01/22 (Singulair) nabumetone 750 mg tablet 750 mg PO BID PRN for pain #60 tabs 01/08/22 albuterol sulfate 2.5 mg/3 mL 2.5 mg (3 mL) inhalation Q4-6H PRN 02/06/22 (0.083 %) solution for nebulization shortness of breath or wheezing #90 mL blood pressure test kit-large #1 ea 03/03/22 nebulizers #1 ea 03/03/22 atorvastatin 40 mg tablet 40 mg PO BEDTIME #90 tabs 01/22/23 lidocaine 5 % topical patch 1 patch topical DAILY pain 30 days 02/23/23 #30 ea hydrochlorothiazide 12.5 mg tablet 12.5 mg PO QAM #30 tabs 05/07/23 gabapentin 100 mg capsule 200 mg (2 x 100 mg) PO BID 30 days 12/03/23 #120 caps lisinopril 20 mg tablet 20 mg PO BID #60 tabs 01/01/24 loratadine 10 mg capsule 10 mg PO DAILY 90 days #90 caps 01/14/24 budesonide-formoterol HFA 80 1 inh inhalation BID #10.2 grams 01/22/24 mcg-4.5 mcg/actuation aerosol inhaler amoxicillin 875 mg-potassium 1 tab PO BID 7 days #14 tabs 01/29/24 clavulanate 125 mg tablet metoprolol succinate 25 mg 25 mg PO DAILY 3 months #90 tabs 02/01/24 tablet,extended release 24 hr azelastine 205.5 mcg (0.15 %) 2 spray intranasal DAILY #30 mL 02/05/24 nasal spray (Astepro Allergy) albuterol sulfate 90 mcg/actuation 2 puff inhalation Q6H PRN for 02/11/24 aerosol inhaler (Ventolin HFA) wheezing #18 ea cyclobenzaprine 5 mg tablet 5 mg PO TID PRN muscle spasm #14 02/16/24 tabs ibuprofen 600 mg tablet 600 mg PO Q6H PRN pain #30 tabs 02/16/24 lidocaine 5 % topical patch 1 patch topical DAILY #30 ea 02/16/24 Allergies Allergy/AdvReac Type Severity Reaction Status Date / Time Seasonal Allergies Allergy Intermediate Itchy Eyes Verified 02/16/24 19:57 Review of Systems Review of Systems: Yes all other systems are reviewed and are negative Constitutional: Constitutional: Reports as per [facility] Past Medical History Medical History (Updated 02/16/24 @ 20:01 by GYPSY Vazquez) Asthma Diabetes Elevated cholesterol History of COVID-19 Endometrial hyperplasia without atypia Obesity Anxiety PCOS (polycystic ovarian syndrome) Hypertension Surgical History History of dilatation and curettage History of cholecystectomy History of Family History Family History Father Heart problem Mother Stroke Diabetes Son Asthma Social History Social History Housing: House Are you a primary director of home care hospice to a significant other at home: No Do you presently have visiting nurse or other home services: No Alcohol intake: never Comment: cramping Patient Tobacco Use Status: Never used Tobacco e-Cigarette/Vaping Use: Never Used Second Hand Smoke Exposure: No Advance Directives: No Advance Directives Information Provided: No service: No Current occupational status: other 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 Sexual orientation: Straight/Heterosexual Gender identity: Female Cognitive needs: No Hearing needs: No Vision needs: No Physical Exam Vital Signs: Vital Signs: Last Vital Signs Temp 98.2 F 02/16/24 20:15 Pulse 78 02/16/24 20:15 Resp 18 02/16/24 20:15 BP 148/88 H 02/16/24 20:15 Pulse Ox 99 02/16/24 20:15 O2 Del Method Room Air 02/16/24 20:15 BMI result Body Mass Index 45.2 Const: General: cooperative, comfortable and no acute distress Orientation/consciousness: patient oriented x3 Limitations: no limitations HEENT: Head: Yes normal to inspection, Yes normocephalic and Yes atraumatic Ears: hearing grossly normal bilaterally General nose exam: Normal external nose present Face and sinus: Yes normal facial exam Mouth: Normal oral and palatal mucosa present, oropharynx normal and moist mucous membranes Throat: Yes posterior oropharynx normal Eyes: General: appearance normal, both eyes and all related structures Eyelids: Yes eyelids normal Conjunctivae: conjunctivae normal Sclerae: sclerae normal Pupils: Equal, round and reactive pupils present EOM: EOMs intact bilaterally Neck: Other: Right trapezius muscle with tenderness palpation and spasm noted, as well as right cervical paraspinous muscles. Full range of motion of the neck, no nuchal rigidity, neck is soft and supple. No meningeal signs. Neck: Yes normal visual inspection, Yes full ROM and Yes no lymphadenopathy Lymphatic: no lymphadenopathy noted Chest: Chest palpation & inspection: normal inspection of the chest Resp: Effort & Inspection: normal respiratory effort and able to speak in complete sentences Auscultation: clear to auscultation bilaterally, no crackles, no rales, no rhonchi and no wheezes Cardio: Rate: regular rate Rhythm: regular rhythm Heart sounds: S1 normal heart sound present and S2 normal heart sound present GI: Inspection: Yes normal to inspection Skin: General skin exam: no rashes or lesions noted Trauma: no lacerations or abrasions Wounds: no wounds Neuro: General: patient oriented x3 and moves all extremities Cranial nerves: Yes Equal, round and reactive pupils present Extrem: General: Yes normal to inspection Right upper extremity: normal to inspection Left upper extremity: normal to inspection Right lower extremity: normal to inspection Left lower extremity: normal to inspection Medical Decision Making Medical Decision Making MDM Narrative: This is a 53-year-old female presenting to the emergency department for evaluation of neck pain since last night. On arrival, vital signs within normal limits. Patient has tenderness palpation along the right trapezius and right cervical paraspinous muscles. No midline spine tenderness. She has full range of motion with no nuchal rigidity or meningeal signs. Differential diagnoses include cervical sprain, spasm, contusion. Less likely meningitis, cervical fracture. Given physical exam findings, symptoms consistent with MSK pain, will tx with muscle relaxants and NSAIDs. given return precautions. She understands and agrees with plan. Stable for d/c. Differential Diagnosis Differential Diagnoses: The differential diagnosis associated with the presentation includes see above Admission/Observation Consideration of admission/observation: Escalation of care including admission/observation considered Escalation of care including admission/observation considered however given workup today not warranted at this time. Tests considered The following testing was considered but not selected: xray, however atraumatic, no midline spine tenderness. basic labs however no constitution sxs, normal vitals, Discharge Plan Discharge Clinical Impression: Cervical paraspinal muscle spasm, Spasm of right trapezius muscle Patient Disposition: Home, Self-Care Instructions: Muscle Spasm (ED) Additional Instructions: You were seen in the emergency department due to neck pain. You have a spasm in your neck and upper back. Please take anti-inflammatories, ibuprofen, as well as muscle relaxants for your symptoms. Please be advised that Flexeril can cause drowsiness, do not drink alcohol or drive while taking this medication. You may apply heat or ice to the area, gentle stretching, massage can also help. If any new or worsening symptoms occur including but not limited to fevers, chills, headaches, abdominal pain, nausea, vomiting or diarrhea. Prescriptions: New cyclobenzaprine 5 mg tablet 5 mg PO TID PRN (Reason: muscle spasm) Qty: 14 0RF ibuprofen 600 mg tablet 600 mg PO Q6H PRN (Reason: pain) Qty: 30 0RF lidocaine 5 % adhesive patch,medicated 1 patch topical DAILY Qty: 30 0RF Rx Instructions: leave on most painful area for up to 12 hrs No Action montelukast [Singulair] 10 mg tablet 10 mg PO BEDTIME Qty: 90 3RF (DME) nebulizers Misc See Rx Instructions .ROUTE .MEDSUPPLY Qty: 1 0RF Rx Instructions: for acute asthma or reactions (DME) blood pressure test kit-large Kit See Rx Instructions .Route Qty: 1 0RF Rx Instructions: As directed atorvastatin 40 mg tablet 40 mg PO BEDTIME Qty: 90 3RF hydrochlorothiazide 12.5 mg tablet 12.5 mg PO QAM Qty: 30 2RF lisinopril 20 mg tablet 20 mg PO BID Qty: 60 3RF loratadine 10 mg capsule 10 mg PO DAILY 90 Days Qty: 90 0RF metoprolol succinate 25 mg tablet extended release 24 hr 25 mg PO DAILY 90 Days Qty: 90 0RF albuterol sulfate [Ventolin HFA] 90 mcg/actuation HFA aerosol inhaler 2 puff inhalation Q6H PRN (Reason: for wheezing) Qty: 18 0RF metformin 500 mg tablet extended release 24 hr 500 mg PO DAILY nabumetone 750 mg tablet 750 mg PO BID PRN (Reason: for pain) Qty: 60 2RF albuterol sulfate 2.5 mg /3 mL (0.083 %) solution for nebulization 2.5 mg inhalation Q4-6H PRN (Reason: shortness of breath or wheezing) Qty: 90 6RF budesonide-formoterol 80-4.5 mcg/actuation HFA aerosol inhaler 1 inh inhalation BID Qty: 10.2 0RF azelastine [Astepro Allergy] 205.5 mcg (0.15 %) spray,non-aerosol 2 spray intranasal DAILY Qty: 30 2RF Rx Instructions: administer into each nostril meclizine 25 mg tablet 25 mg PO TID PRN (Reason: dizziness) 90 Days Qty: 90 1RF gabapentin 100 mg capsule 200 mg PO BID 30 Days Qty: 120 1RF amoxicillin-pot clavulanate 875-125 mg tablet 1 tab PO BID 7 Days Qty: 14 0RF lidocaine 5 % adhesive patch,medicated 1 patch topical DAILY 30 Days Qty: 30 0RF Interventions: ED Discharge Assessment Last Done: 02/16/24 20:15 Discharge Date/Time: 02/16/24 20:16
[2024-02-16 20:15] VITALS: BP 148/88; PULSE 78; RESP 18; TEMP 36.8; O2SAT 99
== END 2024-02-16 20:16 | disposition home or self-care (01) ==
PROVIDERS: Emergency Provider Emergency Medicine; PCP Nurse Practitioner Family
DX: M54.2 Cervicalgia (principal); R25.2 Cramp and spasm; Z79.899 Other long term (current) drug therapy
CPT/HCPCS: 99282; 99283

== ENCOUNTER 2024-02-19 10:49 | Outpatient (REF) | payer OTHER, SELFPAY ==
--- NOTE | ~2024-02-19 | XR_ITS ---
EXAMINATION: XR RIGHT SHOULDER, CERVICAL SPINE CLINICAL INFORMATION: Muscle spasm, pain in right shoulder. TECHNIQUE: 7 views of the cervical spine. 4 views of the right shoulder. COMPARISON: Chest radiograph 01/22/2024. FINDINGS: Right Shoulder: Mild degenerative changes with joint space narrowing and hypertrophic change in the acromioclavicular joint. Glenohumeral is preserved. No abnormal soft tissue calcifications are appreciated adjacent to the humeral head. Cervical Spine: Slight reversal of the normal cervical lordosis. Visualization of C6 and C7 is limited due to overlying soft tissues. Multilevel cervical spondylosis. Advanced degenerative changes with loss of disc space height at C6-C7 is difficult to characterize due to overlying soft tissues which limit visualization. Mild loss of disc space height at C3-C4 and C4-C5. XR/XR cervical spine min 6V IMPRESSION: 1. Mild degenerative changes right acromioclavicular joint. 2. Multilevel cervical spondylosis.
--- NOTE | ~2024-02-19 | XR_ITS ---
EXAMINATION: XR RIGHT SHOULDER, CERVICAL SPINE CLINICAL INFORMATION: Muscle spasm, pain in right shoulder. TECHNIQUE: 7 views of the cervical spine. 4 views of the right shoulder. COMPARISON: Chest radiograph 01/22/2024. FINDINGS: Right Shoulder: Mild degenerative changes with joint space narrowing and hypertrophic change in the acromioclavicular joint. Glenohumeral is preserved. No abnormal soft tissue calcifications are appreciated adjacent to the humeral head. Cervical Spine: Slight reversal of the normal cervical lordosis. Visualization of C6 and C7 is limited due to overlying soft tissues. Multilevel cervical spondylosis. Advanced degenerative changes with loss of disc space height at C6-C7 is difficult to characterize due to overlying soft tissues which limit visualization. Mild loss of disc space height at C3-C4 and C4-C5. XR/XR shoulder RT min 2V IMPRESSION: 1. Mild degenerative changes right acromioclavicular joint. 2. Multilevel cervical spondylosis.
== END 2024-02-19 10:50 | disposition home or self-care (01) ==
LOC: HO.XRAY 10:49
PROVIDERS: PCP Nurse Practitioner Family; Visit Provider Nurse Practitioner Family
DX: M25.511 Pain in right shoulder (principal); M47.812 Spondylosis without myelopathy or radiculopathy, cervical region; M62.838 Other muscle spasm
CPT/HCPCS: 72052; 73030; 99212

== ENCOUNTER 2024-02-19 10:49 | Outpatient (AMB) | payer OTHER, SELFPAY ==
--- NOTE | 2024-02-19 10:53 | A.OFFVIS_ITS ---
Intake Vital Signs 02/19/24 10:58 Height 5 ft 6 in Weight 278 lb 4 oz BMI 44.9 BP 151/70 H Blood Pressure Location Lt brachial Position Sitting Pulse 70 Pulse Source Pulse Oximeter Pulse Oximetry (%) 99 Oxygen Delivery Method Room Air Intake Visit Reasons: Spondylosis w/o myelopathy or radiculopathy Intake Note: Pain today 5 [employer] Executive Required: No Accompanied by: Self / Same As Patient Allergies Seasonal Allergies Allergy (Intermediate, Verified 02/19/24 10:58) Itchy Eyes HPI HPI Comments History of Present Illness Details Patient presents today for follow up for neck and spasms. Patient was initially seen in our office last year for low back pain and was sent for physical therapy which she reports initially while in PT. She continues to endorse low back pain but not as significant as her current neck symptoms. Denies any trauma, injury or falls. She was seen in our ER on 02/16/24 for neck pain and was sent home with Flexeril, lidocaine patches, NSAID which she reports are ineffective and Flexeril is causing her significant drowsiness. She also tried heat therapy and light stretching with massages with continued symptoms. Neck pain increases with any movement, worse with turning to the right or looking up. Pain radiates to her anterior right shoulder. Pain affects her daily activities, functioning, sleep, mood and social activities. Denies any numbness, tingling or weakness in her upper or lower extremities, dizziness, chest pain, shortness of breaths, visual disturbances, headaches, bladder or bowel dysfunction or saddle anesthesia. PRIOR: Patient is a 52 years old female with thoracolumbar degenerative disc disease and morbid obesity presents today with worsening of chronic low back pain for the past 2 months. Patient denies any recent trauma, injury or falls. Her pain is mostly axial low back pain with occasional radiation into her lateral hips but not below knee level. Pain is described in terms of tissue damage as constant stabbing, lancinating, dull, sore, hurting, aching, heavy, hot burning, and radiating. Pain is worsened with lumbar flexion, extension and worse with bending down. She denies any abdominal or groin pain, bladder or bowel incontinence or saddle anesthesia. Patient denies previous physical therapy, chiropractic manipulation, acupuncture, aqua therapy or TENS unit. She has treadmill at home but does not use it. 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 Patient reports she was recently started on metformin for weight loss. We reviewed her recent A1C 6.4 last month. Patient reports she is aware of ADA diet as her son used to be diabetic and she used to manage DM for him. She declines referral for nut ritional consultation. Patient reports pain is aggravated with movements, changing positions and prolonged sitting. Patient notes she has to take frequent rest breaks during her daily activities due to pain. She is interested to pursue formal physical therapy and consider interventional treatments if no relief with PT and HEP. Location Lower back, at times mid back Duration Chronic back pain, worsening for the past 2 months Characteristics of symptom or complaint Stabbing, lancinating, dull, hurting, aching, heavy, hot burning, radiating Aggravating or associated factors Bending, lumbar extension, prolonged sitting Relieving factors Rest, nabumetone, Tylenol Treatment Massage [facility] Medical History Asthma Diabetes Elevated cholesterol History of COVID-19 Endometrial hyperplasia without atypia Obesity Anxiety PCOS (polycystic ovarian syndrome) Hypertension Surgical History History of dilatation and curettage History of cholecystectomy History of Family History Father Heart problem Mother Stroke Diabetes Son Asthma Social History Housing: House Are you a primary child care nurse to a significant other at home: No Do you presently have visiting nurse or other home services: No Alcohol intake: never Comment: cramping Patient Tobacco Use Status: Never used Tobacco e-Cigarette/Vaping Use: Never Used Second Hand Smoke Exposure: No service: No Current occupational status: other 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 Sexual orientation: Straight/Heterosexual Gender identity: Female Cognitive needs: No Hearing needs: No Vision needs: No Female Reproductive History Menstrual Age of Menarche: 10 Review of Systems Const All systems reviewed & are unremarkable except as noted in HPI and below ENT Reports Normal hearing present Neuro Reports Normal hearing present, Denies Abnormal speech present and Denies Sensory deficit (Neuro) Physical Exam Vital Signs: Last Vital Signs Pulse 70 02/19/24 10:58 BP 151/70 H 02/19/24 10:58 Pulse Ox 99 02/19/24 10:58 Oxygen Delivery Method Room Air 02/19/24 10:58 BMI result Body Mass Index 44.9 General: Appears afebrile. Alert and oriented. Mood and affect appropriate. Follows and participates in conversation appropriately. Respiratory effort is unlabored. Able to transition from sit to stand unassisted. Ambulates with bilaterally normal heel strike and toe off. Back/Spine/Pelvis Back: back tenderness Cervical Spine: normal cervical lordosis, cervical muscular tenderness, pain with cervical ROM, No Cervical spine scars present, cervical spasm (right trapezius and paraspinal), No Cervical spine tenderness and No step off deformity Thoracic/Lumbar Spine: thoracic and lumbar spine normal to inspection, No Thoracic/lumbar spine scar(s), pain with thoraco-lumbar ROM (mild), paraspinal muscle tenderness, thoraco-lumbar ROM limited, No thoracic spinal tenderness and No lumbar spinal tenderness Neuro General: CN's II-XI intact bilaterally and deep tendon reflexes 2+ bilaterally Cranial nerves: Yes Facial sensation intact/muscles of mastication intact, Yes Bilaterally intact EOM present, Yes Normal hearing present, Yes Ability to bilaterally rotate head present and Yes Ability to bilaterally elevate shoulders present Cognition (Neuro): normal cognition Speech: No Abnormal speech present Gait exam (Neuro): Normal gait present and No Assistive device used Motor exam (neuro): 5/5 motor strength present throughout, no tremor noted and Motor abnormalities not present Sensory Exam: No Sensory deficit (Neuro) Extrem General: Yes capillary refill normal, Yes no clubbing, cyanosis or edema and Yes no calf tenderness Results Reviewed Results Reviewed: XR LUMBOSACRAL SPINE WITH OBLIQUES 01/20/23 CLINICAL INFORMATION: Mild vertebral spurring mid and lower thoracic spine. COMPARISON: Lumbar radiographs 09/01/2021; thoracic spine 01/20/2023, chest radiographs 04/20/2019 TECHNIQUE: Lumbar spine is imaged in 5 views including oblique projections. FINDINGS: There is normal lumbar segmentation with 5 nonrib-bearing lumbar vertebrae of normal height and normal lumbar lordosis. There is a borderline levocurvature which may be positional. There is no vertebral compression, spondylolisthesis, or destructive process. Oblique view show no spondylolysis. There are again degenerative disc changes at L4-L5 and interval increased degenerative disc changes at L5-S1. There are also degenerative disc changes lower thoracic spine at T10-T11 and at T11-T12 with mild disc narrowing and anterior vertebral spurring. The SI joints and visualized sacrum are unremarkable. IMPRESSION: -Degenerative disc changes L4-L5 and L5-S1. -Degenerative disc changes lower thoracic spine T10-T11 and T11-T12. -No vertebral compression, spondylolisthesis, or spondylolysis. Assessment & Plan Assessment & Plan (1) Cervical paraspinal muscle spasm: Code(s): M62.838 - Other muscle spasm (2) Cervical spondylosis: Code(s): M47.812 - Spondylosis without myelopathy or radiculopathy, cervical region (3) Spasm of right trapezius muscle: Code(s): M62.838 - Other muscle spasm (4) Right shoulder pain: Code(s): M25.511 - Pain in right shoulder (5) Muscle spasm of back: Code(s): M62.830 - Muscle spasm of back Plan 1. Cervical spine imaging to assess degree of degenerative changes, any subluxation, listhesis, compression fractures or pars defects. 2. Start formal physical therapy for neck and right shoulder pain. A script was provided. 3. Continue NSAIDs, Tylenol, heat/ice therapy, lidocaine patches. Script provided today for tizanidine, patient will stop Flexeril. Side effects and precautions were reviewed with patient. 4. Continue daily physical activity, healthy food habits, adequate hydration, diabetes management and weight loss. All questions and concerns have been answered and patient agreed with the plan. If no response to physical therapy will consider further interventional strategy. Follow-up for xray results/PT and sooner as needed. Orders: Orders XR cervical spine min 6V Today M47.812 - Spondylosis without myelopathy or radiculopathy, cervical region, M62.838 - Other muscle spasm XR shoulder RT min 2V Today M25.511 - Pain in right shoulder PT Evaluation and Treatment Today M25.511 - Pain in right shoulder, M47.812 - Spondylosis without myelopathy or radiculopathy, cervical region, M62.838 - Other muscle spasm Medications: New tizanidine 4 mg PO BID 30 days PRN 60 tabs 0RF muscle spasticity M62.838 - Other muscle spasm Discontinued cyclobenzaprine Discontinued Reason: Patient Completed Course 5 mg PO TID PRN 14 tabs 0RF muscle spasm Coding Level of Care Code Est Pt Level 4 (87979) Diagnoses Cervical paraspinal muscle spasm M62.838 Cervical spondylosis M47.812 Spasm of right trapezius muscle M62.838 Right shoulder pain M25.511 Muscle spasm of back M62.830
[2024-02-19 10:58] VITALS: BP 151/70; PULSE 70; O2SAT 99; BMI 44.9
== END 2024-02-19 11:22 | disposition home or self-care (01) ==
PROVIDERS: PCP Nurse Practitioner Family; Visit Provider Nurse Practitioner Family
DX: M62.838 Other muscle spasm (principal); M47.812 Spondylosis without myelopathy or radiculopathy, cervical region; M25.511 Pain in right shoulder; M62.830 Muscle spasm of back
CPT/HCPCS: 99214

== ENCOUNTER 2024-02-21 16:44 | Emergency (ER) | payer OTHER, SELFPAY ==
[2024-02-21 17:10] VITALS: BP 156/64; PULSE 79; RESP 18; TEMP 36.4; O2SAT 97; BMI 45.2
--- NOTE | 2024-02-21 18:00 | ED.NECK ---
HPI - Neck Pain/Injury General Chief Complaint: Neck Pain/Injury Stated Complaint: rt side neck/shoulder/upper back pain Time Seen by Provider: 02/21/24 18:00 Source: patient, RN notes reviewed and old records reviewed Mode of arrival: ambulatory Limitations: no limitations History of Present Illness HPI Narrative: 53 year old female with pmhx significant for HTN, PVC, asthma, anxiety, PCOS, vertigo, DDD, DM presents to the ED today for evaluation of atraumatic right-sided neck/shoulder pain x1 week. She admits her nekc pain is exacerbated with head turns. The pain radiates to the anterior aspect of her right shoulder. It does not radiate down into her elbow or to her hand. Admits this is beginning to affect her daily activities along with her sleep. She was evaluated in our ED 5 days ago for the same. At that time no lab work was obtained and no imaging was done. She was discharged home after receiving pain medication in ED with improvement in pain. She has been taking Flexeril and using lidocaine patches at home without relief. Denies fever, chills, dizziness, headache, gait disturbance, chest pain, palpitations, SOB, N/V, back pain, numbness/tingling/weakness of the UEs, LE pain/swelling. Denies injury/trauma/fall. Additionally she was evaluated by pain management 2 days ago for same. She was discharged home with tizanidine and was told to discontinue Flexeril. She has been taking both tizanidine and ibuprofen at home without relief. Last dose was last night. Related Data Home Medications Medication Instructions Recorded Confirmed metformin 500 mg tablet,extended 500 mg PO DAILY 12/03/23 02/22/24 release 24 hr Previous Rx's Medication Instructions Recorded meclizine 25 mg tablet 25 mg PO TID PRN dizziness 3 09/26/21 months #90 tabs montelukast 10 mg tablet 10 mg PO BEDTIME #90 tabs 01/01/22 (Singulair) nabumetone 750 mg tablet 750 mg PO BID PRN for pain #60 tabs 01/08/22 albuterol sulfate 2.5 mg/3 mL 2.5 mg (3 mL) inhalation Q4-6H PRN 02/06/22 (0.083 %) solution for nebulization shortness of breath or wheezing #90 mL blood pressure test kit-large #1 ea 03/03/22 nebulizers #1 ea 03/03/22 atorvastatin 40 mg tablet 40 mg PO BEDTIME #90 tabs 01/22/23 hydrochlorothiazide 12.5 mg tablet 12.5 mg PO QAM #30 tabs 05/07/23 lisinopril 20 mg tablet 20 mg PO BID #60 tabs 01/01/24 loratadine 10 mg capsule 10 mg PO DAILY 90 days #90 caps 01/14/24 metoprolol succinate 25 mg 25 mg PO DAILY 3 months #90 tabs 02/01/24 tablet,extended release 24 hr azelastine 205.5 mcg (0.15 %) 2 spray intranasal DAILY #30 mL 02/05/24 nasal spray (Astepro Allergy) albuterol sulfate 90 mcg/actuation 2 puff inhalation Q6H PRN for 02/11/24 aerosol inhaler (Ventolin HFA) wheezing #18 ea lidocaine 5 % topical patch 1 patch topical DAILY #30 ea 02/16/24 Allergies Allergy/AdvReac Type Severity Reaction Status Date / Time Seasonal Allergies Allergy Intermediate Itchy Eyes Verified 02/22/24 09:45 Review of Systems Review of Systems: Constitutional: No fever, chills, fatigue, night sweats, weight changes ENT/Mouth: No ear pain, hearing loss, nasal congestion, sinus pain, rhinorrhea, sore throat Eyes: No eye pain, swelling, redness, vision changes, discharge Cardio: No chest pain, palpitations, CROOKS, orthopnea, peripheral edema Pulm: No SOB, cough, sputum, wheezing, dyspnea, hemoptysis GI: No nausea, vomiting, hematemesis, abdominal pain, diarrhea, constipation, hematochezia, melena : No irregular bleeding, dysuria, frequency, urgency, hesitancy, hematuria, flank pain, urinary flow changes, urinary incontinence or retention MSK: No back pain, neck pain, joint pain, myalgias, + right neck/shoulder pain Skin: No lesions, rashes Neuro: No weakness, numbness, paresthesias, LOC, dizziness, headache Psych: No anxiety/panic, depression, SI/HI, AH/VH All other systems reviewed and are negative. [facility] Past Medical History Attestation statement: The following information was validated with the patient. Source: old records reviewed and nursing notes reviewed Medical History Asthma Diabetes Elevated cholesterol History of COVID-19 Endometrial hyperplasia without atypia Obesity Anxiety PCOS (polycystic ovarian syndrome) Hypertension Surgical History History of dilatation and curettage History of cholecystectomy History of Family History Family History Father Heart problem Mother Stroke Diabetes Son Asthma Social History Social History Housing: House Are you a primary career consultant to a significant other at home: No Do you presently have visiting nurse or other home services: No Alcohol intake: never Comment: cramping Patient Tobacco Use Status: Never used Tobacco e-Cigarette/Vaping Use: Never Used Second Hand Smoke Exposure: No service: No Current occupational status: other 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 Const: General: cooperative, healthy appearing, comfortable and no acute distress Orientation/consciousness: patient oriented x3 Limitations: no limitations HEENT: Head: Yes normal to inspection, Yes No palpable skull fracture present, Yes normocephalic and Yes atraumatic Ears: hearing grossly normal bilaterally, external ears normal, TM's normal bilaterally, EAC's normal, mastoids normal and no periauricular adenopathy Eyes: General: appearance normal, both eyes and all related structures Conjunctivae: conjunctivae normal Sclerae: sclerae normal Pupils: Equal, round and reactive pupils present Neck: Other: + normal cervical lordosis with tenderness over the right cervical muscular region. there is pain with cervical ROM and cervical spasm noted to right trapezius muscle and paraspinal muscles. No midline cervical spinous tenderness or step-off deformity. no nuchal rigidity or meningeal signs. Neck: Yes normal visual inspection, Yes no lymphadenopathy and Yes torticollis (right-tillman) Chest: Chest palpation & inspection: normal inspection of the chest and normal palpation of entire chest wall Resp: Effort & Inspection: normal respiratory effort and able to speak in complete sentences Auscultation: clear to auscultation bilaterally Cardio: Rate: regular rate Rhythm: regular rhythm Back/Spine/Pelvis: Other: No midline spinous tenderness or step off deformity. No paraspinal muscle tenderness. Skin: General skin exam: no rashes or lesions noted Neuro: Other: Strength 5/5 intact throughout.?No saddle anesthesia.?Sensation intact to light touch.?Neurovascular intact distally.? General: patient oriented x3 and gait normal Cranial nerves: Yes Equal, round and reactive pupils present Extrem: Other: + no obvious deformity or overlying skin changes noted to right shoulder. Full ROM intact to right shoulder, right elbow, right wrist and all digits to right hand. Sensation intact. Strength 5/5 intact throughout. Clinical Review Nurse strength intact bilaterally. No tenderness to palpation over the AC joint or any aspect of the right shoulder/ clavicle. no palpable deformities. General: Yes normal to inspection and Yes full ROM Course Course Course Narrative: 1836-- on chart review, it seems as though pain management ordered x-ray cervical spine and right shoulder. These images were obtained on 01/21/24 (2 days ago) however the radiologist has not yet read these images. On my personally interpretation of both radiographs, I do not appreciate acute fracture or dislocation. There is no previous imaging of c-spine or right shoulder to compare to. Pain management discharged her home with tizanidine and discontinued flexeril. This appointment was 2 days ago and patient has had continued pain. > Valium ordered for neck pain/spasm. will continue to monitor. 1939-- On re-evaluation, patient reports improvement in pain however it has not completely resolved. Given chronicity of symptoms, I do not expect pain to completely resolve with one dose of medications. I discussed obtaining repeat imaging of cervical spine and shoulder in ED today. I used shared decision making with patient regarding possible diagnosis, management options, etc. Patient states that she does not wish to repeat imaging at this time as she will be following up with pain management this week regarding films obtained on 02/19/24 (2 days ago). Given physical exam findings, absence of traumatic injury, and improvement with valium, the most likely etiology of her pain is muscular. will send patient home with 3 tablets of valium to take until her follow up appointment with pain management. she is agreeable to this. as she was administered valium in ED, patient states her will be driving her home. Patient has remained stable throughout ED visit today. Discussed worrisome signs and symptoms and when to return to the ED. All questions answered at this time. Patient is agreeable with disposition and stable for discharge. Medications Administered Discontinued Medications Generic Name Dose Route Start Last Admin Trade Name Freq PRN Reason Stop Dose Admin Diazepam 5 mg 02/21/24 18:03 02/21/24 18:28 Diazepam 2 Mg Tablet PO 02/21/24 18:04 5 mg ONCE ONE Administration Medical Decision Making Medical Decision Making MDM Narrative: 53 year old female with pmhx significant for HTN, PVC, asthma, anxiety, PCOS, vertigo, DDD, DM presents to the ED today for evaluation of right-sided neck/shoulder pain x1 week. Patient hypertensive, vitals otherwise WNL. She is nontoxic-appearing and in no acute distress. Sitting on exam bed comfortably holding her cellphone in the right hand. On exam, there is normal cervical lordosis with tenderness over the right cervical muscular region. there is pain with cervical ROM and cervical spasm noted to right trapezius muscle and paraspinal muscles. No midline cervical spinous tenderness or step-off deformity. no obvious deformity or overlying skin changes noted to right shoulder. Full ROM intact to right shoulder, right elbow, right wrist and all digits to right hand. Sensation intact. Strength 5/5 intact to right shoulder against resistance. Clinical Review Nurse strength intact bilaterally. No tenderness to palpation over the AC joint or any aspect of the right shoulder/ clavicle. No palpable deformities. No nuchal rigidity or meningeal signs. RRR. No tenderness or crepitus w/ palpation over the anterior, lateral or posterior chest juárez. No palpable deformity. Differential diagnosis includes osteoarthritis, degenerative disc disease, cervical muscle spasm, torticollis. Unlikely fracture, subluxation herniation, meningitis, dissection, ACS, arrythmia, PE, costochondritis, rib fracture, flail chest, NV compromise, threat to limb, compartment syndrome. Pain medication ordered. Will re-evaluate Differential Diagnosis Differential Diagnoses: The differential diagnosis associated with the presentation includes As above Admission/Observation Not indicated Independent Interpretation I performed an independent interpretation of an: Plain X-Ray Interpretation: I have personally reviewed xray of c spine and right shoulder obtained on 02/19/24 and do not appreciate acute fracture or dislocation. No priors to compare to. Radiology Impression Radiologist Impression: XR read for these images not currently available. External Record Review External record reviewed: Inpatient record, Office record, Outpatient record, Prior outpatient labs, Prior outpatient radiology, Primary care record and Outside ED record Tests considered The following testing was considered but not selected: I considered obtaining xr right shoulder and c-spine however there has been no traumatic injury. physical exam is consistent with acute spasm. not warranted at this time. Prescription Management I considered prescription management with: Other (valium) Chronic Conditions Patient?s care impacted by: Other (DDD) Social Determinants Patient?s care significantly limited by Social Determinants of Health including: Other Social Determinant of Health Critical Care Time Critical Care Time Critical Care Time: Yes Total Critical Care Time: 39 Attestation: Critical care time in the amount of 39 minutes has been provided to the patient in terms of direct patient care, frequent reevaluation, review and interpretation of medical data and results, and management of potentially life-threatening conditions. This is all outside of any medical procedures. Discharge Plan Discharge Clinical Impression: Cervical paraspinal muscle spasm Patient Disposition: Home, Self-Care Instructions: Muscle Spasm (ED) Additional Instructions: You were given valium in ED for your neck pain. After discussion, imaging of your neck and shoulder were not repeated today. You have plans to follow up with pain management regarding your xrays taken 2 days ago along with further treatment options. 3 tablets of valium have been sent to your pharmacy. do not drink, drive or operate heavy machinery while taking this. take one tablet at night before bed for muscle spasm. Do not take this with flexeril or tizanidine. You may also take tylenol and ibuprofen. Return with new or worsening symptoms. In the case of emergency call 911. Prescriptions: No Action montelukast [Singulair] 10 mg tablet 10 mg PO BEDTIME Qty: 90 3RF (DME) nebulizers Misc See Rx Instructions .ROUTE .MEDSUPPLY Qty: 1 0RF Rx Instructions: for acute asthma or reactions (DME) blood pressure test kit-large Kit See Rx Instructions .Route Qty: 1 0RF Rx Instructions: As directed atorvastatin 40 mg tablet 40 mg PO BEDTIME Qty: 90 3RF hydrochlorothiazide 12.5 mg tablet 12.5 mg PO QAM Qty: 30 2RF lisinopril 20 mg tablet 20 mg PO BID Qty: 60 3RF loratadine 10 mg capsule 10 mg PO DAILY 90 Days Qty: 90 0RF metoprolol succinate 25 mg tablet extended release 24 hr 25 mg PO DAILY 90 Days Qty: 90 0RF albuterol sulfate [Ventolin HFA] 90 mcg/actuation HFA aerosol inhaler 2 puff inhalation Q6H PRN (Reason: for wheezing) Qty: 18 0RF metformin 500 mg tablet extended release 24 hr 500 mg PO DAILY lidocaine 5 % adhesive patch,medicated 1 patch topical DAILY Qty: 30 0RF Rx Instructions: leave on most painful area for up to 12 hrs nabumetone 750 mg tablet 750 mg PO BID PRN (Reason: for pain) Qty: 60 2RF albuterol sulfate 2.5 mg /3 mL (0.083 %) solution for nebulization 2.5 mg inhalation Q4-6H PRN (Reason: shortness of breath or wheezing) Qty: 90 6RF azelastine [Astepro Allergy] 205.5 mcg (0.15 %) spray,non-aerosol 2 spray intranasal DAILY Qty: 30 2RF Rx Instructions: administer into each nostril meclizine 25 mg tablet 25 mg PO TID PRN (Reason: dizziness) 90 Days Qty: 90 1RF Ref[place]: [facility] [place] Group] Interventions: ED Discharge Assessment Last Done: 02/21/24 20:03 Discharge Date/Time: 02/21/24 20:04
[2024-02-21] MEDS: diazePAM 2 MG TABLET 5 MG PO (18:28)
[2024-02-21 20:03] VITALS: BP 156/64; PULSE 79; RESP 18; TEMP 36.4; O2SAT 97
== END 2024-02-21 20:04 | disposition home or self-care (01) ==
PROVIDERS: Emergency Provider Emergency Medicine; PCP Nurse Practitioner Family
DX: M62.830 Muscle spasm of back (principal); I10 Essential (primary) hypertension; E11.9 Type 2 diabetes mellitus without complications; J45.909 Unspecified asthma, uncomplicated
CPT/HCPCS: 99282; 99283

== ENCOUNTER 2024-02-22 09:17 | Outpatient (AMB) | payer OTHER, SELFPAY ==
--- NOTE | 2024-02-22 09:24 | A.OFFPC_ITS ---
Vital Signs 3 02/22/24 09:35 Weight 282 lb 4 oz BP 128/88 Blood Pressure Location Lt brachial Position Sitting Respiration 13 Pulse 71 Pulse Source Pulse Oximeter Temp 98 F Pulse Oximetry (%) 98 Oxygen Delivery Method Room Air Intake Visit Reasons: ongoing neck, arm pain Intake Note: Ongoing neck pain and right arm pain. Went to [facility] last night. 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 [place]- albuterol sulfate 90 mcg/actuation (Ventolin HFA) 2 puffs inhalation Q6H PRN albuterol sulfate 2.5 mg (3 mL) inhalation Q4-6H PRN atorvastatin 40 mg PO BEDTIME azelastine (Astepro Allergy) 2 sprays intranasal DAILY blood pressure test kit-large As directed hydrochlorothiazide 12.5 mg PO QAM lidocaine 5% 1 patch topical DAILY lisinopril 20 mg PO BID loratadine 10 mg PO DAILY 90 days meclizine 25 mg PO TID PRN 3 months metformin ER 500 mg PO DAILY metoprolol succinate ER 25 mg PO DAILY 3 months montelukast (Singulair) 10 mg PO BEDTIME nabumetone 750 mg PO BID PRN nebulizers for acute asthma or reactions Tobacco use date assessed: 12/03/23 HPI HPI Comments 2 History of Present Illness0 Details Here today for hospital discharge follow-up. She was seen at [facility]'s Emergency room on February 15 and February 20 for her pain. These notes were reviewed. She is also active with [facility]'s pain management group. Recent visit x2. These notes were reviewed. Today she comes in stating that she feels like she has a pinched nerve. The pain starts to the right of her neck and radiates into her right shoulder through her right elbow. The pain is affecting her sleep. Reports that she can not lay on this side. Pain is described as pulling. She reports that she does not feel any spasm. She did try muscle relaxers and these did not provide any benefit. She is using the prescribed lidocaine patches however does not find great benefit. She does have a prescription for nabumetone which she uses twice per day as needed for her back and this has great effect. She has not tried to use it for this pain. She does have an order for physical therapy. She has not been able to start this yet. Reports that she has called to schedule the appointment. She has had imaging done. The imaging has not been formally read by radiology as at this time. Denies numbness, tingling. I have placed a call to [facility]'s pain management to discuss the case. Recommended physical therapy x6 weeks. If any neurovascular worries additional imaging should be ordered. However that is not the case today. Could entertain a PRN short script of tramadol or oxycodone. Offered visits for today and tomorrow if patient would like. I discussed [facility] Pain management's recommendations to her. She does not feel like she needs a visit at this time. She wishes to start physical therapy and we will call them today. [facility] Medical History Asthma Diabetes Elevated cholesterol History of COVID-19 Endometrial hyperplasia without atypia Obesity Anxiety PCOS (polycystic ovarian syndrome) Hypertension Surgical History History of dilatation and curettage History of cholecystectomy History of Family History Father Heart problem Mother Stroke Diabetes Son Asthma Social History Housing: House Are you a primary neonatal critical care nurse to a significant other at home: No Do you presently have visiting nurse or other home services: No Alcohol intake: never Comment: cramping Patient Tobacco Use Status: Never used Tobacco e-Cigarette/Vaping Use: Never Used Second Hand Smoke Exposure: No service: No Current occupational status: other 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 Joshua L. Lilibeth Ro, Shayne Streeter and colleagues, with an educational harpreet from [employer]. Review of Systems Const All systems reviewed & are unremarkable except as noted in HPI and below Physical exam (Primary Care) Vital Signs: Last Vital Signs Temp 98 F 02/22/24 09:35 Pulse 71 02/22/24 09:35 Resp 13 02/22/24 09:35 BP 128/88 02/22/24 09:35 Pulse Ox 98 02/22/24 09:35 Oxygen Delivery Method Room Air 02/22/24 09:35 Tobacco/Smoking Status: Tobacco use Status Tobacco use date assessed 12/03/23 02/22/24 09:25 Patient Tobacco Use Status Never used Tobacco 02/22/24 09:25 e-Cigarette/Vaping Use Never Used 02/22/24 09:25 Thrive Assessment: Date of Thrive Assessment Date Thrive assessed 12/03/23 02/22/24 09:25 Back/Spine/Pelvis Other: Awake alert oriented no acute distress, no focal deficits, neck full range of motion. Reduced range of motion right lateral due to pain as well as extension. Full range of motion of right arm. Skin is intact. Strength normal. Tone normal. Back/spine/pelvis image: 2 1. Pain with palpation Assessment and Plan Assessment & Plan (1) Hospital discharge follow-up: Code(s): Z09 - Encounter for follow-up examination after completed treatment for conditions other than malignant neoplasm (2) Cervical spondylosis: Comment: The plan will be to have her call physical therapy and arrange to start her 6 week course of treatment. Follow up with [facility] pain management after her imaging is reviewed. She has had it done it is just not read yet. In regards to her pain relief she can continue to use the lidocaine patches and I have encouraged her to try the nabumetone 750 mg as needed. She used this successfully for her low back pain. She should discontinue use of Flexeril, Zanaflex, Valium. I will ask her to come back to see me in 3 weeks to follow up sooner if needed. Code(s): M47.812 - Spondylosis without myelopathy or radiculopathy, cervical region Plan This note is constructed using voice recognition software. While every effort has been made to ensure accuracy in community development aide, still errors may have been included Sometimes, these errors may affect the content or meaning of the given sentence . Total time spent caring for the patient today was 60 minutes. This includes time spent before the visit reviewing the chart, time spent during the visit, and time spent after the visit on documentation Coding Level of Care Code Est Pt Level 5 (94214) Diagnoses Hospital discharge follow-up Z09 Cervical spondylosis M47.812
[2024-02-22 09:35] VITALS: BP 128/88; PULSE 71; RESP 13; TEMP 36.6; O2SAT 98
== END 2024-02-22 10:09 | disposition home or self-care (01) ==
PROVIDERS: PCP Nurse Practitioner Family; Visit Provider Nurse Practitioner Family
DX: M47.812 Spondylosis without myelopathy or radiculopathy, cervical region (principal); Z09 Encounter for follow-up examination after completed treatment for conditions other than malignant neoplasm
CPT/HCPCS: 99215

== ENCOUNTER 2024-02-25 13:21 | Emergency (ER) | payer OTHER, SELFPAY ==
--- NOTE | ~2024-02-25 | XR_ITS ---
EXAMINATION: Right shoulder and cervical spine. CLINICAL INDICATION: Atraumatic, right shoulder pain. TECHNIQUE: Right shoulder 3 views. Cervical spine 3 views. FINDINGS: Right shoulder: The glenohumeral and AC joint space is maintained normal. No visible acute fracture, dislocation or subluxation seen. The soft tissues are normal. Cervical spine: There is maintained cervical lordosis. The vertebral heights and alignment is normal. There is mild loss of C6-C7 disc height. Rest of the disc heights are normal. No visible acute fracture, dislocation or lytic process seen. The prevertebral soft tissues are normal. XR/XR cervical spine 3V IMPRESSION: 1. Unremarkable right shoulder exam. 2. Mild degenerative disc changes C6-C7 disc level. No visible acute fracture, dislocation or subluxation seen.
--- NOTE | ~2024-02-25 | XR_ITS ---
EXAMINATION: Right shoulder and cervical spine. CLINICAL INDICATION: Atraumatic, right shoulder pain. TECHNIQUE: Right shoulder 3 views. Cervical spine 3 views. FINDINGS: Right shoulder: The glenohumeral and AC joint space is maintained normal. No visible acute fracture, dislocation or subluxation seen. The soft tissues are normal. Cervical spine: There is maintained cervical lordosis. The vertebral heights and alignment is normal. There is mild loss of C6-C7 disc height. Rest of the disc heights are normal. No visible acute fracture, dislocation or lytic process seen. The prevertebral soft tissues are normal. XR/XR shoulder RT min 2V IMPRESSION: 1. Unremarkable right shoulder exam. 2. Mild degenerative disc changes C6-C7 disc level. No visible acute fracture, dislocation or subluxation seen.
[2024-02-25 13:46] VITALS: BP 191/78; PULSE 82; RESP 18; TEMP 36.3; O2SAT 98; BMI 45.9
--- NOTE | 2024-02-25 13:49 | ED_ITS ---
HPI - General Adult General Chief complaint: Extremity Injury, Upper Stated complaint: R Side Neck Shoulder Arm Pain Time Seen by Provider: 02/25/24 15:48 Source: patient Mode of arrival: ambulatory Limitations: no limitations History of Present Illness HPI narrative: 53-year-old female with a past medical history diabetes, HTN, and asthma presents to the emergency department with complaints right neck and shoulder pain for the past several weeks. She reports she has been seen multiple times in this emergency department and diagnosed with a muscle spasm. She reports she was given cyclobenzaprine and lidocaine patches which have not helped. She has an appointment on Thursday with pain management this having difficulty with range of motion and sleep secondary to pain. She reports intermittent paresthesias and weakness of the arm. She reports that pain is improved when hand is resting on top of her head. She denies any fevers, chills, trauma, overuse injury, history of IV drug use Pertinent positives and negatives discussed in HPI Related Data Home Medications Medication Instructions Recorded Confirmed metformin 500 mg tablet,extended 500 mg PO DAILY 12/03/23 02/22/24 release 24 hr Previous Rx's Medication Instructions Recorded meclizine 25 mg tablet 25 mg PO TID PRN dizziness 3 09/26/21 months #90 tabs montelukast 10 mg tablet 10 mg PO BEDTIME #90 tabs 01/01/22 (Singulair) nabumetone 750 mg tablet 750 mg PO BID PRN for pain #60 tabs 01/08/22 albuterol sulfate 2.5 mg/3 mL 2.5 mg (3 mL) inhalation Q4-6H PRN 02/06/22 (0.083 %) solution for nebulization shortness of breath or wheezing #90 mL blood pressure test kit-large #1 ea 03/03/22 nebulizers #1 ea 03/03/22 atorvastatin 40 mg tablet 40 mg PO BEDTIME #90 tabs 01/22/23 hydrochlorothiazide 12.5 mg tablet 12.5 mg PO QAM #30 tabs 05/07/23 lisinopril 20 mg tablet 20 mg PO BID #60 tabs 01/01/24 loratadine 10 mg capsule 10 mg PO DAILY 90 days #90 caps 01/14/24 metoprolol succinate 25 mg 25 mg PO DAILY 3 months #90 tabs 02/01/24 tablet,extended release 24 hr azelastine 205.5 mcg (0.15 %) 2 spray intranasal DAILY #30 mL 02/05/24 nasal spray (Astepro Allergy) albuterol sulfate 90 mcg/actuation 2 puff inhalation Q6H PRN for 02/11/24 aerosol inhaler (Ventolin HFA) wheezing #18 ea lidocaine 5 % topical patch 1 patch topical DAILY #30 ea 02/16/24 naproxen 500 mg tablet 500 mg PO BID PRN pain #30 tabs 02/25/24 prednisone 50 mg tablet 50 mg PO DAILY 5 days #5 tabs 02/25/24 Allergies Allergy/AdvReac Type Severity Reaction Status Date / Time Seasonal Allergies Allergy Intermediate Itchy Eyes Verified 02/22/24 09:45 Review of Systems 2 Review of Systems: Yes all other systems are reviewed and are negative [facility] Past Medical History Medical History Asthma Diabetes Elevated cholesterol History of COVID-19 Endometrial hyperplasia without atypia Obesity Anxiety PCOS (polycystic ovarian syndrome) Hypertension Surgical History History of dilatation and curettage History of cholecystectomy History of Family History Family History Father Heart problem Mother Stroke Diabetes Son Asthma Social History Social History Housing: House Are you a primary child care associate teacher to a significant other at home: No Do you presently have visiting nurse or other home services: No Alcohol intake: never Comment: cramping Patient Tobacco Use Status: Never used Tobacco e-Cigarette/Vaping Use: Never Used Second Hand Smoke Exposure: No Advance Directives: No service: No Current occupational status: other 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 GENERAL APPEARANCE: A&0 x 4, generally well appearing, no acute distress HENMT: Normal to inspection, atraumatic, face symmetrical. Normal external ears, nose, and oropharynx clear. EYE: PERRLA, EOM intact, structures appear normal NECK: Supple without stiffness. Decreased ROM when turning toward the right. Right-sided tenderness to palpation. HEART: Normal rate and regular rhythm, normal S1/S2, no M/R/G LUNGS: LS CTA, moving air well. Able to speak in complete sentences. No crackles, wheezes, or rhonchi auscultated BACK: No CVAT, no obvious deformity EXTREMITIES: Moving all extremities without difficulty. Normal capillary refill. NEUROLOGICAL: Alert and oriented, moving all 4 extremities with equal strength. CN not formally tested but appearing grossly intact. Observed to ambulate with normal gait. Cognition normal SKIN: Warm and dry without any lesions, rash, or visible sores Course Course Course Narrative: RME:?53 yo female w/ hx of HTN, PVC, asthma, anxiety, PCOS, vertigo, DDD, DM here for eval of atraumatic right neck and right shoulder pain x weeks. Seen in ED for same twice in the past two weeks with improvement of pain in ED w/ muscle relaxers. She has been on various muscle relaxers at home which have not been improving her pain. Has not followed up with pain management since last visit in ED. still waiting on x-ray reads from imaging ordered by pain management. labs, imaging ordered. Full HPI, ROS and PE to be performed by the primary ED provider. Medical Decision Making Medical Decision Making MDM Narrative: Old records reviewed for previous imaging, lab studies, ECGs, and notes. Patient was assessed the emergency department with no acute distress or toxicity noted. X-ray cervical spine and right shoulder completed showing no signs of acute fractures or dislocations per my interpretation. Radiologist remarks on mild degenerative disc changes in C6-C7 disc level. Patient's symptoms are consistent with cervical radiculopathy and patient educated that she can continue use of previously prescribed cyclobenzaprine and lidocaine patches. Naproxen prednisone since patient preferred pharmacy for further management of pain. Patient is safe for discharge at this time with plan for [id number] Tylenol and/or NSAID such as ibuprofen or naproxen for fever/discomfort with dosing as per packaging. HPI, PE, diagnostics, and plan discussed with patient and family with no unanswered questions at this time. Strict return precautions given to return to the emergency department with new, worsening, or concerning emergent symptoms. Recommended to follow-up with there primary care provider in 24-48 hours for further treatment and management. Differential Diagnosis Differential Diagnoses: The differential diagnosis associated with the presentation includes But not limited to cervical strain, spasm, strain, sprain, stenosis, abscess, radiculopathy, sepsis, malignancy Lab Data 02/25/24 14:16 02/25/24 14:16 Labs: Lab Results 02/25/24 Range/Units 14:16 WBC 10.7 (4.8-10.8) X10*3/uL RBC 5.10 (4.20-5.50) X10*6/uL Hgb 12.9 (12.0-16.0) g/dl Hct 39.9 (37.0-47.0) % MCV 78.2 L (80.0-98.0) fL MCH 25.3 L (27.0-33.0) pg MCHC 32.3 (31.0-35.0) g/dl RDW 16.2 H (11.0-16.0) % Plt Count 357 (160-400) X10*3/uL MPV 9.7 (9.4-12.3) fL Immature Gran % (Auto) 0.5 H (0.0-0.4) % Neut % (Auto) 67.5 (45-73) % Lymph % (Auto) 22.2 (20-40) % Mccreary % (Auto) 6.1 (2-11) % Eos % (Auto) 3.2 (0-4) % Baso % (Auto) 0.5 (0-2) % Lymph # (Auto) 2.4 (1.2-4.9) X10*3/uL Mccreary # (Auto) 0.7 (0.1-1.2) X10*3/uL Eos # (Auto) 0.3 (0.0-0.4) X10*3/uL Baso # (Auto) 0.1 (0.0-0.2) X10*3/uL Abs Immat Gran (auto) 0.05 H (0.00-0.03) X10*3/uL Absolute Neuts (auto) 7.3 (2.0-8.3) x10*3/uL Absolute Nucleated RBC 0.000 (0.0-0.012) X10*3/uL Nucleated RBC % (auto) 0.0 (0.0-0.2) /100WBC Sodium 141 (135-145) mmol/L Potassium 4.1 (3.3-5.1) mmol/L Chloride 105 (96-108) mmol/L Carbon Dioxide 29 (22-29) mmol/L Anion Gap 11 L (12-20) BUN 19 H (9-16) mg/dL Creatinine 1.19 (0.5-1.4) mg/dL Estim Creat Clear Calc 76.1 Estimated GFR 48 Random Glucose 118 H (60-115) mg/dL Calcium 10.0 (8.4-10.2) mg/dL Total Bilirubin 0.3 (0.0-1.0) mg/dL AST 16 (5-31) U/L ALT 17 (0-31) U/L Alkaline Phosphatase 149 H (39-117) U/L Total Protein 7.8 (6.5-8.0) g/dL Albumin 4.0 (3.5-5.0) g/dL Discharge Plan Discharge Clinical Impression: Neck pain on right side, Cervical radiculopathy Patient Disposition: Home, Self-Care Instructions: Cervical Radiculopathy (ED), Neck Pain (ED) Prescriptions: New naproxen 500 mg tablet 500 mg PO BID PRN (Reason: pain) Qty: 30 0RF prednisone 50 mg tablet 50 mg PO DAILY 5 Days Qty: 5 0RF No Action montelukast [Singulair] 10 mg tablet 10 mg PO BEDTIME Qty: 90 3RF (DME) nebulizers Misc See Rx Instructions .ROUTE .MEDSUPPLY Qty: 1 0RF Rx Instructions: for acute asthma or reactions (DME) blood pressure test kit-large Kit See Rx Instructions .Route Qty: 1 0RF Rx Instructions: As directed atorvastatin 40 mg tablet 40 mg PO BEDTIME Qty: 90 3RF hydrochlorothiazide 12.5 mg tablet 12.5 mg PO QAM Qty: 30 2RF lisinopril 20 mg tablet 20 mg PO BID Qty: 60 3RF loratadine 10 mg capsule 10 mg PO DAILY 90 Days Qty: 90 0RF metoprolol succinate 25 mg tablet extended release 24 hr 25 mg PO DAILY 90 Days Qty: 90 0RF albuterol sulfate [Ventolin HFA] 90 mcg/actuation HFA aerosol inhaler 2 puff inhalation Q6H PRN (Reason: for wheezing) Qty: 18 0RF metformin 500 mg tablet extended release 24 hr 500 mg PO DAILY lidocaine 5 % adhesive patch,medicated 1 patch topical DAILY Qty: 30 0RF Rx Instructions: leave on most painful area for up to 12 hrs nabumetone 750 mg tablet 750 mg PO BID PRN (Reason: for pain) Qty: 60 2RF albuterol sulfate 2.5 mg /3 mL (0.083 %) solution for nebulization 2.5 mg inhalation Q4-6H PRN (Reason: shortness of breath or wheezing) Qty: 90 6RF azelastine [Astepro Allergy] 205.5 mcg (0.15 %) spray,non-aerosol 2 spray intranasal DAILY Qty: 30 2RF Rx Instructions: administer into each nostril meclizine 25 mg tablet 25 mg PO TID PRN (Reason: dizziness) 90 Days Qty: 90 1RF Referrals: [facility] [Provider Group] Ksenia Kent FNP-BC [Primary Care Provider] - Interventions: ED Discharge Assessment Last Done: 02/25/24 16:39 Discharge Date/Time: 02/25/24 16:40 Print Language: Pashto
[2024-02-25 14:28] LABS: MANUAL DIFF FLAG NO
[2024-02-25 14:33] LABS: Basophils Absolute Auto 0.1 X10*3/uL (0.0-0.2); Basophils Percent Auto 0.5 % (0-2); Eosinophils Absolute Auto 0.3 X10*3/uL (0.0-0.4); Eosinophils Percent Auto 3.2 % (0-4); Hematocrit 39.9 % (37.0-47.0); Hemoglobin 12.9 g/dl (12.0-16.0); Imm Gran Abs Auto 0.05 X10*3/uL (0.00-0.03); Imm Gran Pct Auto 0.5 % (0.0-0.4); Lymphocytes Absolute Auto 2.4 X10*3/uL (1.2-4.9); Lymphocytes Percent Auto 22.2 % (20-40); Mean Corpuscular HGB Conc 32.3 g/dl (31.0-35.0); Mean Corpuscular Hemoglobin 25.3 pg (27.0-33.0); Mean Corpuscular Volume 78.2 fL (80.0-98.0); Mean Platelet Volume 9.7 fL (9.4-12.3); Monocytes Absolute Auto 0.7 X10*3/uL (0.1-1.2); Monocytes Percent Auto 6.1 % (2-11); Neutrophils Absolute Auto 7.3 x10*3/uL (2.0-8.3); Neutrophils Percent Auto 67.5 % (45-73); Platelet Count 357 X10*3/uL (160-400); Red Cell Distribution Width 16.2 % (11.0-16.0); White Blood Count 10.7 X10*3/uL (4.8-10.8)
[2024-02-25 14:44] LABS: Alanine Aminotransferase 17 U/L (0-31); Alkaline Phosphatase 149 U/L (39-117); Anion Gap 11 (12-20); Aspartate Amino Transferase 16 U/L (5-31); Bilirubin Total 0.3 mg/dL (0.0-1.0); Blood Urea Nitrogen 19 mg/dL (9-16); Carbon Dioxide 29 mmol/L (22-29); Chloride 105 mmol/L (96-108); Creatinine Clr Calc Pharmacy 76.1; Estimated Glomerular Filt Rate 48; Glucose Random 118 mg/dL (60-115); Potassium 4.1 mmol/L (3.3-5.1); Sodium 141 mmol/L (135-145); Total Protein 7.8 g/dL (6.5-8.0)
[2024-02-25 16:32] VITALS: BP 155/64; PULSE 72; RESP 16; TEMP 36.8; O2SAT 96
[2024-02-25 16:39] VITALS: BP 155/64; PULSE 72; RESP 16; TEMP 36.8; O2SAT 96
== END 2024-02-25 16:40 | disposition home or self-care (01) ==
PROVIDERS: Physician Assistant Medical; Emergency Provider Emergency Medicine; PCP Nurse Practitioner Family
DX: M54.12 Radiculopathy, cervical region (principal); M25.511 Pain in right shoulder; E11.9 Type 2 diabetes mellitus without complications; I10 Essential (primary) hypertension; J45.909 Unspecified asthma, uncomplicated; Z79.84 Long term (current) use of oral hypoglycemic drugs
CPT/HCPCS: 36415; 72040; 73030; 80053; 85025; 99283

== ENCOUNTER 2024-02-26 02:51 | Emergency (ER) | payer OTHER, SELFPAY ==
[2024-02-26 02:56] VITALS: BP 173/91; PULSE 84; RESP 18; TEMP 36.9; O2SAT 96; BMI 45.2
== END 2024-02-26 06:34 | disposition left against medical advice (07) ==
PROVIDERS: Emergency Provider Emergency Medicine
DX: R21 Rash and other nonspecific skin eruption (principal)
CPT/HCPCS: 99281

== ENCOUNTER 2024-03-14 08:34 | Outpatient (AMB) | payer OTHER, SELFPAY ==
[2024-03-14 08:54] VITALS: BP 148/72; PULSE 72; O2SAT 98; BMI 29.4
--- NOTE | 2024-03-14 08:54 | A.OFFPC_ITS ---
Vital Signs 03/14/24 08:54 03/14/24 09:26 Height 5 ft 6 in Weight 182 lb 1 oz BMI 29.4 BP 148/72 H 134/62 Blood Pressure Location Rt brachial Rt brachial Position Sitting Sitting Pulse 72 Pulse Source Pulse Oximeter Pulse Oximetry (%) 98 Oxygen Delivery Method Room Air Intake Visit Reasons: FU Right neck pain Intake Note: Patient is here to follow up on right neck pain. Allergies Seasonal Allergies Allergy (Intermediate, Verified 03/14/24 09:21) Itchy Eyes Medication List - Last Reconciled 03/14/24 by Ksenia Kent, [facility]- albuterol sulfate 90 mcg/actuation (Ventolin HFA) 2 puffs inhalation Q6H PRN albuterol sulfate 2.5 mg (3 mL) inhalation Q4-6H PRN atorvastatin 40 mg PO BEDTIME azelastine (Astepro Allergy) 2 sprays intranasal DAILY blood pressure test kit-large As directed hydrochlorothiazide 12.5 mg PO QAM lidocaine 5% 1 patch topical DAILY lisinopril 20 mg PO BID loratadine 10 mg PO DAILY 90 days meclizine 25 mg PO TID PRN 3 months metformin ER 500 mg PO DAILY metoprolol succinate ER 25 mg PO DAILY 3 months montelukast (Singulair) 10 mg PO BEDTIME nabumetone 750 mg PO BID PRN naproxen 500 mg PO BID PRN nebulizers for acute asthma or reactions Tobacco use date assessed: 03/14/24 Dental Screening Dental Screen Date: 12/03/23 HPI HPI Comments History of Present Illness Details Here today for fu of neck pain w/ radicular sx Xray shoulder/C spine 02/25/24 done at ED 1. Unremarkable right shoulder exam. 2. Mild degenerative disc changes C6-C7 disc level. No visible acute fracture, dislocation or subluxation seen. Since last visit: Started physical therapy; going 2x/week . For 6 weeks at this time. Pain is much better. Using kinesiology tape with good effects Using naprosyn for R arm pain. Correlates this with increase in blood sugar and blood pressure. Stopped using 3 days ago, as the tape is helping. Now she is able to sleep. Feels so much better. [facility] Medical History Asthma Diabetes Elevated cholesterol History of COVID-19 Endometrial hyperplasia without atypia Obesity Anxiety PCOS (polycystic ovarian syndrome) Hypertension Surgical History History of dilatation and curettage History of cholecystectomy History of Family History Father Heart problem Mother Stroke Diabetes Son Asthma Social History Housing: House Are you a primary intensive care nurse to a significant other at home: No Do you presently have visiting nurse or other home services: No Alcohol intake: never Comment: cramping Patient Tobacco Use Status: Never used Tobacco e-Cigarette/Vaping Use: Never Used Second Hand Smoke Exposure: No service: No Current occupational status: other 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 Joshua Ro, Lilibeth Tafoya, Shayne Streeter and colleagues, with an educational harpreet from [employer]. Review of Systems Const All systems reviewed & are unremarkable except as noted in HPI and below Physical exam (Primary Care) Vital Signs: Last Vital Signs Pulse 72 03/14/24 08:54 BP 148/72 H 03/14/24 08:54 Pulse Ox 98 03/14/24 08:54 Oxygen Delivery Method Room Air 03/14/24 08:54 BMI result Body Mass Index 29.4 Tobacco/Smoking Status: Tobacco use Status Tobacco use date assessed 03/14/24 03/14/24 08:56 Patient Tobacco Use Status Never used Tobacco 03/14/24 08:56 e-Cigarette/Vaping Use Never Used 03/14/24 08:56 Thrive Assessment: Date of Thrive Assessment Date Thrive assessed 12/03/23 03/14/24 08:56 Const Other: awake alert NAD PERRLA, EOMI Neck FROM R arm/shoulder FROM Neurovasc intact Assessment and Plan Assessment & Plan (1) Right shoulder pain: Code(s): M25.511 - Pain in right shoulder Qualifiers: Chronicity: acute Qualified Code(s): M25.511 - Pain in right shoulder (2) Cervical spondylosis: Comment: Great improvement in Sx after starting PT, continue She was using Naproxen sparingly with + effect, however noted increase in blood sugar and blood pressure; she no longer needs. Advised to cont PT and supportive measures Code(s): M47.812 - Spondylosis without myelopathy or radiculopathy, cervical region (3) Diabetes: Code(s): E11.9 - Type 2 diabetes mellitus without complications Qualifiers: Diabetes mellitus type: type 2 Diabetes mellitus complication detail: with other circulatory complications Plan This note is constructed using voice recognition software. While every effort has been made to ensure accuracy in asphalt plant operator, still errors may have been included Sometimes, these errors may affect the content or meaning of the given sentence . Total time spent caring for the patient today was 30 minutes. This includes time spent before the visit reviewing the chart, time spent during the visit, and time spent after the visit on documentation Orders: Orders Hemoglobin A1c 03/30/24 E11.9 - Type 2 diabetes mellitus without complications Coding Level of Care Code Est Pt Level 4 (85120) Diagnoses Acute pain of right shoulder M25.511 Chronicity: acute Cervical spondylosis M47.812 Diabetes E11.9 Diabetes mellitus type: type 2 Diabetes mellitus complication detail: with other circulatory complications
[2024-03-14 09:26] VITALS: BP 134/62
== END 2024-03-14 10:51 | disposition home or self-care (01) ==
PROVIDERS: PCP Nurse Practitioner Family; Visit Provider Nurse Practitioner Family
DX: M25.511 Pain in right shoulder (principal); M47.812 Spondylosis without myelopathy or radiculopathy, cervical region; E11.9 Type 2 diabetes mellitus without complications
CPT/HCPCS: 99214

== ENCOUNTER 2024-04-11 11:00 | Outpatient (RCR) | payer OTHER, SELFPAY ==
--- NOTE | 2024-03-07 13:25 | MHC.PT.EP ---
[facility] [place] Office [place] Office [place] Office [address] [phone] F: [phone] F: [phone] F: [phone] F: [phone] Physical Therapy Plan of Care Date of Evaluation: 03/04/24 Date of Surgery: Diagnosis: Pain R shoulder and neck Assessment: Pt is a 53 yo female who presents to PT for R sided neck and arm pain, some radicular symptoms reported. Skilled PT indicated to reduce pain and muscle tension, improve posture and her ability to correct body mechanics when needed, normalize AROM and stability of spine. Pt in agreement with POC and is motivated to participate. Frequency and Duration: The patient will be seen 2x/week, x 6 weeks Short Term Goals: 1. In 2 weeks, patient will be able to achieve cervical neutral in sitting position. 2. In 2 weeks, patient will be I with phase 1 cervicothoracic stabilization exercises and stretches. [facility] Goals: 1. In 4 weeks, patient will report reduction of nerve pain/numbness by 50%. 2. In 4 weeks, patient will be able to complete > 75% AROM all planes to improve her functional mobility. 3. In 4 weeks, patient will improve cervical stability with timed score of 20 seconds for deep neck flexor endurance test. Treatment Plan: Modalities to reduce pain, spasms and effusion. Manual therapy to restore motion and function. Therapeutic exercise to improve strength and flexibility. Neuromuscular re-education for posture and balance. Therapeutic activities to return to functional activities of daily living. Electronically signed by: Ana Rainey PT, DPT Please sign and return to therapist. Thank you for your referral.
--- NOTE | 2024-04-11 11:59 | MHC.PT.DC ---
[facility] [place] Office [place] Office [place] Office [address] [phone] F: [phone] F: [phone] F: [phone] F: [phone] Physical Therapy Discharge Report Diagnosis: Pain R shoulder and neck Date of Surgery: Date of Evaluation: 03/04/24 Date of Discharge: 04/11/24 Treatments to Date: 8 Cancellations to Date: No Shows to Date: Discharge Status: Achieved Goals Improved Function Independent with HEP Discharge Summary: Pt attended 8 PT sessions for R sided neck/shoulder pain, preventing her from sleeping and using R UE normally. Pt with good compliance with PT and HEP, and met all goals in POC. Significant improvement in cervical ROM, child support investigator strength, and deep neck flexor endurance described below. -cervical extension improved 30 degrees to 55 degrees -cervical sidebending to R improved 20 degrees to 45 degrees -cervical sidebending to the L improved 20 degrees to 40 degrees -L cerv rotation improved 5 degrees to 75 degrees, and R rotation improved to 78 degrees from 42 degrees on IE. -child support investigator strength near equal R UE vs L UE -DNF endurance > 20 seconds Pt recommended to continue HEP for maintenance and to prevent re-injury in the future, and to continue postural correction as needed. Pt in agreement and will be D/C to HEP at this time. Thank you for this referral. Electronically signed by: Ana Rainey PT, DPT Please sign and return to therapist. Thank you for your referral.
== END 2024-04-11 12:00 | disposition home or self-care (01) ==
LOC: HO.PT 11:00
PROVIDERS: PCP Nurse Practitioner Family; Visit Provider Nurse Practitioner Family
DX: M25.511 Pain in right shoulder (principal); M47.812 Spondylosis without myelopathy or radiculopathy, cervical region; M62.838 Other muscle spasm
CPT/HCPCS: 97110; 97140; 97161

== ENCOUNTER 2024-04-28 08:04 | Outpatient (REF) | payer OTHER, SELFPAY ==
[2024-04-28 09:16] LABS: Estimated Average Glucose 131 mg/dL; Hemoglobin A1c % 6.2 % (<6.0)
[2024-04-28 09:17] LABS: Creatinine Urine 193.26 mg/dL; Microalbum/Creatinine Ratio Ur 4.1 ug/mg cr (<30)
[2024-04-28 09:30] LABS: Alanine Aminotransferase 16 U/L (0-31); Albumin Level 4.1 g/dL (3.5-5.0); Alkaline Phosphatase 138 U/L (39-117); Anion Gap 14 (12-20); Aspartate Amino Transferase 18 U/L (5-31); Bilirubin Total 0.4 mg/dL (0.0-1.0); Blood Urea Nitrogen 14 mg/dL (9-16); Calcium 9.3 mg/dL (8.4-10.2); Carbon Dioxide 27 mmol/L (22-29); Chloride 105 mmol/L (96-108); Cholesterol 198 mg/dL (<200); Estimated Glomerular Filt Rate > 60; Glucose Fasting 104 mg/dL (60-99); HDL Cholesterol 50 mg/dL (>40); LDL Cholesterol Calculated 118 mg/dL (<100); Potassium 3.9 mmol/L (3.3-5.1); Sodium 142 mmol/L (135-145); Total Protein 7.7 g/dL (6.5-8.0); Triglycerides 154 mg/dL (<150)
[2024-04-28 09:46] LABS: TSH reflex Free T4 2.45 uIU/mL (0.32-4.0)
[2024-05-03 02:47] LABS: VITAMIN D (1,25 OH) D3 39 pg/mL; Vit D (1,25-Dihydroxy) Total 39 pg/mL (18-72); Vitamin D (1,25 OH) D2 <8 pg/mL
== END 2024-04-28 08:05 | disposition home or self-care (01) ==
LOC: HO.LAB 08:04
PROVIDERS: PCP Nurse Practitioner Family; Visit Provider Nurse Practitioner Family
DX: E11.9 Type 2 diabetes mellitus without complications (principal); E66.01 Morbid (severe) obesity due to excess calories; E78.00 Pure hypercholesterolemia, unspecified; I10 Essential (primary) hypertension
CPT/HCPCS: 36415; 80053; 80061; 82043; 82570; 82652; 83036; 84443

== ENCOUNTER 2024-04-29 09:18 | Outpatient (AMB) | payer OTHER, SELFPAY ==
--- NOTE | 2024-04-29 09:35 | A.OFFVIS_ITS ---
Vital Signs 04/29/24 09:42 Height 5 ft 6 in Weight 280 lb BMI 45.2 BP 138/78 Blood Pressure Location Rt radial Position Sitting Respiration 14 Pulse 62 Pulse Source Pulse Oximeter Temp 97.4 F Temp Source Oral Pulse Oximetry (%) 99 Oxygen Delivery Method Room Air Intake Visit Reasons: DM follow up Intake Note: Pt states she has alot of allergies to the weather, has a sore throat and cant stop sneezing, she is also wheezing. Allergies Seasonal Allergies Allergy (Intermediate, Verified 03/14/24 09:21) Itchy Eyes Is last menstrual period known: No [facility] Medical History (Updated 04/08/24 @ 08:03 by Ksenia Kent, HEALTH SERVICES DIRECTOR-) Temporomandibular joint disorder (TMJ) Pneumonia due to 2019 novel coronavirus Osteoarthritis of right knee Asthma Diabetes Elevated cholesterol History of COVID-19 Endometrial hyperplasia without atypia Obesity Anxiety PCOS (polycystic ovarian syndrome) Hypertension Surgical History History of dilatation and curettage History of cholecystectomy History of Family History Father Heart problem Mother Stroke Diabetes Son Asthma Social History Housing: House Are you a primary care process manager to a significant other at home: No Do you presently have visiting nurse or other home services: No Alcohol intake: never Comment: cramping Patient Tobacco Use Status: Never used Tobacco e-Cigarette/Vaping Use: Never Used Second Hand Smoke Exposure: No service: No Current occupational status: other 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
[2024-04-29 09:42] VITALS: BP 138/78; PULSE 62; RESP 14; TEMP 36.3; O2SAT 99; BMI 45.2
--- NOTE | 2024-04-29 09:56 | MHC.PC.OV ---
Vital Signs 04/29/24 09:42 Height 5 ft 6 in Weight 280 lb BMI 45.2 BP 138/78 Blood Pressure Location Rt radial Position Sitting Respiration 14 Pulse 62 Pulse Source Pulse Oximeter Temp 97.4 F Temp Source Oral Pulse Oximetry (%) 99 Oxygen Delivery Method Room Air Intake Visit Reasons: DM follow up Intake Note: New Patient visit Allergies Seasonal Allergies Allergy (Intermediate, Verified 04/29/24 10:13) Itchy Eyes Medication List - Last Reconciled 04/29/24 by Ksenia Kent, [facility]- albuterol sulfate 2.5 mg (3 mL) inhalation Q4-6H PRN albuterol sulfate 90 mcg/actuation (Ventolin HFA) 2 puffs inhalation Q6H PRN atorvastatin 40 mg PO BEDTIME azelastine (Astepro Allergy) 2 sprays intranasal DAILY blood pressure test kit-large As directed hydrochlorothiazide 12.5 mg PO QAM lidocaine 5% 1 patch topical DAILY lisinopril 20 mg PO BID loratadine 10 mg PO DAILY 90 days metformin ER 500 mg PO DAILY metoprolol succinate ER 25 mg PO DAILY 3 months montelukast (Singulair) 10 mg PO BEDTIME nabumetone 750 mg PO BID PRN nebulizers for acute asthma or reactions Tobacco use date assessed: 03/14/24 Dental Screening Dental Screen Date: 12/03/23 HPI HPI Comments History of Present Illness Details 53-year-old female with morbid obesity, diabetes type 2, hyperlipidemia, hypertension, mild intermittent asthma, seasonal allergies, benign positional vertigo, generalized anxiety disorder, PCOS, osteoarthritis, cervical and lumbar radicular back pain, CK 3A, MDD Status post D&C x3 with uterine polypectomy, cholecystectomy, x2 Health Maintenance: Mammo 02/15/24 WNL Colon 10/08/[address] [facility] DEXA PAP 01/02/22 WNL Tdap >> Due DME: Reports she had a diabetic eye exam done in the last calendar year, reports negative for retinopathy. I have requested this report for review. HgA1c 6.2% 04/28/24 Specialists: [facility] Here today for follow up on chronic conditions. Since last office visit she reports that her blood sugars have been stable. She is taking her statin as directed however forgets to take about 1 time per week. No changes in her dietary habits. However her lipid profile has worsened slightly since the last office visit. Her A1c remains steady at 6.2%. She denies any issues with hypoglycemia. Tolerating compliant of her blood pressure medications. Renal labs are stable. Blood pressure is at goal. Her asthma is triggered by seasonal allergies. Reports an uptic in wheezing lately. Was taking a maintenance inhaler but only for a short time during a flare of asthma a few months ago. Mood is good. Labs 02/25/2024 normal electrolytes, BUN 19, creatinine 1.19, EGFR 48, alk phos elevated 149 with normal LFTs, Lipid profile 12/16/2023 LDL 110, total cholesterol 182, triglycerides 144, HDL 44 Labs 04/28/2024 show normal electrolytes, normal renal function, fasting glucose 104, hemoglobin A1c 6.2%, normal LFTs, alk phos 138, total cholesterol 198, triglycerides 154, LDL 118, HDL 50, normal TSH, normal urine microalbumin creatinine ratio, vitamin-D pending Plan: Increase atorvastatin from 40 mg to 80 mg per day, goal LDL less than 70 Continue blood pressure medications Continue metformin at current dose Start budesonide/formoterol 4 asthma 1 puff twice per day. Return to office in 4 months with fasting labs due 1 week before to follow up on chronic conditions. Sooner as needed. [facility] Medical History (Updated 04/29/24 @ 13:47 by Ksenia Kent, [facility]) Hypertension, essential Disc disease, degenerative, lumbar or lumbosacral Radiculopathy affecting upper extremity Spinal osteophytosis DDD (degenerative disc disease), thoracolumbar Lumbar spondylosis Temporomandibular joint disorder (TMJ) Pneumonia due to 2019 novel coronavirus Osteoarthritis of right knee Asthma Diabetes Elevated cholesterol History of COVID-19 Endometrial hyperplasia without atypia Obesity Anxiety PCOS (polycystic ovarian syndrome) Hypertension Surgical History History of dilatation and curettage History of cholecystectomy History of Family History (Updated 04/29/24 @ 10:20 by Emiliana Garcia CMA) Father Heart problem HTN (hypertension) Hypercholesteremia Cancer Mother Stroke Diabetes Asthma HTN (hypertension) Son Asthma Social History Housing: House Are you a primary career and guidance counselor to a significant other at home: No Do you presently have visiting nurse or other home services: No Alcohol intake: never Comment: cramping Patient Tobacco Use Status: Never used Tobacco e-Cigarette/Vaping Use: Never Used Second Hand Smoke Exposure: No service: No Current occupational status: other 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 1. Little interest or pleasure in doing things: not at all 2. Feeling down, depressed, or hopeless: not at all 3. Trouble falling or staying asleep, or sleeping too much: not at all 4. Feeling tired or having little energy: several days 5. Poor appetite or overeating: several days 6. Feeling bad about yourself - or that you are a failure or have let yourself or your family down: not at all 7. Trouble concentrating on things, such as reading the newspaper or watching television: several days 8. Moving or speaking so slowly that other people could have noticed. Or the opposite - being so fidgety or restless that you have been moving around a lot more than usual: not at all 9. Thoughts that you would be better off or of hurting yourself in some way: not at all Total score: 3 Depression Screening Interpretation: Positive Depression Screening Done: Yes 44290 - PHQ-9 Billing: Yes Source: Developed by Drs. Joshua Ro, Lilibeth Tafoya, Shayne Streeter and colleagues, with an educational harpreet from [employer]. Thrive Questionnaire Date Thrive assessed: 04/29/24 I am a: Patient What is your living situation today?: I have a steady place to live Within the past 12 months, did the food you bought not last and you didn't have the money to get more?: Never true Within the past 12 months, did you worry whether your food would run out before you got money to buy more?: Never true Do you have trouble paying for medicines?: No Do you have trouble getting transportation to medical appointments?: No Do you have trouble paying your heating and electricity bill?: Yes Do you have trouble taking care of your child, family member or friend?: No Do you have trouble with day-to-day activities such as bathing, preparing meals, shopping, managing finances, etc.?: Yes Are you currently unemployed and looking for a job?: No Are you interested in more education?: No Please select the resources that you would like help with: None Currently or been in a relationship where the following occur: no concerns reported THRIVE Score: 1 AUDIT C Alcohol Use Questionnaire (AUDIT-C) 1. How often do you have a drink containing alcohol?: Never 3. How often do you have six or more drinks on one occasion?: Never Total Score: 0 KSENIA-7 AMB Questionnaire KSENIA-7 Date KSENIA - 7 assessed: 04/29/24 Feeling nervous, anxious, or on edge: 0 = Not at all Not being able to stop or control worryin = Not at all Worrying too much about different things: 1 = Several days Trouble relaxin = Several days Being so restless that it is hard to sit still: 0 = Not at all Becoming easily annoyed or irritable: 0 = Not at all Feeling afraid as if something awful might happen: 0 = Not at all Total KSENIA-7 score (0-4 normal; 5-9 mild; 10-14 moderate; 15-21 severe): 2 Source: Developed by Drs. Joshua Ro, Lilibeth Tafoya, Shayne Streeter and colleagues, with an educational harpreet from [employer]. KSENIA-7 Assessment Billing KSENIA-7 Assessment Tool: KSENIA-7 Assessment 37042 ACT Questionnaire In the past 4 weeks, how much of the time did your asthma keep you from getting as much done at work, school or at home?: Some of the time During the past 4 weeks, how often have you had shortness of breath?: More than once a day During the past 4 weeks, how often did your asthma symptoms wake you up at night or earlier than usual in the morning?: 4 or more nights a week During the past 4 weeks, how often have you had to use your rescue inhaler or nebulizer medication?: More than 3 times per day How would you rate your asthma control during the past 4 weeks?: Somewhat controlled ACT Interpretation: Positive Score: 9 Review of Systems Const All systems reviewed & are unremarkable except as noted in HPI and below Physical exam (Primary Care) Vital Signs: Last Vital Signs Temp 97.4 F 04/29/24 09:42 Pulse 62 04/29/24 09:42 Resp 14 04/29/24 09:42 BP 138/78 04/29/24 09:42 Pulse Ox 99 04/29/24 09:42 Oxygen Delivery Method Room Air 04/29/24 09:42 BMI result Body Mass Index 45.2 BMI Assessment/Plan discussion: High BMI High, discussed plan: lifestyle Tobacco/Smoking Status: Tobacco use Status Tobacco use date assessed 03/14/24 04/29/24 09:58 Patient Tobacco Use Status Never used Tobacco 04/29/24 09:58 e-Cigarette/Vaping Use Never Used 04/29/24 09:58 PHQ-9: PHQ-9 Score PHQ-9: Total score 3 04/29/24 11:14 Depression Screening Interpretation: Positive Thrive Assessment: Date of Thrive Assessment Date Thrive assessed 04/29/24 04/29/24 09:58 Currently or been in a relationship where the following occur: no concerns reported Const Other: Awake alert NAD Sclera and conjunctiva clear bilat Nares patent, turbinates mild edema and pale, no sinus tenderness with palpation bilat TM intact and clear bilat MMM, pharynx positive postnasal drip RRR LS CTAB diminished throughout Bilateral lower extremities no edema, skin intact, pedal pulses within normal limits. Diabetic foot exam performed today. Normal monofilament and vibratory sensation bilat. Mood and affect appropriate. Results AMB Hemoglobin A1c AMB Hemoglobin A1c 6.3 % Last Edit by Emiliana Garcia CMA on 04/29/24 10:25 Results Reviewed Results Reviewed: Laboratory Last Values Hgb A1c (Clinic) 6.3 % (4.0-6.0) H 04/29/24 10:24 Assessment and Plan Assessment & Plan (1) Diabetes mellitus type 2 with complications: Code(s): E11.8 - Type 2 diabetes mellitus with unspecified complications (2) Hypertension: Comment: at goal on current meds, cont. Code(s): I10 - Essential (primary) hypertension Qualifiers: Hypertension type: primary hypertension Qualified Code(s): I10 - Essential (primary) hypertension (3) High cholesterol: Code(s): E78.00 - Pure hypercholesterolemia, unspecified (4) CKD stage 3 due to type 2 diabetes mellitus: Code(s): E11.22 - Type 2 diabetes mellitus with diabetic chronic kidney disease; N18.30 - Chronic kidney disease, stage 3 unspecified (5) MDD (major depressive disorder), recurrent episode: Code(s): F33.9 - Major depressive disorder, recurrent, unspecified Qualifiers: Major depression episode severity: mild Qualified Code(s): F33.0 - Major depressive disorder, recurrent, mild (6) BMI 45.0-49.9, adult: Code(s): Z68.42 - Body mass index [BMI] 45.0-49.9, adult (7) Asthma, intermittent: Code(s): J45.20 - Mild intermittent asthma, uncomplicated Qualifiers: Asthma complication type: with acute exacerbation Asthma severity: mild Qualified Code(s): J45.21 - Mild intermittent asthma with (acute) exacerbation (8) KSENIA (generalized anxiety disorder): Code(s): F41.1 - Generalized anxiety disorder Plan This note is constructed using voice recognition software. While every effort has been made to ensure accuracy in resource economist, still errors may have been included Sometimes, these errors may affect the content or meaning of the given sentence . Total time spent caring for the patient today was 50 minutes. This includes time spent before the visit reviewing the chart, time spent during the visit, and time spent after the visit on documentation Orders: Orders AMB Diabetic Foot Exam Today E11.8 - Type 2 diabetes mellitus with unspecified complications Hemoglobin A1c 07/25/24 E11.22 - Type 2 diabetes mellitus with diabetic chronic kidney disease, E11.8 - Type 2 diabetes mellitus with unspecified complications, E78.00 - Pure hypercholesterolemia, unspecified, I10 - Essential (primary) hypertension, N18.30 - Chronic kidney disease, stage 3 unspecified Vitamin B12 07/25/24 E11.22 - Type 2 diabetes mellitus with diabetic chronic kidney disease, E11.8 - Type 2 diabetes mellitus with unspecified complications, E78.00 - Pure hypercholesterolemia, unspecified, I10 - Essential (primary) hypertension, N18.30 - Chronic kidney disease, stage 3 unspecified AMB Hemoglobin A1c Today E11.22 - Type 2 diabetes mellitus with diabetic chronic kidney disease, N18.30 - Chronic kidney disease, stage 3 unspecified Microalbumin, Random (w Creat) 07/25/24 E11.22 - Type 2 diabetes mellitus with diabetic chronic kidney disease, E11.8 - Type 2 diabetes mellitus with unspecified complications, E78.00 - Pure hypercholesterolemia, unspecified, I10 - Essential (primary) hypertension, N18.30 - Chronic kidney disease, stage 3 unspecified Comprehensive [place]. Panel Fast 07/25/24 E11.22 - Type 2 diabetes mellitus with diabetic chronic kidney disease, E11.8 - Type 2 diabetes mellitus with unspecified complications, E78.00 - Pure hypercholesterolemia, unspecified, I10 - Essential (primary) hypertension, N18.30 - Chronic kidney disease, stage 3 unspecified Lipid Panel 07/25/24 E11.22 - Type 2 diabetes mellitus with diabetic chronic kidney disease, E11.8 - Type 2 diabetes mellitus with unspecified complications, E78.00 - Pure hypercholesterolemia, unspecified, I10 - Essential (primary) hypertension, N18.30 - Chronic kidney disease, stage 3 unspecified Medications: New metformin ER 500 mg PO DAILY 90 tabs 0RF atorvastatin 80 mg PO QPM 90 tabs 0RF budesonide-formoterol 80-4.5 mcg/actuation 1 inh inhalation BID 30.6 grams 0RF 90 days Discontinued atorvastatin Discontinued Reason: Doctor's Order 40 mg PO BEDTIME 90 tabs 1RF E78.00 - Pure hypercholesterolemia, unspecified Patient Instructions: Plan: Increase atorvastatin from 40 mg to 80 mg per day, goal LDL less than 70 Continue blood pressure medications Continue metformin at current dose Start budesonide/formoterol 4 asthma 1 puff twice per day. Return to office in 4 months with fasting labs due 1 week before to follow up on chronic conditions. Sooner as needed. Coding Level of Care Code Est Pt Level 5 (63871) Diagnoses Diabetes mellitus type 2 with complications E11.8 Primary hypertension I10 Hypertension type: primary hypertension High cholesterol E78.00 CKD stage 3 due to type 2 diabetes mellitus E11.22; N18.30 Mild episode of recurrent major depressive disorder F33.0 Major depression episode severity: mild BMI 45.0-49.9, adult Z68.42 Mild intermittent asthma with acute exacerbation J45.21 Asthma complication type: with acute exacerbation Asthma severity: mild KSENIA (generalized anxiety disorder) F41.1 Additional Codes KSENIA-7 Assessment Billing - KSENIA-7 Assessment Tool: KSENIA-7 Assessment [id number] ([id number])
== END 2024-04-29 10:32 | disposition home or self-care (01) ==
PROVIDERS: PCP Nurse Practitioner Family; Visit Provider Nurse Practitioner Family
DX: I12.9 Hypertensive chronic kidney disease with stage 1 through stage 4 chronic kidney disease, or unspecified chronic kidney disease (principal); E11.22 Type 2 diabetes mellitus with diabetic chronic kidney disease; E11.8 Type 2 diabetes mellitus with unspecified complications; N18.30 Chronic kidney disease, stage 3 unspecified; Z68.42 Body mass index [BMI] 45.0-49.9, adult; F33.0 Major depressive disorder, recurrent, mild; E78.00 Pure hypercholesterolemia, unspecified; J45.21 Mild intermittent asthma with (acute) exacerbation; F41.1 Generalized anxiety disorder
CPT/HCPCS: 83036; 99215

== ENCOUNTER 2024-11-02 10:01 | Emergency (ER) | payer OTHER, SELFPAY ==
--- NOTE | ~2024-11-02 | XR_ITS ---
EXAMINATION: XR HIP, LEFT CLINICAL INFORMATION: pain COMPARISON: None available. TECHNIQUE: Two views of the left hip. FINDINGS: No acute cortical disruption or gross malalignment in the left coxofemoral joint. Bony pelvis is intact. The right hip appears intact. 5 mm sclerotic marginated lytic lesion in the right ischium. No blastic lesions. XR/XR hip LT w PEL1V IMPRESSION: No acute fracture or dislocation, left hip. Questionable 5 mm lytic lesion, right ischium.. Electronically signed by: Ryley Voss MD 11/02/2024 12:52 PM EST RP
[2024-11-02 10:17] VITALS: BP 151/73; PULSE 76; RESP 20; TEMP 36.4; O2SAT 98; BMI 44.4
--- NOTE | 2024-11-02 10:21 | ED.LOWEXIN ---
HPI - Extremity Injury (Lower) General Chief Complaint: Back Pain/Injury Stated Complaint: pinched nerve? hip pain Time Seen by Provider: 11/02/24 13:31 Source: patient and RN notes reviewed Mode of arrival: ambulatory Limitations: no limitations History of Present Illness ED Provider: Angle Merlos PA-C HPI Narrative: This is a 54-year-old female, with a history of prediabetic on metformin, MDD, PCOS, who presents emergency department with complaints of left hip pain and left low back pain x1 week. Patient states that while she was preparing food for Thanksgiving she bent over and developed left sided lower back pain. She states that the pain starts in her left low back/hip region, and radiates into her front of her left hip, and radiates down the front of her leg. She reports that the pain is exacerbated with movement. She denies any fevers, chills, chest pain, shortness of breath, abdominal pain, nausea, vomiting or diarrhea. She has been taking ibuprofen, Tylenol, muscle relaxants, with minimal relief. She reports that she has a history of sciatica on the right, never on the left. She denies any profound night sweats or changes in weight. She does report that she had a hysterectomy secondary to uterine cancer 2 years ago. No other complaints or concerns at this time. MD complaint: hip injury Onset (ago): day(s) Relieving factors: nothing Exacerbating factors: weight bearing and palpation Related Data Previous Rx's ?Medication ?Instructions ?Recorded montelukast 10 mg tablet 10 mg PO BEDTIME #90 tabs 01/01/22 (Singulair) nabumetone 750 mg tablet 750 mg PO BID PRN for pain #60 tabs 01/08/22 albuterol sulfate 2.5 mg/3 mL 2.5 mg (3 mL) inhalation Q4-6H PRN 02/06/22 (0.083 %) solution for nebulization shortness of breath or wheezing #90 mL blood pressure test kit-large #1 ea 03/03/22 loratadine 10 mg capsule 10 mg PO DAILY 90 days #90 caps 01/14/24 metoprolol succinate 25 mg 25 mg PO DAILY 3 months #90 tabs 02/01/24 tablet,extended release 24 hr azelastine 205.5 mcg (0.15 %) 2 spray intranasal DAILY #30 mL 02/05/24 nasal spray (Astepro Allergy) lidocaine 5 % topical patch 1 patch topical DAILY #30 ea 02/16/24 albuterol sulfate 90 mcg/actuation 2 puff inhalation Q6H PRN for 04/07/24 aerosol inhaler (Ventolin HFA) wheezing #18 ea lisinopril 20 mg tablet 20 mg PO BID #60 tabs 07/06/24 blood sugar diagnostic (FreeStyle #100 ea 07/14/24 Lite Strips) blood-glucose meter (FreeStyle #1 ea 07/14/24 Lite Meter kit) lancets 28 gauge (FreeStyle #100 ea 07/14/24 Lancets) nebulizers #1 ea 07/20/24 budesonide-formoterol HFA 80 1 puff PO BID #20.4 ea 07/28/24 mcg-4.5 mcg/actuation aerosol inhaler (Symbicort) metformin 500 mg tablet,extended 500 mg PO DAILY #90 tabs 07/28/24 release 24 hr atorvastatin 80 mg tablet 80 mg PO QPM #90 tabs 10/10/24 hydrochlorothiazide 12.5 mg tablet 12.5 mg PO QAM #90 tabs 10/10/24 prednisone 50 mg tablet 50 mg PO DAILY 5 days #5 tabs 11/02/24 Allergies Allergy/AdvReac Type Severity Reaction Status Date / Time Seasonal Allergies Allergy Intermediate Itchy Eyes Verified 11/02/24 10:20 Review of Systems Review of Systems: Yes all other systems are reviewed and are negative Constitutional: Constitutional: Reports as per [facility] [place] Past Medical History Medical History (Updated 11/02/24 @ 14:15 by GYPSY Vazquez) Hypertension, essential Disc disease, degenerative, lumbar or lumbosacral Radiculopathy affecting upper extremity Spinal osteophytosis DDD (degenerative disc disease), thoracolumbar Lumbar spondylosis Temporomandibular joint disorder (TMJ) Pneumonia due to 2019 novel coronavirus Osteoarthritis of right knee Asthma Diabetes Elevated cholesterol History of COVID-19 Endometrial hyperplasia without atypia Obesity Anxiety PCOS (polycystic ovarian syndrome) Hypertension Surgical History History of dilatation and curettage History of cholecystectomy History of Family History Family History (Updated 04/29/24 @ 10:20 by Emiliana Garcia CMA) Father Heart problem HTN (hypertension) Hypercholesteremia Cancer Mother Stroke Diabetes Asthma HTN (hypertension) Son Asthma Social History Social History Housing: House Are you a primary managed care provider to a significant other at home: No Do you presently have visiting nurse or other home services: No Alcohol intake: never Comment: cramping Patient Tobacco Use Status: Never used Tobacco e-Cigarette/Vaping Use: Never Used Second Hand Smoke Exposure: No Advance Directives: No Advance Directives Information Provided: Yes Do you have a plan to hurt others: No Plan service: No Current occupational status: other 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 Sexual orientation: Straight/Heterosexual Gender identity: Female Cognitive needs: No Hearing needs: No Vision needs: No Physical Exam Vital Signs: Vital Signs: Last Vital Signs Temp 0 F L 11/02/24 14:55 Pulse 72 11/02/24 14:55 Resp 16 11/02/24 14:55 BP 155/66 H 11/02/24 14:55 Pulse Ox 99 11/02/24 14:55 O2 Del Method Room Air 11/02/24 14:55 BMI result Body Mass Index 44.4 Const: General: cooperative, comfortable and no acute distress Orientation/consciousness: patient oriented x3 Limitations: no limitations HEENT: Head: Yes normal to inspection, Yes normocephalic and Yes atraumatic Ears: hearing grossly normal bilaterally General nose exam: Normal external nose present Face and sinus: Yes normal facial exam Mouth: Normal oral and palatal mucosa present, oropharynx normal and moist mucous membranes Throat: Yes posterior oropharynx normal Eyes: General: appearance normal, both eyes and all related structures Eyelids: Yes eyelids normal Conjunctivae: conjunctivae normal Sclerae: sclerae normal Pupils: Equal, round and reactive pupils present EOM: EOMs intact bilaterally Neck: Neck: Yes normal visual inspection, Yes full ROM and Yes no lymphadenopathy Lymphatic: no lymphadenopathy noted Chest: Chest palpation & inspection: normal inspection of the chest Resp: Effort & Inspection: normal respiratory effort and able to speak in complete sentences Cardio: Rate: regular rate Rhythm: regular rhythm Heart sounds: S1 normal heart sound present and S2 normal heart sound present GI: Other: Abdomen is soft, with no tenderness palpation throughout the entire abdomen. No rebound or guarding Inspection: Yes normal to inspection Back/Spine/Pelvis: Other: Left posterior hip, with tenderness palpation, extending into the anterior hip. Positive straight leg raise on the left. Distal sensation circulation intact. Skin: General skin exam: no rashes or lesions noted Trauma: no lacerations or abrasions Wounds: no wounds Neuro: General: patient oriented x3 and moves all extremities Cranial nerves: Yes Equal, round and reactive pupils present Extrem: General: Yes normal to inspection Right upper extremity: normal to inspection Left upper extremity: normal to inspection Right lower extremity: normal to inspection Left lower extremity: normal to inspection Course Course Course Narrative: This is a Rapid Medical Examination (RME) performed by Demarcus Campbell PA-C in triage. Full HPI, ROS, assessment and treatment plan per primary provider in the Main ED. 54 yo female here with 10/10 left sided hip pain that radiates to the left lateral leg for the last 6 days. She states she felt the pain start when she bent down on thanksgiving. Limited ROM of the leg since, having trouble extending it and bearing weight. Plan: XR hip, treat pain and reassess Medications Administered Discontinued Medications Generic Name Dose Route Start Last Admin Trade Name Freq PRN Reason Stop Dose Admin Diazepam 2 mg 11/02/24 14:06 11/02/24 14:49 Diazepam 2 Mg Tablet PO 11/02/24 14:07 2 mg ONCE ONE Administration Ketorolac Tromethamine 30 mg 11/02/24 14:06 11/02/24 14:49 Ketorolac Tromethamine 30 Mg/Ml Vial IM 11/02/24 14:07 30 mg ONCE ONE Administration Medical Decision Making Medical Decision Making [facility] Narrative: This is a 54-year-old female who presents emergency department for evaluation of left low back pain. This patient presents with back pain most consistent with lumbar radiculopathy. Differential diagnoses includes lumbago versus musculoskeletal spasm / strain versus sciatica.No back pain red flags on history or physical. Patient does have a history of uterine cancer which was treated with a total hysterectomy 2 years ago. She has no profound weight loss or night sweats. No evidence of cauda equina syndrome (no bowel or urinary incontinence/retention, no saddle anesthesia, no distal weakness), pyelonephritis (afebrile, no CVAT, no urinary symptoms). \x-ray of the left hip was performed prior to my evaluation, patient has no acute fracture or dislocation of the left hip, there is a questionable 5 mm lytic lesion in the right ischium. Discussed findings with patient, she will follow-up with her PCP. Will medicate with Valium and Toradol in the department. Patient anxious to leave the department as patient's ride is already here. Unable to assess after receiving medications. Given strict return precautions. She understands and agrees with plan. Patient stable for discharge Differential Diagnosis Differential Diagnoses: The differential diagnosis associated with the presentation includes See above Radiology Impression Discussion of test interpretation with radiology: I have reviewed the radiologist's reading. Radiologist Impression: XR/XR hip LT w PEL1V IMPRESSION: No acute fracture or dislocation, left hip. Questionable 5 mm lytic lesion, right ischium.. Electronically signed by: Ryley Voss MD 11/02/2024 12:52 PM [facility] [place] Dictated By: Ryley Pham MD Signed By: <Electronically signed by Ryley Frias MD in OV> Discharge Plan Discharge Clinical Impression: Acute lumbar radiculopathy, Abnormal x-ray Patient Disposition: Home, Self-Care Instructions: Acute Low Back Pain (ED), Lumbar Radiculopathy (ED), Back Pain (ED), Lower Back Exercises (ED) Additional Instructions: You were seen in the emergency department due to low back pain/hip pain. You have signs of lumbar radiculopathy. Your x-ray shows a questionable 5 mm lytic lesion in your right ischium. Please follow-up with your primary care physician regarding this finding is further imaging may need to be performed. Please take prescribed medication as directed. Please be advised that steroids can increase your blood glucose level, please monitor closely, discontinue if it becomes too high. Muscle relaxants can also help with your pain, you have these at home, I advised you to continue taking. Ibuprofen, Tylenol, gentle stretching, heat or ice can also help. If any new or worsening symptoms occur including but not limited to severe chest pain, shortness of breath, numbness or tingling into your groin, loss of bladder or bowel control, please seek emergent care. Prescriptions: New prednisone 50 mg tablet 50 mg PO DAILY 5 Days Qty: 5 0RF No Action montelukast [Singulair] 10 mg tablet 10 mg PO BEDTIME Qty: 90 3RF (DME) blood pressure test kit-large Kit See Rx Instructions .Route Qty: 1 0RF Rx Instructions: As directed loratadine 10 mg capsule 10 mg PO DAILY 90 Days Qty: 90 0RF metoprolol succinate 25 mg tablet extended release 24 hr 25 mg PO DAILY 90 Days Qty: 90 0RF albuterol sulfate [Ventolin HFA] 90 mcg/actuation HFA aerosol inhaler 2 puff inhalation Q6H PRN (Reason: for wheezing) Qty: 18 0RF lisinopril 20 mg tablet 20 mg PO BID Qty: 60 1RF (DME) FreeStyle Lite Strips Strip See Rx Instructions .ROUTE .MEDSUPPLY Qty: 100 3RF Rx Instructions: use daily As directed to check blood sugars for diabetes (DME) blood-glucose meter [FreeStyle Lite Meter] Kit See Rx Instructions .ROUTE .MEDSUPPLY Qty: 1 0RF Rx Instructions: Use daily As directed to check blood glucose (DME) lancets [FreeStyle Lancets] 28 gauge misc See Rx Instructions .ROUTE .MEDSUPPLY Qty: 100 3RF Rx Instructions: Use daily As directed to check blood sugar (DME) nebulizers Misc See Rx Instructions .ROUTE .MEDSUPPLY Qty: 1 0RF Rx Instructions: for acute asthma or reactions budesonide-formoterol [Symbicort] 80-4.5 mcg/actuation HFA aerosol inhaler 1 puff PO BID Qty: 20.4 5RF metformin 500 mg tablet extended release 24 hr 500 mg PO DAILY Qty: 90 0RF hydrochlorothiazide 12.5 mg tablet 12.5 mg PO QAM Qty: 90 0RF atorvastatin 80 mg tablet 80 mg PO QPM Qty: 90 1RF lidocaine 5 % adhesive patch,medicated 1 patch topical DAILY Qty: 30 0RF Rx Instructions: leave on most painful area for up to 12 hrs nabumetone 750 mg tablet 750 mg PO BID PRN (Reason: for pain) Qty: 60 2RF albuterol sulfate 2.5 mg /3 mL (0.083 %) solution for nebulization 2.5 mg inhalation Q4-6H PRN (Reason: shortness of breath or wheezing) Qty: 90 6RF azelastine [Astepro Allergy] 205.5 mcg (0.15 %) spray,non-aerosol 2 spray intranasal DAILY Qty: 30 2RF Rx Instructions: administer into each nostril Interventions: ED Discharge Assessment Last Done: 11/02/24 14:55 Discharge Date/Time: 11/02/24 14:56 Print Language: Persian
[2024-11-02 13:46] VITALS: BP 141/62; PULSE 70; RESP 16; TEMP 36.6; O2SAT 98
[2024-11-02 14:28] VITALS: BP 155/66; PULSE 72; RESP 16; O2SAT 99
[2024-11-02] MEDS: Ketorolac Tromethamine 30 MG/ML VIAL IM (14:49)
[2024-11-02] MEDS: diazePAM 2 MG TABLET PO (14:49)
[2024-11-02 14:55] VITALS: BP 155/66; PULSE 72; RESP 16; TEMP -17.7; TEMP 0; O2SAT 99
== END 2024-11-02 14:56 | disposition home or self-care (01) ==
PROVIDERS: Emergency Provider Emergency Medicine; PCP Nurse Practitioner Family
DX: M54.16 Radiculopathy, lumbar region (principal); M54.50 Low back pain, unspecified; R93.7 Abnormal findings on diagnostic imaging of other parts of musculoskeletal system; E11.9 Type 2 diabetes mellitus without complications; I10 Essential (primary) hypertension; E78.00 Pure hypercholesterolemia, unspecified; J45.909 Unspecified asthma, uncomplicated; Z79.84 Long term (current) use of oral hypoglycemic drugs; Z79.02 Long term (current) use of antithrombotics/antiplatelets; Z79.899 Other long term (current) drug therapy
CPT/HCPCS: 73502; 96372; 99283; 99284; J1885

== ENCOUNTER → 2024-11-02 10:21 | Outpatient (BNV) | payer OTHER, SELFPAY | PROVIDERS: PCP Nurse Practitioner Family; Visit Provider Radiology Diagnostic Radiology | DX: M25.552 Pain in left hip (principal); M25.852 Other specified joint disorders, left hip | CPT/HCPCS: 73502 ==

== ENCOUNTER 2024-12-26 11:52 | Outpatient (AMB) | payer OTHER, SELFPAY ==
--- NOTE | 2024-12-26 12:03 | A.OFFPC_ITS ---
Vital Signs 12/26/24 12:10 Height 5 ft 6 in Weight 281 lb BMI 45.3 BP 138/78 Blood Pressure Location Lt brachial Position Sitting Respiration 14 Pulse 78 Pulse Source Pulse Oximeter Temp 97.3 F Temp Source Oral Pulse Oximetry (%) 97 Oxygen Delivery Method Room Air Intake Visit Reasons: follow up Intake Note: follow up and patient also needs refill on meds, patient is also wondering about her xray done in 11/22. Health Promotion Officer Required: No Allergies Seasonal Allergies Allergy (Intermediate, Verified 12/26/24 12:34) Itchy Eyes Medication List - Last Reconciled 12/26/24 by Ksenia Kent, [facility]- albuterol sulfate 2.5 mg (3 mL) inhalation Q4-6H PRN albuterol sulfate 90 mcg/actuation (Ventolin HFA) 2 puffs inhalation Q6H PRN atorvastatin 80 mg PO QPM azelastine (Astepro Allergy) 2 sprays intranasal DAILY blood pressure test kit-large As directed blood sugar diagnostic (FreeStyle Lite Strips) use daily As directed to check blood sugars for diabetes blood-glucose meter (FreeStyle Lite Meter kit) Use daily As directed to check blood glucose budesonide-formoterol 80-4.5 mcg/actuation (Symbicort) 1 puff PO BID hydrochlorothiazide 12.5 mg PO QAM lancets (FreeStyle Lancets) Use daily As directed to check blood sugar lidocaine 5% 1 patch topical DAILY lisinopril 20 mg PO BID loratadine 10 mg PO DAILY 90 days metformin ER 500 mg PO DAILY metoprolol succinate ER 25 mg PO DAILY 3 months montelukast (Singulair) 10 mg PO BEDTIME nebulizers for acute asthma or reactions Tobacco use date assessed: 03/14/24 Dental Screening Dental Screen Date: 12/03/23 HPI HPI Comments History of Present Illness Details 54-year-old female with morbid obesity, diabetes type 2, hyperlipidemia, hypertension, mild intermittent asthma, seasonal allergies, benign positional vertigo, generalized anxiety disorder, PCOS, osteoarthritis, cervical and lumbar radicular back pain, CKD3A, MDD, uterine cancer Status post D&C x3 with uterine polypectomy, cholecystectomy, x2 Health Maintenance: Mammo 02/15/24 WNL Colon 10/08/23 [facility] DEXA PAP 01/02/22 WNL Tdap done today 12/26/24 DME: [facility], overdue for appt, she will let me know if referral is needed. HgA1c today Specialists: [facility] The patient is a 54-year-old female presenting with multiple chronic conditions including Type 2 Diabetes Mellitus, Essential Hypertension, Hyperlipidemia, Asthma, Generalized Anxiety Disorder, and Chronic Kidney Disease Stage 3A. In addition, she reports new-onset pain in the right hip and left wrist. The patient's asthma has been problematic, particularly during the cold weather, causing difficulty in breathing despite medication adherence. She utilizes Symbicort, Albuterol, Loratadine, and Azesteline nasal spray among other medications for control but has experienced inadequate relief. Seasonal allergies have not been well controlled recently, impacting her pulmonary st atus. She is due for Tdap The patient had previously visited the emergency department due to severe back pain, which was later attributed to a pinched nerve. During that visit, pelvic imaging revealed a questionable 5 mm bone lesion in the right ischium. She reports ongoing significant pain in the pelvic region, specifically the right hip, radiating to her thighs. Functional status has been compromised, with some necessity for a cane at home, and significant musculoskeletal discomfort persists. She has previously had uterine cancer and corrective surgical interventions. I reviewed the emergency room visit from [facility] 11/02/2024. She has been referred for a CAT scan today. Diabetes is well controlled on metformin. A1c done today 6.2%. Additionally, the patient reports left wrist pain with a noticeable bone-like protrusion without any recent trauma. This pain has persisted for approximately three weeks and has not been clinically evaluated with imaging to date. She is due for routine labs Physical Exam Awake alert NAD Sclera and conjunctiva clear bilat RRR LS CTAB diminished throughout Bilateral lower extremities no edema, skin intact, pedal pulses within normal limits. Diabetic foot exam performed today. Normal monofilament and vibratory sensation bilat. Pain with palpation over the iliac crest on the right side, straight leg raises causes pain into the lateral thigh, need a chest causes the same abduction increases the pain over the right iliac crest. She has no spinal tenderness. She does not have any pain with palpation over her left iliac crest her left low back. Straight leg raise, need a chest and abduction are no within normal limits on the right. She does ambulate with antalgic gait. She has normal strength and tone along with reflexes. Mood and affect appropriate. Results - Labs: A1C result of 6.2%. - Imaging from previous ED visit: X-ray revealing a questionable 5 mm bone lesion in the right ischium, pelvic region. - No blood work ordered during ER visit, only diagnostic imaging performed. Labs 02/25/2024 normal electrolytes, BUN 19, creatinine 1.19, EGFR 48, alk phos elevated 149 with normal LFTs, Lipid profile 12/16/2023 LDL 110, total cholesterol 182, triglycerides 144, HDL 44 Labs 04/28/2024 show normal electrolytes, normal renal function, fasting glucose 104, hemoglobin A1c 6.2%, normal LFTs, alk phos 138, total cholesterol 198, triglycerides 154, LDL 118, HDL 50, normal TSH, normal urine microalbumin creatinine ratio, vitamin-D normal Discussion Notes I discussed with the patient the importance of addressing uncontrolled symptoms, particularly asthma which is not responding adequately to her current medication regimen. I advised increasing the dosage to two puffs of Symbicort twice daily as a step-up in management to see if symptoms could be better controlled. The patient agreed to trial this change given the current severity of her symptoms. I explained the need for urgent evaluation of the right hip bone lesion identified on her previous X-ray, outlining the plan for a CAT scan. The patient voiced concerns about additional healthcare costs, and I advised practical solutions for optimizing her insurance coverage and discussed the necessity of the procedure for proper diagnosis. She does have claustrophobia therefore I have prescribed Ativan 0.5 mg to be taken [address] scan procedure. Advised that she can not drive. She reports that her brother will bring her to the appointment. I recommended a left wrist X-ray to ascertain the underlying cause of the palpable bony prominence, acknowledging her discomfort and urgency in understanding unresolved musculoskeletal issues. Her diabetes is well controlled on the current medications which she can continue. We will update her labs to include a lipid profile. At this time she continue her atorvastatin 80 mg daily. Her blood pressure is well controlled on the current medications and she can continue to take these as directed. Refills have been sent an all of her medications as requested. Tdap was administered today. Patient Instructions - Take two puffs of Symbicort inhaler tw ice daily. - Get a CAT scan of the pelvis as schedu led and ensure labs are done within 30 days. - Obtain an X-ray for the left wrist and hand to assess the bone structure. - Confirm insurance participation for di abetic eye exam and schedule accordingly. - Maintain regular monitoring of blood s ugar levels at home. - Follow up in two weeks for review of s can and X-ray results or sooner for worsening symptoms. Plan - Diabetes Mellitus: Maintain current Me tformin dosage, monitor A1C levels and recommend dietary and lifestyle modifications. - Hypertension and Hyperlipidemia: Aravind nue Atorvastatin 80 mg, Lisinopril, and Hydrochlorothiazide as prescribed. - Asthma: Increase Symbicort to two puff s twice daily; monitor response and side effects. - Right Hip and Pelvic Pain: CT scan arr anged to further evaluate the lesion and pain etiology; consider orthopedic consultation pending results. - Left Wrist Pain: Arrange for X-ray patrick ging to determine underlying pathology. - Seasonal Allergies: Continue with curr ent therapy; assess for potential medication adjustments as needed. - Follow all preventative and wellness m easures, including up-to-date immunizations and regular check-ups to ensure comprehensive care. Patient was informed and verbally consented to the use of an ambient scrib for clinic note documentation during this visit. Total time spent caring for the patient today was 60 minutes. This includes time spent before the visit reviewing the chart, time spent during the visit, and time spent after the visit on documentation, reviewing laboratory results, diagnostic imaging, medications, performing a medically necessary evaluation, counseling on diagnoses, care coordination, ordering appropriate tests, ordering appropriate medications, review of tests performed by other providers, reporting test results with the patient, communication with other healthcare providers. [facility] Medical History (Updated 12/26/24 @ 12:44 by Ksenia Kent, [facility]) Hypertension, essential Disc disease, degenerative, lumbar or lumbosacral Radiculopathy affecting upper extremity Spinal osteophytosis DDD (degenerative disc disease), thoracolumbar Lumbar spondylosis Temporomandibular joint disorder (TMJ) Pneumonia due to 2019 novel coronavirus Osteoarthritis of right knee Asthma Diabetes Elevated cholesterol History of COVID-19 Endometrial hyperplasia without atypia Obesity Anxiety PCOS (polycystic ovarian syndrome) Hypertension Surgical History History of dilatation and curettage History of cholecystectomy History of Family History (Updated 04/29/24 @ 10:20 by Emiliana Garcia CMA) Father Heart problem HTN (hypertension) Hypercholesteremia Cancer Mother Stroke Diabetes Asthma HTN (hypertension) Son Asthma Social History Housing: House Are you a primary medicare coordinator to a significant other at home: No Do you presently have visiting nurse or other home services: No Alcohol intake: never Comment: cramping Patient Tobacco Use Status: Never used Tobacco e-Cigarette/Vaping Use: Never Used Second Hand Smoke Exposure: No service: No Current occupational status: other 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 1. Little interest or pleasure in doing things: several days 2. Feeling down, depressed, or hopeless: not at all 3. Trouble falling or staying asleep, or sleeping too much: not at all 4. Feeling tired or having little energy: more than half the days 5. Poor appetite or overeating: not at all 6. Feeling bad about yourself - or that you are a failure or have let yourself or your family down: not at all 7. Trouble concentrating on things, such as reading the newspaper or watching television: several days 8. Moving or speaking so slowly that other people could have noticed. Or the opposite - being so fidgety or restless that you have been moving around a lot more than usual: not at all 9. Thoughts that you would be better off or of hurting yourself in some way: not at all Total score: 4 Depression Screening Interpretation: Negative Depression Screening Done: Yes 27534 - PHQ-9 Billing: Yes Source: Developed by Drs. Joshua Ro, Lilibeth Tafoya, Shayne Streeter and colleagues, with an educational harpreet from [employer]. Thrive Questionnaire Date Thrive assessed: 12/26/24 I am a: Patient What is your living situation today?: I have a steady place to live Within the past 12 months, did the food you bought not last and you didn't have the money to get more?: Sometimes True Within the past 12 months, did you worry whether your food would run out before you got money to buy more?: Sometimes True Do you have trouble paying for medicines?: No Do you have trouble getting transportation to medical appointments?: No Do you have trouble paying your heating and electricity bill?: Yes Do you have trouble taking care of your child, family member or friend?: No Do you have trouble with day-to-day activities such as bathing, preparing meals, shopping, managing finances, etc.?: Yes Are you currently unemployed and looking for a job?: No Are you interested in more education?: No Please select the resources that you would like help with: Utilities Currently or been in a relationship where the following occur: No concerns reported THRIVE Score: 3 AUDIT C Alcohol Use Questionnaire (AUDIT-C) 1. How often do you have a drink containing alcohol?: Never 3. How often do you have six or more drinks on one occasion?: Never Total Score: 0 Score Reviewed/Action Taken: Yes KSENIA-7 AMB Questionnaire KSENIA-7 Date KSENIA - 7 assessed: 12/26/24 Feeling nervous, anxious, or on edge: 0 = Not at all Not being able to stop or control worryin = Several days Worrying too much about different things: 1 = Several days Trouble relaxin = Not at all Being so restless that it is hard to sit still: 1 = Several days Becoming easily annoyed or irritable: 0 = Not at all Feeling afraid as if something awful might happen: 0 = Not at all Total KSENIA-7 score (0-4 normal; 5-9 mild; 10-14 moderate; 15-21 severe): 3 Source: Developed by Drs. Joshua Ro, Lilibeth Tafoya, Shayne Streeter and colleagues, with an educational harpreet from [employer]. KSENIA-7 Assessment Billing KSENIA-7 Assessment Tool: KSENIA-7 Assessment 16527 ACT Questionnaire In the past 4 weeks, how much of the time did your asthma keep you from getting as much done at work, school or at home?: A little of the time During the past 4 weeks, how often have you had shortness of breath?: 1-2 times a week During the past 4 weeks, how often did your asthma symptoms wake you up at night or earlier than usual in the morning?: Once or twice per week During the past 4 weeks, how often have you had to use your rescue inhaler or nebulizer medication?: Once a week or less How would you rate your asthma control during the past 4 weeks?: Somewhat controlled ACT Interpretation: Negative Score: 19 Physical exam (Primary Care) Vital Signs: Last Vital Signs Temp 97.3 F 12/26/24 12:10 Pulse 78 12/26/24 12:10 Resp 14 12/26/24 12:10 BP 138/78 12/26/24 12:10 Pulse Ox 97 12/26/24 12:10 Oxygen Delivery Method Room Air 12/26/24 12:10 BMI result Body Mass Index 45.3 Tobacco/Smoking Status: Tobacco use Status Tobacco use date assessed 03/14/24 12/26/24 12:06 Patient Tobacco Use Status Never used Tobacco 12/26/24 12:06 e-Cigarette/Vaping Use Never Used 12/26/24 12:06 PHQ-9: PHQ-9 Score PHQ-9: Total score 4 12/26/24 12:47 Depression Screening Interpretation: Negative Thrive Assessment: Date of Thrive Assessment Date Thrive assessed 12/26/24 12/26/24 12:06 Currently or been in a relationship where the following occur: No concerns reported Results AMB Hemoglobin A1c AMB Hemoglobin A1c 6.2 % Last Edit by Gabe Toussaint MA on 12/26/24 12:54 Immunizations Boostrix Tdap 2.5 Lf unit-8 mcg-5 Lf/0.5 mL intramuscular syringe Performing Provider: DEDRICK Matamoros Performing Location: [facility] Family Medicine Administered by: Delfina Feliciano RN on 12/26/24 13:15 Dose Route Admin Location Dispensed Lot Number Expiration Date [facility] Die Lay Out Worker 0.5 mL IM Right Deltoid 0.5 mL [id number] 12/21/26 59205-529-09 [employer] VIS Given Date VIS Provided VIS Publication Date 12/26/24 Single Vaccine 21 Eligibility Eligibility Date Funding Source Not [facility] Eligible 12/26/24 Private Results Reviewed Results Reviewed: Laboratory Last Values Hgb A1c (Clinic) 6.2 % (4.0-6.0) H 12/26/24 12:31 MPRESSION: No acute fracture or dislocation, left hip. Questionable 5 mm lytic lesion, right ischium.. Electronically signed by: Ryley Voss MD 11/02/2024 12:52 PM EST RP Coding Level of Care Code Est Pt Level 5 (20063) Complex EM visit Add On G2211 Diagnoses Hospital discharge follow-up Z09 Lytic lesion of bone on x-ray M89.8X9 Primary hypertension I10 Hypertension type: primary hypertension High cholesterol E78.00 CKD stage 3 due to type 2 diabetes mellitus E11.22; N18.30 Diabetes mellitus type 2 with complications E11.8 Left wrist pain M25.532 Mild episode of recurrent major depressive disorder F33.0 Major depression episode severity: mild Morbid obesity E66.01 Mild intermittent asthma with acute exacerbation J45.21 Asthma complication type: with acute exacerbation Asthma severity: mild BMI 45.0-49.9, adult Z68.42 Need for Tdap vaccination Z23 Additional Codes Asthma Control Questionnaire - ACT Interpretation: Negative ([id number]) KSENIA-7 Assessment Billing - KSENIA-7 Assessment Tool: KSENIA-7 Assessment 59001 ([id number]) PHQ-9 - 72439 - PHQ-9 Billing: Yes ([id number]) Assessment & Plan Assessment & Plan (1) Hospital discharge follow-up: Code(s): Z09 - Encounter for follow-up examination after completed treatment for conditions other than malignant neoplasm (2) Lytic lesion of bone on x-ray: Comment: 10/2024 MPRESSION: No acute fracture or dislocation, left hip. Questionable 5 mm lytic lesion, right ischium.. Electronically signed by: Ryley Voss MD 11/02/2024 12:52 PM EST RP Code(s): M89.8X9 - Other specified disorders of bone, unspecified site Category: Medical (3) Hypertension: Comment: at goal on current meds, cont. Code(s): I10 - Essential (primary) hypertension Category: Medical Qualifiers: Hypertension type: primary hypertension Qualified Code(s): I10 - Essential (primary) hypertension (4) High cholesterol: Code(s): E78.00 - Pure hypercholesterolemia, unspecified Category: Medical (5) CKD stage 3 due to type 2 diabetes mellitus: Code(s): E11.22 - Type 2 diabetes mellitus with diabetic chronic kidney disease; N18.30 - Chronic kidney disease, stage 3 unspecified Category: Medical (6) Diabetes mellitus type 2 with complications: Code(s): E11.8 - Type 2 diabetes mellitus with unspecified complications Category: Medical (7) Left wrist pain: Code(s): M25.532 - Pain in left wrist Category: Medical (8) MDD (major depressive disorder), recurrent episode: Code(s): F33.9 - Major depressive disorder, recurrent, unspecified Category: Medical Qualifiers: Major depression episode severity: mild Qualified Code(s): F33.0 - Major depressive disorder, recurrent, mild (9) Morbid obesity: Code(s): E66.01 - Morbid (severe) obesity due to excess calories Category: Medical (10) Asthma, intermittent: Code(s): J45.20 - Mild intermittent asthma, uncomplicated Category: Medical Qualifiers: Asthma complication type: with acute exacerbation Asthma severity: mild Qualified Code(s): J45.21 - Mild intermittent asthma with (acute) exacerbation (11) BMI 45.0-49.9, adult: Code(s): Z68.42 - Body mass index [BMI] 45.0-49.9, adult Category: Medical (12) Need for Tdap vaccination: Code(s): Z23 - Encounter for immunization Category: Medical Plan . Orders: Orders AMB Hemoglobin A1c Today Z13.9 - Encounter for screening, unspecified Microalbumin, Random (w Creat) Today E11.22 - Type 2 diabetes mellitus with diabetic chronic kidney disease, E11.8 - Type 2 diabetes mellitus with unspecified complications, E78.00 - Pure hypercholesterolemia, unspecified, I10 - Essential (primary) hypertension, N18.30 - Chronic kidney disease, stage 3 unspecified TDaP Immunization Today Z23 - Encounter for immunization CT pelvis wo/w IV con Today M89.8X9 - Other specified disorders of bone, unspecified site Complete Blood Count no Diff Today E11.22 - Type 2 diabetes mellitus with diabetic chronic kidney disease, E11.8 - Type 2 diabetes mellitus with unspecified complications, E78.00 - Pure hypercholesterolemia, unspecified, I10 - Essential (primary) hypertension, N18.30 - Chronic kidney disease, stage 3 unspecified Comprehensive Met. Panel Today E11.22 - Type 2 diabetes mellitus with diabetic chronic kidney disease, E11.8 - Type 2 diabetes mellitus with unspecified complications, E78.00 - Pure hypercholesterolemia, unspecified, I10 - Essential (primary) hypertension, N18.30 - Chronic kidney disease, stage 3 unspecified Lipid Panel Today E11.22 - Type 2 diabetes mellitus with diabetic chronic kidney disease, E11.8 - Type 2 diabetes mellitus with unspecified complications, E78.00 - Pure hypercholesterolemia, unspecified, I10 - Essential (primary) hype rtension, N18.30 - Chronic kidney disease, stage 3 unspecified Vitamin B12 and Folate Today E11.22 - Type 2 diabetes mellitus with diabetic chronic kidney disease, E11.8 - Type 2 diabetes mellitus with unspecified complications, E78.00 - Pure hypercholesterolemia, unspecified, I10 - Essential (primary) hypertension, N18.30 - Chronic kidney disease, stage 3 unspecified XR hand wrist LT Today M25.532 - Pain in left wrist Medications: New budesonide-formoterol 80-4.5 mcg/actuation (Symbicort) 2 puffs inhalation BID 10.2 grams 2RF Boostrix Tdap (diphth,pertus(acell),tetanus) 0.5 mL IM ONCE 0.5 mL 0RF NS Z23 - Encounter for immunization lorazepam (Ativan) 30min beforeCT scan 0.5 mg PO ONCE 1 tab 0RF anxiety Refilled loratadine 10 mg PO DAILY 90 caps 0RF 90 days J30.2 - Other seasonal allergic rhinitis montelukast (Singulair) 10 mg PO BEDTIME 90 tabs 3RF atorvastatin 80 mg PO QPM 90 tabs 1RF metformin ER 500 mg PO DAILY 90 tabs 0RF Discontinued budesonide-formoterol 80-4.5 mcg/actuation (Symbicort) Discontinued Reason: Doctor's Order 1 puff PO BID 20.4 ea 5RF
[2024-12-26 12:10] VITALS: BP 138/78; PULSE 78; RESP 14; TEMP 36.3; O2SAT 97; BMI 45.3
--- OUTSIDE RECORDS SUMMARY | 2024-12-26 16:42 | XMS_ITS | Clinical Summary ---
Author Organization [email or web address] Address [address] [facility] [address] [place] [address] Care Team Providers Care Financial Advisor Trainee Name Role Phone Unavailable Primary Care Provider Unavailabl e Allergies No known active allergies Medications lisinopril 20 MG tablet TAKE 1 TABLET ORALLY 2 TIMES A DAY 3 Active metoprolol succinate XL (Toprol-XL) 25 MG 24 hr tablet TAKE 1 TABLET BY MOUTH EVERY DAY FOR 3 MONTHS 2 Active Nirmatrelvir&Ri tonavir 300/100 (Paxlovid, 300/100,) 20 x 150 MG & 10 x 100MG tablet therapy packIndications :COVID-19 Take 3 tablets by mouth 2 times daily. Take 2 tabs (300mg of nirmatrelvir) and 1 tab (100mg of ritonavir) PO BID for 5 days. No renal failure. Cr 0.77 09/2022 Possible medication interactions reviewed. 30 each 3 Active Social History Tobacco Use Types Packs/Day Years Used Date Smoking Tobacco: Never Smokeless Tobacco: Never Tobacco Cessation:Counseling Given: No Alcohol Use Standard Drinks/Week Comments Never 0 (1 standard drink = 0.6 oz pur e alcohol) Comments Unknown Sex and Gender Information Value Date Recorded Sex Assigned at Female 09/29/2022 10:40 AM EDT Legal Sex Female 10:40 AM EDT Gender Identity Choose not to disclose 2 10:40 AM EDT Sexual Orientation Choose not to disclose 2021 10:40 AM EDT Last Filed Vital Signs Vital Sign Reading Time Taken Comments Blood Pressure 154/83 12/16/2022 9:30 AM EST Pulse 80 12/16/2022 9:30 AM EST Temperature 36.4 ??C (97.6 ??F) 12/16/2022 9:30 AM ES T Respiratory Rate 18 12/16/2022 9:30 AM EST Oxygen Saturation 96% 12/16/2022 9:30 AM EST Inhaled Oxygen Concentration - - Weight 128 kg (282 lb 9.6 oz) 12/16/2022 9:30 AM EST Height - - Body Mass Index - - Plan of Treatment Health Maintenance Due Date Last Done Comments CT Colonography 1971 Colonoscopy 1971 Colorectal Cancer Screening 1971 Dental Oral Exam 1971 Dental Prophylaxis 1971 Dental X-Ray: Bitewings 1971 Dental X-Ray: Full Mouth 1971 Depression Screening 1971 FIT DNA/Cologuard 1971 FIT 1971 FOBT 1971 HIV Screening 1971 SDOH Screening 1971 Sigmoidoscopy 1971 Alcohol/Substance Use Screening 1983 Hepatitis C Screening 1989 DTaP/Tdap/Td Vaccines (1 - Tdap) 1990 Hepatitis B Vaccines (1 of 3 - 19+ 3-dose series) 1990 Pap Smear 1992 Cervical Cancer Screening 2001 HPV/Cotest 2001 Mammogram 2011 Zoster Vaccines (1 of 2) 2021 Tobacco Screening 12/16/2023 12/16/2022 COVID-19 Vaccine (3 - 2023-2 5 season) 2024 05/21/2021, 04/30/2021 Influenza Vaccine (#1) 2024 RSV Patients and Patients Aged 60 years or older (1 - 1-dose 75+ series) 2046 HIB Vaccines Aged Out No longer eligi ble based on patient's age to complete this topic HPV Vaccines Aged Out No longer eligi ble based on patient's age to complete this topic Hepatitis A Vaccines Aged Out No long er eligible based on patient's age to complete this topic IPV Vaccines Aged Out No longer eligi ble based on patient's age to complete this topic Meningococcal Vaccine Aged Out No artemio eyal eligible based on patient's age to complete this topic Pneumococcal Vaccine: Pediatrics (0 to 5 Years) and At-Risk Patients (6 to 64 Years) Aged Out No longer eligible b ased on patient's age to complete this topic RSV under 20 months Aged Out No longe r eligible based on patient's age to complete this topic Rotavirus Vaccines Aged Out No longer eligible based on patient's age to complete this topic Insurance [employer] [facility] [employer] STAND ADULT
== END 2024-12-26 13:13 | disposition home or self-care (01) ==
PROVIDERS: PCP Nurse Practitioner Family; Visit Provider Nurse Practitioner Family
DX: I12.9 Hypertensive chronic kidney disease with stage 1 through stage 4 chronic kidney disease, or unspecified chronic kidney disease (principal); E11.22 Type 2 diabetes mellitus with diabetic chronic kidney disease; N18.30 Chronic kidney disease, stage 3 unspecified; E11.8 Type 2 diabetes mellitus with unspecified complications; F33.0 Major depressive disorder, recurrent, mild; E66.01 Morbid (severe) obesity due to excess calories; Z68.42 Body mass index [BMI] 45.0-49.9, adult; Z09 Encounter for follow-up examination after completed treatment for conditions other than malignant neoplasm; M89.8X9 Other specified disorders of bone, unspecified site; E78.00 Pure hypercholesterolemia, unspecified; M25.532 Pain in left wrist; J45.21 Mild intermittent asthma with (acute) exacerbation; Z23 Encounter for immunization

== ENCOUNTER → 2024-12-26 11:52 | Outpatient (BNVA) | payer OTHER, SELFPAY | PROVIDERS: PCP Nurse Practitioner Family; Visit Provider Nurse Practitioner Family ==

== ENCOUNTER 2024-12-26 13:02 | Outpatient (REF) | payer OTHER, SELFPAY ==
[2024-12-26 14:36] LABS: Hematocrit 40.1 % (37.0-47.0); Hemoglobin 12.4 g/dl (12.0-16.0); Mean Corpuscular HGB Conc 30.9 g/dl (31.0-35.0); Mean Corpuscular Hemoglobin 24.9 pg (27.0-33.0); Mean Corpuscular Volume 80.7 fL (80.0-98.0); Mean Platelet Volume 10.1 fL (9.4-12.3); Platelet Count 334 X10*3/uL (160-400); Red Blood Count 4.97 X10*6/uL (4.20-5.50); Red Cell Distribution Width 16.7 % (11.0-16.0); White Blood Count 9.6 X10*3/uL (4.8-10.8)
[2024-12-26 14:59] LABS: Alanine Aminotransferase 21 U/L (0-31); Alkaline Phosphatase 145 U/L (39-117); Anion Gap 9 (12-20); Aspartate Amino Transferase 22 U/L (5-31); Bilirubin Total 0.4 mg/dL (0.0-1.0); Blood Urea Nitrogen 17 mg/dL (9-16); Calcium 9.3 mg/dL (8.4-10.2); Carbon Dioxide 31 mmol/L (22-29); Chloride 105 mmol/L (96-108); Cholesterol 199 mg/dL (<200); Estimated Glomerular Filt Rate > 60; Glucose Random 88 mg/dL (60-115); HDL Cholesterol 49 mg/dL (>40); LDL Cholesterol Calculated 110 mg/dL (<100); Potassium 3.9 mmol/L (3.3-5.1); Sodium 141 mmol/L (135-145); Total Protein 7.8 g/dL (6.5-8.0); Triglycerides 200 mg/dL (<150)
[2024-12-26 15:15] LABS: Creatinine Urine 81.37 mg/dL; Microalbumin Urine < 5.0 mg/L
[2024-12-26 15:35] LABS: Vitamin B12 332 pg/mL (200-900)
--- OUTSIDE RECORDS SUMMARY | 2024-12-26 17:39 | XMS_ITS | Clinical Summary ---
Author Organization [employer] Address [address] [facility] [address] [place] [address] Care Team Providers Care Prom Burn Off Operator Name Role Phone Unavailable Primary Care Provider [...]
== END 2024-12-26 13:03 | disposition home or self-care (01) ==
LOC: HO.WFDLDS 13:02
PROVIDERS: Visit Provider Nurse Practitioner Family
DX: Z09 Encounter for follow-up examination after completed treatment for conditions other than malignant neoplasm (principal); M89.8X9 Other specified disorders of bone, unspecified site; E78.00 Pure hypercholesterolemia, unspecified; I12.9 Hypertensive chronic kidney disease with stage 1 through stage 4 chronic kidney disease, or unspecified chronic kidney disease; E11.22 Type 2 diabetes mellitus with diabetic chronic kidney disease; N18.30 Chronic kidney disease, stage 3 unspecified; E11.8 Type 2 diabetes mellitus with unspecified complications; Z23 Encounter for immunization; J45.21 Mild intermittent asthma with (acute) exacerbation; M25.532 Pain in left wrist; F33.0 Major depressive disorder, recurrent, mild; E66.01 Morbid (severe) obesity due to excess calories; Z68.42 Body mass index [BMI] 45.0-49.9, adult
CPT/HCPCS: 36415; 80053; 80061; 82043; 82570; 82607; 82746; 83036; 85027; 90471; 90715; 96127; 96160; 99212

== ENCOUNTER 2025-01-19 14:38 | Outpatient (REF) | payer OTHER, SELFPAY ==
--- NOTE | ~2025-01-19 | CT_ITS ---
EXAMINATION: CT PELVIS WITHOUT AND WITH CONTRAST CLINICAL INFORMATION: Questionable 5 mm lytic lesion in the right ischium. COMPARISON: CT abdomen pelvis dated August 19, 2017. TECHNIQUE: Helical scanning was performed with submillimeter collimation through the pelvis was performed before and after the use of intravenous injection of 85 mL of Omnipaque 350 intravenous contrast. Sagittal and coronal multiplanar 2-D reconstructions were obtained. This CT examination was performed using dose optimization techniques as appropriate, variously including the following: *Automated exposure control *Adjustment of mA and/or kV according to patient size (this includes techniques or standardized protocols for targeted exams where dose is matched to indication/reason for exam; i.e. extremities or head) *Use of iterative reconstruction technique. DLP: 1163 mGy centimeter. FINDINGS: PELVIS: No gross mass. No intestinal obstruction pattern. No pneumoperitoneum. No ascites. Appendix is normal. Small tiny fat-containing umbilical hernia. Bladder is collapsed. Nonspecific prominent inguinal lymph nodes. OSSEOUS STRUCTURES: No lytic or blastic lesions. Sclerosis and the sacroiliac joints. Marginal osteophyte formation and disc desiccation with the vacuum phenomenon at L4-5 and L5-S1. No acute cortical disruption or malalignment in the coxofemoral joints. The bony pelvis is intact. CT/CT pelvis wo/w IV con IMPRESSION: No lytic or blastic lesions. 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 Small fat-containing umbilical hernia. Electronically signed by: Ryley Voss MD 01/19/2025 03:37 PM [facility]
--- NOTE | ~2025-01-19 | XR_ITS ---
EXAMINATION: XR HAND/WRIST, LEFT CLINICAL INFORMATION: M25.532 - Pain in left wrist COMPARISON: None available. TECHNIQUE: PA, lateral, obliques, and scaphoid views of the left hand and wrist. FINDINGS: No fracture, dislocation, or suspicious bone lesion. Normal bone mineralization. Normal alignment. Negative ulnar variance. Joint spaces are preserved. No significant arthropathy. Soft tissues demonstrate minimal prominence overlying the dorsal wrist. No additional soft tissue finding. XR/XR hand wrist LT IMPRESSION: 1. No bony abnormalities. 2. Minimal soft tissue prominence dorsal wrist. Electronically signed by: Matt Hensley MD 01/20/2025 09:41 AM [facility] [place]
[2025-01-19] MEDS: iohexoL 350 MG/ML 100 ML INFUS..BTL 85 ML IV (15:23)
--- OUTSIDE RECORDS SUMMARY | 2025-01-19 15:49 | XMS_ITS | Clinical Summary ---
Author Organization [employer] Address [address] [place] [address] Care Team Providers Care Criminal Justice Lawyer Name Role Phone Unavailable Primary Care Provider [...] Cancer Screening 2001 HPV/Cotest 2001 Mammogram 2011 Pneumococcal Vaccine: 50+ Years (1 of 1 - PCV) 2021 Zoster Vaccines (1 of 2) 2021 Tobacco [...]
== END 2025-01-19 14:39 | disposition home or self-care (01) ==
LOC: HO.CT 14:38
PROVIDERS: PCP Nurse Practitioner Family; Visit Provider Nurse Practitioner Family
DX: M25.532 Pain in left wrist (principal); M89.8X9 Other specified disorders of bone, unspecified site
CPT/HCPCS: 72194; 73110; 73130; Q9967

== ENCOUNTER → 2025-01-19 14:40 | Outpatient (BNV) | payer OTHER, SELFPAY | PROVIDERS: PCP Nurse Practitioner Family; Visit Provider Radiology Diagnostic Radiology | DX: M25.532 Pain in left wrist (principal) | CPT/HCPCS: 72194; 73110; 73130 ==

== ENCOUNTER 2025-01-24 09:26 | Outpatient (AMB) | payer OTHER, SELFPAY ==
--- NOTE | 2025-01-24 09:29 | MHC.PC.OV ---
Vital Signs 01/24/25 09:35 01/24/25 09:55 Height 5 ft 6 in Weight 277 lb 2 oz BMI 44.7 BP 152/80 H 134/76 Blood Pressure Location Lt brachial Lt brachial Position Sitting Sitting Respiration 13 Pulse 76 Pulse Source Pulse Oximeter Temp 96.9 F Temp Source Oral Pulse Oximetry (%) 96 Oxygen Delivery Method Room Air Intake Visit Reasons: 2 weeks 30 min asthma/CT image Intake Note: follow up on CT image Webmethods Architect Required: No Allergies Seasonal Allergies Allergy (Intermediate, Verified 01/24/25 09:31) Itchy Eyes Medication List - Last Reconciled 01/24/25 by Ksenia Kent, HOSPICE ADMINISTRATOR- albuterol sulfate 2.5 mg (3 mL) inhalation Q4-6H PRN albuterol sulfate 90 mcg/actuation (Ventolin HFA) 2 puffs inhalation Q6H PRN atorvastatin 80 mg PO QPM azelastine (Astepro Allergy) 2 sprays intranasal DAILY blood pressure test kit-large As directed blood sugar diagnostic (FreeStyle Lite Strips) use daily As directed to check blood sugars for diabetes blood-glucose meter (FreeStyle Lite Meter kit) Use daily As directed to check blood glucose budesonide-formoterol 80-4.5 mcg/actuation (Symbicort) 2 puffs inhalation BID diclofenac sodium 1% (Voltaren Arthritis Pain) 2 grams topical QID hydrochlorothiazide 12.5 mg PO QAM lancets (FreeStyle Lancets) Use daily As directed to check blood sugar lidocaine 5% 1 patch topical DAILY lisinopril 20 mg PO BID loratadine 10 mg PO DAILY 90 days lorazepam (Ativan) 0.5 mg PO ONCE metformin ER 500 mg PO DAILY metoprolol succinate ER 25 mg PO DAILY 3 months montelukast (Singulair) 10 mg PO BEDTIME nebulizers for acute asthma or reactions Tobacco use date assessed: 01/24/25 Dental Screening Dental Screen Date: 01/24/25 Did you have a dental visit in the last 12 months?: Yes Did you have a dental problem in the last 6 months where you did not have access to dental care?: No Was dental information given to patient?: Patient has dentist HPI HPI Comments History of Present Illness Details - The patient is a 54-year-old female presenting with a follow-up for imaging results for right hip pain, L wrist pain and asthma management. - Right hip pain: The patient reports some improvement but continues to have pain when ascending and descending stairs since the last visit. Arthritis was observed on imaging, with no notable lesions on the bone. - Asthma: Symbicort use increased to two puffs twice a day; morning tightness and dyspnea on exertion persist. No history of a cardiac stress test. - Left wrist pain: Pain remains unchanged; imaging revealed no abnormalities in bone or joint structure but indicated swelling of soft tissues. The patient perceives significant discomfort over a bony protrusion. Physical Exam Awake alert NAD Sclera and conjunctiva clear bilat RRR LS CTAB diminished throughout Bilateral lower extremities no edema, skin intact, pedal pulses within normal limits. Pain with palpation over the iliac crest on the right side, straight leg raises causes pain into the lateral thigh, knee to chest causes the same abduction increases the pain over the right iliac crest. She has no spinal tenderness. She does not have any pain with palpation over her left iliac crest her left low back. Straight leg raise, knee to chest and abduction are no within normal limits on the right. She has normal strength and tone along with reflexes. No longer using cane L wrist neurovasc intact, hg strong, pain over dorsum of left wrist and hand in area of localized edema no warmth or redness Mood and affect appropriate Results - Imaging and Diagnostic Tests: - Left wrist x-ray: No bony or joint abnormalities; soft tissue swelling observed - Right hip and pelvis x-ray: Arthritis noted, no lesions - Laboratory Tests: Normal kidney function, electrolytes, calcium, liver function, and cholesterol levels Discussion Notes During the visit, I discussed with the patient the results of the imaging studies. I explained that the right hip showed arthritis but no lesions, which I considered reassuring. For asthma management, I advised continuing the increased Symbicort dosage and recommended a cardiac stress test to rule out cardiac causes of her exertional dyspnea. For her persistent left wrist pain, I suggested seeing a specialist to explore the possibility of soft tissue or tendon involvement, given the imaging results and palpable discomfort. We discussed starting physical therapy for hip pain on both sides and the use of an arthritis cream for symptomatic relief of the wrist. The benefits, risks, and the importance of follow-up and further diagnostic evaluations were reviewed. Assessment and Plan 1. Right hip pain: The hip exhibits arthritis; I suggest starting physical therapy for symptom management and improved mobility. 2. Asthma: Continue Symbicort, explore cardiac origins of dyspnea via stress testing. 3. Left wrist pain: Specialist evaluation is warranted due to clinical and imaging discrepancies. Arthritis cream recommended. 4. Swollen soft tissue of the left wrist: No bony pathology evident; manage with topical treatment and specialist input. Patient Instructions - Continue using Symbicort at two puffs in the morning and two at night as prescribed. - Apply arthritis cream to the left wrist up to four times a day for symptomatic relief. - Attend physical therapy for both hips as scheduled to improve strength and reduce pain. - Await contact from the cardiology department to schedule a stress test. - Schedule an appointment with the wrist specialist for further evaluation. - Return for follow-up after completing the stress test or sooner if symptoms worsen. Consent I obtained consent from the patient for a cardiac stress test to explore cardiac causes related to her reported exertional dyspnea. I discussed the procedure, including walking on a treadmill with machine monitoring, and clarified the risks, expected outcomes, and alternatives. The patient agreed to proceed with the test, acknowledging understanding of the benefits and purpose of evaluation. Consent was given verbally by the patient. Patient was informed and verbally consented to the use of an ambient scribe for clinic note documentation during this visit. Total time spent caring for the patient today was 40 minutes. This includes time spent before the visit reviewing the chart, time spent during the visit, and time spent after the visit on documentation, reviewing laboratory results, diagnostic imaging, medications, performing a medically necessary evaluation, counseling on diagnoses, care coordination, ordering appropriate tests, ordering appropriate medications, review of tests performed by other providers, reporting test results with the patient, communication with other healthcare providers. [facility] Medical History (Updated 01/24/25 @ 09:52 by Ksenia Kent, [facility]) Anxiety Asthma DDD (degenerative disc disease), thoracolumbar Diabetes Disc disease, degenerative, lumbar or lumbosacral Elevated cholesterol Endometrial hyperplasia without atypia History of COVID-19 Hypertension Hypertension, essential Lumbar spondylosis Obesity Osteoarthritis of right knee PCOS (polycystic ovarian syndrome) Pneumonia due to 2019 novel coronavirus Radiculopathy affecting upper extremity Spinal osteophytosis Temporomandibular joint disorder (TMJ) Surgical History History of History of cholecystectomy History of dilatation and curettage Family History (Updated 04/29/24 @ 10:20 by Emiliana Garcia CMA) Father Heart problem HTN (hypertension) Hypercholesteremia Cancer Mother Stroke Diabetes Asthma HTN (hypertension) Son Asthma Social History Housing: House Are you a primary menagerie caretaker to a significant other at home: No Do you presently have visiting nurse or other home services: No Alcohol intake: never Comment: cramping Patient Tobacco Use Status: Never used Tobacco e-Cigarette/Vaping Use: Never Used Second Hand Smoke Exposure: No service: No Current occupational status: other 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 1. Little interest or pleasure in doing things: not at all 2. Feeling down, depressed, or hopeless: several days 3. Trouble falling or staying asleep, or sleeping too much: several days 4. Feeling tired or having little energy: several days 5. Poor appetite or overeating: not at all 6. Feeling bad about yourself - or that you are a failure or have let yourself or your family down: not at all 7. Trouble concentrating on things, such as reading the newspaper or watching television: not at all 8. Moving or speaking so slowly that other people could have noticed. Or the opposite - being so fidgety or restless that you have been moving around a lot more than usual: not at all 9. Thoughts that you would be better off or of hurting yourself in some way: not at all Total score: 3 61881 - PHQ-9 Billing: Yes Source: Developed by Drs. Joshua Ro, Lilibeth Tafoya, Shayne Streeter and colleagues, with an educational harpreet from [employer]. Thrive Questionnaire Date Thrive assessed: 01/24/25 I am a: Patient What is your living situation today?: I have a steady place to live Within the past 12 months, did the food you bought not last and you didn't have the money to get more?: Sometimes True Within the past 12 months, did you worry whether your food would run out before you got money to buy more?: Sometimes True Do you have trouble paying for medicines?: No Do you have trouble getting transportation to medical appointments?: No Do you have trouble paying your heating and electricity bill?: Yes Do you have trouble taking care of your child, family member or friend?: No Do you have trouble with day-to-day activities such as bathing, preparing meals, shopping, managing finances, etc.?: Yes Are you currently unemployed and looking for a job?: No Are you interested in more education?: No Please select the resources that you would like help with: Utilities Currently or been in a relationship where the following occur: No concerns reported THRIVE Score: 3 AUDIT C Alcohol Use Questionnaire (AUDIT-C) 1. How often do you have a drink containing alcohol?: Never 3. How often do you have six or more drinks on one occasion?: Never Total Score: 0 KSENIA-7 AMB Questionnaire KSENIA-7 Date KSENIA - 7 assessed: 01/24/25 Feeling nervous, anxious, or on edge: 1 = Several days Not being able to stop or control worryin = Not at all Worrying too much about different things: 0 = Not at all Trouble relaxin = Several days Being so restless that it is hard to sit still: 1 = Several days Becoming easily annoyed or irritable: 0 = Not at all Feeling afraid as if something awful might happen: 0 = Not at all Total KSENIA-7 score (0-4 normal; 5-9 mild; 10-14 moderate; 15-21 severe): 3 Source: Developed by Drs. Joshua Ro, Lilibeth Tafoya, Shayne Streeter and colleagues, with an educational harpreet from [employer]. KSENIA-7 Assessment Billing KSENIA-7 Assessment Tool: KSENIA-7 Assessment 80389 ACT Questionnaire In the past 4 weeks, how much of the time did your asthma keep you from getting as much done at work, school or at home?: Some of the time During the past 4 weeks, how often have you had shortness of breath?: More than once a day During the past 4 weeks, how often did your asthma symptoms wake you up at night or earlier than usual in the morning?: Once or twice per week During the past 4 weeks, how often have you had to use your rescue inhaler or nebulizer medication?: Once a week or less How would you rate your asthma control during the past 4 weeks?: Somewhat controlled Score: 15 Physical exam (Primary Care) Vital Signs: Last Vital Signs Temp 96.9 F 01/24/25 09:35 Pulse 76 01/24/25 09:35 Resp 13 01/24/25 09:35 BP 152/80 H 01/24/25 09:35 Pulse Ox 96 01/24/25 09:35 Oxygen Delivery Method Room Air 01/24/25 09:35 BMI result Body Mass Index 44.7 Tobacco/Smoking Status: Tobacco use Status Tobacco use date assessed 01/24/25 01/24/25 09:33 Patient Tobacco Use Status Never used Tobacco 01/24/25 09:30 e-Cigarette/Vaping Use Never Used 01/24/25 09:30 PHQ-9: PHQ-9 Score PHQ-9: Total score 3 01/24/25 09:30 Thrive Assessment: Date of Thrive Assessment Date Thrive assessed 01/24/25 01/24/25 09:30 Currently or been in a relationship where the following occur: No concerns reported Results Reviewed Results Reviewed: [place] [address] XRay Report Signed Patient: Veronique Frias MR#: [id number] : 1970 Acct:[id number] Age/Sex: 54 / F ADM Date: 01/19/25 Loc: HO.CT Attending Dr: Ksenia SIMMONS Ordering Physician: Ksenia Kent Date of Service: 01/19/25 Procedure(s): XR hand wrist LT Accession Number(s): [id number] cc: Ksenia Kent~ EXAMINATION: XR HAND/WRIST, LEFT CLINICAL INFORMATION: M25.532 - Pain in left wrist COMPARISON: None available. TECHNIQUE: PA, lateral, obliques, and scaphoid views of the left hand and wrist. FINDINGS: No fracture, dislocation, or suspicious bone lesion. Normal bone mineralization. Normal alignment. Negative ulnar variance. Joint spaces are preserved. No significant arthropathy. Soft tissues demonstrate minimal prominence overlying the dorsal wrist. No additional soft tissue finding. XR/XR hand wrist LT IMPRESSION: 1. No bony abnormalities. 2. Minimal soft tissue prominence dorsal wrist. Electronically signed by: Matt Hensley MD 01/20/2025 09:41 AM EST Dictated By: Matt eHnsley MD Signed By: <Electronically signed by Matt Hensley MD in OV> 01/20/25 0941 DD/ 1440 TD/TT: 01/19/25 1454 Clinical Psychologist: [place] [address] CT Scan Report Signed Patient: Veronique Frias MR#: [id number] : 1970 Acct:[id number] Age/Sex: 54 / F ADM Date: 01/19/25 Loc: HO.CT Attending Dr: Ksenia SIMMONS Ordering Physician: Ksenia Kent Date of Service: 01/19/25 Procedure(s): CT pelvis wo/w IV con Accession Number(s): [id number] cc: Ksenia Kent~ Report Number: [id number]: Total DLP = 1163.00 mGy-cm EXAMINATION: CT PELVIS WITHOUT AND WITH CONTRAST CLINICAL INFORMATION: Questionable 5 mm lytic lesion in the right ischium. COMPARISON: CT abdomen pelvis dated August 19, 2017. TECHNIQUE: Helical scanning was performed with submillimeter collimation through the pelvis was performed before and after the use of intravenous injection of 85 mL of Omnipaque 350 intravenous contrast. Sagittal and coronal multiplanar 2-D reconstructions were obtained. This CT examination was performed using dose optimization techniques as appropriate, variously including the following: *Automated exposure control *Adjustment of mA and/or kV according to patient size (this includes techniques or standardized protocols for targeted exams where dose is matched to indication/reason for exam; i.e. extremities or head) *Use of iterative reconstruction technique. DLP: 1163 mGy centimeter. FINDINGS: PELVIS: No gross mass. No intestinal obstruction pattern. No pneumoperitoneum. No ascites. Appendix is normal. Small tiny fat-containing umbilical hernia. Bladder is collapsed. Nonspecific prominent inguinal lymph nodes. OSSEOUS STRUCTURES: No lytic or blastic lesions. Sclerosis and the sacroiliac joints. Marginal osteophyte formation and disc desiccation with the vacuum phenomenon at L4-5 and L5-S1. No acute cortical disruption or malalignment in the coxofemoral joints. The bony pelvis is intact. CT/CT pelvis wo/w IV con IMPRESSION: No lytic or blastic lesions. 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 Small fat-containing umbilical hernia. Electronically signed by: Ryley Voss MD 01/19/2025 03:37 PM EST RP Dictated By: Ryley Pham MD Signed By: <Electronically signed by Ryley Frias MD in OV> 01/19/25 1537 Coding Level of Care Code Est Pt Level 5 (12598) Complex EM visit Add On G2211 Diagnoses Mild intermittent asthma with acute exacerbation J45.21 Asthma severity: mild Asthma complication type: with acute exacerbation Lytic lesion of bone on x-ray M89.8X9 Left wrist pain M25.532 CROOKS (dyspnea on exertion) R06.09 Chest tightness R07.89 Right hip pain M25.551 Left hip pain M25.552 Additional Codes KSENIA-7 Assessment Billing - KSENIA-7 Assessment Tool: KSENIA-7 Assessment 58950 ([id number]) PHQ-9 - 84089 - PHQ-9 Billing: Yes ([id number]) Assessment & Plan Assessment & Plan (1) Asthma, intermittent: Code(s): J45.20 - Mild intermittent asthma, uncomplicated Category: Medical Qualifiers: Asthma severity: mild Asthma complication type: with acute exacerbation Qualified Code(s): J45.21 - Mild intermittent asthma with (acute) exacerbation (2) Lytic lesion of bone on x-ray: Comment: 10/2024 MPRESSION: No acute fracture or dislocation, left hip. Questionable 5 mm lytic lesion, right ischium.. Electronically signed by: Ryley Voss MD 11/02/2024 12:52 PM EST RP Code(s): M89.8X9 - Other specified disorders of bone, unspecified site Category: Medical (3) Left wrist pain: Code(s): M25.532 - Pain in left wrist Category: Medical (4) CROOKS (dyspnea on exertion): Code(s): R06.09 - Other forms of dyspnea Category: Medical (5) Chest tightness: Code(s): R07.89 - Other chest pain Category: Medical (6) Right hip pain: Code(s): M25.551 - Pain in right hip Category: Medical (7) Left hip pain: Code(s): M25.552 - Pain in left hip Category: Medical Plan . Orders: Orders PT Evaluation and Treatment Today M25.551 - Pain in right hip, M25.552 - Pain in left hip CA stress test Today R06.09 - Other forms of dyspnea, R07.89 - Other chest pain Referrals Hand Surgery Referral M25.532 - Pain in left wrist Medications: New diclofenac sodium 1% (Voltaren Arthritis Pain) apply to single elbow, wrist or hand; for hand includes palm/fingers/back of hand 2 grams topical QID 100 grams 1RF
[2025-01-24 09:35] VITALS: BP 152/80; PULSE 76; RESP 13; TEMP 36.1; O2SAT 96; BMI 44.7
[2025-01-24 09:55] VITALS: BP 134/76
--- OUTSIDE RECORDS SUMMARY | 2025-01-24 10:31 | XMS_ITS | Clinical Summary ---
Author Organization [employer] Address [address] [place] [address] Care Team Providers Care Conflicts Analyst Name Role Phone Unavailable Primary Care Provider [...]
== END 2025-01-24 10:05 | disposition home or self-care (01) ==
PROVIDERS: PCP Nurse Practitioner Family; Visit Provider Nurse Practitioner Family
DX: J45.21 Mild intermittent asthma with (acute) exacerbation (principal); M89.8X9 Other specified disorders of bone, unspecified site; M25.532 Pain in left wrist; R06.09 Other forms of dyspnea; R07.89 Other chest pain; M25.551 Pain in right hip; M25.552 Pain in left hip

== ENCOUNTER → 2025-01-24 09:26 | Outpatient (BNVA) | payer OTHER, SELFPAY | PROVIDERS: PCP Nurse Practitioner Family; Visit Provider Nurse Practitioner Family | DX: J45.21 Mild intermittent asthma with (acute) exacerbation (principal); M25.532 Pain in left wrist; R06.09 Other forms of dyspnea; R07.89 Other chest pain; M25.551 Pain in right hip; M25.552 Pain in left hip; M89.8X9 Other specified disorders of bone, unspecified site | CPT/HCPCS: 96127; 99212 ==

== ENCOUNTER → 2025-01-30 10:00 | Outpatient (REF) | payer OTHER, SELFPAY ==
--- NOTE | 2025-01-30 10:06 | CA_ITS ---
Acquisition Time: 2025-01-30 10:26:30 Total Exercise Time: 00:03:55 Test Indications: CP,Dyspnea Medications: SEE H&P Protocol: GREY Max HR: 134 BPM 80% of Pred: 167 BPM Max BP: 190/64 mmHG Max Work Load: 5.3 METS Exercise Stress Test with exercise 3 mins 55 secs of Grey Protocol, reduced speed to 2.2mph at Stage 2, requesting to stop due to severe SOB, no chest discomfort, without any arrythmias, with normotensive response to exercise. Nondiagfnostic EKG due to suboptimal HR. Recommended Pharmacological stress test with nuclear images (Lexiscan) for further evaluation but pt states is claustrophobic and does not want to pursue this. If she cant do a CTA either then recommend referring her to Cardiology. Test reviewed with Dr. Bobby. Walt texted her PCP. Referred By: Ksenia Kent Electronically Signed By: Efra Saldivar
--- OUTSIDE RECORDS SUMMARY | 2025-01-30 11:23 | XMS_ITS | Clinical Summary ---
Author Organization [employer] Address [address] [place] [address] Care Team Providers Care Cargo Checker Name Role Phone Unavailable Primary Care Provider [...]
== END ==
LOC: HO.CARD 10:00
PROVIDERS: PCP Nurse Practitioner Family; Visit Provider Nurse Practitioner Family
DX: R07.89 Other chest pain (principal); R06.09 Other forms of dyspnea
CPT/HCPCS: 93017

== ENCOUNTER → 2025-01-30 10:06 | Outpatient (BNV) | payer OTHER, SELFPAY | PROVIDERS: PCP Nurse Practitioner Family | DX: R06.02 Shortness of breath (principal) | CPT/HCPCS: 93016; 93018 ==

== ENCOUNTER 2025-02-14 08:17 | Outpatient (REF) | payer OTHER, SELFPAY ==
--- NOTE | ~2025-02-14 | XR_ITS ---
EXAMINATION: XR WRIST NAVICULAR LEFT HISTORY: M25.532 - Pain in left wrist COMPARISON: Comparison is made with the prior examination dated 01/19/2025. FINDINGS: Four views of the left wrist including a scaphoid view are submitted. Osseous mineralization is normal. There is no fracture or dislocation. The joint spaces are preserved. The soft tissues are unremarkable. XR/XR wrist LT w scaphoid IMPRESSION: Unremarkable examination of the left wrist. Electronically signed by: Joshua Corbin MD 02/14/2025 09:29 AM EDT
== END 2025-02-14 08:18 | disposition home or self-care (01) ==
LOC: HO.HOSX 08:17
DX: M25.532 Pain in left wrist (principal); R20.0 Anesthesia of skin; R20.2 Paresthesia of skin
CPT/HCPCS: 73110; 99212

== ENCOUNTER 2025-02-14 08:18 | Outpatient (AMB) | payer OTHER, SELFPAY ==
[2025-02-14 08:28] VITALS: BMI 44.7
--- NOTE | 2025-02-14 08:28 | MHC.OFFVIS ---
Vital Signs 02/14/25 08:28 Height 5 ft 6 in Weight 277 lb BMI 44.7 Intake Visit Reasons: New prob-LT wrist pain Intake Note: Veronique is a 54 year old left hand dominant female who presents today for a new problem visit for evaluation of left wrist pain and a lump on her dorsum aspect of hand. States she has weakness, is not able to open a door knob, numbness and tingling. States lump appeared about 1 month ago and that's when she started to have pain and CTS. Denies any injury or locking of any finger. Allergies Seasonal Allergies Allergy (Intermediate, Verified 02/14/25 08:35) Itchy Eyes HPI HPI New prob-LT wrist pain: Details: Veronique is a 54 year old left hand dominant female who presents today for a new problem visit for evaluation of left wrist pain and a lump on her dorsum aspect of hand. States she has weakness, is not able to open a door knob, numbness and tingling. States lump appeared about 1 month ago and that's when she started to have pain and CTS. Denies any injury or locking of any finger. [facility] Medical History (Updated 02/14/25 @ 11:18 by GYPSY Izquierdo) Hypertension, essential Disc disease, degenerative, lumbar or lumbosacral Radiculopathy affecting upper extremity Spinal osteophytosis DDD (degenerative disc disease), thoracolumbar Lumbar spondylosis Temporomandibular joint disorder (TMJ) Pneumonia due to 2019 novel coronavirus Osteoarthritis of right knee Asthma Diabetes Elevated cholesterol History of COVID-19 Endometrial hyperplasia without atypia Obesity Anxiety PCOS (polycystic ovarian syndrome) Hypertension Surgical History History of dilatation and curettage History of cholecystectomy History of Family History (Updated 04/29/24 @ 10:20 by Emiliana Garcia CMA) Father Heart problem HTN (hypertension) Hypercholesteremia Cancer Mother Stroke Diabetes Asthma HTN (hypertension) Son Asthma Social History Housing: House Are you a primary customer care team coach to a significant other at home: No Do you presently have visiting nurse or other home services: No Alcohol intake: never Comment: cramping Patient Tobacco Use Status: Never used Tobacco e-Cigarette/Vaping Use: Never Used Second Hand Smoke Exposure: No service: No Current occupational status: other 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 Neuro: Normal sensation of the tips of all digits of the left hand at this time Vascular: Cap refill brisk Pain: No tenderness to palpation about the left hand or wrist Minor discomfort with passive flexion and resisted extension of the left wrist in the dorsal and radial aspect ROM: Patient is able to make a closed fist and extend all digits of the left hand fully Range of motion of the left wrist full and intact Skin: No lacerations or abrasions. General: No ecchymosis, erythema, or evidence of infection. Psych: Appears grossly normal Affect normal Attitude cooperative Assessment & Plan Assessment & Plan (1) Extensor carpi radialis brevis tenosynovitis: Code(s): M65.939 - Unspecified synovitis and tenosynovitis, unspecified forearm Category: Medical (2) Numbness and tingling of left hand: Code(s): R20.0 - Anesthesia of skin; R20.2 - Paresthesia of skin Category: Medical Plan 1. Numbness and tingling of the left hand Intermittent, daily, worse at night Patient was referred for EMG and nerve conduction study for assessment of the health of the nerves of the left upper extremity Patient will follow-up after EMG and nerve conduction study for results review and discussion of further treatment options if indicated Patient was amenable to this plan 2. Extensor carpi radialis tendinitis Patient is educated about this condition Patient is educated about the typical recovery course At this time, patient was referred to occupational therapy for range of motion and strengthening of the left wrist in the setting of ECR tendinitis Patient was also provided with a Velcro wrist splint to wear with daytime activities Patient was amenable to this plan Patient will follow-up after EMG and nerve conduction study, sooner with any acute concerns Orders: Orders NE nerve conduction velocity Today R20.0 - Anesthesia of skin, R20.2 - Paresthesia of skin XR wrist LT w scaphoid Today M25.532 - Pain in left wrist OT Evaluation and Treatment Today M65.939 - Unspecified synovitis and tenosynovitis, unspecified forearm NE electromyogram (EMG) Today R20.0 - Anesthesia of skin, R20.2 - Paresthesia of skin Coding Level of Care Code Est Pt Level 3 (54312) Complex EM visit Add On G2211 Diagnoses Extensor carpi radialis brevis tenosynovitis M65.939 Numbness and tingling of left hand R20.0; R20.2
== END 2025-02-14 09:00 | disposition home or self-care (01) ==
LOC: HO.HOS 08:18
PROVIDERS: PCP Nurse Practitioner Family
DX: M65.932 Unspecified synovitis and tenosynovitis, left forearm (principal); R20.0 Anesthesia of skin; R20.2 Paresthesia of skin
CPT/HCPCS: 99213; G2211

== ENCOUNTER → 2025-02-14 08:20 | Outpatient (BNV) | payer OTHER, SELFPAY | PROVIDERS: Visit Provider Radiology Diagnostic Radiology | DX: M25.532 Pain in left wrist (principal) | CPT/HCPCS: 73110 ==

== ENCOUNTER 2025-02-20 08:59 | Outpatient (REF) | payer OTHER, SELFPAY | END 2025-02-20 09:00 | disposition home or self-care (01) | LOC: HO.MAMMO 08:59 | PROVIDERS: PCP Nurse Practitioner Family; Visit Provider Nurse Practitioner Family | DX: Z12.31 Encounter for screening mammogram for malignant neoplasm of breast (principal) | CPT/HCPCS: 77063; 77067 ==

== ENCOUNTER → 2025-02-20 09:00 | Outpatient (BNV) | payer OTHER, SELFPAY | PROVIDERS: PCP Nurse Practitioner Family; Visit Provider Internal Medicine | DX: Z12.31 Encounter for screening mammogram for malignant neoplasm of breast (principal) | CPT/HCPCS: 77063; 77067 ==

== ENCOUNTER 2025-02-21 10:39 | Outpatient (RCR) | payer OTHER, SELFPAY ==
--- NOTE | 2025-02-17 13:17 | MHC.OT.OEV ---
[address] [phone] F: [phone] Occupational Therapy Evaluation Patient Name: Veronique Frias Diagnosis: (L) extensor carpi radialis brevis tenosynovitis Date of Onset: Date of Surgery: Attending Provider: Pb Gonzales Prescribed Treatment: MD Follow Up Appointment: History of Current Condition: Patient is a 54 y/o (L)handed female with PMHx of but not limited to DMII who was referred to skilled OT for pain of the wrist. Patient reports pain started approximately a month ago. She reports 0/10 pain at rest and 7/10 pain with movement that is shooting and has intermittent numbness in all 4 fingers and is painful making a composite fist. She states she is not working and PLOF (I)ADLs/IADLS. She lives with her and adult children in a 2nd floor apartment. She states she is having difficulty cooking and doing her hair. She does have a wrist brace that was provided to her and is compliant with wear schedule. Significant Medical History: Hypertension, essential Disc disease, degenerative, lumbar or lumbosacral Radiculopathy affecting upper extremity Spinal osteophytosis DDD (degenerative disc disease), thoracolumbar Lumbar spondylosis Temporomandibular joint disorder Pneumonia due to 2019 novel coronavirus Osteoarthritis of right knee Asthma Diabetes Elevated cholesterol History of COVID-19 Endometrial hyperplasia without atypia Obesity Anxiety PCOS (polycystic ovarian syndrome) Hypertension Precautions/Contraindications: DM II Patient Goals: Hand Dominance: Left Observations: QuickDASH Score: 63.6 Prior Level of Function and Occupation Self Care, Employment, Leisure: Unemployed (I)ADLs/IADLs cooking Living Situation, Family and/or Social Support: Lives with and adult children Current Level of Function and Occupation Self Care, Employment, Leisure: Unemployed min (A) ADLs/IADLs Sleep: WFLs Driving: Does not drive Vision: Balance: Pain Assessment Pain Score: 7 Pain Scale Used: Numeric (0 - 10) Pain Location and Description: 0/10 at rest 7/10 during movement shooting, numbness/tingling Aggravating Factors: Alleviating Factors: Icy/Hot Skin and Soft Tissue Assessment Skin and Soft Tissue: Comments: WFL Nerve assessment Ulnar Nerve: Median Nerve: Radial Nerve: Comments: Sensory Assessment Temperature: Light Touch: Proprioception: Vibration: Comments: Edema Assessment Upper Extremity: Lower Extremity: Comments: Edema present 5cm distal to dorsum wrist Dexterity Assessment Dexterity: Comments: WFL Special Tests Comments: Resisted wrist extension test = (+) AROM(PROM) Strength Cervical Cervical Flexion: Cervical Extension: Cervical Lateral Flexion: Cervical Rotation: Comments: Shoulder Flexion: Extension: Abduction: Internal Rotation: External Rotation: Comments: WFL Flexion: Extension: Abduction: Internal Rotation: External Rotation: Comments: 4-/5 grossly Elbow Flexion: Extension: Pronation: Supination: Comments: WFL Flexion: Extension: Pronation: WFL Supination: 50 Comments: 4-/5 grossly Wrist Flexion: 11 Extension: 33 Ulnar Deviation: 15 Radial Deviation: 13 Comments: Flexion: Extension: Ulnar Deviation: Radial Deviation: Comments: 4-/5 grossly Thumb Thumb CMC Flexion: Thumb MCP Flexion: WFL Thumb IP Flexion: 65 Radial Abduction: Palmar Abduction: 45 [place] (K[place]andji 0-10): Comments: Digits Index MCP: PIP: DIP: Long MCP: PIP: DIP: Ring MCP: PIP: DIP: Small MCP: PIP: DIP: Comments: WFL mildly limited due to pain Gross Grasp: (R)42lbs., (L)30lbs. Lateral Pinch: (L)3lbs. Two-Point Pinch: (L)8lbs. Three-Jaw Charanjit: (L)6lbs. Comments: submaximal effort Patient Education Primary Language: Tajik Web Merchandiser Required: No Current Knowledge: Understands information with skills for self-management Teaching Method: Verbal Education Needs Identified on Evaluation: ADL's Equipment Use Exercise Pain Safety How did patient/family demonstrate learning? Patient demonstrates Patient verbalizes Barriers to Learning: None Readiness for Learning: Accepting Who was educated? Patient Comments: Plan of Care Assessment: Based on initial OT evaluation patient presents with impaired ROM, impaired strength, pain, and impaired performance during self care tasks. 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 Quick DASH= 63.6 indicating patient's perceived impairment of UE during self care tasks. Due to the documented impairments it is recommended that patient receive skilled OT intervention in order for patient to achieve her PLOF of (I) during self care tasks. Thank you for your referral. STG Duration: 2 weeks Short Term Goals: Patient will report decreased pain in (L)wrist to 5/10 pain Patient will increase senior trial attorney strength to 35lbs. in (L)UE Patient will increase (L)wrist extension by 10* Patient will increase (L)wrist flexion by 10* Patient will be able to state at least 2 activity modifications for improved activity performance LTG Duration: 4 weeks Shelter Goals: Patient will report 0/10 pain Patient will be (I) with HEP patient will decrease Quick DASH score by 30% indicating overall UE improvement during self care tasks Frequency and Duration: The patient will be seen 1x a week for 4 weeks Treatment Plan: Therapeutic Exercise Therapeutic Activity Home Exercise Program Splinting Patient Education Desensitization/Sensory Re-ed Edema Control ADL Training Ultrasound NMES Iontophoresis Paraffin Fluidotherapy MHP Cold Packs Joint Mobilization Soft Tissue Mobilization Kinesiotaping Other (see comments) Skilled OT eval and treat Electronically Signed By: Ashley Cunningham OTR/L, CLT Reviewed/agree with student documentation: Therapist: Please sign and return to therapist, Thank you for your referral.
--- NOTE | 2025-03-28 11:16 | MHC.OT.DC ---
[address] [phone] F: [phone] Occupational Therapy Discharge Note Patient Name: Veronique Bianchi Rodriguez Provider: Pb Gonzales Diagnosis: (L) extensor carpi radialis brevis tenosynovitis Date of Surgery: Date of Evaluation: 02/17/25 Date of Discharge: Treatments to Date: 2 Cancellations to Date: No Shows to Date: Discharge Status: Discharge Summary: Patient did not return to therapy. Electronically Signed By: CORTNEY Bautista/Arias CLDav Reviewed/agree with student documentation: Therapist: Please Sign and return to therapist, thank you for your referral.
== END 2025-03-28 11:17 | disposition home or self-care (01) ==
LOC: HO.OT 10:39
PROVIDERS: PCP Nurse Practitioner Family
DX: M65.939 Unspecified synovitis and tenosynovitis, unspecified forearm (principal)
CPT/HCPCS: 97035; 97110; 97140; 97165

== ENCOUNTER 2025-03-07 11:00 | Outpatient (AMB) | payer OTHER, SELFPAY ==
--- NOTE | 2025-03-07 11:27 | MHC.PC.OV ---
Vital Signs 03/07/25 11:31 Height 5 ft 6 in Weight 280 lb BMI 45.2 BP 138/78 Blood Pressure Location Lt brachial Position Sitting Respiration 13 Pulse 73 Pulse Source Pulse Oximeter Temp 97.3 F Temp Source Oral Pulse Oximetry (%) 97 Oxygen Delivery Method Room Air Intake Visit Reasons: fu stress test results Intake Note: Follow up and patient was unable to do the stress test. Patient c/o left ankle px x1 week English Lecturer Required: No Allergies Seasonal Allergies Allergy (Intermediate, Verified 03/07/25 11:27) Itchy Eyes Medication List - Last Reconciled 03/07/25 by Ksenia Kent, WELDING MANAGER-BC albuterol sulfate 2.5 mg (3 mL) inhalation Q4-6H PRN albuterol sulfate 90 mcg/actuation (Ventolin HFA) 2 puffs inhalation Q6H PRN atorvastatin 80 mg PO QPM azelastine (Astepro Allergy) 2 sprays intranasal DAILY blood pressure test kit-large As directed blood sugar diagnostic (FreeStyle Lite Strips) use daily As directed to check blood sugars for diabetes blood-glucose meter (FreeStyle Lite Meter kit) Use daily As directed to check blood glucose budesonide-formoterol 80-4.5 mcg/actuation (Symbicort) 2 puffs inhalation BID diclofenac sodium 1% (Voltaren Arthritis Pain) 2 grams topical QID hydrochlorothiazide 12.5 mg PO QAM lancets (FreeStyle Lancets) Use daily As directed to check blood sugar lidocaine 5% 1 patch topical DAILY lisinopril 20 mg PO BID loratadine 10 mg PO DAILY 90 days metformin ER 500 mg PO DAILY metoprolol succinate ER 25 mg PO DAILY 3 months montelukast (Singulair) 10 mg PO BEDTIME nebulizers for acute asthma or reactions Tobacco use date assessed: 01/24/25 Dental Screening Dental Screen Date: 01/24/25 HPI HPI Comments History of Present Illness Details 54-year-old female with morbid obesity, diabetes type 2, hyperlipidemia, hypertension, mild intermittent asthma, seasonal allergies, benign positional vertigo, generalized anxiety disorder, PCOS, osteoarthritis, cervical and lumbar radicular back pain, CK 3A, MDD Status post D&C x3 with uterine polypectomy, cholecystectomy, x2 History of Present Illness Here today to follow up on stress test. Results as below. Patient was unable to tolerate. The recommendation was to undergo a Raiza scan however she was extremely claustrophobic and does not think that she can do this. The other alternative would be to refer to Cardiology to meet with a billing typist to discuss the benefits of a diagnostic cardiac catheterization. The patient continues to have dyspnea on exertion and no resolution in the symptoms that she complained of that elicited the order for this exam. She was also complaining of left ankle pain that started about a week ago. She reports some swelling. Feels like she sprained it but did not. Hurts when she wears flat shoes. Hurts 1st thing in the morning when she gets out of bed. Better when she was off of the foot. DM2 with obesity: Taking metformin 500mg. This causes diarrhea but no wt loss. Higher co-pays. Cannot afford referral to nutrition or change in meds at this time. Physical Exam Awake alert NAD Sclera and conjunctiva clear bilat RRR LS CTAB diminished throughout Bilateral lower extremities no edema, skin intact, pedal pulses within normal limits. Pain over achilles heel L, mild antalgic gait favoring L; Mild localized edema lateral ankle Neurovasc intact Results See below Last labs reviewed w/ her in detail today Discussion Notes At this time she was agreeable to seek Cardiology. Referral [facility] to [facility] Card[facility] group. In regards to her left foot, she has plantar fasciitis. She can not afford a referral to Podiatry so we will treat her at home. PDF given on home exercises. I did show her gajj-whw-akkfksi shoe inserts that she can buy an use. Okay to use heea-sov-beutudk analgesia as needed. In regards to her diabetes we will have to keep her on the metformin 500 mg. Her A1c is less than 7. She continues to be obese. It was hard for her to exercise given these symptoms that she was having related to feeling dyspneic on exertion. She can not afford to see a tool lapper hand at this time it was unfortunate. We will have to just continue. Does not want to see bariatric says she does not want to have surgery. Patient Instructions I would like her to return to the office for complete physical exam. Sooner as needed. Consent Patient was informed and verbally consented to the use of an ambient scribe for clinic note documentation during this visit. Total time spent caring for the patient today was 40 minutes. This includes time spent before the visit reviewing the chart, time spent during the visit, and time spent after the visit on documentation, reviewing laboratory results, diagnostic imaging, medications, performing a medically necessary evaluation, counseling on diagnoses, care coordination, ordering appropriate tests, ordering appropriate medications, review of tests performed by other providers, reporting test results with the patient, communication with other healthcare providers. [facility] Medical History (Updated 03/07/25 @ 12:14 by Ksenia Kent, [facility]) Anxiety Asthma DDD (degenerative disc disease), thoracolumbar Diabetes Disc disease, degenerative, lumbar or lumbosacral Elevated cholesterol Endometrial hyperplasia without atypia History of COVID-19 Hypertension Hypertension, essential Lumbar spondylosis Obesity Osteoarthritis of right knee PCOS (polycystic ovarian syndrome) Pneumonia due to 2019 novel coronavirus Radiculopathy affecting upper extremity Spinal osteophytosis Temporomandibular joint disorder (TMJ) Surgical History History of dilatation and curettage History of cholecystectomy History of Family History (Updated 04/29/24 @ 10:20 by Emiliana Garcia CMA) Father Heart problem HTN (hypertension) Hypercholesteremia Cancer Mother Stroke Diabetes Asthma HTN (hypertension) Son Asthma Social History Housing: House Are you a primary rn care manager to a significant other at home: No Do you presently have visiting nurse or other home services: No Alcohol intake: never Comment: cramping Patient Tobacco Use Status: Never used Tobacco e-Cigarette/Vaping Use: Never Used Second Hand Smoke Exposure: No service: No Current occupational status: other 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 Joshua Ro, Lilibeth Tafoya, Shayne Streeter and colleagues, with an educational harpreet from [employer]. Physical exam (Primary Care) Vital Signs: Last Vital Signs Temp 97.3 F 03/07/25 11:31 Pulse 73 03/07/25 11:31 Resp 13 03/07/25 11:31 BP 138/78 03/07/25 11:31 Pulse Ox 97 03/07/25 11:31 Oxygen Delivery Method Room Air 03/07/25 11:31 BMI result Body Mass Index 45.2 Tobacco/Smoking Status: Tobacco use Status Tobacco use date assessed 01/24/25 03/07/25 11:30 Patient Tobacco Use Status Never used Tobacco 03/07/25 11:30 e-Cigarette/Vaping Use Never Used 03/07/25 11:30 Thrive Assessment: Date of Thrive Assessment Date Thrive assessed 12/23/24 03/07/25 11:57 Results Reviewed Results Reviewed: Coding Level of Care Code Est Pt Level 5 (92745) Complex EM visit Add On G2211 Diagnoses Primary hypertension I10 Hypertension type: primary hypertension High cholesterol E78.00 CROOKS (dyspnea on exertion) R06.09 Chest tightness R07.89 Plantar fasciitis, left M72.2 Diabetes mellitus type 2 with complications E11.8 BMI 45.0-49.9, adult Z68.42 Assessment & Plan Assessment & Plan (1) Hypertension: Comment: at goal on current meds, cont. Code(s): I10 - Essential (primary) hypertension Category: Medical Qualifiers: Hypertension type: primary hypertension Qualified Code(s): I10 - Essential (primary) hypertension (2) High cholesterol: Code(s): E78.00 - Pure hypercholesterolemia, unspecified Category: Medical (3) CROOKS (dyspnea on exertion): Code(s): R06.09 - Other forms of dyspnea Category: Medical (4) Chest tightness: Code(s): R07.89 - Other chest pain Category: Medical (5) Plantar fasciitis, left: Code(s): M72.2 - Plantar fascial fibromatosis Category: Medical (6) Diabetes mellitus type 2 with complications: Code(s): E11.8 - Type 2 diabetes mellitus with unspecified complications Category: Medical (7) BMI 45.0-49.9, adult: Code(s): Z68.42 - Body mass index [BMI] 45.0-49.9, adult Category: Medical Plan . Orders: Referrals Cardiology Referral E78.00 - Pure hypercholesterolemia, unspecified, I10 - Essential (primary) hypertension, R06.09 - Other forms of dyspnea, R07.89 - Other chest pain Medications: Refilled hydrochlorothiazide 12.5 mg PO QAM 90 tabs 0RF lisinopril 20 mg PO BID 180 tabs 1RF metoprolol succinate ER 25 mg PO DAILY 90 tabs 0RF 3 months
[2025-03-07 11:31] VITALS: BP 138/78; PULSE 73; RESP 13; TEMP 36.3; O2SAT 97; BMI 45.2
== END 2025-03-07 12:19 | disposition home or self-care (01) ==
PROVIDERS: PCP Nurse Practitioner Family; Visit Provider Nurse Practitioner Family
DX: I10 Essential (primary) hypertension (principal); E78.00 Pure hypercholesterolemia, unspecified; R06.09 Other forms of dyspnea; R07.89 Other chest pain; M72.2 Plantar fascial fibromatosis; E11.8 Type 2 diabetes mellitus with unspecified complications; Z68.42 Body mass index [BMI] 45.0-49.9, adult

== ENCOUNTER → 2025-03-07 11:00 | Outpatient (BNVA) | payer OTHER, SELFPAY | PROVIDERS: PCP Nurse Practitioner Family; Visit Provider Nurse Practitioner Family | DX: E11.8 Type 2 diabetes mellitus with unspecified complications (principal); E66.01 Morbid (severe) obesity due to excess calories; I10 Essential (primary) hypertension; J45.20 Mild intermittent asthma, uncomplicated; F41.1 Generalized anxiety disorder; E28.2 Polycystic ovarian syndrome; E78.00 Pure hypercholesterolemia, unspecified; R06.09 Other forms of dyspnea; R07.89 Other chest pain; M72.2 Plantar fascial fibromatosis; Z79.84 Long term (current) use of oral hypoglycemic drugs; Z68.42 Body mass index [BMI] 45.0-49.9, adult; Z91.09 Other allergy status, other than to drugs and biological substances | CPT/HCPCS: 99212 ==

== ENCOUNTER 2025-04-12 17:11 | Emergency (ER) | payer OTHER, SELFPAY ==
--- NOTE | ~2025-04-12 | XR_ITS ---
CLINICAL HISTORY: L ankle pain Radiographs of the left ankle, 3 views Comparison: None Findings: There is no definitive fracture or dislocation. 3 mm ossific fragment versus calcification in the medial clear space seen on the AP view. The ankle mortise is congruent. Mild degenerative change. Trace enthesophyte at the insertion of the Achilles tendon. Bone mineralization is normal. Soft tissue swelling. Impression: No definitive fracture. 3 mm age indeterminate ossific fragment versus calcification in the medial clear space seen on one view. This document has been electronically signed by: Марина Gaffney MD on 04/12/2025 17:50:10
--- NOTE | 2025-04-12 17:21 | ED.GENADULT ---
HPI - General Adult General Chief complaint: Extremity Injury, Lower Stated complaint: left foot pain Time Seen by Provider: 04/12/25 18:52 Source: patient Limitations: no limitations History of Present Illness ED Provider: Belkys Yao PA-C HPI narrative: 54-year-old female with a history of morbid obesity, known plantar fasciitis of the left foot, type 2 diabetes, hyperlipidemia, hypertension, PCOS, asthma, anxiety and depression who presents with a atraumatic left ankle pain x2 months. No redness or warmth, no fever. Patient can not recall if she injured the ankle in the past. Related Data Previous Rx's ?Medication ?Instructions ?Recorded albuterol sulfate 2.5 mg/3 mL 2.5 mg (3 mL) inhalation Q4-6H PRN 02/06/22 (0.083 %) solution for nebulization shortness of breath or wheezing #90 mL blood pressure test kit-large #1 ea 03/03/22 azelastine 205.5 mcg (0.15 %) 2 spray intranasal DAILY #30 mL 02/05/24 nasal spray (Astepro Allergy) lidocaine 5 % topical patch 1 patch topical DAILY #30 ea 02/16/24 albuterol sulfate 90 mcg/actuation 2 puff inhalation Q6H PRN for 04/07/24 aerosol inhaler (Ventolin HFA) wheezing #18 ea blood sugar diagnostic (FreeStyle #100 ea 07/14/24 Lite Strips) blood-glucose meter (FreeStyle #1 ea 07/14/24 Lite Meter kit) lancets 28 gauge (FreeStyle #100 ea 07/14/24 Lancets) atorvastatin 80 mg tablet 80 mg PO QPM #90 tabs 12/26/24 budesonide-formoterol HFA 80 2 puff inhalation BID #10.2 grams 12/26/24 mcg-4.5 mcg/actuation aerosol inhaler (Symbicort) loratadine 10 mg capsule 10 mg PO DAILY 90 days #90 caps 12/26/24 metformin 500 mg tablet,extended 500 mg PO DAILY #90 tabs 12/26/24 release 24 hr montelukast 10 mg tablet 10 mg PO BEDTIME #90 tabs 12/26/24 (Singulair) diclofenac sodium 1 % topical gel 2 g topical QID #100 grams 01/24/25 (Voltaren Arthritis Pain) nebulizers #1 ea 02/02/25 hydrochlorothiazide 12.5 mg tablet 12.5 mg PO QAM #90 tabs 03/07/25 lisinopril 20 mg tablet 20 mg PO BID #180 tabs 03/07/25 metoprolol succinate 25 mg 25 mg PO DAILY 3 months #90 tabs 03/07/25 tablet,extended release 24 hr ketorolac 10 mg tablet 10 mg PO Q6H PRN pain #20 tabs 04/12/25 Allergies Allergy/AdvReac Type Severity Reaction Status Date / Time Seasonal Allergies Allergy Intermediate Itchy Eyes Verified 04/12/25 17:23 Review of Systems Review of Systems: Yes all other systems are reviewed and are negative Constitutional: Constitutional: Denies fatigue and Denies fever(s) Musculoskeletal: Musculoskeletal: Reports arthralgias and Reports joint swelling Integumentary/Breasts: Skin/Breast: Denies erythema and Denies wounds Endocrine: Endocrine: Denies fatigue PMFSH Past Medical History Attestation statement: The following information was validated with the patient. Medical History (Updated 04/12/25 @ 20:04 by GYPSY Sandhu) Hypertension, essential Disc disease, degenerative, lumbar or lumbosacral Radiculopathy affecting upper extremity Spinal osteophytosis DDD (degenerative disc disease), thoracolumbar Lumbar spondylosis Temporomandibular joint disorder (TMJ) Pneumonia due to 2019 novel coronavirus Osteoarthritis of right knee Asthma Diabetes Elevated cholesterol History of COVID-19 Endometrial hyperplasia without atypia Obesity Anxiety PCOS (polycystic ovarian syndrome) Hypertension Surgical History History of dilatation and curettage History of cholecystectomy History of Family History Family History (Updated 04/29/24 @ 10:20 by Emiliana Garcia CMA) Father Heart problem HTN (hypertension) Hypercholesteremia Cancer Mother Stroke Diabetes Asthma HTN (hypertension) Son Asthma Social History Social History Housing: House Are you a primary animal care service worker to a significant other at home: No Do you presently have visiting nurse or other home services: No Alcohol intake: never Comment: cramping Patient Tobacco Use Status: Never used Tobacco e-Cigarette/Vaping Use: Never Used Second Hand Smoke Exposure: No Advance Directives: No Advance Directives Information Provided: No Do you have a plan to hurt others: No Plan service: No Current occupational status: other 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 Sexual orientation: Straight/Heterosexual Gender identity: Female Cognitive needs: No Hearing needs: No Vision needs: No Physical Exam ED Vital Signs: Vital Signs - 24 hr 04/12/25 17:22 Temperature 98 F Pulse Rate 82 Respiratory Rate 19 Blood Pressure 139/73 Pulse Oximetry 98 Oxygen Delivery Method Room Air BMI result Body Mass Index 45.2 Const Other: Alert well-appearing Orientation/consciousness: patient oriented x3 Resp Effort & Inspection: normal respiratory effort Cardio Other: Normal peripheral perfusion Skin Other: Warm dry no rash Neuro General: patient oriented x3, gait normal, no focal motor deficits and CN's II-XI intact bilaterally Extrem Other: No redness or warmth of the joint, it is uniformly swollen, no difference when compared to the right, able to flex and extend pain most prominent lateral ankle Psych Other: Cooperative Course Course Course Narrative: This is a rapid medical exam performed by Dorcas Tamez NP: Additional HPI, ROS, PE not included below will be deferred to primary provider. Patient states pain of L ankle for 2 months. States she came in today due to pain worsening. Has used icy hot, bria bandage, Tylenol/Motrin without effect. Denies recent trauma Plan: L ankle XR Medical Decision Making Medical Decision Making MDM Narrative: 54-year-old female with a history of morbid obesity, known plantar fasciitis of the left foot, type 2 diabetes, hyperlipidemia, hypertension, PCOS, asthma, anxiety and depression who presents with a atraumatic left ankle pain x2 months. No redness or warmth, no fever. Patient can not recall if she injured the ankle in the past. Problem: Obesity, diabetes , known plantar fascia History: Per patient I have considered the following differential diagnoses: Fracture, dislocation, sprain, septic arthritis/effusion Plan: X-ray ordered from triage, she has a arthritic changes. Her exam was not consistent with a septic joint. We will send with home care instructions. To note she also has plantar fasciitis in the same extremity, this could be exacerbating her discomfort as well. I have independently reviewed the following tests: X-ray left ankle: Findings: There is no definitive fracture or dislocation. 3 mm ossific fragment versus calcification in the medial clear space seen on the AP view. The ankle mortise is congruent. Mild degenerative change. Trace enthesophyte at the insertion of the Achilles tendon. Bone mineralization is normal. Soft tissue swelling. Impression: No definitive fracture. 3 mm age indeterminate ossific fragment versus calcification in the medial clear space seen on one view. Discharge Plan Discharge Clinical Impression: Arthritis of ankle, left Patient Disposition: Home, Self-Care Instructions: Plantar Fasciitis (ED), Osteoarthritis (ED), Plantar Fasciitis Exercises (ED) Additional Instructions: The x-ray was negative for fracture or dislocation, you have arthritis. You also have had plantar fasciitis in the same foot. This could be exacerbating your symptoms as well. See home care instructions. Take the ketorolac as directed take it with the food this is an anti-inflammatory. I am giving you a contact for our orthopedic service, you may want to follow up with them and discuss the need for a cortisone injection. It is imperative that you wear proper supportive shoes such as sneakers in particular running shoes. Follow up with your primary care provider as needed Prescriptions: New ketorolac 10 mg tablet 10 mg PO Q6H PRN (Reason: pain) Qty: 20 0RF Rx Instructions: maximum total duration of 5 days from all oral, intranasal, or parenteral formulations. The patient received an intramuscular dose of Toradol here in the emergency room. No Action (DME) blood pressure test kit-large Kit See Rx Instructions .Route Qty: 1 0RF Rx Instructions: As directed albuterol sulfate [Ventolin HFA] 90 mcg/actuation HFA aerosol inhaler 2 puff inhalation Q6H PRN (Reason: for wheezing) Qty: 18 0RF (DME) FreeStyle Lite Strips Strip See Rx Instructions .ROUTE .MEDSUPPLY Qty: 100 3RF Rx Instructions: use daily As directed to check blood sugars for diabetes (DME) blood-glucose meter [FreeStyle Lite Meter] Kit See Rx Instructions .ROUTE .MEDSUPPLY Qty: 1 0RF Rx Instructions: Use daily As directed to check blood glucose (DME) lancets [FreeStyle Lancets] 28 gauge misc See Rx Instructions .ROUTE .MEDSUPPLY Qty: 100 3RF Rx Instructions: Use daily As directed to check blood sugar (DME) nebulizers Misc See Rx Instructions .ROUTE .MEDSUPPLY Qty: 1 0RF Rx Instructions: for acute asthma or reactions lidocaine 5 % adhesive patch,medicated 1 patch topical DAILY Qty: 30 0RF Rx Instructions: leave on most painful area for up to 12 hrs albuterol sulfate 2.5 mg /3 mL (0.083 %) solution for nebulization 2.5 mg inhalation Q4-6H PRN (Reason: shortness of breath or wheezing) Qty: 90 6RF azelastine [Astepro Allergy] 205.5 mcg (0.15 %) spray,non-aerosol 2 spray intranasal DAILY Qty: 30 2RF Rx Instructions: administer into each nostril diclofenac sodium [Voltaren Arthritis Pain] 1 % gel 2 g topical QID Qty: 100 1RF Rx Instructions: apply to single elbow, wrist or hand; for hand includes palm/fingers/back of hand hydrochlorothiazide 12.5 mg tablet 12.5 mg PO QAM Qty: 90 0RF lisinopril 20 mg tablet 20 mg PO BID Qty: 180 1RF metoprolol succinate 25 mg tablet extended release 24 hr 25 mg PO DAILY 90 Days Qty: 90 0RF atorvastatin 80 mg tablet 80 mg PO QPM Qty: 90 1RF metformin 500 mg tablet extended release 24 hr 500 mg PO DAILY Qty: 90 0RF loratadine 10 mg capsule 10 mg PO DAILY 90 Days Qty: 90 0RF montelukast [Singulair] 10 mg tablet 10 mg PO BEDTIME Qty: 90 3RF budesonide-formoterol [Symbicort] 80-4.5 mcg/actuation HFA aerosol inhaler 2 puff inhalation BID Qty: 10.2 2RF Print Language: Bulgarian
[2025-04-12 17:22] VITALS: BP 139/73; PULSE 82; RESP 19; TEMP 36.6; O2SAT 98; BMI 45.2
[2025-04-12] MEDS: Ketorolac Tromethamine 15 MG/ML VIAL IM (20:05)
[2025-04-12 20:08] VITALS: BP 143/72; PULSE 73; RESP 17; TEMP 36.5; O2SAT 99
[2025-04-12 20:22] VITALS: BP 143/72; PULSE 73; RESP 17; TEMP 36.5; O2SAT 99
== END 2025-04-12 20:23 | disposition home or self-care (01) ==
PROVIDERS: Emergency Provider Emergency Medicine; PCP Nurse Practitioner Family
DX: M19.072 Primary osteoarthritis, left ankle and foot (principal); M79.672 Pain in left foot; E11.9 Type 2 diabetes mellitus without complications; M25.572 Pain in left ankle and joints of left foot; Z79.84 Long term (current) use of oral hypoglycemic drugs; Z79.899 Other long term (current) drug therapy
CPT/HCPCS: 73610; 96372; 99284; J1885

== ENCOUNTER → 2025-04-12 17:24 | Outpatient (BNV) | payer OTHER, SELFPAY | PROVIDERS: PCP Nurse Practitioner Family; Visit Provider Radiology Diagnostic Radiology | DX: M25.572 Pain in left ankle and joints of left foot (principal) | CPT/HCPCS: 73610 ==

== ENCOUNTER → 2025-05-08 08:53 | Outpatient (BNVA) | payer OTHER, SELFPAY | PROVIDERS: PCP Nurse Practitioner Family; Visit Provider Nurse Practitioner Family ==

== ENCOUNTER 2025-06-28 09:42 | Outpatient (AMB) | payer OTHER, SELFPAY ==
--- NOTE | 2025-06-28 09:48 | MHC.PC.OV ---
Vital Signs 06/28/25 09:54 Height 5 ft 6 in Weight 271 lb BMI 43.7 BP 118/68 Blood Pressure Location Rt brachial Position Sitting Respiration 12 Pulse 75 Pulse Source Pulse Oximeter Temp 97.2 F Temp Source Oral Pulse Oximetry (%) 100 Oxygen Delivery Method Room Air Intake Visit Reasons: ankle pain f/u Intake Note: Follow up on left ankle. Patient has concern with her asthma. 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 Allergies Seasonal Allergies Allergy (Intermediate, Verified 06/28/25 10:02) Itchy Eyes Medication List - Last Reconciled 06/28/25 by Ksenia Kent, MANAGER OF APPLICATION DEVELOPMENT- albuterol sulfate 2.5 mg (3 mL) inhalation Q4-6H PRN albuterol sulfate 90 mcg/actuation (Ventolin HFA) 2 puffs inhalation Q6H PRN atorvastatin 80 mg PO QPM azelastine (Astepro Allergy) 2 sprays intranasal DAILY blood pressure test kit-large As directed blood sugar diagnostic (FreeStyle Lite Strips) use daily As directed to check blood sugars for diabetes blood-glucose meter (FreeStyle Lite Meter kit) Use daily As directed to check blood glucose budesonide-formoterol 80-4.5 mcg/actuation (Symbicort) 2 puffs inhalation BID diclofenac sodium 1% (Voltaren Arthritis Pain) 2 grams topical QID hydrochlorothiazide 12.5 mg PO QAM ketorolac 10 mg PO Q6H PRN lancets (FreeStyle Lancets) Use daily As directed to check blood sugar lidocaine 5% 1 patch topical DAILY lisinopril 20 mg PO BID loratadine 10 mg PO DAILY 90 days metformin ER 500 mg PO DAILY metoprolol succinate ER 25 mg PO DAILY 3 months montelukast (Singulair) 10 mg PO BEDTIME nebulizers for acute asthma or reactions Tobacco use date assessed: 06/28/25 Dental Screening Dental Screen Date: 06/28/25 Did you have a dental visit in the last 12 months?: No Did you have a dental problem in the last 6 months where you did not have access to dental care?: No Was dental information given to patient?: Patient has dentist HPI HPI Comments History of Present Illness Details 54-year-old female with morbid obesity, diabetes type 2, hyperlipidemia, hypertension, mild intermittent asthma, seasonal allergies, benign positional vertigo, generalized anxiety disorder, PCOS, osteoarthritis, cervical and lumbar radicular back pain, CK 3A, MDD Status post D&C x3 with uterine polypectomy, cholecystectomy, x2 History of Present Illness - The patient is a 54-year-old female presenting with follow-up on intermittent asthma and persistently painful left ankle. - Asthma: Difficulty breathing, possibly due to environmental smoke and heat; inadequate response to current medications. Coughing at HS. Increase mucous and phelgm - Moved living in 2 story home, hard time w/ SOB with climbing stairs. - Left Ankle Pain: Persistent pain with a sensation of like somethings broken in there; Sx present for months w/ no improvement - ED visit 03/2025 for this, xray done. Was not referred to Ortho. She has been wearing a brace but this does not help. Hurts all of the time the entire L ankle joint and the foot. Wt bearing and non wt bearing cause pain. Review of Systems - Musculoskeletal: Reports left ankle pain and bilat knee pain; denies other joint pain or stiffness. - Respiratory: Reports difficulty breathing; denies wheezing. - Sleep: Reports disturbed sleep due to ankle pain. Physical Exam Awake alert NAD Sclera and conjunctiva clear bilat RRR LS CTAB diminished throughout Bilateral lower extremities no edema, skin intact, pedal pulses within normal limits. Pain over L foot and ankle generally speaking, with active and passive ROM, over the achilles heel L, mild antalgic gait favoring L; Mild localized edema lateral ankle Neurovasc intact Results - Tests: Previous x-ray (April 12) showing a 3 mm indeterminate fragment See below Discussion Notes I discussed with the patient the management plan for her asthma, including the potential need to increase Symbicort dosage to two puffs twice a day and the addition of a secondary inhaler for daily use, Spiriva. The risks and benefits of temporary steroid use were explained. I proposed a referral option for her persistent ankle pain to [facility], emphasizing that direct walk-in visits can expedite care and further evaluation, including imaging or possible surgical consult if necessary. Additionally, we discussed the importance of updating her preferred pharmacy for prescription management and arranging a follow-up for outstanding physical exams. Assessment and Plan 1. Intermittent Asthma - Increase Symbicort dosage. - Prescribe steroids 20 mg x 3 days only - Refill rescue inhaler. - Start Spiriva QD 2. Left Ankle Pain - Refer to orthopedic urgent care. - Consider further imaging. - If not able to see [facility] let me know and i can place referral to [facility] Ortho there will be a wait though. Patient Instructions - Use inhalers as prescribed. - Attend urgent care for your ankle if necessary. - Continue using ankle support for comfort. - Keep rescue inhaler accessible for acute symptoms. - Monitor symptoms after steroid course and report any adverse effects. - RTO for CPE in 1-3 mo overdue Consent Patient was informed and verbally consented to the use of an ambient scribe for clinic note documentation during this visit. Total time spent caring for the patient today was 30 minutes. This includes time spent before the visit reviewing the chart, time spent during the visit, and time spent after the visit on documentation, reviewing laboratory results, diagnostic imaging, medications, performing a medically necessary evaluation, counseling on diagnoses, care coordination, ordering appropriate tests, ordering appropriate medications, review of tests performed by other providers, reporting test results with the patient, communication with other healthcare providers. [facility] Medical History (Updated 06/28/25 @ 10:33 by Ksenia Kent, [facility]) Anxiety Asthma DDD (degenerative disc disease), thoracolumbar Diabetes Disc disease, degenerative, lumbar or lumbosacral Elevated cholesterol Endometrial hyperplasia without atypia History of COVID-19 Hypertension Hypertension, essential Lumbar spondylosis Obesity Osteoarthritis of right knee PCOS (polycystic ovarian syndrome) Pneumonia due to 2019 novel coronavirus Radiculopathy affecting upper extremity Spinal osteophytosis Temporomandibular joint disorder (TMJ) Surgical History History of dilatation and curettage History of cholecystectomy History of Family History (Updated 04/29/24 @ 10:20 by Emiliana Garcia CMA) Father Heart problem HTN (hypertension) Hypercholesteremia Cancer Mother Stroke Diabetes Asthma HTN (hypertension) Son Asthma Social History Housing: House Are you a primary janitor caretaker to a significant other at home: No Do you presently have visiting nurse or other home services: No Alcohol intake: never Comment: cramping Patient Tobacco Use Status: Never used Tobacco e-Cigarette/Vaping Use: Never Used Second Hand Smoke Exposure: No service: No Current occupational status: other 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 1. Little interest or pleasure in doing things: not at all 2. Feeling down, depressed, or hopeless: not at all 3. Trouble falling or staying asleep, or sleeping too much: not at all 4. Feeling tired or having little energy: not at all 5. Poor appetite or overeating: not at all 6. Feeling bad about yourself - or that you are a failure or have let yourself or your family down: not at all 7. Trouble concentrating on things, such as reading the newspaper or watching television: not at all 8. Moving or speaking so slowly that other people could have noticed. Or the opposite - being so fidgety or restless that you have been moving around a lot more than usual: not at all 9. Thoughts that you would be better off or of hurting yourself in some way: not at all Total score: 0 Depression Screening Interpretation: Negative Depression Screening Done: Yes 44008 - PHQ-9 Billing: Yes Source: Developed by Drs. Joshua Ro, Lilibeth Tafoya, Shayne Streeter and colleagues, with an educational harpreet from [employer]. Thrive Questionnaire Date Thrive assessed: 06/28/25 I am a: Patient What is your living situation today?: I have a steady place to live Within the past 12 months, did the food you bought not last and you didn't have the money to get more?: Sometimes True Within the past 12 months, did you worry whether your food would run out before you got money to buy more?: Sometimes True Do you have trouble paying for medicines?: No Do you have trouble getting transportation to medical appointments?: No Do you have trouble paying your heating and electricity bill?: Yes Do you have trouble taking care of your child, family member or friend?: No Do you have trouble with day-to-day activities such as bathing, preparing meals, shopping, managing finances, etc.?: Yes Are you currently unemployed and looking for a job?: No Are you interested in more education?: No Please select the resources that you would like help with: Utilities Currently or been in a relationship where the following occur: No concerns reported THRIVE Score: 3 AUDIT C Alcohol Use Questionnaire (AUDIT-C) 1. How often do you have a drink containing alcohol?: Never 3. How often do you have six or more drinks on one occasion?: Never Total Score: 0 Score Reviewed/Action Taken: Yes KSENIA-7 AMB Questionnaire KSENIA-7 Date KSENIA - 7 assessed: 06/28/25 Feeling nervous, anxious, or on edge: 0 = Not at all Not being able to stop or control worryin = Not at all Worrying too much about different things: 0 = Not at all Trouble relaxin = Not at all Being so restless that it is hard to sit still: 0 = Not at all Becoming easily annoyed or irritable: 0 = Not at all Feeling afraid as if something awful might happen: 0 = Not at all Total KSENIA-7 score (0-4 normal; 5-9 mild; 10-14 moderate; 15-21 severe): 0 Source: Developed by Drs. Joshua Ro, Lilibeth Tafoya, Shyane Streeter and colleagues, with an educational harpreet from [employer]. KSENIA-7 Assessment Billing KSENIA-7 Assessment Tool: KSENIA-7 Assessment 49332 ACT Questionnaire In the past 4 weeks, how much of the time did your asthma keep you from getting as much done at work, school or at home?: Some of the time During the past 4 weeks, how often have you had shortness of breath?: More than once a day During the past 4 weeks, how often did your asthma symptoms wake you up at night or earlier than usual in the morning?: Once or twice per week During the past 4 weeks, how often have you had to use your rescue inhaler or nebulizer medication?: More than 3 times per day How would you rate your asthma control during the past 4 weeks?: Somewhat controlled ACT Interpretation: Positive ACT Branch: Change in medication Score: 12 Physical exam (Primary Care) Vital Signs: Last Vital Signs Temp 97.2 F 06/28/25 09:54 Pulse 75 06/28/25 09:54 Resp 12 06/28/25 09:54 BP 118/68 06/28/25 09:54 Pulse Ox 100 06/28/25 09:54 Oxygen Delivery Method Room Air 06/28/25 09:54 BMI result Body Mass Index 43.7 BMI Assessment/Plan discussion: High BMI High, discussed plan: lifestyle Tobacco/Smoking Status: Tobacco use Status Tobacco use date assessed 06/28/25 06/28/25 09:51 Patient Tobacco Use Status Never used Tobacco 06/28/25 09:51 e-Cigarette/Vaping Use Never Used 06/28/25 09:51 PHQ-9: PHQ-9 Score PHQ-9: Total score 0 06/28/25 09:51 Depression Screening Interpretation: Negative Thrive Assessment: Date of Thrive Assessment Date Thrive assessed 06/28/25 06/28/25 09:51 Currently or been in a relationship where the following occur: No concerns reported Results Reviewed Results Reviewed: [address] [address] XRay Report Signed Patient: Veronique Frias MR#: [id number] : 1970 Acct:[id number] Age/Sex: 54 / F ADM Date: 04/12/25 Loc: HO.ED Attending Dr: Ordering Physician: Maodnna Tamez NP Date of Service: 04/12/25 Procedure(s): XR ankle LT min 3V Accession Number(s): [id number] cc: Ksenia Kent MANAGER OF APPLICATION DEVELOPMENT-BC; Madonna Tamez NP~ CLINICAL HISTORY: L ankle pain Radiographs of the left ankle, 3 views Comparison: None Findings: There is no definitive fracture or dislocation. 3 mm ossific fragment versus calcification in the medial clear space seen on the AP view. The ankle mortise is congruent. Mild degenerative change. Trace enthesophyte at the insertion of the Achilles tendon. Bone mineralization is normal. Soft tissue swelling. Impression: No definitive fracture. 3 mm age indeterminate ossific fragment versus calcification in the medial clear space seen on one view. Coding Level of Care Code Est Pt Level 4 (59346) Complex EM visit Add On G2211 Diagnoses Mild intermittent asthma with acute exacerbation J45.21 Asthma severity: mild Asthma complication type: with acute exacerbation Pain in left ankle and joints of left foot M25.572 Obesity, morbid, BMI 40.0-49.9 E66.01 Additional Codes KSENIA-7 Assessment Billing - KSENIA-7 Assessment Tool: KSENIA-7 Assessment 53999 ([id number]) PHQ-9 - 04812 - PHQ-9 Billing: Yes ([id number]) Asthma Control Questionnaire - ACT Interpretation: Positive ([id number]) Assessment & Plan Assessment & Plan (1) Asthma, intermittent: Code(s): J45.20 - Mild intermittent asthma, uncomplicated Category: Medical Qualifiers: Asthma severity: mild Asthma complication type: with acute exacerbation Qualified Code(s): J45.21 - Mild intermittent asthma with (acute) exacerbation (2) Pain in left ankle and joints of left foot: Code(s): M25.572 - Pain in left ankle and joints of left foot Category: Medical (3) Obesity, morbid, BMI 40.0-49.9: Code(s): E66.01 - Morbid (severe) obesity due to excess calories Category: Medical Plan . Medications: New prednisone 20 mg PO DAILY 3 tabs 0RF Spiriva Respimat 1.25 mcg/actuation (tiotropium bromide) 2 puffs inhalation BEDTIME 12.0 grams 2RF 90 days NS Refilled budesonide-formoterol 80-4.5 mcg/actuation (Symbicort) 2 puffs inhalation BID 10.2 grams 2RF albuterol sulfate 90 mcg/actuation (Ventolin HFA) 2 puffs inhalation Q6H PRN 18 ea 0RF for wheezing
[2025-06-28 09:54] VITALS: BP 118/68; PULSE 75; RESP 12; TEMP 36.2; O2SAT 100; BMI 43.7
== END 2025-06-28 10:23 | disposition home or self-care (01) ==
LOC: HO.HMCFM 09:43
PROVIDERS: PCP Nurse Practitioner Family; Visit Provider Nurse Practitioner Family
DX: J45.21 Mild intermittent asthma with (acute) exacerbation (principal); M25.572 Pain in left ankle and joints of left foot; E66.01 Morbid (severe) obesity due to excess calories; Z68.41 Body mass index [BMI] 40.0-44.9, adult

== ENCOUNTER → 2025-06-28 09:42 | Outpatient (BNVA) | payer OTHER, SELFPAY | PROVIDERS: PCP Nurse Practitioner Family; Visit Provider Nurse Practitioner Family | DX: J45.20 Mild intermittent asthma, uncomplicated (principal); I10 Essential (primary) hypertension; E66.01 Morbid (severe) obesity due to excess calories; E11.9 Type 2 diabetes mellitus without complications; E78.5 Hyperlipidemia, unspecified; J30.9 Allergic rhinitis, unspecified; R42 Dizziness and giddiness; F41.1 Generalized anxiety disorder; E28.2 Polycystic ovarian syndrome; M25.572 Pain in left ankle and joints of left foot; Z68.41 Body mass index [BMI] 40.0-44.9, adult | CPT/HCPCS: 96127; 96160; 99212 ==

== ENCOUNTER 2025-07-02 13:03 | Emergency (ER) | payer OTHER, SELFPAY ==
--- NOTE | ~2025-07-02 | XR_ITS ---
CLINICAL HISTORY: pain, injury 3 view left ankle Comparison: CR - XR ANKLE LT 2V - 04/12/25 17:35 EDT Findings: Bones intact. No dislocations. Unchanged small ossicle and osteophytes of the medial malleolus. No ankle effusion. No radiopaque foreign body. There is soft tissue edema. IMPRESSION: No acute fracture. This document has been electronically signed by: Blake Cabral MD on 07/02/2025 14:18:03
[2025-07-02 13:33] VITALS: BP 147/65; PULSE 77; RESP 18; TEMP 36.4; O2SAT 99; BMI 43.5
--- NOTE | 2025-07-02 13:39 | ED_ITS ---
HPI - Extremity Injury (Lower) General Chief Complaint: Extremity Injury, Lower Stated Complaint: L leg injury Time Seen by Provider: 07/02/25 14:28 Source: patient Mode of arrival: ambulatory Limitations: no limitations History of Present Illness ED Provider: garfield sadler np HPI Narrative: Patient is a 54-year-old female who presents emergency department for evaluation of left ankle/heel pain. In March of 2025, had XR imaging of the ankle, states she was verbally told that she had arthritis but told by her PCP that this was not seen on x-ray, and has been referred for outpatient follow-up with orthopedics given she has had ongoing pain, has not yet been scheduled. Previous XR revealing 3 mm age indeterminate ossific fragment versus calcification, trace enthesophyte at the insertion of the Achilles tendon. Reports that she is coming to emergency department today as she was walking yesterday, feels as though she re-injured the left ankle/heel while walking with resultant pain posteriorly, increased swelling, and more severe pain with ambulation. Related Data Previous Rx's ?Medication ?Instructions ?Recorded albuterol sulfate 2.5 mg/3 mL 2.5 mg (3 mL) inhalation Q4-6H PRN 02/06/22 (0.083 %) solution for nebulization shortness of breat h or wheezing #90 mL blood pressure test kit-large #1 ea 03/03/22 azelastine 205.5 mcg (0.15 %) 2 spray intranasal DAILY #30 mL 02/05/24 nasal spray (Astepro Allergy) lidocaine 5 % topical patch 1 patch topical DAILY #30 ea 02/16/24 blood sugar diagnostic (FreeStyle #100 ea 07/14/24 Lite Strips) blood-glucose meter (FreeStyle #1 ea 07/14/24 Lite Meter kit) lancets 28 gauge (FreeStyle #100 ea 07/14/24 Lancets) atorvastatin 80 mg tablet 80 mg PO QPM #90 tabs loratadine 10 mg capsule 10 mg PO DAILY 90 days #90 c aps 12/26/24 metformin 500 mg tablet,extended 500 mg PO DAILY #90 t abs 12/26/24 release 24 hr montelukast 10 mg tablet 10 mg PO BEDTIME #90 tabs (Singulair) diclofenac sodium 1 % topical gel 2 g topical QID #100 grams 02/25/25 (Voltaren Arthritis Pain) nebulizers #1 ea 02/02/25 lisinopril 20 mg tablet 20 mg PO BID #180 tabs 03/07 ketorolac 10 mg tablet 10 mg PO Q6H PRN pain #20 ta bs 04/12/25 hydrochlorothiazide 12.5 mg tablet 12.5 mg PO QAM #90 tabs 06/13/25 metoprolol succinate 25 mg 25 mg PO DAILY 3 months #90 tabs 06/13/25 tablet,extended release 24 hr Spiriva Respimat 1.25 2 puff inhalation BEDTIME 90 days 06/28/25 mcg/actuation solution for #12.0 grams inhalation (tiotropium bromide) albuterol sulfate 90 mcg/actuation 2 puff inhalation Q 6H PRN for 06/28/25 aerosol inhaler (Ventolin HFA) wheezing #18 ea budesonide-formoterol HFA 80 2 puff inhalation BID #10 .2 grams 06/28/25 mcg-4.5 mcg/actuation aerosol inhaler (Symbicort) prednisone 20 mg tablet 20 mg PO DAILY #3 tabs 06/28 Allergies Allergy/AdvReac Type Severity Reaction Status Date / Time Seasonal Allergies Allergy Intermediate Itchy Eyes Verified 07/02/25 13:36 Review of Systems Review of Systems: Yes all other systems are reviewed and are negative [facility] Past Medical History Attestation statement: The following information was validated with the patient. Source: old records reviewed Medical History Hypertension, essential Disc disease, degenerative, lumbar or lumbosacral Radiculopathy affecting upper extremity Spinal osteophytosis DDD (degenerative disc disease), thoracolumbar Lumbar spondylosis Temporomandibular joint disorder (TMJ) Pneumonia due to 2019 novel coronavirus Osteoarthritis of right knee Asthma Diabetes Elevated cholesterol History of COVID-19 Endometrial hyperplasia without atypia Obesity Anxiety PCOS (polycystic ovarian syndrome) Hypertension Surgical History History of dilatation and curettage History of cholecystectomy History of Family History Family History (Updated 04/29/24 @ 10:20 by Emiliana Garcia CMA) Father Heart problem HTN (hypertension) Hypercholesteremia Cancer Mother Stroke Diabetes Asthma HTN (hypertension) Son Asthma Social History Social History Housing: House Are you a primary care management specialist to a significant other at home: No Do you presently have visiting nurse or other home services: No Alcohol intake: never Comment: cramping Patient Tobacco Use Status: Never used Tobacco e-Cigarette/Vaping Use: Never Used Second Hand Smoke Exposure: No Advance Directives: No Advance Directives Information Provided: No Do you have a plan to hurt others: No Plan service: No Current occupational status: other 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 No acute distress.?Normal affect. CVS: Heart sounds normal. Normal heart rate and rhythm.? Pulses normal.?? Respiratory: No respiratory distress.? Lung sounds clear to auscultation bilaterally?? Abdomen: Soft and non-tender. Normoactive bowel sounds. Skin: Skin warm and dry.? Normal skin color.? ? Extremities: No lower extremity edema.? No calf ttp?diffuse tenderness upon palpation throughout the medial malleolus in the posterior ankle. Negative Vazquez test. 2+ DP/PT pulse Neuro: Moves all extremities spontaneously. Sensation intact bilaterally. Ambulates with normal steady gait. Medical Decision Making Medical Decision Making MDM Narrative: Patient is a 54-year-old female who presents emergency department for evaluation of acute on chronic left ankle/foot pain as per HPI. Initially evaluated in March of 2025 had x-ray imaging. Has been following with her primary care doctor in regards to this. [place] as though she had a new injury yesterday repeat x-ray images were obtained. There was no acute pathology no acute fracture dislocation. In review she does have a 3 mm abnormality in the medial clear space, I showed her the imaging directly and reviewed potential etiology including a calcification perhaps from degenerative changes, or even a bony fragment from trauma/injury or avulsion fracture, reviewed that this area is localized to the deltoid ligament and results of medial/anteromedial ankle pain with this. She additionally has a small enthesophyte at the insertion of the Achilles tendon, reviewed with her that this may cause increased pain especially on ambulation to the heel. Recommended use of NSAID. Do feel that it is best she follow up outpatient with Orthopedics as advised by her primary care doctor. She is ambulatory with a steady gait. Extremity is neurovascularly intact distally. 2+ DP/PT pulse. Given strict return precautions. All questions answered Differential Diagnosis Differential Diagnoses: The differential diagnosis associated with the presentation includes (See narrative above) Independent Interpretation I performed an independent interpretation of an: Plain X-Ray (See narrative above) Radiology Impression Discussion of test interpretation with radiology: I have reviewed the radiologist's reading. External Record Review External record reviewed: Outpatient record Prescription Management I considered prescription management with: Pain Medication Chronic Conditions Patient?s care impacted by: Other (see pmfsh) Discharge Plan Discharge Clinical Impression: Ankle pain, left Qualifiers: Chronicity: unspecified Qualified Code(s): M25.572 - Pain in left ankle and joints of left foot Patient Disposition: Home, Self-Care Instructions: Arthralgia (ED) Additional Instructions: As discussed, there were a couple of findings on the x-ray image of your ankle from me as well as today. The images appear unchanged. There is an abnormality along the medial ankle concerning for potentially a calcification perhaps from arthritis, or a bony fragment potentially from trauma/injury, or avulsion fracture. This is localized to the area of the deltoid ligament. This can result in pain often to the inside/frontal portion of your ankle. There was additionally a bony spur that is seen in the back of your heel, that can result in posterior ankle/heel pain due to inflammation of the Achilles tendon. You were able to walk on the foot/ankle which is very reassuring to see. Given the duration of symptoms, I do agree with your primary care doctor in it is best you follow-up outpatient with orthopedics. I have provided contact information for the orthopedic office associated with our hospital. You expressed potentially going to one of the local orthopedic walk-in clinics you have been provided with a disc of imaging to share with them You can take ibuprofen 200 mg, 3 tablets (600mg) every 6-8 hours as needed for pain, in addition to Tylenol 500 mg, 2 tablets (1,000mg) every 4-6 hours as needed for pain, but not to exceed 3 doses daily (3,000mg).? Prescriptions: No Action (DME) blood pressure test kit-large Kit See Rx Instructions .Route Qty: 1 0RF Rx Instructions: As directed (DME) FreeStyle Lite Strips Strip See Rx Instructions .ROUTE .MEDSUPPLY Qty: 100 3RF Rx Instructions: use daily As directed to check blood sugars for diabetes (DME) blood-glucose meter [FreeStyle Lite Meter] Kit See Rx Instructions .ROUTE .MEDSUPPLY Qty: 1 0RF Rx Instructions: Use daily As directed to check blood glucose (DME) lancets [FreeStyle Lancets] 28 gauge misc See Rx Instructions .ROUTE .MEDSUPPLY Qty: 100 3RF Rx Instructions: Use daily As directed to check blood sugar (DME) nebulizers Misc See Rx Instructions .ROUTE .MEDSUPPLY Qty: 1 0RF Rx Instructions: for acute asthma or reactions hydrochlorothiazide 12.5 mg tablet 12.5 mg PO QAM Qty: 90 0RF metoprolol succinate 25 mg tablet extended release 24 hr 25 mg PO DAILY 90 Days Qty: 90 0RF ketorolac 10 mg tablet 10 mg PO Q6H PRN (Reason: pain) Qty: 20 0RF Rx Instructions: maximum total duration of 5 days from all oral, intranasal, or parenteral formulations. The patient received an intramuscular dose of Toradol here in the emergency room. lidocaine 5 % adhesive patch,medicated 1 patch topical DAILY Qty: 30 0RF Rx Instructions: leave on most painful area for up to 12 hrs albuterol sulfate 2.5 mg /3 mL (0.083 %) solution for nebulization 2.5 mg inhalation Q4-6H PRN (Reason: shortness of breath or wheezing) Qty: 90 6RF azelastine [Astepro Allergy] 205.5 mcg (0.15 %) spray,non-aerosol 2 spray intranasal DAILY Qty: 30 2RF Rx Instructions: administer into each nostril diclofenac sodium [Voltaren Arthritis Pain] 1 % gel 2 g topical QID Qty: 100 1RF Rx Instructions: apply to single elbow, wrist or hand; for hand includes palm/fingers/back of hand lisinopril 20 mg tablet 20 mg PO BID Qty: 180 1RF budesonide-formoterol [Symbicort] 80-4.5 mcg/actuation HFA aerosol inhaler 2 puff inhalation BID Qty: 10.2 2RF prednisone 20 mg tablet 20 mg PO DAILY Qty: 3 0RF Spiriva Respimat 1.25 mcg/actuation mist 2 puff inhalation BEDTIME 90 Days Qty: 12.0 2RF albuterol sulfate [Ventolin HFA] 90 mcg/actuation HFA aerosol inhaler 2 puff inhalation Q6H PRN (Reason: for wheezing) Qty: 18 0RF atorvastatin 80 mg tablet 80 mg PO QPM Qty: 90 1RF metformin 500 mg tablet extended release 24 hr 500 mg PO DAILY Qty: 90 0RF loratadine 10 mg capsule 10 mg PO DAILY 90 Days Qty: 90 0RF montelukast [Singulair] 10 mg tablet 10 mg PO BEDTIME Qty: 90 3RF Referrals: [facility] [Provider Group] Print Language: Maltese
[2025-07-02 15:04] VITALS: BP 147/65; PULSE 77; RESP 18; TEMP 36.4; O2SAT 99
== END 2025-07-02 15:05 | disposition home or self-care (01) ==
PROVIDERS: Emergency Provider Emergency Medicine; PCP Nurse Practitioner Family
DX: M25.572 Pain in left ankle and joints of left foot (principal); E11.22 Type 2 diabetes mellitus with diabetic chronic kidney disease; N18.30 Chronic kidney disease, stage 3 unspecified
CPT/HCPCS: 73610; 99282; 99283

== ENCOUNTER → 2025-07-02 13:37 | Outpatient (BNV) | payer OTHER, SELFPAY | PROVIDERS: Emergency Provider Emergency Medicine; PCP Nurse Practitioner Family; Visit Provider Nuclear Medicine | DX: R22.42 Localized swelling, mass and lump, left lower limb (principal) | CPT/HCPCS: 73610 ==

== ENCOUNTER 2025-09-05 18:50 | Emergency (ER) | payer SELFPAY ==
--- NOTE | ~2025-09-05 | XR_ITS ---
CLINICAL HISTORY: COughing. 1 view chest x-ray Comparison: CR/SR - XR CHEST 2 VIEWS - 01/22/24 12:03 EST Findings: No consolidation or effusion. Normal size heart. No acute fracture. IMPRESSION: 1. No acute findings. This document has been electronically signed by: Joshua Ely MD on 09/05/2025 20:25:15
[2025-09-05 19:54] VITALS: BP 143/65; PULSE 97; RESP 16; TEMP 37.2; O2SAT 97; BMI 48.4
--- NOTE | 2025-09-05 20:00 | ED_ITS ---
HPI - General Adult General Chief complaint: Upper Respiratory Symptoms Stated complaint: sob/asthma/cough Time Seen by Provider: 09/05/25 21:17 Source: patient Limitations: no limitations History of Present Illness ED Provider: Belkys Yao PA-C HPI narrative: 55-year-old female with a history of morbid obesity, hypertension, hyperlipidemia, diabetes, chronic kidney disease, asthma who presents with cough cold symptoms x5 days. Patient states she has been using her home nebulizer without relief of symptoms. Associated sore throat and dry active repetitive cough. Denies fever or sick contacts with similar symptoms. Related Data Previous Rx's ?Medication ?Instructions ?Recorded albuterol sulfate 2.5 mg/3 mL 2.5 mg (3 mL) inhalation Q4-6H PRN 02/06/22 (0.083 %) solution for nebulization shortness of breat h or wheezing #90 mL blood pressure test kit-large #1 ea 03/03/22 azelastine 205.5 mcg (0.15 %) 2 spray intranasal DAILY #30 mL 02/05/24 nasal spray (Astepro Allergy) lidocaine 5 % topical patch 1 patch topical DAILY #30 ea 02/16/24 blood sugar diagnostic (FreeStyle #100 ea 07/14/24 Lite Strips) blood-glucose meter (FreeStyle #1 ea 07/14/24 Lite Meter kit) lancets 28 gauge (FreeStyle #100 ea 07/14/24 Lancets) atorvastatin 80 mg tablet 80 mg PO QPM #90 tabs loratadine 10 mg capsule 10 mg PO DAILY 90 days #90 c aps 12/26/24 montelukast 10 mg tablet 10 mg PO BEDTIME #90 tabs (Singulair) diclofenac sodium 1 % topical gel 2 g topical QID #100 grams 01/24/25 (Voltaren Arthritis Pain) nebulizers #1 ea 02/02/25 lisinopril 20 mg tablet 20 mg PO BID #180 tabs 03/07 ketorolac 10 mg tablet 10 mg PO Q6H PRN pain #20 ta bs 04/12/25 hydrochlorothiazide 12.5 mg tablet 12.5 mg PO QAM #90 tabs 06/13/25 metoprolol succinate 25 mg 25 mg PO DAILY 3 months #90 tabs 06/13/25 tablet,extended release 24 hr Spiriva Respimat 1.25 2 puff inhalation BEDTIME 90 days 06/28/25 mcg/actuation solution for #12.0 grams inhalation (tiotropium bromide) albuterol sulfate 90 mcg/actuation 2 puff inhalation Q 6H PRN for 06/28/25 aerosol inhaler (Ventolin HFA) wheezing #18 ea budesonide-formoterol HFA 80 2 puff inhalation BID #10 .2 grams 06/28/25 mcg-4.5 mcg/actuation aerosol inhaler (Symbicort) prednisone 20 mg tablet 20 mg PO DAILY #3 tabs 06/28 albuterol sulfate 2.5 mg/3 mL 2.5 mg (3 mL) inhalation Q4-6H PRN 09/05/25 (0.083 %) solution for nebulization bronchospasm #75 m L benzonatate 200 mg capsule 200 mg PO TID PRN cough #10 caps 09/05/25 prednisone 20 mg tablet 40 mg (2 x 20 mg) PO DAILY # 8 tabs 09/05/25 metformin 500 mg tablet,extended 500 mg PO DAILY #90 t abs 09/13/25 release 24 hr Allergies Allergy/AdvReac Type Severity Reaction Status Date / Time Seasonal Allergies Allergy Intermediate Itchy Eyes Verified 09/05/25 19:57 Review of Systems Review of Systems: Yes all other systems are reviewed and are negative Constitutional: Constitutional: Denies fatigue and Denies fever(s) ENT: Reports sore throat Cardiovascular: Cardiovascular: Denies chest pain and Reports dyspnea Respiratory: Respiratory: Denies chest congestion, Reports cough, Reports dyspnea and Reports wheezing Endocrine: Endocrine: Denies fatigue Allergic/Immunologic: Allergic/Immunologic: Reports wheezing [facility] Past Medical History Attestation statement: The following information was validated with the patient. Medical History Hypertension, essential Disc disease, degenerative, lumbar or lumbosacral Radiculopathy affecting upper extremity Spinal osteophytosis DDD (degenerative disc disease), thoracolumbar Lumbar spondylosis Temporomandibular joint disorder (TMJ) Pneumonia due to 2019 novel coronavirus Osteoarthritis of right knee Asthma Diabetes Elevated cholesterol History of COVID-19 Endometrial hyperplasia without atypia Obesity Anxiety PCOS (polycystic ovarian syndrome) Hypertension Surgical History History of dilatation and curettage History of cholecystectomy History of Family History Family History (Updated 04/29/24 @ 10:20 by Emiliana Garcia CMA) Father Heart problem HTN (hypertension) Hypercholesteremia Cancer Mother Stroke Diabetes Asthma HTN (hypertension) Son Asthma Social History Social History Housing: House Are you a primary home health care respiratory therapist to a significant other at home: No Do you presently have visiting nurse or other home services: No Alcohol intake: never Comment: cramping Patient Tobacco Use Status: Never used Tobacco e-Cigarette/Vaping Use: Never Used Second Hand Smoke Exposure: No service: No Current occupational status: other 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 Sexual orientation: Straight/Heterosexual Gender identity: Female Cognitive needs: No Hearing needs: No Vision needs: No Physical Exam ED Vital Signs: Vital Signs - 24 hr 09/05/25 19:54 Temperature 98.9 F Pulse Rate 97 Respiratory Rate 16 Blood Pressure 143/65 H Pulse Oximetry 97 Oxygen Delivery Method Room Air BMI result Body Mass Index 48.4 Const Other: Alert Orientation/consciousness: patient oriented x3 Resp Other: Active bronchospasm type cough no active wheezing Cardio Other: Normal peripheral perfusion Skin Other: Warm dry no rash Neuro General: patient oriented x3, gait normal, no focal motor deficits and CN's II- XI intact bilaterally Psych Other: Cooperative Course Course Course Narrative: RME: 55-year-old female presents to ED for URI symptoms. Patient states coughing for the past 5 days with no relief with nebulizer treatment. Patient also states sore throat. Lungs are clear. X-ray COVID influenza ordered Medications Administered Discontinued Medications Generic Name Dose Route Start Last Admin Trade Name Freq PRN Reason Stop Dose Admin Benzonatate 200 mg 09/05/25 22:26 09/05/25 22:39 Benzonatate 100 Mg Capsule PO 09/05/25 22:27 200 mg ONCE ONE Administration Prednisone 40 mg 09/05/25 22:26 09/05/25 22:39 Prednisone 20 Mg Tablet PO 09/05/25 22:27 40 mg ONCE ONE Administration Medical Decision Making Medical Decision Making MDM Narrative: 55-year-old female with a history of morbid obesity, hypertension, hyperlipidemia, diabetes, chronic kidney disease, asthma who presents with cough cold symptoms x5 days. Patient states she has been using her home nebulizer without relief of symptoms. Associated sore throat and dry active repetitive cough. Denies fever or sick contacts with similar symptoms. Problem: Diabetes, asthma History: Per patient I have considered the following differential diagnoses: Bronchitis, asthma exacerbation, viral syndrome, pneumonia Plan: Viral panel and chest x-ray ordered from triage everything is negative, we will treat for bronchospasm/asthma exacerbation. I have independently reviewed the following tests: Labs: Viral panel negative Chest x-ray:Findings: No consolidation or effusion. Normal size heart. No acute fracture. IMPRESSION: 1. No acute findings. Differential Diagnosis Differential Diagnoses: The differential diagnosis associated with the presentation includes See medical decision-making Admission/Observation Consideration of admission/observation: Escalation of care including admission/observation considered Not applicable Lab Data MDM Lab Attestation statement: I reviewed the patient's lab results. Labs: Lab Results 09/05/25 Range/Units 20:30 COVID-19 (ANNETTA) Negative (Negative) COVID-19 Clin Com See Note Influenza Type A (MACY) Negative (Negative) Influenza Type B (MACY) Negative (Negative) Influenza A & B Note See Note S. pyogenes GrpA MACY Negative (Negative) Radiology Impression Discussion of test interpretation with radiology: I have reviewed the radiologist's reading. Discharge Plan Discharge Clinical Impression: Acute viral syndrome, Acute bronchospasm Patient Disposition: Home, Self-Care Instructions: Viral Syndrome (ED), Bronchospasm (ED) Additional Instructions: You were tested for influenza, COVID, RSV and strep throat, the panel was negative. The x-ray is clear you do not have pneumonia. I do feel your asthma is somewhat exacerbated secondary to whatever respiratory virus you have come in contact with the. Use your nebulizer as needed, take the steroid as directed. Use the Tessalon Perles as needed for cough. Follow up with your primary care provider as needed. Prescriptions: New benzonatate 200 mg capsule 200 mg PO TID PRN (Reason: cough) Qty: 10 0RF prednisone 20 mg tablet 40 mg PO DAILY Qty: 8 0RF albuterol sulfate 2.5 mg /3 mL (0.083 %) solution for nebulization 2.5 mg inhalation Q4-6H PRN (Reason: bronchospasm) Qty: 75 0RF No Action (DME) blood pressure test kit-large Kit See Rx Instructions .Route Qty: 1 0RF Rx Instructions: As directed (DME) FreeStyle Lite Strips Strip See Rx Instructions .ROUTE .MEDSUPPLY Qty: 100 3RF Rx Instructions: use daily As directed to check blood sugars for diabetes (DME) blood-glucose meter [FreeStyle Lite Meter] Kit See Rx Instructions .ROUTE .MEDSUPPLY Qty: 1 0RF Rx Instructions: Use daily As directed to check blood glucose (DME) lancets [FreeStyle Lancets] 28 gauge misc See Rx Instructions .ROUTE .MEDSUPPLY Qty: 100 3RF Rx Instructions: Use daily As directed to check blood sugar (DME) nebulizers Misc See Rx Instructions .ROUTE .MEDSUPPLY Qty: 1 0RF Rx Instructions: for acute asthma or reactions hydrochlorothiazide 12.5 mg tablet 12.5 mg PO QAM Qty: 90 0RF metoprolol succinate 25 mg tablet extended release 24 hr 25 mg PO DAILY 90 Days Qty: 90 0RF metformin 500 mg tablet extended release 24 hr 500 mg PO DAILY Qty: 90 0RF ketorolac 10 mg tablet 10 mg PO Q6H PRN (Reason: pain) Qty: 20 0RF Rx Instructions: maximum total duration of 5 days from all oral, intranasal, or parenteral formulations. The patient received an intramuscular dose of Toradol here in the emergency room. lidocaine 5 % adhesive patch,medicated 1 patch topical DAILY Qty: 30 0RF Rx Instructions: leave on most painful area for up to 12 hrs albuterol sulfate 2.5 mg /3 mL (0.083 %) solution for nebulization 2.5 mg inhalation Q4-6H PRN (Reason: shortness of breath or wheezing) Qty: 90 6RF azelastine [Astepro Allergy] 205.5 mcg (0.15 %) spray,non-aerosol 2 spray intranasal DAILY Qty: 30 2RF Rx Instructions: administer into each nostril diclofenac sodium [Voltaren Arthritis Pain] 1 % gel 2 g topical QID Qty: 100 1RF Rx Instructions: apply to single elbow, wrist or hand; for hand includes palm/fingers/back of hand lisinopril 20 mg tablet 20 mg PO BID Qty: 180 1RF budesonide-formoterol [Symbicort] 80-4.5 mcg/actuation HFA aerosol inhaler 2 puff inhalation BID Qty: 10.2 2RF prednisone 20 mg tablet 20 mg PO DAILY Qty: 3 0RF Spiriva Respimat 1.25 mcg/actuation mist 2 puff inhalation BEDTIME 90 Days Qty: 12.0 2RF albuterol sulfate [Ventolin HFA] 90 mcg/actuation HFA aerosol inhaler 2 puff inhalation Q6H PRN (Reason: for wheezing) Qty: 18 0RF atorvastatin 80 mg tablet 80 mg PO QPM Qty: 90 1RF loratadine 10 mg capsule 10 mg PO DAILY 90 Days Qty: 90 0RF montelukast [Singulair] 10 mg tablet 10 mg PO BEDTIME Qty: 90 3RF Interventions: ED Discharge Assessment Last Done: 09/05/25 23:21 Discharge Date/Time: 09/05/25 23:21 Print Language: Yakut
[2025-09-05 20:50] LABS: IDNOW Serial# 08D9AD1C; Strep A Nucleic Acid Negative (Negative)
[2025-09-05 20:56] LABS: COVID-19 Test Negative (Negative); IDNOW Serial# 55D5AD1C; IDNOW Serial# 58CA691E
[2025-09-05 20:57] LABS: Influenza B2 Negative (Negative)
--- OUTSIDE RECORDS SUMMARY | 2025-09-05 21:47 | XMS_ITS | Clinical Summary ---
Author Organization [employer] Address [address] [facility] [address] [place] [address] Care Team Providers Care Crew Clerk Name Role Phone Unavailable Primary Care Provider [...] 80 12/16/2022 9:30 AM EST Temperature 36.4 C (97.6 F) 12/16/2022 9:30 AM EST Respiratory Rate 18 12/16/2022 9:30 AM EST [...] Screening 1971 SDOH Screening 1971 Sigmoidoscopy 1971 Disability Screening 1971 Alcohol/Substance Use Screening 1983 Hepatitis C Screening 1989 DTaP/Tdap/Td Vaccines (1 - Tdap) 1990 Hepatitis B Vaccines (1 of 3 - 19+ 3-dose series) 1990 Pap Smear 1992 Cervical Cancer Screening 2001 HPV/Cotest 2001 Mammogram 2011 Pneumococcal Vaccine: 50+ Years (1 of 1 - PCV) 2021 Zoster Vaccines (1 of 2) 2021 Tobacco Screening 12/16/2023 12/16/2022 COVID-19 Vaccine (3 - 2024-2 6 season) 2025 05/21/2021, 04/30/2021 Influenza Vaccine (#1) 2025 RSV Patients and Patients Aged 60 years [...] patient's age to complete this topic Meningococcal B Vaccine Aged Out No l onger eligible based on patient's age to complete this topic Meningococcal Vaccine Aged Out No artemio eyal eligible based on patient's age to complete this topic RSV under 20 months Aged Out No longe r eligible based on patient's age to complete this topic Rotavirus Vaccines Aged Out No longer eligible based on patient's age to complete this topic Insurance [facility] MEDICAID STAND ADULT
[2025-09-05 23:21] VITALS: BP 143/65; PULSE 97; RESP 16; TEMP 37.2; O2SAT 97
== END 2025-09-05 23:21 | disposition home or self-care (01) ==
PROVIDERS: Emergency Provider Emergency Medicine; PCP Nurse Practitioner Family
DX: B34.9 Viral infection, unspecified (principal); J45.909 Unspecified asthma, uncomplicated; I12.9 Hypertensive chronic kidney disease with stage 1 through stage 4 chronic kidney disease, or unspecified chronic kidney disease; E11.22 Type 2 diabetes mellitus with diabetic chronic kidney disease; N18.9 Chronic kidney disease, unspecified; Z11.52 Encounter for screening for COVID-19
CPT/HCPCS: 71045; 87502; 87635; 87651; 99282; 99283

== ENCOUNTER → 2025-09-05 20:00 | Outpatient (BNV) | payer OTHER, SELFPAY | PROVIDERS: PCP Nurse Practitioner Family; Visit Provider Radiology Diagnostic Radiology | DX: R05.9 Cough, unspecified (principal) | CPT/HCPCS: 71045 ==

== ENCOUNTER 2025-09-27 09:08 | Outpatient (AMB) | payer OTHER, SELFPAY ==
--- NOTE | 2025-09-27 09:20 | A.OFFPC_ITS ---
Vital Signs 09/27/25 09:24 Height 5 ft 2 in Weight 265 lb BMI 48.5 BP 110/74 Blood Pressure Location Rt brachial Position Sitting Respiration 12 Pulse 75 Pulse Source Pulse Oximeter Temp 97.7 F Temp Source Oral Pulse Oximetry (%) 97 Oxygen Delivery Method Room Air Intake Visit Reasons: [facility] [place] fu/cough Intake Note: [place] [facility] [place]. Patient c/o wheezing, coughing and congested still going on. 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 Required: No Allergies Seasonal Allergies Allergy (Intermediate, Verified 09/27/25 09:52) Itchy Eyes Tobacco use date assessed: 09/27/25 Dental Screening Dental Screen Date: 09/27/25 Did you have a dental visit in the last 12 months?: Yes Did you have a dental problem in the last 6 months where you did not have access to dental care?: No Was dental information given to patient?: Patient has dentist HPI HPI Comments History of Present Illness Details 55-year-old female with morbid obesity, diabetes type 2, hyperlipidemia, hypertension, mild intermittent asthma, seasonal allergies, benign positional vertigo, generalized anxiety disorder, PCOS, osteoarthritis, cervical and lumbar radicular back pain, CKD 3A, MDD Status post D&C x3 with uterine polypectomy, cholecystectomy, x2 Lab Results 09/05/25 Range/Units 20:30 COVID-19 (ANNETTA) Negative (Negative) COVID-19 Clin Com See Note Influenza Type A ( MACY) Negative (Negative) Influenza Type B ( MACY) Negative (Negative) Influenza A & B No te See Note S. pyogenes GrpA N AT Negative (Negative) Radiology Impression Discussion of test interpretation with radiology: I have reviewed the radiologist's reading. Discharge Plan Discharge Clinical Impression: Acute viral syndrome, Acute bronchospasm Patient Disposition: Home, Self-Care Instructions: Viral Syndrome (ED), Bronchospasm (ED) Additional Instructions: You were tested for influenza, COVID, RSV and strep throat, the panel was negative. The x-ray is clear you do not have pneumonia. I do feel your asthma is somewhat exacerbated secondary to whatever respiratory virus you have come in contact with the. Use your nebulizer as needed, take the steroid as directed. Use the Tessalon Perles as needed for cough. Follow up with your primary care provider as needed. Prescriptions: New benzonatate 200 mg capsule 200 mg PO TID PRN (Reason: cough) Qty: 10 0RF prednisone 20 mg tablet 40 mg PO DAILY Qty: 8 0RF albuterol sulfate 2.5 mg /3 mL (0.083 %) solution for nebulization 2.5 mg inhalation Q4-6H PRN (Reason: bronchospasm) Qty: 75 0RF History of Present Illness The patient is a 55-year-old female presenting for an emergency room follow-up visit for an asthma flare. Asthma Exacerbation: - The patient was seen at the [facility] emergency room on September 05 for an asthma flare related to a viral illness. - She reports her symptoms of congestion and cough are unchanged since the ER visit. - She was prescribed prednisone and a co ugh suppressant in the ER, which did not provide relief, and she has also tried approximately five [id number] medications. - The patient has a history of a junky cough with previous asthma flares. - Her current asthma regimen includes Si ngulair (montelukast) and a Symbicort inhaler, for which she is due for a refill. - She previously used a Spiriva inhaler, but has not been taking it due to a change in insurance. Past Medical History - Asthma - Emergency room visit on September 05 fo r asthma flare. Review of Systems - Respiratory: Reports persistent conges tion and cough, describes the cough as causing a sensation of needles in her chest. - ENT: Reports significant rhinorrhea re quiring constant use of paper towels and a bloody nose on one side . - Head: Reports pain over the forehead o n palpation. Physical Exam General: Well developed, well nourished, in no acute distress. Appears stated age. Head: Normocephalic, atraumatic. Tenderness noted on the forehead, particularly in the center. Eyes: Pupils are equal, round and reactive to light and accommodation. Conjunctivae are clear. Ears: TM intact and clear bilat Nose: + congestion, turbinate pale and edematous, + frontal sinus tenderness w/ palp bilat Pharynx WNL No ac adenopathy Lungs: Coarse rhonci LLL, faint exp wheeze throughout, congested cough, no distress Heart: Regular rate and rhythm. No murmurs, click, rubs or gallops are noted. Pulses: Peripheral pulses are equal and palpable bilaterally. Extremities: No clubbing, cyanosis nor edema is noted. Psych: Mood and affect appropriate. Results - Labs: Recent labs from the ER visit on September 05, including kidney function, liver function, and electrolytes, were normal. - Imaging: A chest x-ray was performed d uring the ER visit on September 05. Medical Decision Making The patient is a 55-year-old female presenting for follow-up of an asthma flare after a recent ER visit. Her symptoms of cough and congestion have not improved with initial treatment including prednisone, a cough suppressant, and multiple OTC medications. Given the persistence of symptoms, auscultation findings of noise in the chest, and tenderness over the frontal sinuses, a secondary bacterial process such as sinusitis, bronchitis, or pneumonia is suspected. I will start treatment with azithromycin to cover common respiratory pathogens. A repeat stat chest x-ray is ordered to rule out pneumonia; if pneumonia is present, a second antibiotic will be added, and a follow-up x-ray will be required in one month. Her asthma management will be optimized by ensuring she has a refill of her Symbicort inhaler and by attempting to restart her Spiriva inhaler, which previously helped with airway secretions, pending insurance coverage. The patient will continue using Mucinex for expectoration. Follow-up is planned for eight weeks, with pending lab work to be completed prior to that visit once she is clinically improved. Plan 1. Asthma Exacerbation - Continue Symbicort inhaler; a refill w ill be sent. - A prescription for Spiriva inhaler raj l be sent to help dry the lungs, pending insurance coverage. - Continue taking Singulair (montelukast ). - Continue using maximum strength Mucine x or Therapex for congestion. 2. Acute Bacterial Sinusitis/Bronchitis - A prescription for azithromycin will b e sent to the pharmacy; the patient is to take two tablets on day one, then one tablet daily until the course is complete. - A stat chest x-ray is ordered to rule out pneumonia. - If the chest x-ray reveals pneumonia, a second antibiotic will be prescribed, and a repeat chest x-ray will be required in one month. - The patient will be contacted with the x-ray results. 3. Health Maintenance - Schedule a follow-up appointment in proximately eight weeks for CPE with labs. - Defer pending lab work (cholesterol, B 12, urine) until the patient is feeling better. Labs can be drawn at the same facility as the x-ray. Patient Instructions - Please go for a chest X-ray today at [facility] located at [address] [place] [address]. - A prescription for an antibiotic, azit hromycin, has been sent to the [facility] on [address] in [place]. - Take two tablets of azithromycin today , and then take one tablet each day until the box is empty. - We are sending a refill for your Symbi adrianne inhaler and will also try to send a prescription for a Spiriva inhaler. - Continue taking Mucinex or Therapex to help with your congestion. - We will call you with the results of y our chest X-ray. If it shows pneumonia, we may need to add a second antibiotic and repeat the X-ray in a month. - Please schedule a follow-up visit in a bout 8 weeks. - You can get your ordered lab tests (ch olesterol, B12, urine) done before your next appointment, once you are feeling better. Consent Patient was informed and verbally consented to the use of an ambient scribe for clinic note documentation during this visit. Total time spent caring for the patient today was 30 minutes. This includes time spent before the visit reviewing the chart, time spent during the visit, and time spent after the visit on documentation, reviewing laboratory results, diagnostic imaging, medications, performing a medically necessary evaluation, counseling on diagnoses, care coordination, ordering appropriate tests, ordering appropriate medications, review of tests performed by other providers, reporting test results with the patient, communication with other healthcare providers. [facility] Medical History Hypertension, essential Disc disease, degenerative, lumbar or lumbosacral Radiculopathy affecting upper extremity Spinal osteophytosis DDD (degenerative disc disease), thoracolumbar Lumbar spondylosis Temporomandibular joint disorder (TMJ) Pneumonia due to 2019 novel coronavirus Osteoarthritis of right knee Asthma Diabetes Elevated cholesterol History of COVID-19 Endometrial hyperplasia without atypia Obesity Anxiety PCOS (polycystic ovarian syndrome) Hypertension Surgical History History of dilatation and curettage History of cholecystectomy History of Family History (Updated 04/29/24 @ 10:20 by Emiliana Garcia CMA) Father Heart problem HTN (hypertension) Hypercholesteremia Cancer Mother Stroke Diabetes Asthma HTN (hypertension) Son Asthma Social History Housing: House Are you a primary professional healthcare representative to a significant other at home: No Do you presently have visiting nurse or other home services: No Alcohol intake: never Comment: cramping Patient Tobacco Use Status: Never used Tobacco e-Cigarette/Vaping Use: Never Used Second Hand Smoke Exposure: No service: No Current occupational status: other 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 Sexual orientation: Straight/Heterosexual Gender identity: Female Cognitive needs: No Hearing needs: No Vision needs: No Female Reproductive History Menstrual Age of Menarche: 10 Questionnaire Thrive Questionnaire Date Thrive assessed: 09/27/25 I am a: Patient What is your living situation today?: I have a steady place to live Within the past 12 months, did the food you bought not last and you didn't have the money to get more?: Sometimes True Within the past 12 months, did you worry whether your food would run out before you got money to buy more?: Sometimes True Do you have trouble paying for medicines?: No Do you have trouble getting transportation to medical appointments?: No Do you have trouble paying your heating and electricity bill?: Yes Do you have trouble taking care of your child, family member or friend?: No Do you have trouble with day-to-day activities such as bathing, preparing meals, shopping, managing finances, etc.?: Yes Are you currently unemployed and looking for a job?: No Are you interested in more education?: No Please select the resources that you would like help with: Utilities Currently or been in a relationship where the following occur: No concerns reported THRIVE Score: 3 KSENIA-7 AMB Questionnaire KSENIA-7 Date KSENIA - 7 assessed: 09/27/25 Source: Developed by Drs. Joshua Ro, Lilibeth Tafoya, Shayne Streeter and colleagues, with an educational harpreet from [employer]. Physical exam (Primary Care) Vital Signs: Last Vital Signs Temp 97.7 F 09/27/25 09:24 Pulse 75 09/27/25 09:24 Resp 12 09/27/25 09:24 BP 110/74 09/27/25 09:24 Pulse Ox 97 09/27/25 09:24 Oxygen Delivery Method Room Air 09/27/25 09:24 BMI result Body Mass Index 48.5 Tobacco/Smoking Status: Tobacco use Status Tobacco use date assessed 09/27/25 09/27/25 09:25 Patient Tobacco Use Status Never used Tobacco 09/27/25 09:25 e-Cigarette/Vaping Use Never Used 09/27/25 09:25 Thrive Assessment: Date of Thrive Assessment Date Thrive assessed 09/27/25 09/27/25 09:25 Currently or been in a relationship where the following occur: No concerns reported Coding Level of Care Code Est Pt Level 4 (84176) Complex EM visit Add On G2211 Diagnoses Hospital discharge follow-up Z09 Mild intermittent asthma with acute exacerbation J45.21 Asthma severity: mild Asthma complication type: with acute exacerbation Assessment & Plan Assessment & Plan (1) Hospital discharge follow-up: Code(s): Z09 - Encounter for follow-up examination after completed treatment for conditions other than malignant neoplasm (2) Asthma, intermittent: Code(s): J45.20 - Mild intermittent asthma, uncomplicated Category: Medical Qualifiers: Asthma severity: mild Asthma complication type: with acute exacerbation Qualified Code(s): J45.21 - Mild intermittent asthma with (acute) exacerbation Plan . Orders: Orders XR chest 2V Today J45.21 - Mild intermittent asthma with (acute) exacerbation Vitamin B12 and Folate 2 Months Z00.00 - Encounter for general adult medical examination without abnormal findings TSH reflex Free T4 2 Months Z00.00 - Encounter for general adult medical examination without abnormal findings Vitamin D 25-OH Total 2 Months Z00.00 - Encounter for general adult medical examination without abnormal findings Comprehensive Met. Panel 2 Months Z00.00 - Encounter for general adult medical examination without abnormal findings Lipid Panel 2 Months Z00.00 - Encounter for general adult medical examination without abnormal findings Hemoglobin A1c 2 Months Z00.00 - Encounter for general adult medical examination without abnormal findings Microalbumin, Random (w Creat) 2 Months Z00.00 - Encounter for general adult medical examination without abnormal findings Medications: New azithromycin For 250 mg dose pack: take 500 mg today (day 1), then 250 mg for 4 days (days 2-5) PO 6 tabs 0RF 5 days Refilled budesonide-formoterol 80-4.5 mcg/actuation (Symbicort) 2 puffs inhalation BID 10.2 grams 2RF Spiriva Respimat 1.25 mcg/actuation (tiotropium bromide) 2 puffs inhalation BEDTIME 12.0 grams 2RF 90 days NS Discontinued benzonatate Discontinued Reason: Patient Completed Course 200 mg PO TID PRN 10 caps 0RF cough prednisone Discontinued Reason: Patient Completed Course 40 mg (2 x 20 mg) PO DAILY 8 tabs 0RF prednisone Discontinued Reason: Patient Completed Course 20 mg PO DAILY 3 tabs 0RF
[2025-09-27 09:24] VITALS: BP 110/74; PULSE 75; RESP 12; TEMP 36.5; O2SAT 97; BMI 48.5
--- OUTSIDE RECORDS SUMMARY | 2025-09-27 10:26 | XMS_ITS | Clinical Summary ---
Author Organization [employer] Address [address] [facility] [address] [place] [address] Care Team Providers Care Commercial Loan Analyst Name Role Phone Unavailable Primary Care [...] to complete this topic Insurance [facility] MEDICAID STAND ADULT
== END 2025-09-27 10:02 | disposition home or self-care (01) ==
LOC: HO.HMCFM 09:09
PROVIDERS: PCP Nurse Practitioner Family; Visit Provider Nurse Practitioner Family
DX: Z09 Encounter for follow-up examination after completed treatment for conditions other than malignant neoplasm (principal); J45.21 Mild intermittent asthma with (acute) exacerbation

== ENCOUNTER 2025-09-27 09:08 | Outpatient (REF) | payer OTHER, SELFPAY ==
--- NOTE | ~2025-09-27 | XR_ITS ---
EXAMINATION: XR CHEST CLINICAL INFORMATION: J45.21 - Mild intermittent asthma with (acute) exacerbation COMPARISON: September 05, 2025 TECHNIQUE: PA and lateral views FINDINGS: No consolidation, pleural effusion or pneumothorax. No hyperinflation. Cardiomediastinal silhouette size is normal. Mild S-shaped curvature of the thoracolumbar spine. Multilevel endplate sclerosis throughout the axial skeleton. Patient's large body habitus/obesity. XR/XR chest 2V IMPRESSION: No acute airspace disease. Mild scoliosis. Mild multilevel spondylosis. Electronically signed by: Ryley Voss MD 09/27/2025 10:43 AM EDT
== END 2025-09-27 09:09 | disposition home or self-care (01) ==
LOC: HO.XRAY 09:08
PROVIDERS: PCP Nurse Practitioner Family; Visit Provider Nurse Practitioner Family
DX: Z09 Encounter for follow-up examination after completed treatment for conditions other than malignant neoplasm (principal); J45.21 Mild intermittent asthma with (acute) exacerbation
CPT/HCPCS: 71046; 99212

== ENCOUNTER → 2025-09-27 10:22 | Outpatient (BNV) | payer OTHER, SELFPAY | PROVIDERS: PCP Nurse Practitioner Family; Visit Provider Radiology Diagnostic Radiology | DX: J45.21 Mild intermittent asthma with (acute) exacerbation (principal); M41.9 Scoliosis, unspecified; M47.9 Spondylosis, unspecified | CPT/HCPCS: 71046 ==

== ENCOUNTER 2025-10-06 09:19 | Outpatient (REF) | payer OTHER, SELFPAY ==
[2025-10-06 15:11] LABS: Resp Syncy Virus RNA Qual PCR NEGATIVE (Negative); SARS COV2 PCR INHOUSE NEGATIVE (Negative)
== END 2025-10-06 09:20 | disposition home or self-care (01) ==
LOC: HO.LNP 09:19
PROVIDERS: PCP Nurse Practitioner Family; Visit Provider Nurse Practitioner Family
DX: J02.0 Streptococcal pharyngitis (principal); Z79.899 Other long term (current) drug therapy; Z79.84 Long term (current) use of oral hypoglycemic drugs
CPT/HCPCS: 87637; 99212

== ENCOUNTER 2025-10-06 09:19 | Outpatient (AMB) | payer OTHER, SELFPAY ==
--- NOTE | 2025-10-06 09:23 | A.OFFPC_ITS ---
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 Is last menstrual period known: No Post menopausal: No Patient : No Allergies Seasonal Allergies Allergy (Intermediate, Verified 10/06/25 09:52) Itchy Eyes Medication List - Last Reconciled 10/06/25 by Lele Sepulveda CNP albuterol sulfate 2.5 mg (3 mL) inhalation Q4-6H PRN albuterol sulfate 2.5 mg (3 mL) inhalation Q4-6H PRN albuterol sulfate 90 mcg/actuation (Ventolin HFA) 2 puffs inhalation Q6H PRN atorvastatin 80 mg PO QPM azelastine (Astepro Allergy) 2 sprays intranasal DAILY blood pressure test kit-large As directed blood sugar diagnostic (FreeStyle Lite Strips) use daily As directed to check blood sugars for diabetes blood-glucose meter (FreeStyle Lite Meter kit) Use daily As directed to check blood glucose budesonide-formoterol 80-4.5 mcg/actuation (Symbicort) 2 puffs inhalation BID hydrochlorothiazide 12.5 mg PO QAM lancets (FreeStyle Lancets) Use daily As directed to check blood sugar lidocaine 5% 1 patch topical DAILY lisinopril 20 mg PO BID loratadine 10 mg PO DAILY 90 days metformin ER 500 mg PO DAILY metoprolol succinate ER 25 mg PO DAILY 3 months montelukast (Singulair) 10 mg PO BEDTIME nebulizers for acute asthma or reactions Spiriva Respimat 1.25 mcg/actuation (tiotropium bromide) 2 puffs inhalation BEDTIME 90 days NS Tobacco use date assessed: 10/06/25 Dental Screening Dental Screen Date: 10/06/25 Did you have a dental visit in the last 12 months?: No Did you have a dental problem in the last 6 months where you did not have access to dental care?: No Was dental information given to patient?: Patient has dentist HPI HPI Comments History of Present Illness Details 55-year-old female presents with complai nts of a bad sore throat with intensifies with swallowing. She has had chest congestion, nasal congestion with discharge, and productive cough with thick, yellow phlegm for the past 3 weeks - symptoms have significantly improved after course of azithromycin. She denies fever, chills, body aches, fatigue, or weakness. She denies sick contacts. She has been taking her medications as prescribed and uses Flonase twice a day. She usually follows Ksenia Kent. 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 (degenerative disc disease), thoracolumbar Lumbar spondylosis Temporomandibular joint disorder (TMJ) Pneumonia due to 2019 novel coronavirus Osteoarthritis of right knee Asthma Diabetes Elevated cholesterol History of COVID-19 Endometrial hyperplasia without atypia Obesity Anxiety PCOS (polycystic ovarian syndrome) Hypertension Surgical History History of dilatation and curettage History of cholecystectomy History of Family History (Updated 04/29/24 @ 10:20 by Emiliana Garcia CMA) Father Heart problem HTN (hypertension) Hypercholesteremia Cancer Mother Stroke Diabetes Asthma HTN (hypertension) Son Asthma Social History Housing: House Are you a primary acute care physical therapist to a significant other at home: No Do you presently have visiting nurse or other home services: No Alcohol intake: never Comment: cramping Patient Tobacco Use Status: Never used Tobacco e-Cigarette/Vaping Use: Never Used Second Hand Smoke Exposure: No Patient : No service: No Current occupational status: other 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 Current occupational exposures/hazards: No Sexual orientation: Straight/Heterosexual Gender identity: Female Cognitive needs: No Hearing needs: No Vision needs: No Female Reproductive History Menstrual Age of Menarche: 10 Questionnaire Thrive Questionnaire Date Thrive assessed: 12/23/24 I am a: Patient What is your living situation today?: I have a steady place to live Within the past 12 months, did the food you bought not last and you didn't have the money to get more?: Sometimes True Within the past 12 months, did you worry whether your food would run out before you got money to buy more?: Sometimes True Do you have trouble paying for medicines?: No Do you have trouble getting transportation to medical appointments?: No Do you have trouble paying your heating and electricity bill?: Yes Do you have trouble taking care of your child, family member or friend?: No Do you have trouble with day-to-day activities such as bathing, preparing meals, shopping, managing finances, etc.?: Yes Are you currently unemployed and looking for a job?: No Are you interested in more education?: No Please select the resources that you would like help with: Utilities Currently or been in a relationship where the following occur: No concerns reported THRIVE Score: 3 KSENIA-7 AMB Questionnaire KSENIA-7 Date KSENIA - 7 assessed: 09/27/25 Source: Developed by Drs. Joshua Ro, Lilibeth Tafoya, Shayne Streeter and colleagues, with an educational harpreet from [employer]. Review of Systems Const Details: Const Denies chills, Denies fatigue, Denies fever(s), Denies headache(s) and Denies weakness ENT Reports as per HPI Card Denies chest pain, Denies lightheadedness, Denies dyspnea and Denies other (Palpitations) Resp Reports ough, Denies dyspnea, Denies wheezing and Denies other ( shortness of breath) Skin/Breast Denies rash, Denies unusual bruising and Denies wounds Physical exam (Primary Care) Vital Signs: Last Vital Signs Temp 97.7 F 10/06/25 09:33 Pulse 70 10/06/25 09:33 Resp 16 10/06/25 09:33 BP 132/61 10/06/25 09:33 Pulse Ox 99 10/06/25 09:33 Oxygen Delivery Method Room Air 10/06/25 09:33 BMI result Body Mass Index 49.0 Tobacco/Smoking Status: Tobacco use Status Tobacco use date assessed 10/06/25 10/06/25 09:38 Patient Tobacco Use Status Never used Tobacco 10/06/25 09:24 e-Cigarette/Vaping Use Never Used 10/06/25 09:24 Thrive Assessment: Date of Thrive Assessment Date Thrive assessed 12/23/24 10/06/25 09:24 Currently or been in a relationship where the following occur: No concerns reported Const Other: General: no acute distress and well developed Nutritional Appearance: well nourished Orientation/consciousness: patient oriented x3 HENMT Head is normocephalic Bilateral ear canal and TM are normal Nasal turbinates with significant erythema and edema Hard and soft palate with petechiae, tonsils with slight erythema but edema, no yellow patches or exudates Sinuses are nontender with palpation No auricular or cervical lymphadenopathy Resp Effort & Inspection: normal respiratory effort Auscultation: clear to auscultation bilaterally Cardio Rate: regular rate Rhythm: regular rhythm Heart sounds: S1 normal heart sound present, S2 normal heart sound present, no gallops, no murmurs and no rubs Coding Level of Care Code Est Pt Level 4 (54947) Diagnoses Strep pharyngitis J02.0 Assessment & Plan Assessment & Plan (1) Strep pharyngitis: Code(s): J02.0 - Streptococcal pharyngitis Category: Medical Plan: Nasal turbinates with significant erythema and edema. Hard and soft palate with petechiae, tonsils with slight erythema but edema, no yellow patches or exudates. Amoxicillin 500 mg twice daily times 10 days ordered; advised to take as pres cribed, instructed on the risks, benefits, and potential adverse reactions of the medication. Fluconazole as ordered to prevent vaginal candidiasis. May take ibuprofen as needed for pain or discomfort. Continue current treatment regimen. Adequate hydration and rest encouraged. Nasal swab collected and will be sent to the lab for COVID/flu/RSV. Follow-up with worsening or new symptoms. Verbalized understanding and agreed with the plan. Orders: Orders SARS-CoV2/FLU/RSV Today J02.0 - Streptococcal pharyngitis Medications: New amoxicillin 500 mg PO BID 20 tabs 0RF 10 days fluconazole may repeat second dose 72 hrs after first dose if symptoms persist 150 mg PO Q3D 2 tabs 0RF 2 doses
[2025-10-06 09:33] VITALS: BP 132/61; PULSE 70; RESP 16; TEMP 36.5; O2SAT 99; BMI 49.0
--- OUTSIDE RECORDS SUMMARY | 2025-10-06 10:32 | XMS_ITS | Clinical Summary ---
Author Organization [employer] Address [address] [place] [address] Care Team Providers Care Factory Hand Name Role Phone Unavailable Primary Care Provider [...] to complete this topic Insurance [facility] MEDICAID STAND ADULT
== END 2025-10-06 10:05 | disposition home or self-care (01) ==
LOC: HO.HMCFM 09:20
PROVIDERS: PCP Nurse Practitioner Family; Visit Provider Nurse Practitioner Family
DX: J02.0 Streptococcal pharyngitis (principal)